=== PATIENT | female | born 1935 | race Caucasian/White ===

== ENCOUNTER 2016-06-23 13:07 | Emergency (ER) | payer MEDICARE ==
[~2016-06-23] VITALS: Ht 180.3 cm; Wt 82.1 kg
[~2016-06-23 13:07] MED LIST: ALPR.25 PO; CITA10TA4 PO; DILT120T PO; HYDR-2374 PO; MULT-135 PO; ROPI.5 PO; SPIR25TA PO; SYMB80AE INH; XARE20TA PO
[2016-06-23 13:17] VITALS: BP 116/60; PULSE 90; RESP 16; TEMP 97.6; O2SAT 96
[2016-06-23] MEDS ORDERED: TETANUS/DIPHTHERIA TOXOID ADULT 0.5 ML VIAL IM ONE (13:30)
--- NOTE | 2016-06-23 13:44 | PD ---
HPI Chief Complaint: Laceration/Skin Injury Time Seen by Provider: 13:29 Travel History International Travel<30 days: No Contact w/Intl Traveler<30days: No Traveled to known affect area: No History of Present Illness HPI Patient is a 81-year-old female presented to the emergency for evaluation of a laceration to her left second finger. Patient cut her finger on a knife yesterday. She denies any numbness or tingling in her extremity, she denies any weakness. She is uncertain of when her last tetanus vaccine was. Patient states it's "gushing blood". She denies any significant pain. 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) Headaches: No Hepatitis: No Hiatal Hernia: No Hypertension: No Immune Disorder: No Kidney Stones: No Musculoskeletal: Yes (sciatica) Neurologic: No Psychiatric: No Reproductive: Yes (HYSTERECTOMY) Respiratory: Yes (COPD) Migraines: No Radiation Therapy: Yes (LAST TX 02/24/15) Renal Failure: No Seizures: No Sickle Cell Disease: No Sleep Apnea: No Thyroid Disease: No Ulcer: No Menopausal: Yes : 3 Para: 3 Past Surgical History Abdominal Surgery: Yes (APPENDECTOMY, cholecystectomy) AICD: No Appendectomy: Yes Arteriovenous Shunt: No Cardiac Surgery: No Cholecystectomy: Yes Ear Surgery: No Endocrine Surgery: No Eye Surgery: Yes (CATARACTS BILAT) Genitourinary Surgery: No Gynecologic Surgery: Yes Hysterectomy: Yes Insulin Pump: No Joint Replacement: Yes (BILAT KNEES AND HIPS) Neurologic Surgery: No Oral Surgery: No Pacemaker: No Thoracic Surgery: Yes (LEFT LOBECTOMY) Other Surgery: Yes Social History Alcohol Use: No (RECOVERING ALCOHOLIC (1987)) Tobacco Use: No (QUIT IN 1988) Substance Use: No Allergies-Medications (Allergen,Severity, Reaction): Coded Allergies: Aspirin (Verified Allergy, Severe, PT HAS BEEN TAKEN ASACOL AT HOME, ) Cipro (Verified Allergy, Severe, DIARRHEA, 06/23/16) Erythromycin (Verified Allergy, Severe, NAUSEA, 06/23/16) Keflex (Verified Allergy, Severe, DIARRHEA, 06/23/16) Levaquin (Verified Allergy, Severe, DIARRHEA, 06/23/16) Nonsteroidal Anti-Inflammatory Agts (Verified Allergy, Severe, Nausea/ Vomiting, 06/23/16) Clindamycin (Verified Allergy, Unknown, Diarrhea, 06/23/16) Penicillin (Verified Adverse Reaction, Mild, Itching, 06/23/16) Uncoded Allergies: Adhesive tape (Allergy, Intermediate, 12/19/15) . LACTOSE INTOLERANCE (Allergy, Intermediate, 12/19/15) . Reported Meds & Prescriptions Reported Meds & Active Scripts Active Reported Diltiazem (Diltiazem HCl) 120 Mg Tab 240 Mg PO DAILY Xarelto (Rivaroxaban) 20 Mg Tab 20 Mg PO DAILY Citalopram (Citalopram Hydrobromide) 10 Mg Tab 10 Mg PO DAILY Multi Vitamin (Multiple Vitamin) 1 Tab Tab 1 Tab PO DAILY Hydrocodone-Acetaminophen 10-300 Tab 1 Tab PO TID PRN Requip (Ropinirole HCl) 0.5 Mg Tab 0.5 Mg PO HS Symbicort Inh (Budesonide/Formoterol Fumarate) 80-4.5 Mcg/Act Aero 2 Puff INH Q12HR Xanax (Alprazolam) 0.25 Mg Tab 0.25 Mg PO BID PRN Spironolactone 25 Mg Tab 25 Mg PO DAILY Review of Systems Except as stated in HPI: all other systems reviewed are Neg Skin: Positive Other (laceration) Physical Exam Narrative GENERAL: Well-nourished, well-developed patient. SKIN: Focused skin assessment warm/dry. 4 mm very superficial laceration to left second finger on the palmar aspect at the DIP joint. HEAD: Normocephalic. EYES: No scleral icterus. No injection or drainage. NECK: Supple, trachea midline. No JVD or lymphadenopathy. CARDIOVASCULAR: Regular rate and rhythm without murmurs, gallops, or rubs. RESPIRATORY: Breath sounds equal bilaterally. No accessory muscle use. GASTROINTESTINAL: Abdomen soft, non-tender, nondistended. MUSCULOSKELETAL: No cyanosis, or edema. BACK: Nontender without obvious deformity. No CVA tenderness. Data Data Last Documented VS Vital Signs Date Time Temp Pulse Resp B/P Pulse Ox O2 Delivery O2 Flow Rate FiO2 06/23/16 13:17 97.6 90 16 116/60 96 Orders Wound Care (06/23/16 13:27) Splint Or Brace Apply/Monitor (06/23/16 13:27) Tetanus/Diphtheria Tox Adult (Tetanus/Di (06/23/16 13:30) MDM Medical Decision Making Medical Screen Exam Complete: Yes Emergency Medical Condition: Yes Interpretation(s) Vital Signs Date Time Temp Pulse Resp B/P Pulse Ox O2 Delivery O2 Flow Rate FiO2 06/23/16 13:17 97.6 90 16 116/60 96 Differential Diagnosis Laceration versus abrasion versus tendon injury versus other Narrative Course Patient is a 81-year-old female presenting to the emergency for evaluation of a laceration to her left second finger that occurred last night due to a kitchen knife. Patient is neurovascularly intact, the wound is extremely superficial. There is no active bleeding noted at this time. Patient will be provided with wound care, a Steri-Strip will be applied and patient will be placed in a finger splint. Patient's tetanus vaccine will be updated today. She is encouraged to keep wound clean and dry, keep finger splint on to allow wound to heal. She is encouraged to return to emergency department for any new or worsening symptoms. Patient verbalized understanding of these instructions. Patient is stable for discharge. Diagnosis Primary Impression: Superficial laceration Additional Impressions: Need for vaccine for TD (tetanus-diphtheria) Encounter for administration of vaccine Referrals: Primary Care Physician Patient Instructions: Finger Laceration (ED), General Instructions Additional Instructions: Keep wound clean and dry Keep finger splint on to allow healing. You may remove while showering Follow-up with your primary doctor Return to emergency department for any new or worsening symptoms Med/Other Pt SpecificInfo: No Change to Meds Disposition: 01 DISCHARGE HOME Condition: Stable Ricco,Maris CRYSTAL Jun 23, 2016 13:44
[2016-06-23] MEDS ORDERED: FURO20TA PO (14:14)
[2016-06-23] MEDS ORDERED: CYCL1TAB29 PO (14:14)
[2016-06-23] MEDS ORDERED: TAZT180C PO (14:14)
[2016-06-23] MEDS ORDERED: DIGO1TAB59 PO (14:14)
[2016-06-23] MEDS ORDERED: ATEN25TA PO (14:14)
[2016-06-23] MEDS ORDERED: ALEN1TAB48 PO (14:14)
[2016-06-23] MEDS ORDERED: APIX5TAB PO (14:14)
== END 2016-06-23 14:27 | disposition home or self-care (01) ==
LOC: PHEFT 13:07
DX: S60.411A Abrasion of left index finger, initial encounter (principal); I47.1 Supraventricular tachycardia; E78.00 Pure hypercholesterolemia, unspecified; J44.9 Chronic obstructive pulmonary disease, unspecified; Z87.891 Personal history of nicotine dependence; Z23 Encounter for immunization; W26.0XXA Contact with knife, initial encounter; Y93.9 Activity, unspecified; Y92.9 Unspecified place or not applicable; Y99.8 Other external cause status
CPT/HCPCS: 29130; 90471; 90714

== ENCOUNTER 2016-07-28 12:16 | Emergency (ER) | payer MEDICARE ==
[~2016-07-28] VITALS: Ht 175.3 cm; Wt 81.0 kg
[~2016-07-28 12:16] MED LIST changes: +ALEN1TAB48 PO; +APIX5TAB PO; +ATEN25TA PO; +CYCL1TAB29 PO; +DIGO1TAB59 PO; -DILT120T PO; +FURO20TA PO; +TAZT180C PO; -XARE20TA PO
[2016-07-28 12:24] VITALS: BP 156/82; PULSE 98; RESP 16; TEMP 97.5; O2SAT 92
[2016-07-28] MEDS ORDERED: LIDOCAINE 1%/EPINEPHrine 1:100,000 SOLN 20 ML VIAL INFIL ONE (12:45)
--- NOTE | 2016-07-28 12:49 | PD ---
HPI Chief Complaint: Fall Time Seen by Provider: 12:29 Travel History International Travel<30 days: No Contact w/Intl Traveler<30days: No Traveled to known affect area: No History of Present Illness HPI This 81-year-old female had a fall at home. She landed on her knees. She did not have a loss of consciousness. She has some pain in both of her knees. She has had bilateral knee replacements. She also sustained a laceration on the left knee. She has no other complaints. She is on Xarelto. 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) Headaches: No Hepatitis: No Hiatal Hernia: No Hypertension: No Immune Disorder: No Kidney Stones: No Musculoskeletal: Yes (sciatica) Neurologic: No Psychiatric: No Reproductive: Yes (HYSTERECTOMY) Respiratory: Yes (COPD) Migraines: No Radiation Therapy: Yes (LAST TX 02/24/15) Renal Failure: No Seizures: No Sickle Cell Disease: No Sleep Apnea: No Thyroid Disease: No Ulcer: No ?: Not Menopausal: Yes : 3 Para: 3 Past Surgical History Abdominal Surgery: Yes (APPENDECTOMY, cholecystectomy) AICD: No Appendectomy: Yes Arteriovenous Shunt: No Cardiac Surgery: No Cholecystectomy: Yes Ear Surgery: No Endocrine Surgery: No Eye Surgery: Yes (CATARACTS BILAT) Genitourinary Surgery: No Gynecologic Surgery: Yes Hysterectomy: Yes Insulin Pump: No Joint Replacement: Yes (BILAT KNEES AND HIPS) Neurologic Surgery: No Oral Surgery: No Pacemaker: No Thoracic Surgery: Yes (LEFT LOBECTOMY) Other Surgery: Yes Social History Alcohol Use: No (RECOVERING ALCOHOLIC (1987)) Tobacco Use: No (QUIT IN 1988) Substance Use: No Allergies-Medications (Allergen,Severity, Reaction): Coded Allergies: Aspirin (Verified Allergy, Severe, PT HAS BEEN TAKEN ASACOL AT HOME, ) Cipro (Verified Allergy, Severe, DIARRHEA, 07/28/16) Erythromycin (Verified Allergy, Severe, NAUSEA, 07/28/16) Keflex (Verified Allergy, Severe, DIARRHEA, 07/28/16) Levaquin (Verified Allergy, Severe, DIARRHEA, 07/28/16) Nonsteroidal Anti-Inflammatory Agts (Verified Allergy, Severe, Nausea/ Vomiting, 07/28/16) Clindamycin (Verified Allergy, Unknown, Diarrhea, 07/28/16) Penicillin (Verified Adverse Reaction, Mild, Itching, 07/28/16) Uncoded Allergies: Adhesive tape (Allergy, Intermediate, 12/19/15) . LACTOSE INTOLERANCE (Allergy, Intermediate, 12/19/15) . Reported Meds & Prescriptions Reported Meds & Active Scripts Active Reported Flexeril (Cyclobenzaprine HCl) 10 Mg Tab 10 Mg PO TID PRN Alendronate (Alendronate Sodium) 70 Mg Tab 70 Mg PO Q7D Digitek (Digoxin) 0.125 Mg Tab 0.125 Mg PO EVERY OTHER DAY Eliquis (Apixaban) 5 Mg Tab 5 Mg PO BID Furosemide 20 Mg Tab 20 Mg PO DAILY Taztia Xt (Diltiazem ER 24 HR) 180 Mg Caper 180 Mg PO BID Atenolol 25 Mg Tab 25 Mg PO DAILY Citalopram (Citalopram Hydrobromide) 10 Mg Tab 20 Mg PO DAILY Hydrocodone-Acetaminophen 10-300 Tab 1 Tab PO QID PRN Requip (Ropinirole HCl) 0.5 Mg Tab 0.5 Mg PO HS Symbicort Inh (Budesonide/Formoterol Fumarate) 80-4.5 Mcg/Act Aero 2 Puff INH Q12HR Xanax (Alprazolam) 0.25 Mg Tab 0.25 Mg PO BID PRN Spironolactone 25 Mg Tab 25 Mg PO BID Review of Systems General / Constitutional: No: Fever, Chills Eyes: No: Diploplia, Blurred Vision HENT: No: Headaches Respiratory: No: Cough Gastrointestinal: No: Nausea, Vomiting Genitourinary: No: Frequency, Dysuria Endocrine: No: Heat Intolerance, Cold Intolerance Hematologic/Lymphatic: Positive: Easy Bruising Physical Exam Narrative GENERAL: Well-developed female SKIN: Focused skin assessment warm/dry. HEAD: Atraumatic. Normocephalic. EYES: Pupils equal and round. No scleral icterus. No injection or drainage. ENT: No nasal bleeding or discharge. Mucous membranes pink and moist. NECK: Trachea midline. No JVD. . MUSCULOSKELETAL: No obvious deformities. No clubbing. No cyanosis. No edema. There is some ecchymosis of the left knee. She is able to flex and extend the knee. Right knee has a laceration of the anterior portion which is about 8 cm in length. She is able to flex and extend the knee. She was able to bear weight and was able to walk to the bathroom with the use of a walker so I don't think x-rays are warranted NEUROLOGICAL: Awake and alert. No obvious cranial nerve deficits. Motor grossly within normal limits. Normal speech. PSYCHIATRIC: Appropriate mood and affect; insight and judgment normal. Data Data Last Documented VS Vital Signs Date Time Temp Pulse Resp B/P Pulse Ox O2 Delivery O2 Flow Rate FiO2 07/28/16 12:24 97.5 98 16 156/82 92 Orders Lidocai-Epi 1%-1:100,000 Inj (Xylocaine- (07/28/16 12:45) MDM Medical Decision Making Medical Screen Exam Complete: Yes Emergency Medical Condition: Yes Medical Record Reviewed: Yes Differential Diagnosis Differential includes laceration left knee, contusions Narrative Course Laceration of the knee has been sutured. Patient is stable for discharge Diagnosis Primary Impression: Laceration of left knee Qualified Code: S81.012A - Laceration of left knee, initial encounter Additional Impressions: Contusion of knee, right Contusion of knee, left Disposition: 01 DISCHARGE HOME Condition: Stable Carlos Bales MD July 28, 2016 12:49
--- NOTE | 2016-07-28 13:53 | PD ---
Physical Exam Time Seen by Provider: 13:40 Narrative I was asked by Dr. Montes to repair laceration location. Please see his note for further details. Data Data Last Documented VS Vital Signs Date Time Temp Pulse Resp B/P Pulse Ox O2 Delivery O2 Flow Rate FiO2 07/28/16 12:24 97.5 98 16 156/82 92 Orders Lidocai-Epi 1%-1:100,000 Inj (Xylocaine- (07/28/16 12:45) MDM Medical Record Reviewed: Yes Supervised Visit with SANA: Yes Procedures Procedure Narrative LACERATION LOCATION: Left knee LENGTH: 10 cm NUMBER OF STITCHES/CEM: 13 REPAIR: The area of the laceration was prepped with Betadine and sterilely draped. The laceration was infiltrated with 1% lidocaine with epinephrine. The wound was copiously irrigated and explored without evidence of foreign body , tendon injury or neurovascular injury. The wound was closed using 4-0 Prolene. This was a single layer repair. A sterile dressing was applied. The patient was advised to keep the dressing clean and dry. Patient tolerated the procedure well. Diagnosis Primary Impression: Laceration of left knee Qualified Code: S81.012A - Laceration of left knee, initial encounter Additional Impressions: Contusion of knee, left Contusion of knee, right Referrals: Mitchell Cardona MD (PCP) Patient Instructions: General Instructions Departure Forms: Tests/Procedures Disposition: 01 DISCHARGE HOME Condition: Stable Jocelyn Jarvis July 28, 2016 13:53
== END 2016-07-28 14:15 | disposition home or self-care (01) ==
LOC: PHED 12:16
DX: S81.012A Laceration without foreign body, left knee, initial encounter (principal); S80.02XA Contusion of left knee, initial encounter; S80.01XA Contusion of right knee, initial encounter; M19.90 Unspecified osteoarthritis, unspecified site; I48.91 Unspecified atrial fibrillation; I50.9 Heart failure, unspecified; J44.9 Chronic obstructive pulmonary disease, unspecified; W19.XXXA Unspecified fall, initial encounter; Y92.009 Unspecified place in unspecified non-institutional (private) residence as the place of occurrence of the external cause
CPT/HCPCS: 12004

== ENCOUNTER 2016-08-14 13:39 | Inpatient (IN) | payer MEDICARE ==
[~2016-08-14] VITALS: Ht 175.3 cm; Wt 78.4 kg
[2016-08-14] VITALS (7 sets, daily range): BP systolic 106–130; BP diastolic 46–73; PULSE 74–89; RESP 17–20; TEMP 96–97.4; O2SAT 88–98
[~2016-08-14 13:39] MED LIST changes: -MULT-135 PO
[2016-08-14] MEDS ORDERED: VANCOMYCIN INJ 1,000 MG in SODIUM CHLOR 0.9% 250 ML INJ 250 ML IV ONE (14:30)
[2016-08-14] MEDS ORDERED: FUROSEMIDE 40 MG/4 ML VIAL IV PUSH ONE (14:30)
--- NOTE | 2016-08-14 14:32 | PD ---
HPI Chief Complaint: Edema Time Seen by Provider: 14:20 Travel History International Travel<30 days: No Contact w/Intl Traveler<30days: No Traveled to known affect area: No History of Present Illness HPI 81 year-old woman, multiple medical problems, presents to the emergency department with lower leg swelling, pain, redness, and weight gain. Patient was seen July 28 for laceration left knee after she fell. She's been following up with Dr. Cardona, her primary doctor. Since that time said worsening swelling of both legs, and weight gain. Over the past couple days she started to develop pain redness swelling and erythema on the left leg. She' s been compliant with her spironolactone and Lasix. Despite this she's had worsening edema. She was sent to the emergency department today from Dr. Cardona's office. History Past Medical History Narrative Medical Anxiety CAD A. fib, on the digoxin, Eliquis CHF, on Lasix 20 mg daily, spironolactone 25 mg twice daily Chronic pain COPD Diverticulosis Iron deficiency anemia Monoclonal gammopathy of undetermined significance Obesity RLS Influenza Vaccination: Yes Menopausal: Yes : 3 Para: 3 Social History Alcohol Use: No Tobacco Use: No Allergies-Medications (Allergen,Severity, Reaction): Coded Allergies: Aspirin (Verified Allergy, Severe, PT HAS BEEN TAKEN ASACOL AT HOME, ) Cipro (Verified Allergy, Severe, DIARRHEA, 08/14/16) Erythromycin (Verified Allergy, Severe, NAUSEA, 08/14/16) Keflex (Verified Allergy, Severe, DIARRHEA, 08/14/16) Levaquin (Verified Allergy, Severe, DIARRHEA, 08/14/16) Nonsteroidal Anti-Inflammatory Agts (Verified Allergy, Severe, Nausea/ Vomiting, 08/14/16) Clindamycin (Verified Allergy, Unknown, Diarrhea, 08/14/16) Penicillin (Verified Adverse Reaction, Mild, Itching, 08/14/16) Uncoded Allergies: Adhesive tape (Allergy, Intermediate, 12/19/15) . LACTOSE INTOLERANCE (Allergy, Intermediate, 12/19/15) . Reported Meds & Prescriptions Reported Meds & Active Scripts Active Reported Flexeril (Cyclobenzaprine HCl) 10 Mg Tab 10 Mg PO TID PRN Alendronate (Alendronate Sodium) 70 Mg Tab 70 Mg PO Q7D Digitek (Digoxin) 0.125 Mg Tab 0.125 Mg PO EVERY OTHER DAY Eliquis (Apixaban) 5 Mg Tab 5 Mg PO BID Furosemide 20 Mg Tab 20 Mg PO DAILY Taztia Xt (Diltiazem ER 24 HR) 180 Mg Caper 180 Mg PO BID Atenolol 25 Mg Tab 25 Mg PO DAILY Citalopram (Citalopram Hydrobromide) 10 Mg Tab 20 Mg PO DAILY Hydrocodone-Acetaminophen 10-300 Tab 1 Tab PO QID PRN Requip (Ropinirole HCl) 0.5 Mg Tab 0.5 Mg PO HS Symbicort Inh (Budesonide/Formoterol Fumarate) 80-4.5 Mcg/Act Aero 2 Puff INH Q12HR Xanax (Alprazolam) 0.25 Mg Tab 0.25 Mg PO BID PRN Spironolactone 25 Mg Tab 25 Mg PO BID Review of Systems Except as stated in HPI: all other systems reviewed are Neg Physical Exam Narrative GENERAL: Obese 81 year-old woman, no acute distress. SKIN: Focused skin assessment warm/dry. CARDIOVASCULAR: Regular rate and rhythm. No murmur appreciated. RESPIRATORY: No respiratory distress. Lungs are clear. No Rales. GASTROINTESTINAL: Abdomen soft, non-tender, nondistended. Hepatic and splenic margins not palpable. MUSCULOSKELETAL: No obvious deformities. Marked pitting edema both lower extremities. Left lower extremity has erythema redness with some ecchymosis on the medial ankle. NEUROLOGICAL: Awake and alert. No obvious cranial nerve deficits. Motor grossly within normal limits. Normal speech. PSYCHIATRIC: Appropriate mood and affect; insight and judgment normal. Data Data Last Documented VS Vital Signs Date Time Temp Pulse Resp B/P Pulse Ox O2 Delivery O2 Flow Rate FiO2 08/14/16 16:49 89 18 112/64 94 Room Air 08/14/16 14:23 2 08/14/16 13:51 97.4 Orders Complete Blood Count With Diff (08/14/16 14:26) Comprehensive Metabolic Panel (08/14/16 14:26) Iv Access Insert/Monitor (08/14/16 14:26) Act Partial Throm Time (Ptt) (08/14/16 14:26) Prothrombin Time / Inr (Pt) (08/14/16 14:26) Chest, Single Ap (08/14/16 ) Us Leg Venous Doppler Bilat (08/14/16 ) Furosemide Inj (Lasix Inj) (08/14/16 14:30) Vancomycin Inj (Vancomycin Inj) (08/14/16 14:30) Labs Laboratory Tests Test 08/14/16 14:39 White Blood Count 7.3 TH/MM3 Red Blood Count 3.98 MIL/MM3 Hemoglobin 12.6 GM/DL Hematocrit 38.4 % Mean Corpuscular Volume 96.4 FL Mean Corpuscular Hemoglobin 31.7 PG Mean Corpuscular Hemoglobin 32.9 % Concent Red Cell Distribution Width 14.2 % Platelet Count 254 TH/MM3 Mean Platelet Volume 7.8 FL Neutrophils (%) (Auto) 70.6 % Lymphocytes (%) (Auto) 20.9 % Monocytes (%) (Auto) 6.2 % Eosinophils (%) (Auto) 1.6 % Basophils (%) (Auto) 0.7 % Neutrophils # (Auto) 5.1 TH/MM3 Lymphocytes # (Auto) 1.5 TH/MM3 Monocytes # (Auto) 0.5 TH/MM3 Eosinophils # (Auto) 0.1 TH/MM3 Basophils # (Auto) 0.1 TH/MM3 CBC Comment DIFF FINAL Differential Comment Prothrombin Time 10.9 SEC Prothromb Time International 1.0 RATIO Ratio Activated Partial 25.5 SEC Thromboplast Time Sodium Level 142 MEQ/L Potassium Level 3.7 MEQ/L Chloride Level 105 MEQ/L Carbon Dioxide Level 31.4 MEQ/L Anion Gap 6 MEQ/L Blood Urea Nitrogen 9 MG/DL Creatinine 0.61 MG/DL Estimat Glomerular Filtration 95 ML/MIN Rate Random Glucose 89 MG/DL Calcium Level 9.1 MG/DL Total Bilirubin 0.4 MG/DL Aspartate Amino Transf 33 U/L (AST/SGOT) Alanine Aminotransferase 75 U/L (ALT/SGPT) Alkaline Phosphatase 69 U/L Total Protein 6.8 GM/DL Albumin 3.3 GM/DL [facility] Medical Decision Making Medical Screen Exam Complete: Yes Emergency Medical Condition: Yes Differential Diagnosis CHF, volume overload, DVT, cellulitis, other Narrative Course Medical decision making 81-year-old woman presents to the emergency department with lower extremity swelling and edema. Edema appears symmetric but she has clear left leg redness erythema and ecchymosis suggestive of infection. She does have a fall with left knee injury and laceration. Should be a risk for DVT. This is likely volume overload with some left lower extremity cellulitis. We'll give diuretics , antibiotics, check labs, admission. Vu Bal MD Aug 14, 2016 14:32
[2016-08-14 15:01] LABS: AUTOMATED NEUTROPHIL # 5.1 TH/MM3 (1.8-7.7); BASOPHIL # 0.1 TH/MM3 (0-0.2); BASOPHIL % 0.7 % (0.0-2.0); EOSINOPHIL # 0.1 TH/MM3 (0-0.4); EOSINOPHIL % 1.6 % (0.0-4.0); HEMATOCRIT 38.4 % (35.0-46.0); HEMO FLAGS DIFF FINAL; LYMPH % 20.9 % (9.0-44.0); LYMPHOCYTE # 1.5 TH/MM3 (1.0-4.8); MEAN CELL VOLUME 96.4 FL (80.0-100.0); MEAN CORPUSCULAR HEMOGLOBIN 31.7 PG (27.0-34.0); MEAN CORPUSCULAR HGB CONC 32.9 % (32.0-36.0); MONO % 6.2 % (0.0-8.0); NEUT % 70.6 % (16.0-70.0); PLATELET COUNT 254 TH/MM3 (150-450); RED BLOOD COUNT 3.98 MIL/MM3 (4.00-5.30); RED CELL DISTRIBUTION WIDTH 14.2 % (11.6-17.2); WHITE BLOOD COUNT 7.3 TH/MM3 (4.0-11.0)
[2016-08-14 15:08] LABS: CHLORIDE 105 MEQ/L (98-107); POTASSIUM 3.7 MEQ/L (3.5-5.1); SODIUM (NA) 142 MEQ/L (136-145)
[2016-08-14 15:12] LABS: ANION GAP 6 MEQ/L (5-15); BICARBONATE 31.4 MEQ/L (21.0-32.0); BLOOD UREA NITROGEN 9 MG/DL (7-18)
[2016-08-14 15:13] LABS: APTT (PATIENT) 25.5 SEC (24.3-30.1); PROTHROMBIN TIME - PATIENT 10.9 SEC (9.8-11.6)
[2016-08-14 15:15] LABS: ALT (GPT) 75 U/L (10-53); AST (GOT) 33 U/L (15-37); GLOMERULAR FILTRATION RATE 95 ML/MIN (>89)
[2016-08-14 15:16] LABS: TOTAL BILIRUBIN ADULT 0.4 MG/DL (0.2-1.0)
[2016-08-14 15:17] LABS: ALKALINE PHOSPHATASE 69 U/L (45-117)
--- NOTE | 2016-08-14 15:20 | RADHPO ---
EXAM DATE/TIME: 08/14/2016 14:47 [facility] COMPARISON: CHEST SINGLE AP, December 19, 2015, 8:25. INDICATIONS : Short of breath MEDICAL HISTORY : Congestive heart failure. Hypercholesterolemia. A-fib SURGICAL HISTORY : None. ENCOUNTER: Initial ACUITY: 1 day PAIN SCORE: 0/10 LOCATION: Bilateral chest FINDINGS: Heart is enlarged. Mild interstitial edema is present. Minimal consolidation is seen laterally in t he right lung. Degenerative changes are seen about both shoulders. CONCLUSION: 1. Cardiomegaly with mild congestive failure. 2. Minimal consolidative changes laterally in the right lung, stable in the interval. Julian Jackson MD FACR on August 14, 2016 at 15:17 Board Certified Radiologist. This report was verified electronically.
--- NOTE | 2016-08-14 16:24 | RADHPO ---
EXAM DATE/TIME: 08/14/2016 15:06 [facility] COMPARISON: US LEG BILATERAL VENOUS DOPPLER, March 24, 2014, 14:13. INDICATIONS : Bilateral leg edema. MEDICAL HISTORY : Congestive heart failure. Carcinoma, lung. Inflammatory bowel disease. Syncope. Afib. SVT. COPD. Dysp aditya. Colitis. Arthritis. Osteoporosis. Osteoarthritis. Sciatica. Depression. Anxiety. Anticoagulant therapy, Eliquis. MRSA. SURGICAL HISTORY : Appendectomy.Cholecystectomy. Hysterectomy.Bilateral cataract extraction. Left lobectomy. Right shoul annamaria. Bilateral knees and hips replacement. Cancer cyst removed from bladder. Radiation therapy. Blood transfusions. ENCOUNTER: Initial ACUITY: 2 day PAIN SCORE: 7/10 LOCATION: Bilateral leg. TECHNIQUE: Venous ultrasound of the left and right leg was performed from the inguinal ligament to the proximal calf. Real-time, color Doppler and spectral tracing, compression and augmentation techniques were us ed. FINDINGS: Limited evaluation of the posterior tibial veins due to significant lower extremity edema. RIGHT LEG: There is normal compressibility of the deep venous system from the inguinal region to the proximal ca lf. No echogenic clot is seen in the lumen of the common femoral, femoral, popliteal, and posterior tibial veins. There is a normal response of the venous system to proximal and distal augmentation an d respiration. LEFT LEG: There is normal compressibility of the deep venous system from the inguinal region to the proximal ca lf. No echogenic clot is seen in the lumen of the common femoral, femoral, popliteal, and posterior tibial veins. There is a normal response of the venous system to proximal and distal augmentation an d respiration. CONCLUSION: 1. Limited evaluation of the posterior tibial veins bilaterally due to 2 significant edema. 2. Otherwise, no sonographic evidence for lower extremity DVT. Carlos Mejía MD on August 14, 2016 at 16:20 Board Certified Radiologist. This report was verified electronically.
[2016-08-14] MEDS ORDERED: ALPRAZolam 0.25 MG TAB PO PRN (17:45)
[2016-08-14] MEDS ORDERED: HEPARIN SODIUM - SQ 10,000 UNITS/ML VIAL SQ SCH (17:45)
[2016-08-14] MEDS ORDERED: SODIUM CHLORIDE 0.9% FLUSH 10 ML FLUSH IV FLUSH PRN (17:45)
[2016-08-14] MEDS ORDERED: BISACODYL 10 MG SUPP RECTAL PRN (17:45)
[2016-08-14] MEDS ORDERED: LACTULOSE SYRUP 20 GM/30 ML CUP PO PRN (17:45)
[2016-08-14] MEDS ORDERED: MAGNESIUM HYDROXIDE SUSP 30 ML CUP PO PRN (17:45)
[2016-08-14] MEDS ORDERED: NALOXONE HCL 0.4 MG/ML AMP IV PRN (17:45)
[2016-08-14] MEDS ORDERED: SENNOSIDES 8.6 MG TAB PO PRN (17:45)
--- NOTE | 2016-08-14 17:48 | HHI.HP ---
[facility] Mitchell Cardona MD Admission Diagnosis edema, cellulitis Diagnoses: (1) Bilateral lower extremity edema Diagnosis: Principal (2) Cellulitis of left lower extremity Diagnosis: Principal Chief Complaint: Sent here by her primary medical doctor Travel History International Travel<30 Days: No Contact w/Intl Traveler <30 Da: No Traveled to Known Affected Are: No History of Present Illness Written by Mp Herbert, acting as scribe for Dr. Garcia on 08/14/16 at 17: 33. 81-year-old female with known history of hypertension, supraventricular tachycardia, chronic obstructive pulmonary disease who presented to hospital at the request of her primary medical doctor because of bilateral lower extremity edema, left lower extremities cellulitis. Patient indicates that her symptoms started on Jul 28 2016 when she fell down and hit her knee. At that time she came to the emergency department and had a laceration of her knee repaired. Since then the patient is had increased swelling in her lower extremities and developing redness located over the medial aspect of her left lower extremity. The patient was told by the ER physician that she could follow-up in the ER or go to her regular medical doctor 's office for removal of sutures. The patient indicates that she went to her primary doctor's office for suture removal and because of her lower extremity edema and redness of the left lower extremity she was sent to the ER for evaluation. Patient had lower extremity ultrasound performed which showed significant edema but no evidence of any DVTs. Chest x-ray showed some cardiomegaly with mild congestive failure. Because of the patient's lower extremity edema, cellulitis of left lower extremity is recommended by the ER physician that patient be admitted for further evaluation and management. Patient denies any chest pain, shortness of breath, dyspnea, dyspnea on exertion , abdominal pain, nausea, vomiting, diarrhea, fever, chills. Review of Systems Constitutional: DENIES: Diaphoretic episodes, Fatigue, Fever, Weight gain, Weight loss, Chills, Dizziness, Change in appetite, Night Sweats Eyes: DENIES: Blurred vision, Diplopia, Eye inflammation, Eye pain, Vision loss , Double Vision Ears, nose, mouth, throat: DENIES: Hearing loss, Nasal discharge, Throat pain, Ear Pain, Running Nose, Sinus Pain, Odynophagia Respiratory: DENIES: Apneas, Cough, Snoring, Wheezing, Hemoptysis, Sputum production, Shortness of breath Cardiovascular: COMPLAINS OF: Lower Extremity Edema, DENIES: Chest pain, Palpitations, Syncope, Dyspnea on Exertion, Orthopnea Gastrointestinal: DENIES: Abdominal pain, Black stools, Bloody stools, Constipation, Diarrhea, Nausea, Vomiting, Difficulty Swallowing, Anorexia Neurologic: DENIES: Abnormal gait, Headache, Localized weakness, Paresthesias, Seizures, Speech Problems, Tremor, Poor Balance Past Family Social History Past Medical History Hypertension Supraventricular tachycardia Chronic obstructive pulmonary disease Restless leg syndrome History of lung cancer Past Surgical History Cataract surgery Tonsillectomy Left lung lobectomy Bilateral knee replacement Bilateral hip replacement Hysterectomy Appendectomy Cholecystectomy Cyst removed from her back Right shoulder surgery Reported Medications Reported Meds & Active Scripts Active Reported Flexeril (Cyclobenzaprine HCl) 10 Mg Tab 10 Mg PO TID PRN Alendronate (Alendronate Sodium) 70 Mg Tab 70 Mg PO Q7D Digitek (Digoxin) 0.125 Mg Tab 0.125 Mg PO EVERY OTHER DAY Eliquis (Apixaban) 5 Mg Tab 5 Mg PO BID Furosemide 20 Mg Tab 20 Mg PO DAILY Taztia Xt (Diltiazem ER 24 HR) 180 Mg Caper 180 Mg PO BID Atenolol 25 Mg Tab 25 Mg PO DAILY Citalopram (Citalopram Hydrobromide) 10 Mg Tab 20 Mg PO DAILY Hydrocodone-Acetaminophen 10-300 Tab 1 Tab PO QID PRN Requip (Ropinirole HCl) 0.5 Mg Tab 0.5 Mg PO HS Symbicort Inh (Budesonide/Formoterol Fumarate) 80-4.5 Mcg/Act Aero 2 Puff INH Q12HR Xanax (Alprazolam) 0.25 Mg Tab 0.25 Mg PO BID PRN Spironolactone 25 Mg Tab 25 Mg PO BID Allergies: Coded Allergies: Aspirin (Verified Allergy, Severe, PT HAS BEEN TAKEN ASACOL AT HOME, ) Cipro (Verified Allergy, Severe, DIARRHEA, 08/14/16) Erythromycin (Verified Allergy, Severe, NAUSEA, 08/14/16) Keflex (Verified Allergy, Severe, DIARRHEA, 08/14/16) Levaquin (Verified Allergy, Severe, DIARRHEA, 08/14/16) Nonsteroidal Anti-Inflammatory Agts (Verified Allergy, Severe, Nausea/ Vomiting, 08/14/16) Clindamycin (Verified Allergy, Unknown, Diarrhea, 08/14/16) Penicillin (Verified Adverse Reaction, Mild, Itching, 08/14/16) Uncoded Allergies: Adhesive tape (Allergy, Intermediate, 12/19/15) . LACTOSE INTOLERANCE (Allergy, Intermediate, 12/19/15) . Family History Record review and indicate family history of cancer Social History Patient states that she quit smoking 12 years ago, prior to that she smoked up to 2 pack a cigarettes a day since she was in college. Patient denies any alcohol or illicit drugs Physical Exam Vital Signs Vital Signs Date Time Temp Pulse Resp B/P Pulse Ox O2 Delivery O2 Flow Rate FiO2 08/14/16 16:49 89 18 112/64 94 Room Air 08/14/16 14:23 77 18 113/46 98 Nasal Cannula 2 08/14/16 14:15 96 Nasal Cannula 2 08/14/16 13:51 97.4 84 17 106/47 88 Physical Exam GENERAL: Well-developed, well-nourished, in no acute distress. alert and orientated to city, month HEENT: Head is normocephalic without any lesions or masses noted. Facial features are symmetric. Eyes: Pupils equal round reactive to light. Extraocular muscles are intact. Conjunctivae were clear. Oropharyngeal: Pharynx without any erythema edema. Tongue is midline without deviation. Buccal mucosa is moist without any masses or lesions NECK: Supple without any masses. Trachea midline no deviation. No JVD, no bruits are appreciated CARDIAC: Regular rhythm, regular rate. S1/S2 are heard. No murmurs gallops or rubs. LUNGS: Clear to auscultation bilaterally. No wheeze, rhonchi or rales. No use of accessory muscles on inspiration or expiration. ABDOMEN: Soft, nontender. Nondistended. Bowel sounds heard in all 4 quadrants. No organomegaly or masses. Negative rebound, negative guarding EXTREMITIES: 2+ pitting edema noted bilateral lower extremities, pulses are equal bilaterally. No cyanosis or clubbing NEUROLOGY: Mood and affect appear appropriate. Cranial nerves II through XII grossly intact. Muscle strength 5/5 in upper and lower extremities bilaterally. Deep tendon reflexes are 2+ in upper and lower extremities bilaterally. /LOWER EXTREMITY: Patient does have erythema noted mainly over the medial aspect of the distal lower extremity above the ankle. There is a worsening area of darkening erythema noted in the center. No open wounds, cuts, exudates Laboratory Laboratory Tests Test 08/14/16 14:39 White Blood Count 7.3 Red Blood Count 3.98 Hemoglobin 12.6 Hematocrit 38.4 Mean Corpuscular Volume 96.4 Mean Corpuscular Hemoglobin 31.7 Mean Corpuscular Hemoglobin 32.9 Concent Red Cell Distribution Width 14.2 Platelet Count 254 Mean Platelet Volume 7.8 Neutrophils (%) (Auto) 70.6 Lymphocytes (%) (Auto) 20.9 Monocytes (%) (Auto) 6.2 Eosinophils (%) (Auto) 1.6 Basophils (%) (Auto) 0.7 Neutrophils # (Auto) 5.1 Lymphocytes # (Auto) 1.5 Monocytes # (Auto) 0.5 Eosinophils # (Auto) 0.1 Basophils # (Auto) 0.1 CBC Comment DIFF FINAL Differential Comment Prothrombin Time 10.9 Prothromb Time International 1.0 Ratio Activated Partial 25.5 Thromboplast Time Sodium Level 142 Potassium Level 3.7 Chloride Level 105 Carbon Dioxide Level 31.4 Anion Gap 6 Blood Urea Nitrogen 9 Creatinine 0.61 Estimat Glomerular Filtration 95 Rate Random Glucose 89 Calcium Level 9.1 Total Bilirubin 0.4 Aspartate Amino Transf 33 (AST/SGOT) Alanine Aminotransferase 75 (ALT/SGPT) Alkaline Phosphatase 69 Total Protein 6.8 Albumin 3.3 Result Diagram: 08/14/16 1439 08/14/16 1439 Imaging Last Impressions Lower Extremity Ultrasound 08/14/16 0000 Signed Impressions: Service Date/Time: Sunday, August 14, 2016 15:06 - CONCLUSION: 1. Limited evaluation of the posterior tibial veins bilaterally due to 2 significant edema. 2. Otherwise, no sonographic evidence for lower extremity DVT. Carlos Mejía MD Chest X-Ray 08/14/16 0000 Signed Impressions: Service Date/Time: Sunday, August 14, 2016 14:47 - CONCLUSION: 1. Cardiomegaly with mild congestive failure. 2. Minimal consolidative changes laterally in the right lung, stable in the interval. Julian Jackson MD FACR Assessment and Plan Assessment and Plan //Bilateral lower extremity edema with cellulitis of the left lower extremity on the medial aspect superior to the ankle -Patient was given Lasix 40 mg IV in emergency department -Patient started on vancomycin in the emergency department -We will increase patient's home diuretic -Echocardiogram 12/2015, indicates ejection fraction 5560 percent with normal systolic function -Chest x-ray does show some congestive pattern, -Obtain BNP //Hypertension, history of supraventricular tachycardia, history of atrial fibrillation, chronic obstructive pulmonary disease -Resume home medications //DVT prevention -Eliquis Code Status Full code Discussed Condition With patient, nurse, ED physician. Physician Certification 2 Midnight Certification Type: Admission for Inpatient Services Order for Inpatient Services The services are ordered in accordance with Medicare regulations or non- Medicare payer requirements, as applicable. In the case of services not specified as inpatient-only, they are appropriately provided as inpatient services in accordance with the 2-midnight benchmark. Estimated LOS (days): 2 days is the estimated time the patient will need to remain in the hospital, assuming treatment plan goals are met and no additional complications. Post-Hospital Plan: Not yet determined Notes: This note was transcribed by scribe [Mp Herbert]. I, Dr. Elmer Garcia personally performed the history, physical exam, and medical decision making; and confirmed the accuracy of the information in the transcribed note. Authenticated by Dr. Elmer Garcia on 08/14/16 at 22:41. Mp Herbert Aug 14, 2016 17:48 Elmer Garcia MD Aug 14, 2016 22:41
[2016-08-14] MEDS ORDERED: RESP: ALBUTEROL 2.5 MG/IPRATROPIUM 0.5 MG NEB (PRN) NEB (18:00)
[2016-08-14] MEDS: BUDESONIDE-FORMOTEROL 80/4.5 MCG INHALER INH SCH (22:08)
[2016-08-14] MEDS: SPIRONOLACTONE 25 MG TAB PO SCH (22:09)
[2016-08-14] MEDS: APIXABAN 5 MG TABLET PO SCH (22:09)
[2016-08-14] MEDS: DILTIAZEM-CD 180 MG CAP ER PO SCH (22:09)
[2016-08-14] MEDS: SODIUM CHLORIDE 0.9% FLUSH 10 ML FLUSH IV FLUSH SCH (22:10)
[2016-08-14] MEDS: DOCUSATE SODIUM 50 MG/SENNA 8.6 MG TAB PO SCH (22:10)
[2016-08-15] VITALS (10 sets, daily range): BP systolic 109–140; BP diastolic 59–73; PULSE 62–98; RESP 18–20; TEMP 96–98.1; O2SAT 94–99
[2016-08-15 07:18] LABS: AUTOMATED NEUTROPHIL # 3.4 TH/MM3 (1.8-7.7); BASOPHIL % 0.2 % (0.0-2.0); EOSINOPHIL # 0.1 TH/MM3 (0-0.4); HEMATOCRIT 38.9 % (35.0-46.0); HEMO FLAGS DIFF FINAL; LYMPH % 29.3 % (9.0-44.0); LYMPHOCYTE # 1.7 TH/MM3 (1.0-4.8); MEAN CORPUSCULAR HEMOGLOBIN 32.3 PG (27.0-34.0); MONO % 9.7 % (0.0-8.0); NEUT % 58.8 % (16.0-70.0); PLATELET COUNT 242 TH/MM3 (150-450); RED BLOOD COUNT 4.09 MIL/MM3 (4.00-5.30); RED CELL DISTRIBUTION WIDTH 13.6 % (11.6-17.2); WHITE BLOOD COUNT 5.8 TH/MM3 (4.0-11.0)
[2016-08-15 07:21] LABS: CHLORIDE 103 MEQ/L (98-107); POTASSIUM 3.5 MEQ/L (3.5-5.1); SODIUM (NA) 142 MEQ/L (136-145)
[2016-08-15 07:28] LABS: ANION GAP 9 MEQ/L (5-15); BICARBONATE 30.2 MEQ/L (21.0-32.0); BLOOD UREA NITROGEN 7 MG/DL (7-18)
[2016-08-15 07:31] LABS: ALT (GPT) 62 U/L (10-53); AST (GOT) 26 U/L (15-37); GLOMERULAR FILTRATION RATE 95 ML/MIN (>89)
[2016-08-15 07:33] LABS: TOTAL BILIRUBIN ADULT 0.8 MG/DL (0.2-1.0)
[2016-08-15 07:34] LABS: ALKALINE PHOSPHATASE 69 U/L (45-117)
[2016-08-15] MEDS: BUDESONIDE-FORMOTEROL 80/4.5 MCG INHALER INH SCH ×2 (09:00→21:08)
[2016-08-15] MEDS ORDERED: FUROSEMIDE 20 MG TAB PO SCH (09:00)
[2016-08-15] MEDS: CITALOPRAM HYDROBROMIDE 20 MG TAB PO SCH (09:01)
[2016-08-15] MEDS: DILTIAZEM-CD 180 MG CAP ER PO SCH ×2 (09:01→21:04)
[2016-08-15] MEDS: SPIRONOLACTONE 25 MG TAB PO SCH ×2 (09:01→21:05)
[2016-08-15] MEDS: DOCUSATE SODIUM 50 MG/SENNA 8.6 MG TAB PO SCH ×2 (09:01→21:00)
[2016-08-15] MEDS: ATENOLOL 25 MG TAB PO SCH (09:01)
[2016-08-15] MEDS: APIXABAN 5 MG TABLET PO SCH ×2 (09:01→21:04)
[2016-08-15] MEDS: FUROSEMIDE 40 MG TAB PO SCH (09:02)
[2016-08-15] MEDS: SODIUM CHLORIDE 0.9% FLUSH 10 ML FLUSH IV FLUSH SCH ×2 (09:02→21:11)
--- NOTE | 2016-08-15 09:05 | ECHRPT ---
Indication: Heart failure, unspecified CONCLUSIONS The left ventricular systolic function is low normal with an estimated ejection fraction in the rang e of 50- 55%. The right ventricular size is normal. The right ventricular systoilc function is normal. Normal atrial septal thickness. Mild mitral valve regurgitation. Mild thickening of the mitral valve leaflets. Mild MR. Probable trileaflet aortic valve. Mild thickening of the aortic valve leaflets. Mild aortic valve regurgitation. There is mild tricuspid valve regurgitation. The estimated pulmonary arterial pressure is __37 mmHg. The pulmonary valve is not well visualized. Trivial pulmonary valve regurgitation. The inferior vena cava was not well visualized. BP: / HR: Rhythm: MEASUREMENTS (Male / Female) Normal Values Technical Quality:Fair 2D ECHO LV Diastolic Diameter PLAX 4.7 cm 4.2 - 5.9 / 3.9 - 5.3 cm LV Systolic Diameter PLAX 3.5 cm IVS Diastolic Thickness 0.9 cm 0.6 - 1.0 / 0.6 - 0.9 cm LVPW Diastolic Thickness 1.1 cm 0.6 - 1.0 / 0.6 - 0.9 cm LV Relative Wall Thickness 0.4 RV Internal Dim ED PLAX 2.8 cm M-MODE Aortic Root Diameter MM 2.9 cm LA Systolic Diameter MM 3.5 cm LA Ao Ratio MM 1.2 AV Cusp Separation MM 2.1 cm DOPPLER AI Peak Velocity 379.0 cm/s AI Peak Gradient 57.5 mmHg AI Pressure Half Time 792.0 ms TR Peak Velocity 305.0 cm/s TR Peak Gradient 37.2 mmHg FINDINGS LEFT VENTRICLE The left ventricular systolic function is low normal with an estimated ejection fraction in the rang e of 50- 55%. RIGHT VENTRICLE The right ventricular size is normal. The right ventricular systoilc function is normal. LEFT ATRIUM The left atrial size is normal. RIGHT ATRIUM The right atrial size is normal. ATRIAL SEPTUM Normal atrial septal thickness. AORTA The aortic root and proximal ascending aorta are normal in size on limited imaging. MITRAL VALVE Mild mitral valve regurgitation. Mild thickening of the mitral valve leaflets. AORTIC VALVE Probable trileaflet aortic valve. Mild thickening of the aortic valve leaflets. Mild aortic valve regurgitation. TRICUSPID VALVE There is mild tricuspid valve regurgitation. The estimated pulmonary arterial pressure is __37 mmHg. PULMONARY VALVE The pulmonary valve is not well visualized. Trivial pulmonary valve regurgitation. VESSELS The inferior vena cava was not well visualized. PERICARDIUM No pericardial effusion. Vincenzo Fermin MD (Electronically Signed) Final Date:15 August 2016 09:04
--- NOTE | 2016-08-15 19:19 | HHI.PR ---
Subjective Remarks Patient seen this morning. Some improvement in bilateral lower extremity edema, as well as left lower extremity cellulitis. Objective Vital Signs Date Time Temp Pulse Resp B/P Pulse Ox O2 Delivery O2 Flow Rate FiO2 08/15/16 16:00 97.2 85 20 110/59 95 08/15/16 12:00 97.2 62 20 118/62 94 08/15/16 11:25 99 Nasal Cannula 2.00 08/15/16 08:15 98 08/15/16 08:00 98.1 89 20 122/73 95 08/15/16 04:00 96.0 98 20 140/72 98 08/15/16 00:00 96.2 88 20 116/68 98 08/14/16 23:59 86 08/14/16 20:00 96.0 74 20 130/73 96 08/14/16 19:50 96 21 I/O 08/14/16 08/14/16 08/14/16 08/15/16 08/15/16 08/15/16 07:00 15:00 23:00 07:00 15:00 23:00 Intake Total 610 ml 120 ml 725 ml Output Total 2250 ml 400 ml Balance -1640 ml -280 ml 725 ml Intake Oral 360 ml 120 ml 725 ml IV Total 250 ml 0 ml Output Urine Total 2250 ml 400 ml # Voids 5 3 6 # Bowel Movements 1 0 2 Result Diagram: 08/15/16 0703 08/15/16 0703 Imaging Last Impressions Lower Extremity Ultrasound 08/14/16 0000 Signed Impressions: Service Date/Time: Sunday, August 14, 2016 15:06 - CONCLUSION: 1. Limited evaluation of the posterior tibial veins bilaterally due to 2 significant edema. 2. Otherwise, no sonographic evidence for lower extremity DVT. Carlos Mejía MD Chest X-Ray 08/14/16 0000 Signed Impressions: Service Date/Time: Sunday, August 14, 2016 14:47 - CONCLUSION: 1. Cardiomegaly with mild congestive failure. 2. Minimal consolidative changes laterally in the right lung, stable in the interval. Julian Jackson MD FACR Objective Remarks GENERAL: Patient eating up in bed. Appears comfortable. Alert and oriented 3. at bedside. SKIN: Warm and dry. HEAD: Normocephalic. EYES: No scleral icterus. No injection or drainage. NECK: Supple, trachea midline. No JVD. CARDIOVASCULAR: Regular rate and rhythm without murmurs, gallops, or rubs. RESPIRATORY: Breath sounds equal bilaterally. No accessory muscle use. GASTROINTESTINAL: Abdomen soft, non-tender, nondistended. MUSCULOSKELETAL: No cyanosis. Bilateral lower extremity edema. 2+. Left greater than right. Erythema of left posterior leg appears to have improved, however still over the entire posterior and lateral lower leg below ankle, and above heel.. No loculation. No broken skin. BACK: Nontender without obvious deformity. No CVA tenderness. A/P Assessment and Plan =====08/15/16======= Some improvement in venous stasis cellulitis. Echocardiogram reviewed and stable, with mild tricuspid regurgitation. We will wrap and elevate bilateral legs overnight, give Lasix. Plan for discharge tomorrow if further improvement. Continue antibiotics //Bilateral lower extremity edema with cellulitis of the left lower extremity on the medial aspect superior to the ankle -Patient was given Lasix 40 mg IV in emergency department -Patient started on vancomycin in the emergency department -We will increase patient's home diuretic -Echocardiogram 12/2015, indicates ejection fraction 5560 percent with normal systolic function -Chest x-ray does show some congestive pattern, -BNP in the 200s, mildly elevated, confounded secondary to obesity -Echocardiogram with systolic function unchanged. Mild tricuspid regurg. Lasix overnight, with elevation and wrapping of extremities. //Hypertension, history of supraventricular tachycardia, history of atrial fibrillation, chronic obstructive pulmonary disease -We'll pressure acceptable Continue home medications //DVT prevention -Eliquis Discharge Planning If continued improvement, discharge home tomorrow with antibiotics, fluid restrictions, Julien wraps, home health for medication management. Elmer Garcia MD Aug 15, 2016 19:18
[2016-08-15] MEDS ORDERED: POTASSIUM CHLORIDE 10 MEQ CONTROLLED RELEASE TAB PO ONE (20:00)
[2016-08-15] MEDS ORDERED: FUROSEMIDE 20 MG/2 ML VIAL IV PUSH ONE (20:00)
[2016-08-16] VITALS: BP 115/67; PULSE 86; RESP 20; TEMP 98.3; O2SAT 95
[2016-08-16 04:27] VITALS: BP 105/69; PULSE 80; RESP 18; TEMP 98.4; O2SAT 96
[2016-08-16 06:36] LABS: AUTOMATED NEUTROPHIL # 3.2 TH/MM3 (1.8-7.7); BASOPHIL # 0.1 TH/MM3 (0-0.2); BASOPHIL % 0.9 % (0.0-2.0); EOSINOPHIL # 0.1 TH/MM3 (0-0.4); EOSINOPHIL % 1.3 % (0.0-4.0); HEMATOCRIT 38.5 % (35.0-46.0); HEMO FLAGS DIFF FINAL; LYMPH % 36.1 % (9.0-44.0); LYMPHOCYTE # 2.3 TH/MM3 (1.0-4.8); MEAN CELL VOLUME 95.7 FL (80.0-100.0); MEAN CORPUSCULAR HEMOGLOBIN 31.7 PG (27.0-34.0); MEAN CORPUSCULAR HGB CONC 33.1 % (32.0-36.0); MONO % 9.3 % (0.0-8.0); NEUT % 52.4 % (16.0-70.0); PLATELET COUNT 230 TH/MM3 (150-450); RED BLOOD COUNT 4.02 MIL/MM3 (4.00-5.30); RED CELL DISTRIBUTION WIDTH 13.3 % (11.6-17.2); WHITE BLOOD COUNT 6.4 TH/MM3 (4.0-11.0)
[2016-08-16 06:40] LABS: POTASSIUM 3.3 MEQ/L (3.5-5.1)
[2016-08-16 06:47] LABS: BICARBONATE 32.6 MEQ/L (21.0-32.0); MAGNESIUM 1.6 MG/DL (1.5-2.5)
[2016-08-16 07:30] VITALS: O2SAT 98
[2016-08-16 08:00] VITALS: BP 110/73; PULSE 77; RESP 20; TEMP 97.7; O2SAT 95
[2016-08-16] MEDS ORDERED: POTASSIUM CHLORIDE 20 MEQ CONTROLLED RELEASE TAB PO ONE (08:45)
[2016-08-16] MEDS: SODIUM CHLORIDE 0.9% FLUSH 10 ML FLUSH IV FLUSH SCH (09:00)
[2016-08-16] MEDS ORDERED: DIGOXIN 0.125 MG TAB PO SCH (09:00)
[2016-08-16] MEDS: FUROSEMIDE 40 MG TAB PO SCH (09:25)
[2016-08-16] MEDS: DOCUSATE SODIUM 50 MG/SENNA 8.6 MG TAB PO SCH (09:25)
[2016-08-16] MEDS: DILTIAZEM-CD 180 MG CAP ER PO SCH (09:25)
[2016-08-16] MEDS: SPIRONOLACTONE 25 MG TAB PO SCH (09:25)
[2016-08-16] MEDS: CITALOPRAM HYDROBROMIDE 20 MG TAB PO SCH (09:25)
[2016-08-16] MEDS: APIXABAN 5 MG TABLET PO SCH (09:25)
[2016-08-16] MEDS: ATENOLOL 25 MG TAB PO SCH (09:25)
[2016-08-16] MEDS: BUDESONIDE-FORMOTEROL 80/4.5 MCG INHALER INH SCH (09:26)
--- NOTE | 2016-08-16 10:01 | HHI.FF ---
Face to Face Verification Diagnosis: (1) Venous (peripheral) insufficiency (2) History of supraventricular tachycardia (3) Chronic obstructive pulmonary disease (4) Cellulitis of left lower extremity (5) Bilateral lower extremity edema (6) Weakness Physical Therapy Order: Evaluate and Treat Home Health Nursing Order: CHF education Nursing assessment with vital signs Instructions: home health for medication management. patient needs fluid restrictions of 2L per day, daily weights. I have seen patient Sandrita Hill on 08/16/16. My clinical findings support the need for the requested home health care services because: Deconditioned w/ increased weakness I certify that my clinical findings support that this patient is homebound because: Unsafe to leave home unassisted Elmer Garcia MD Aug 16, 2016 10:01
[2016-08-16] MEDS ORDERED: FURO20TA PO (10:04)
[2016-08-16] MEDS ORDERED: CEPH-460 PO (10:04)
[2016-08-16 12:00] VITALS: BP 129/72; PULSE 73; RESP 20; TEMP 97.2; O2SAT 93
[2016-08-16] MEDS ORDERED: CEPHALEXIN MONOHYDRATE 500 MG CAP PO SCH (12:00)
--- NOTE | 2016-08-17 00:03 | HHI.DS ---
Discharge Summary Admission Date Aug 14, 2016 at 17:00 Discharge Date: Aug 16, 2016 Admitting Diagnosis edema, cellulitis (1) Bilateral lower extremity edema ICD Code: R60.0 Diagnosis: Principal (2) Cellulitis of left lower extremity ICD Code: L03.116 Diagnosis: Principal Procedures no invasive procedures Brief History - From Admission Written by Mp Herbert, acting as scribe for Dr. Garcia on 08/14/16 at 17: 33. 81-year-old female with known history of hypertension, supraventricular tachycardia, chronic obstructive pulmonary disease who presented to hospital at the request of her primary medical doctor because of bilateral lower extremity edema, left lower extremities cellulitis. Patient indicates that her symptoms started on Jul 28 2016 when she fell down and hit her knee. At that time she came to the emergency department and had a laceration of her knee repaired. Since then the patient is had increased swelling in her lower extremities and developing redness located over the medial aspect of her left lower extremity. The patient was told by the ER physician that she could follow-up in the ER or go to her regular medical doctor 's office for removal of sutures. The patient indicates that she went to her primary doctor's office for suture removal and because of her lower extremity edema and redness of the left lower extremity she was sent to the ER for evaluation. Patient had lower extremity ultrasound performed which showed significant edema but no evidence of any DVTs. Chest x-ray showed some cardiomegaly with mild congestive failure. Because of the patient's lower extremity edema, cellulitis of left lower extremity is recommended by the ER physician that patient be admitted for further evaluation and management. Patient denies any chest pain, shortness of breath, dyspnea, dyspnea on exertion , abdominal pain, nausea, vomiting, diarrhea, fever, chills. CBC/BMP: 08/16/16 0545 08/16/16 0545 Significant Findings Laboratory Tests Test 08/14/16 08/15/16 08/16/16 14:39 07:03 05:45 Red Blood Count 3.98 MIL/MM3 (4.00-5.30) Neutrophils (%) (Auto) 70.6 % (16.0-70.0) Alanine Aminotransferase 75 U/L (10-53) 62 U/L (10-53) (ALT/SGPT) B-Type Natriuretic Peptide 235 PG/ML (0-100) Albumin 3.3 GM/DL 3.3 GM/DL 3.1 GM/DL (3.4-5.0) (3.4-5.0) (3.4-5.0) Monocytes (%) (Auto) 9.7 % (0.0-8.0) 9.3 % (0.0-8.0) Random Glucose 108 MG/DL (74-106) Potassium Level 3.3 MEQ/L (3.5-5.1) Carbon Dioxide Level 32.6 MEQ/L (21.0-32.0) Imaging Last Impressions Lower Extremity Ultrasound 08/14/16 0000 Signed Impressions: Service Date/Time: Sunday, August 14, 2016 15:06 - CONCLUSION: 1. Limited evaluation of the posterior tibial veins bilaterally due to 2 significant edema. 2. Otherwise, no sonographic evidence for lower extremity DVT. Carlos Mejía MD Chest X-Ray 08/14/16 0000 Signed Impressions: Service Date/Time: Sunday, August 14, 2016 14:47 - CONCLUSION: 1. Cardiomegaly with mild congestive failure. 2. Minimal consolidative changes laterally in the right lung, stable in the interval. Julian Jackson MD [facility] Course Patient was treated with diuresis, broad-spectrum antibiotics, with improvement in bilateral lower extremity edema, as well as left lower extremity cellulitis. Patient was sent home with increase in Lasix, as well as broad-spectrum antibiotics. . =====08/15/16======= Some improvement in venous stasis cellulitis. Echocardiogram reviewed and stable, with mild tricuspid regurgitation. We will wrap and elevate bilateral legs overnight, give Lasix. Plan for discharge tomorrow if further improvement. Continue antibiotics //Bilateral lower extremity edema with cellulitis of the left lower extremity on the medial aspect superior to the ankle -Patient was given Lasix 40 mg IV in emergency department -Patient started on vancomycin in the emergency department -We will increase patient's home diuretic -Echocardiogram 12/2015, indicates ejection fraction 5560 percent with normal systolic function -Chest x-ray does show some congestive pattern, -BNP in the 200s, mildly elevated, confounded secondary to obesity -Echocardiogram with systolic function unchanged. Mild tricuspid regurg. Lasix overnight, with elevation and wrapping of extremities. //Hypertension, history of supraventricular tachycardia, history of atrial fibrillation, chronic obstructive pulmonary disease -We'll pressure acceptable Continue home medications //DVT prevention -Eliquis Pt Condition on Discharge: Good Discharge Disposition: Disch w/ Home Health Serv Discharge Time: <= 30 minutes Discharge Instructions DIET: Follow Instructions for: Heart Healthy Diet Fluid Restrictions: 2 liters Activities you can perform: Regular-No Restrictions Follow up Referrals: PCP Follow-up - 1 Week with Mitchell Cardona MD [facility]/ with [facility] New Medications: Cephalexin (Keflex) 500 Mg Cap 500 MG PO Q6H Infection #28 Ref 0 CAP Changed Medications: Furosemide (Furosemide) 20 Mg Tab 40 MG PO DAILY Prevent Heart Failure #30 Ref 0 TAB (Changed from: 20 MG) Continued Medications: Alendronate (Alendronate) 70 Mg Tab 70 MG PO Q7D Osteporosis Treatment #4 Ref 0 TAB Alprazolam (Xanax) 0.25 Mg Tab 0.25 MG PO BID PRN ANXIETY Ref 0 TAB Apixaban (Eliquis) 5 Mg Tab 5 MG PO BID Blood Clot Prevention #60 Ref 0 TAB Atenolol (Atenolol) 25 Mg Tab 25 MG PO DAILY Blood Pressure Management #30 TAB Budesonide-Formoterol Inh (Symbicort Inh) 80-4.5 Mcg/Act Aero 2 PUFF INH Q12HR Asthma Management #1 Ref 0 INHALER Citalopram (Citalopram) 10 Mg Tab 20 MG PO DAILY Control Depression #30 Ref 0 TAB Cyclobenzaprine (Flexeril) 10 Mg Tab 10 MG PO TID PRN MUSCLE SPASM #90 Ref 0 TAB Digoxin (Digitek) 0.125 Mg Tab 0.125 MG PO EVERY OTHER DAY Regulate Heart Beat #30 Ref 0 TAB Diltiazem ER 24 HR (Taztia Xt) 180 Mg Caper 180 MG PO BID #30 Ref 0 CAP Hydrocodone-Acetaminophen (Hydrocodone-Acetaminophen) 10-300 Tab 1 TAB PO QID PRN PAIN Ref 0 TAB Ropinirole (Requip) 0.5 Mg Tab 0.5 MG PO HS #30 Ref 0 TAB Spironolactone (Spironolactone) 25 Mg Tab 25 MG PO BID Blood Pressure Management #30 Ref 0 TAB Elmer Garcia MD Aug 17, 2016 00:03
== END 2016-08-16 12:03 | disposition home health service (06) | DRG 603 ==
LOC: PHED 13:39 → PHEDA 17:00 → PH3A 18:41
PROVIDERS: ADMIT Internal Medicine; ATTEND Internal Medicine
DX: L03.116 Cellulitis of left lower limb (principal); I50.9 Heart failure, unspecified; I48.91 Unspecified atrial fibrillation; J44.9 Chronic obstructive pulmonary disease, unspecified; I11.0 Hypertensive heart disease with heart failure; G25.81 Restless legs syndrome; E66.9 Obesity, unspecified; I07.1 Rheumatic tricuspid insufficiency; F41.9 Anxiety disorder, unspecified; G89.29 Other chronic pain; I25.10 Atherosclerotic heart disease of native coronary artery without angina pectoris; Z79.01 Long term (current) use of anticoagulants; K57.90 Diverticulosis of intestine, part unspecified, without perforation or abscess without bleeding; Z85.118 Personal history of other malignant neoplasm of bronchus and lung; Z96.653 Presence of artificial knee joint, bilateral; Z96.643 Presence of artificial hip joint, bilateral; Z87.891 Personal history of nicotine dependence; R60.0 Localized edema; I87.8 Other specified disorders of veins
CPT/HCPCS: 71010; 80053; 80069; 83735; 83880; 85025; 85610; 85730; 93306; 93970; 94150; 96365; 96375; J1940; J3370; J7050

== ENCOUNTER 2016-09-16 09:33 | Observation (INO) | payer MEDICARE ==
[2016-09-16] VITALS (8 sets, daily range): BP systolic 106–123; BP diastolic 61–75; PULSE 78–98; RESP 16–20; TEMP 97.8–98; O2SAT 92–99
[~2016-09-16] VITALS: Ht 172.7 cm; Wt 87.7 kg
[~2016-09-16 09:33] MED LIST changes: +CEPH-460 PO
[2016-09-16] MEDS ORDERED: methylPREDNISolone SOD SUCC 125 MG/2 ML VIAL IVP ONE (10:00)
[2016-09-16] MEDS ORDERED: SODIUM CHLORIDE 0.9% FLUSH 10 ML FLUSH IVF PRN (10:00)
--- NOTE | 2016-09-16 10:02 | PD ---
HPI Chief Complaint: Respiratory Symptoms Time Seen by Provider: 09:46 Travel History International Travel<30 days: No Contact w/Intl Traveler<30days: No Traveled to known affect area: No History of Present Illness HPI C/O 2 DAYS OF SOB (USES 2L NC OXYGEN ALL THE TIME), AND CP (PRESSURE LIKE, 08/15 , NONRAD, W/O AGGRAVATING OR ALLEVIATING FACTORS). 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 PFSH Past Medical History Hx Anticoagulant Therapy: Yes (ELIQUIS) Arthritis: Yes Asthma: No Atrial Fibrillation: Yes Autoimmune Disease: No Blood Disorders: No Anxiety: No Depression: Yes Heart Rhythm Problems: Yes (SVT) Cancer: Yes (LUNG>1/4 LOBECTOMY LT) Cardiovascular Problems: Yes (a-fib) High Cholesterol: Yes Chemotherapy: No Chest Pain: No Congestive Heart Failure: Yes COPD: Yes (2L O2 AT NIGHT) Cerebrovascular Accident: No Diabetes: No Diminished Hearing: No Endocrine: No Gastrointestinal Disorders: Yes (COLITIS IBS PT DENIES) GERD: No Glaucoma: No Genitourinary: Yes (cancer cyst removed from bladder) Headaches: No Hepatitis: No Hiatal Hernia: No Hypertension: No Immune Disorder: No Kidney Stones: No Musculoskeletal: Yes (sciatica) Neurologic: No Psychiatric: No Reproductive: Yes (HYSTERECTOMY) Respiratory: Yes (COPD) Migraines: No Radiation Therapy: Yes (LAST TX 02/24/15) Renal Failure: No Seizures: No Sickle Cell Disease: No Sleep Apnea: No Thyroid Disease: No Ulcer: No Menopausal: Yes : 3 Para: 3 Past Surgical History Abdominal Surgery: Yes (APPENDECTOMY, cholecystectomy) AICD: No Appendectomy: Yes Arteriovenous Shunt: No Cardiac Surgery: No Cholecystectomy: Yes Ear Surgery: No Endocrine Surgery: No Eye Surgery: Yes (CATARACTS BILAT) Genitourinary Surgery: No Gynecologic Surgery: Yes Hysterectomy: Yes Insulin Pump: No Joint Replacement: Yes (BILAT KNEES AND HIPS) Neurologic Surgery: No Oral Surgery: No Pacemaker: No Thoracic Surgery: Yes (LEFT LOBECTOMY) Other Surgery: Yes Social History Alcohol Use: No Tobacco Use: No Substance Use: No Allergies-Medications (Allergen,Severity, Reaction): Coded Allergies: Aspirin (Verified Allergy, Severe, PT HAS BEEN TAKEN ASACOL AT HOME, ) Cipro (Verified Allergy, Severe, DIARRHEA, 09/16/16) Erythromycin (Verified Allergy, Severe, NAUSEA, 09/16/16) Keflex (Verified Allergy, Severe, DIARRHEA, 09/16/16) Levaquin (Verified Allergy, Severe, DIARRHEA, 09/16/16) Nonsteroidal Anti-Inflammatory Agts (Verified Allergy, Severe, Nausea/ Vomiting, 09/16/16) Clindamycin (Verified Allergy, Unknown, Diarrhea, 09/16/16) Penicillin (Verified Adverse Reaction, Mild, Itching, 09/16/16) Uncoded Allergies: Adhesive tape (Allergy, Intermediate, 12/19/15) . LACTOSE INTOLERANCE (Allergy, Intermediate, 12/19/15) . Reported Meds & Prescriptions Reported Meds & Active Scripts Active Furosemide 20 Mg Tab 40 Mg PO DAILY Reported Flexeril (Cyclobenzaprine HCl) 10 Mg Tab 10 Mg PO TID PRN Alendronate (Alendronate Sodium) 70 Mg Tab 70 Mg PO Q7D Digitek (Digoxin) 0.125 Mg Tab 0.125 Mg PO EVERY OTHER DAY Eliquis (Apixaban) 5 Mg Tab 5 Mg PO BID Taztia Xt (Diltiazem ER 24 HR) 180 Mg Caper 180 Mg PO BID Atenolol 25 Mg Tab 25 Mg PO DAILY Citalopram (Citalopram Hydrobromide) 10 Mg Tab 20 Mg PO DAILY Hydrocodone-Acetaminophen 10-300 Tab 1 Tab PO QID PRN Requip (Ropinirole HCl) 0.5 Mg Tab 0.5 Mg PO HS Symbicort Inh (Budesonide/Formoterol Fumarate) 80-4.5 Mcg/Act Aero 2 Puff INH Q12HR Xanax (Alprazolam) 0.25 Mg Tab 0.25 Mg PO BID PRN Spironolactone 25 Mg Tab 25 Mg PO BID Review of Systems Except as stated in HPI: all other systems reviewed are Neg Gastrointestinal: Positive: Nausea, Vomiting, Diarrhea, Abdominal Pain Physical Exam Narrative GENERAL: SKIN: Warm and dry. HEAD: Atraumatic. Normocephalic. EYES: Pupils equal and round. No scleral icterus. No injection or drainage. ENT: No nasal bleeding or discharge. Mucous membranes pink and moist. NECK: Trachea midline. No JVD. CARDIOVASCULAR: Regular rate and rhythm. RESPIRATORY: No accessory muscle use. Clear to auscultation. Breath sounds equal bilaterally. GASTROINTESTINAL: Abdomen soft, non-tender, nondistended. Hepatic and splenic margins not palpable. MUSCULOSKELETAL: Extremities without clubbing, cyanosis, or edema. No obvious deformities. NEUROLOGICAL: Awake and alert. No obvious cranial nerve deficits. Motor grossly within normal limits. Five out of 5 muscle strength in the arms and legs. Normal speech. PSYCHIATRIC: Appropriate mood and affect; insight and judgment normal. Data Data Last Documented VS Vital Signs Date Time Temp Pulse Resp B/P Pulse Ox O2 Delivery O2 Flow Rate FiO2 09/16/16 11:37 81 16 115/67 98 Room Air 2 09/16/16 09:50 97.8 Orders Complete Blood Count With Diff (09/16/16 09:47) Comprehensive Metabolic Panel (09/16/16 09:47) B-Type Natriuretic Peptide (09/16/16 09:47) Act Partial Throm Time (Ptt) (09/16/16 09:47) Prothrombin Time / Inr (Pt) (09/16/16 09:47) Ckmb (Isoenzyme) Profile (09/16/16 09:47) Troponin I (09/16/16 09:47) Influenzae A/B Antigen (09/16/16 09:47) Iv Access Insert/Monitor (09/16/16 09:47) Electrocardiogram (09/16/16 09:47) Ecg Monitoring (09/16/16 09:47) Oximetry (09/16/16 09:47) Oxygen Administration (09/16/16 09:47) Chest, Single Ap (09/16/16 09:47) Sodium Chloride 0.9% Flush (Ns Flush) (09/16/16 10:00) Methylprednisolone So Succ Inj (Solumedr (09/16/16 10:00) Albuterol Neb (Albuterol Neb) (09/16/16 10:00) CKMB (09/16/16 09:50) CKMB% (09/16/16 09:50) Urinalysis - C+S If Indicated (09/16/16 10:39) Alprazolam (Xanax) (09/16/16 12:00) Apixaban (Eliquis) (09/16/16 21:00) Atenolol (Tenormin) (09/17/16 09:00) Budeson-Formot 80-4.5 Mcg Inh (Symbicort (09/16/16 21:00) Citalopram (Celexa) (09/17/16 09:00) Diltiazem Cd (Cardizem Cd) (09/16/16 21:00) Ropinirole Hcl (Requip) (09/16/16 21:00) Spironolactone (Aldactone) (09/16/16 18:00) Acetamin-Hydrocod 325-10 Mg (Adah 10-32 (09/16/16 12:15) Place In Observation (09/16/16 ) Vital Signs (Adult) Q4H (09/16/16 11:50) Activity Oob Ad Gudelia (09/16/16 ) Diet Heart Healthy (09/16/16 Lunch) Sodium Chloride 0.9% Flush (Ns Flush) (09/16/16 21:00) Sodium Chloride 0.9% Flush (Ns Flush) (09/16/16 12:00) Albuterol-Ipratropium Neb (Duoneb Neb) (09/16/16 16:00) Albuterol Neb (Albuterol Neb) (09/16/16 12:00) Prednisone (Deltasone) (09/17/16 09:00) Resp Incentive Spirometry (09/16/16 ) Copd Educator Consult (09/16/16 ) Troponin I (09/16/16 15:00) Troponin I (09/16/16 21:00) Electrocardiogram (09/16/16 15:00) Electrocardiogram (09/16/16 21:00) Admit Order (Ed Use Only) (09/16/16 11:54) Furosemide (Lasix) (09/17/16 09:00) Labs Laboratory Tests Test 09/16/16 09/16/16 09:50 10:35 White Blood Count 6.5 TH/MM3 Red Blood Count 4.11 MIL/MM3 Hemoglobin 12.9 GM/DL Hematocrit 40.0 % Mean Corpuscular Volume 97.2 FL Mean Corpuscular Hemoglobin 31.5 PG Mean Corpuscular Hemoglobin 32.4 % Concent Red Cell Distribution Width 13.6 % Platelet Count 197 TH/MM3 Mean Platelet Volume 8.1 FL Neutrophils (%) (Auto) 64.8 % Lymphocytes (%) (Auto) 25.3 % Monocytes (%) (Auto) 6.4 % Eosinophils (%) (Auto) 1.9 % Basophils (%) (Auto) 1.6 % Neutrophils # (Auto) 4.3 TH/MM3 Lymphocytes # (Auto) 1.6 TH/MM3 Monocytes # (Auto) 0.4 TH/MM3 Eosinophils # (Auto) 0.1 TH/MM3 Basophils # (Auto) 0.1 TH/MM3 CBC Comment DIFF FINAL Differential Comment Prothrombin Time 11.1 SEC Prothromb Time International 1.0 RATIO Ratio Activated Partial 24.3 SEC Thromboplast Time Sodium Level 143 MEQ/L Potassium Level 4.1 MEQ/L Chloride Level 107 MEQ/L Carbon Dioxide Level 29.1 MEQ/L Anion Gap 7 MEQ/L Blood Urea Nitrogen 9 MG/DL Creatinine 0.66 MG/DL Estimat Glomerular Filtration 86 ML/MIN Rate Random Glucose 81 MG/DL Calcium Level 9.4 MG/DL Total Bilirubin 0.7 MG/DL Aspartate Amino Transf 23 U/L (AST/SGOT) Alanine Aminotransferase 15 U/L (ALT/SGPT) Alkaline Phosphatase 107 U/L Total Creatine Kinase 101 U/L Creatine Kinase MB 1.8 NG/ML Troponin I LESS THAN 0.02 NG/ML B-Type Natriuretic Peptide 162 PG/ML Total Protein 7.2 GM/DL Albumin 3.6 GM/DL Urine Collection Type CLEAN CATCH Urine Color YELLOW Urine Turbidity SLIGHT Urine pH 6.0 Urine Specific [place] 1.014 Urine Protein NEG mg/dL Urine Glucose (UA) NEG mg/dL Urine Ketones NEG mg/dL Urine Occult Blood TRACE Urine Nitrite NEG Urine Bilirubin NEG Urine Leukocyte Esterase SMALL Urine RBC 0-3 /hpf Urine WBC 3-5 /hpf Urine Squamous Epithelial > 8 /hpf Cells Urine Bacteria FEW /hpf Microscopic Urinalysis Comment CULT NOT INDICATED Urine Collection Time 10:35 MDM Medical Decision Making Medical Screen Exam Complete: Yes Emergency Medical Condition: Yes Medical Record Reviewed: Yes Differential Diagnosis COPD V CHF C PNA V ME V ATYPICAL NONSTEMI Narrative Course UPON INITIAL EVALUATION PATIENT NOTED AND TREATED FOR COPD EXAC, CXR DID NOT SHOW CONSOLIDATION OR PLEURAL EFFUSION BUT DID SHOW A "MASS LIKE" EFFECT PER RADIOLOGIST, THIS WAS DI/W ADMITTING DOC FOR FURTHER EVALUATION Diagnosis Primary Impression: COPD EXACERBATION Additional Impression: R/O ATYPICAL ME Scripts Spacer/Device For Mdi (Inspirease Drug Delivery)1 Ea Mis #1 EA .ROUTE DIRECTED Ref 0 Prov:Donna Nuno MD 09/17/16 Ipratropium-Albuterol Neb (Duoneb)0.5-2.5 Mg/3 Ml Neb1 Nebule INH Q4HR NEB # 180 NEBULE Ref 0 Prov:Donna Nuno MD 09/17/16 Albuterol 18 GM Inh (Ventolin Hfa 18 GM Inh)90 Mcg/Act Aer2 Puff INH Q4-6H PRN ( SHORTNESS OF BREATH) #1 INHALER Ref 0 Prov:Donna Nuno MD 09/17/16 Ipratropium HFA 12.9 GM Inh (Atrovent HFA 12.9 GM Inh)17 Mcg/Act Aer2 Puff INH TID #1 INHALER Ref 0 Prov:Donna Nuno MD 09/17/16 Prednisone 20 Mg Tab40 Mg PO DAILY #3 TAB Prov:Donna Nuno MD 09/17/16 Jasiel Sinha MD Sep 16, 2016 10:02
[2016-09-16 10:06] LABS: AUTOMATED NEUTROPHIL # 4.3 TH/MM3 (1.8-7.7); BASOPHIL # 0.1 TH/MM3 (0-0.2); BASOPHIL % 1.6 % (0.0-2.0); EOSINOPHIL # 0.1 TH/MM3 (0-0.4); EOSINOPHIL % 1.9 % (0.0-4.0); HEMO FLAGS DIFF FINAL; LYMPH % 25.3 % (9.0-44.0); LYMPHOCYTE # 1.6 TH/MM3 (1.0-4.8); MEAN CELL VOLUME 97.2 FL (80.0-100.0); MEAN CORPUSCULAR HEMOGLOBIN 31.5 PG (27.0-34.0); MEAN CORPUSCULAR HGB CONC 32.4 % (32.0-36.0); MONO % 6.4 % (0.0-8.0); NEUT % 64.8 % (16.0-70.0); PLATELET COUNT 197 TH/MM3 (150-450); RED BLOOD COUNT 4.11 MIL/MM3 (4.00-5.30); RED CELL DISTRIBUTION WIDTH 13.6 % (11.6-17.2); WHITE BLOOD COUNT 6.5 TH/MM3 (4.0-11.0)
[2016-09-16 10:12] LABS: CHLORIDE 107 MEQ/L (98-107); POTASSIUM 4.1 MEQ/L (3.5-5.1); SODIUM (NA) 143 MEQ/L (136-145)
[2016-09-16 10:15] LABS: ANION GAP 7 MEQ/L (5-15); BICARBONATE 29.1 MEQ/L (21.0-32.0)
[2016-09-16 10:16] LABS: APTT (PATIENT) 24.3 SEC (24.3-30.1); BLOOD UREA NITROGEN 9 MG/DL (7-18); PROTHROMBIN TIME - PATIENT 11.1 SEC (9.8-11.6)
[2016-09-16] MEDS: RESP: ALBUTEROL 2.5 MG/3 ML NEB (SCH) INH ×2 (10:16→10:20)
[2016-09-16 10:18] LABS: ALT (GPT) 15 U/L (10-53)
[2016-09-16 10:19] LABS: AST (GOT) 23 U/L (15-37); GLOMERULAR FILTRATION RATE 86 ML/MIN (>89)
[2016-09-16 10:20] LABS: TOTAL BILIRUBIN ADULT 0.7 MG/DL (0.2-1.0)
[2016-09-16 10:21] LABS: ALKALINE PHOSPHATASE 107 U/L (45-117); CREATINE KINASE 101 U/L (26-192)
[2016-09-16 10:33] LABS: CKMB 1.8 NG/ML (0.5-3.6)
--- NOTE | 2016-09-16 10:37 | RADRPT ---
EXAM DATE/TIME: 09/16/2016 10:07 [facility] COMPARISON: CHEST SINGLE AP, December 19, 2015, 8:25. CT PULMONARY ANGIOGRAM, December 21, 2015, 1:36. CHEST SINGLE AP, August 14, 2016, 14:47. INDICATIONS : Short of breath. MEDICAL HISTORY : Congestive heart failure. Carcinoma, lung. Inflammatory bowel disease. S yncope. Afib. SVT. COPD. Dyspnea. Colitis. Arthritis. Osteoporosis. Osteoarthritis. Sciatica. Depress ion. Anxiety. Anticoagulant therapy, Eliquis. MRSA. SURGICAL HISTORY : Appendectomy.Cholecystectomy. Hysterectomy.Bilateral cataract extraction. L eft lobectomy. Right shoulder. Bilateral knees and hips replacement. Cancer cyst removed from bladder . Radiation therapy. Blood transfusions. ENCOUNTER: Initial ACUITY: 4 - 6 days PAIN SCORE: 0/10 LOCATION: Bilateral chest FINDINGS: The heart is enlarged. The exam demonstrates volume loss on the left the size where it scarring seen in the left midlung field extending up to the left hilum. This is stable in appearance compared back to previous dated 12/19/15. This would be consistent with patient's previous history of lung cancer. The right lung is clear. The visualized bony structures demonstrate severe degenerative changes in the shoulders bilaterally. CONCLUSION: 1. There a masslike area in the left midlung field stable compared back to previous of 12/19/15. This probably represents a residual from previous radiation therapy. 2. The heart is mildly enlarged. 3. No overt congestive failure. Steve Jackson MD on September 16, 2016 at 10:34 Board Certified Radiologist. This report was verified electronically.
[2016-09-16 10:49] LABS: BLOOD, URINE TRACE (NEG); GLUCOSE,URINE NEG (NEG); KETONE, URINE NEG (NEG); NITRITE,URINE NEG (NEG)
[2016-09-16 10:58] LABS: METHOD OF COLLECTION CLEAN CATCH; URINE COLOR YELLOW (YELLW/STRAW)
[2016-09-16 10:59] LABS: BACTERIA, URINE FEW /hpf; COMMENT (UR) CULT NOT INDICATED; CULTURE IF INDICATED CULT NOT INDICATED; RBC, URINE 0-3 /hpf (0-3); SQUAMOUS EPITHELIAL CELL URINE > 8 /hpf (0-5)
[2016-09-16] MEDS ORDERED: RESP: ALBUTEROL 2.5 MG/3 ML NEB (PRN) INH (12:00)
[2016-09-16] MEDS ORDERED: SODIUM CHLORIDE 0.9% FLUSH 10 ML FLUSH IV FLUSH PRN (12:00)
--- NOTE | 2016-09-16 12:45 | HHI.HP ---
[facility] Service [facility] ([place], [place])ists Primary Care Physician Mitchell Cardona MD Admission Diagnosis COPD EXACERBATION, CP R/O PA Diagnoses: Chief Complaint: sob Travel History International Travel<30 Days: No Contact w/Intl Traveler <30 Da: No Traveled to Known Affected Are: No History of Present Illness 81-year-old female with known history of hypertension, supraventricular tachycardia, chronic obstructive pulmonary disease who presented to hospital for evaluation of worsening sob and wheezing. Patient has a h/o COPD and also chronic respiratory failure on continuous O2 at home 2L . Patient denies any chest pain, shortness of breath, dyspnea, dyspnea on exertion , abdominal pain, nausea, vomiting, diarrhea, fever, chills. Review of Systems Except as stated in HPI: all other systems reviewed are Neg Past Family Social History Past Medical History Hypertension Supraventricular tachycardia Chronic obstructive pulmonary disease Restless leg syndrome History of lung cancer Past Surgical History Cataract surgery Tonsillectomy Left lung lobectomy Bilateral knee replacement Bilateral hip replacement Hysterectomy Appendectomy Cholecystectomy Cyst removed from her back Right shoulder surgery . Reported Medications Reported Meds & Active Scripts Active Furosemide 20 Mg Tab 40 Mg PO DAILY Reported Flexeril (Cyclobenzaprine HCl) 10 Mg Tab 10 Mg PO TID PRN Alendronate (Alendronate Sodium) 70 Mg Tab 70 Mg PO Q7D Digitek (Digoxin) 0.125 Mg Tab 0.125 Mg PO EVERY OTHER DAY Eliquis (Apixaban) 5 Mg Tab 5 Mg PO BID Taztia Xt (Diltiazem ER 24 HR) 180 Mg Caper 180 Mg PO BID Atenolol 25 Mg Tab 25 Mg PO DAILY Citalopram (Citalopram Hydrobromide) 10 Mg Tab 20 Mg PO DAILY Hydrocodone-Acetaminophen 10-300 Tab 1 Tab PO QID PRN Requip (Ropinirole HCl) 0.5 Mg Tab 0.5 Mg PO HS Xanax (Alprazolam) 0.25 Mg Tab 0.25 Mg PO BID PRN Spironolactone 25 Mg Tab 25 Mg PO BID Allergies: Coded Allergies: Aspirin (Verified Allergy, Severe, PT HAS BEEN TAKEN ASACOL AT HOME, ) Cipro (Verified Allergy, Severe, DIARRHEA, 09/16/16) Erythromycin (Verified Allergy, Severe, NAUSEA, 09/16/16) Keflex (Verified Allergy, Severe, DIARRHEA, 09/16/16) Levaquin (Verified Allergy, Severe, DIARRHEA, 09/16/16) Nonsteroidal Anti-Inflammatory Agts (Verified Allergy, Severe, Nausea/ Vomiting, 09/16/16) Clindamycin (Verified Allergy, Unknown, Diarrhea, 09/16/16) Penicillin (Verified Adverse Reaction, Mild, Itching, 09/16/16) Uncoded Allergies: Adhesive tape (Allergy, Intermediate, 12/19/15) . LACTOSE INTOLERANCE (Allergy, Intermediate, 12/19/15) . Family History Family history of cancer Social History Patient states that she quit smoking 12 years ago, prior to that she smoked up to 2 pack a cigarettes a day since she was in college. Patient denies any alcohol or illicit drugs Physical Exam Vital Signs Vital Signs Date Time Temp Pulse Resp B/P Pulse Ox O2 Delivery O2 Flow Rate FiO2 09/16/16 11:37 81 16 115/67 98 Room Air 2 09/16/16 10:37 81 16 123/61 97 Nasal Cannula 2 09/16/16 10:18 99 Nasal Cannula 2.00 09/16/16 09:55 98 16 92 Room Air 09/16/16 09:50 97 Nasal Cannula 2 09/16/16 09:50 97.8 98 20 118/62 97 09/16/16 09:50 20 97 Nasal Cannula 2 Physical Exam GENERAL: This is a well-nourished, well-developed patient, in no apparent distress. SKIN: No rashes, ecchymoses or lesions. Cool and dry. HEAD: Atraumatic. Normocephalic. No temporal or scalp tenderness. EYES: Pupils equal round and reactive. Extraocular motions intact. No scleral icterus. No injection or drainage. ENT: Nose without bleeding, purulent drainage or septal hematoma. Throat without erythema, tonsillar hypertrophy or exudate. Uvula midline. Airway patent. NECK: Trachea midline. No JVD or lymphadenopathy. Supple, nontender, no meningeal signs. CARDIOVASCULAR: Regular rate and rhythm without murmurs, gallops, or rubs. RESPIRATORY: Clear to auscultation. Breath sounds equal bilaterally. No wheezes , rales, or rhonchi. GASTROINTESTINAL: Abdomen soft, non-tender, nondistended. No hepato-splenomegaly , or palpable masses. No guarding. MUSCULOSKELETAL: Extremities without clubbing, cyanosis, or edema. No joint tenderness, effusion, or edema noted. No calf tenderness. Negative Homans sign bilaterally. NEUROLOGICAL: Awake and alert. Cranial nerves II through XII intact. Motor and sensory grossly within normal limits. Five out of 5 muscle strength in all muscle groups. Normal speech. Laboratory Laboratory Tests Test 09/16/16 09/16/16 09:50 10:35 White Blood Count 6.5 Red Blood Count 4.11 Hemoglobin 12.9 Hematocrit 40.0 Mean Corpuscular Volume 97.2 Mean Corpuscular Hemoglobin 31.5 Mean Corpuscular Hemoglobin 32.4 Concent Red Cell Distribution Width 13.6 Platelet Count 197 Mean Platelet Volume 8.1 Neutrophils (%) (Auto) 64.8 Lymphocytes (%) (Auto) 25.3 Monocytes (%) (Auto) 6.4 Eosinophils (%) (Auto) 1.9 Basophils (%) (Auto) 1.6 Neutrophils # (Auto) 4.3 Lymphocytes # (Auto) 1.6 Monocytes # (Auto) 0.4 Eosinophils # (Auto) 0.1 Basophils # (Auto) 0.1 CBC Comment DIFF FINAL Differential Comment Prothrombin Time 11.1 Prothromb Time International 1.0 Ratio Activated Partial 24.3 Thromboplast Time Sodium Level 143 Potassium Level 4.1 Chloride Level 107 Carbon Dioxide Level 29.1 Anion Gap 7 Blood Urea Nitrogen 9 Creatinine 0.66 Estimat Glomerular Filtration 86 Rate Random Glucose 81 Calcium Level 9.4 Total Bilirubin 0.7 Aspartate Amino Transf 23 (AST/SGOT) Alanine Aminotransferase 15 (ALT/SGPT) Alkaline Phosphatase 107 Total Creatine Kinase 101 Creatine Kinase MB 1.8 Troponin I LESS THAN 0.02 B-Type Natriuretic Peptide 162 Total Protein 7.2 Albumin 3.6 Urine Collection Type CLEAN CATCH Urine Color YELLOW Urine Turbidity SLIGHT Urine pH 6.0 Urine Specific [place] 1.014 Urine Protein NEG Urine Glucose (UA) NEG Urine Ketones NEG Urine Occult Blood TRACE Urine Nitrite NEG Urine Bilirubin NEG Urine Leukocyte Esterase SMALL Urine RBC 0-3 Urine WBC 3-5 Urine Squamous Epithelial > 8 Cells Urine Bacteria FEW Microscopic Urinalysis Comment CULT NOT INDICATED Urine Collection Time 10:35 Date/Time Procedure Status Source Growth 09/16/16 10:15 Influenza Types A,B Antigen (CATHY) - Final Complete Nasal Washing NEGATIVE FOR FLU A AND B ANTIGEN.... Result Diagram: 09/16/16 0950 09/16/16 0950 Imaging Last Impressions Chest X-Ray 09/16/16 0947 Signed Impressions: Service Date/Time: Friday, September 16, 2016 10:07 - CONCLUSION: 1. There a masslike area in the left midlung field stable compared back to previous of 12/19/15. This probably represents a residual from previous radiation therapy. 2. The heart is mildly enlarged. 3. No overt congestive failure. Steve Jackson MD Assessment and Plan Assessment and Plan COPD with acute exacerbation Chronic respiratory failure on continuous 2L O2 by [place] at home. Given solumedrol in ED Continue prednisone PO x 4 days. Duonebs scheduled and as need, continue to taper as tolerated. Resume home meds. Oxygen support by [place] mainain O2 sat > 92 % CXR no acute findings. No ever leukocytosis or tachy CHF without exacerbation at athis time. Cntinue hoemmeds. Continuie lasix.Monitor kidney fucntion. Echocardiogram ejection fraction 5560 percent with normal systolic function Chronic medical problems appears stable at this time. Monitor. Hypertension, history of supraventricular tachycardia, history of atrial fibrillation, appears stable at this time. -Resume home medications DVT prevention -Eliquis Code Status Full code Discussed Condition With patient, nurse, ED physician. Donna Nuno MD Sep 16, 2016 12:45
[2016-09-16] MEDS: ACETAMINOPHEN/HYDROcodone 325 MG/10 MG TAB PO PRN ×2 (13:13→22:13)
[2016-09-16] MEDS: ALPRAZolam 0.25 MG TAB PO PRN (13:13)
[2016-09-16] MEDS: RESP: ALBUTEROL 2.5 MG/IPRATROPIUM 0.5 MG NEB (SCH) INH ×2 (15:18→21:28)
--- NOTE | 2016-09-16 16:26 | EKG ---
Date Performed: 09/16/2016 Time Performed: 15:50:22 PTAGE: 81 years EKG: ATRIAL FIBRILLATION NONSPECIFIC ST & T-WAVE ABNORMALITY ABNORMAL RHYTHM ECG PREVIOUS TRACING : 09/16/2016 09.48 No significant change from previous tracing noted. DOCTOR: Sumit Dillon Interpretating Date/Time 09/16/2016 16:26:18
--- NOTE | 2016-09-16 16:46 | EKG ---
Date Performed: 09/16/2016 Time Performed: 09:48:51 PTAGE: 81 years EKG: ATRIAL FIBRILLATION NONSPECIFIC ST & T-WAVE ABNORMALITY ABNORMAL RHYTHM ECG Compared to the PREVIOUS TRACING rate slower DOCTOR: Luis Miguel Wagoner Interpretating Date/Time 09/16/2016 16:45:08
[2016-09-16] MEDS: SPIRONOLACTONE 25 MG TAB PO SCH (16:51)
[2016-09-16] MEDS: BUDESONIDE-FORMOTEROL 80/4.5 MCG INHALER INH SCH (21:49)
[2016-09-16] MEDS: SODIUM CHLORIDE 0.9% FLUSH 10 ML FLUSH IV FLUSH SCH (21:50)
[2016-09-16] MEDS: DILTIAZEM-CD 180 MG CAP ER PO SCH (21:50)
[2016-09-16] MEDS: APIXABAN 5 MG TABLET PO SCH (21:53)
--- NOTE | 2016-09-16 22:13 | EKG ---
Date Performed: 09/16/2016 Time Performed: 21:13:20 PTAGE: 81 years EKG: ATRIAL FIBRILLATION WITH RAPID VENTRICULAR RESPONSE NONSPECIFIC ST & T-WAVE ABNORMALITY ABN ORMAL RHYTHM ECG PREVIOUS TRACING : 09/16/2016 15.50 No significant change from previous tracing noted. DOCTOR: Sumit Dillon Interpretating Date/Time 09/16/2016 22:12:37
[2016-09-17] VITALS: BP 116/80; PULSE 103; RESP 20; TEMP 95.3; O2SAT 97
[2016-09-17] MEDS: RESP: ALBUTEROL 2.5 MG/IPRATROPIUM 0.5 MG NEB (SCH) INH ×2 (04:31→10:19)
[2016-09-17 08:00] VITALS: BP 117/81; PULSE 113; RESP 18; TEMP 97.4; O2SAT 96
[2016-09-17] MEDS: DILTIAZEM-CD 180 MG CAP ER PO SCH (08:20)
[2016-09-17] MEDS: APIXABAN 5 MG TABLET PO SCH (08:20)
[2016-09-17] MEDS: SODIUM CHLORIDE 0.9% FLUSH 10 ML FLUSH IV FLUSH SCH (08:21)
[2016-09-17] MEDS: SPIRONOLACTONE 25 MG TAB PO SCH (08:21)
[2016-09-17] MEDS: BUDESONIDE-FORMOTEROL 80/4.5 MCG INHALER INH SCH (08:21)
[2016-09-17] MEDS: ALPRAZolam 0.25 MG TAB PO PRN (08:22)
[2016-09-17] MEDS: ACETAMINOPHEN/HYDROcodone 325 MG/10 MG TAB PO PRN ×2 (08:22→15:06)
[2016-09-17] MEDS ORDERED: ATENOLOL 25 MG TAB PO SCH (09:00)
[2016-09-17] MEDS ORDERED: CITALOPRAM HYDROBROMIDE 20 MG TAB PO SCH (09:00)
[2016-09-17] MEDS ORDERED: FUROSEMIDE 40 MG TAB PO SCH (09:00)
[2016-09-17] MEDS ORDERED: predniSONE 20 MG TAB PO SCH (09:00)
[2016-09-17 10:00] VITALS: RESP 18
[2016-09-17 10:21] VITALS: O2SAT 98
--- NOTE | 2016-09-17 13:56 | HHI.PR ---
Subjective Remarks Feels much better today. No wheezing or shortness of breath. She has oxygen at home. However she doesn't have nebulizers and will like to have them as outpatient as says helps a lot. No fever or chills. No nausea, vomiting, diarrhea or constipation Objective Vitals Vital Signs Date Time Temp Pulse Resp B/P Pulse Ox O2 Delivery O2 Flow Rate FiO2 09/17/16 10:21 98 Nasal Cannula 3.00 09/17/16 10:00 18 09/17/16 08:00 97.4 113 18 117/81 96 09/17/16 00:00 95.3 103 20 116/80 97 09/16/16 21:30 94 Nasal Cannula 2.00 09/16/16 20:00 97.8 84 16 106/63 98 09/16/16 16:00 98.0 78 19 120/75 98 09/16/16 13:59 97.8 81 18 118/75 99 I/O 09/16/16 09/16/16 09/16/16 09/17/16 09/17/16 09/17/16 07:00 15:00 23:00 07:00 15:00 23:00 Intake Total 200 ml 240 ml Balance 200 ml 240 ml Intake Oral 200 ml 240 ml # Voids 2 # Bowel Movements 1 Result Diagram: 09/16/16 0950 09/16/16 0950 Imaging Last Impressions Chest X-Ray 09/16/16 0947 Signed Impressions: Service Date/Time: Friday, September 16, 2016 10:07 - CONCLUSION: 1. There a masslike area in the left midlung field stable compared back to previous of 12/19/15. This probably represents a residual from previous radiation therapy. 2. The heart is mildly enlarged. 3. No overt congestive failure. Steve Jackson MD Objective Remarks GENERAL: This is a well-nourished, well-developed patient, in no apparent distress. CARDIOVASCULAR: Regular rate and rhythm without murmurs, gallops, or rubs. RESPIRATORY: Clear to auscultation. Breath sounds equal bilaterally. No wheezes , rales, or rhonchi. GASTROINTESTINAL: Abdomen soft, non-tender, nondistended. No hepato-splenomegaly , or palpable masses. No guarding. MUSCULOSKELETAL: Extremities without clubbing, cyanosis, or edema. No joint tenderness, effusion, or edema noted. No calf tenderness. Negative Homans sign bilaterally. NEUROLOGICAL: Awake and alert. Cranial nerves II through XII intact. Motor and sensory grossly within normal limits. Five out of 5 muscle strength in all muscle groups. Normal speech. A/P Assessment and Plan COPD with acute exacerbation Chronic respiratory failure on continuous 2L O2 by [place] at home. Given Solumedrol in ED Continue prednisone PO x 4 days. Duonebs scheduled and as need, continue to taper as tolerated. Resume home meds. Oxygen support by [place] mainain O2 sat > 92 % CXR no acute findings. No ever leukocytosis or tachy Patient improved significantly, wants to go home. Discharge in stable condition to home CHF without exacerbation at athis time. Cntinue hoemmeds. Continuie lasix.Monitor kidney fucntion. Echocardiogram ejection fraction 5560 percent with normal systolic function Chronic medical problems appears stable at this time. Monitor. Hypertension, history of supraventricular tachycardia, history of atrial fibrillation, appears stable at this time. -Resume home medications DVT prevention -Eliquis Code Status Full code Discussed Condition With patient, nurse Discharge Planning Improved significantly. Comfortable to go home. Discharge home in stable condition to follow-up with PCP and consultants as outpatient Medications per medication reconciliation Activity ad alejandro. as tolerated Diet healthy heart diet as tolerated Donna Nuno MD Sep 17, 2016 13:56
[2016-09-17] MEDS ORDERED: IPRA17I INH (13:59)
[2016-09-17] MEDS ORDERED: VENTAER INH (13:59)
[2016-09-17] MEDS ORDERED: PRED20 PO (13:59)
--- NOTE | 2016-09-17 13:59 | HHI.DCPOC ---
Discharge Care Plan Goals to Promote Your Health * To prevent worsening of your condition and complications * To maintain your health at the optimal level Directions to Meet Your Goals Take your medications as prescribed Follow your dietary instruction Follow activity as directed Keep your appointments as scheduled Take your immunizations and boosters as scheduled If your symptoms worsen call your PCP, if no PCP go to Urgent Care Center or Emergency Room Smoking is Dangerous to Your Health. Avoid second hand smoke Call the 24-hour hour crisis hotline for domestic abuse at Donna Nuno MD Sep 17, 2016 13:59
[2016-09-17] MEDS ORDERED: IPRASOL INH (14:58)
[2016-09-17] MEDS ORDERED: INSPIREASE DRUG1 EA (14:59)
== END 2016-09-17 15:42 | disposition home or self-care (01) ==
LOC: PHED 09:33 → PHEDA 11:55 → PH3B 12:36
PROVIDERS: ADMIT Hospitalist; ATTEND Hospitalist
DX: J44.1 Chronic obstructive pulmonary disease with (acute) exacerbation (principal); J96.10 Chronic respiratory failure, unspecified whether with hypoxia or hypercapnia; I11.0 Hypertensive heart disease with heart failure; I50.9 Heart failure, unspecified; I48.91 Unspecified atrial fibrillation; R94.31 Abnormal electrocardiogram [ECG] [EKG]; G25.81 Restless legs syndrome; E78.00 Pure hypercholesterolemia, unspecified; M19.90 Unspecified osteoarthritis, unspecified site; M81.0 Age-related osteoporosis without current pathological fracture; M54.30 Sciatica, unspecified side; F41.9 Anxiety disorder, unspecified; F32.9 Major depressive disorder, single episode, unspecified; Z99.81 Dependence on supplemental oxygen; Z85.118 Personal history of other malignant neoplasm of bronchus and lung; Z79.01 Long term (current) use of anticoagulants; Z79.899 Other long term (current) drug therapy; Z87.891 Personal history of nicotine dependence; Z92.3 Personal history of irradiation
CPT/HCPCS: 71010; 80053; 81001; 82550; 82552; 83880; 84484; 85025; 85610; 85730; 87804; 93005; 94150; 94640; 94664; 96374; 99285; G0378; J2930; J7512; J7613

== ENCOUNTER 2016-10-07 08:03 | Inpatient (IN) | payer MEDICARE ==
[~2016-10-07] VITALS: Ht 175.3 cm; Wt 80.1 kg
[~2016-10-07 08:03] MED LIST changes: -CEPH-460 PO; +INSPIREASE DRUG1 EA; +IPRA17I INH; +IPRASOL INH; +PRED20 PO; +VENTAER INH
[2016-10-07 08:17] VITALS: BP 101/82; PULSE 80; RESP 18; TEMP 98.1; O2SAT 97
--- NOTE | 2016-10-07 08:33 | PD ---
HPI Chief Complaint: Fall Time Seen by Provider: 08:12 Travel History International Travel<30 days: No Contact w/Intl Traveler<30days: No Traveled to known affect area: No History of Present Illness HPI 81 y/o female states that she got tripped up at her house and tried to catch herself but hit her head. She states she did not black out or syncopize. 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 She states she has pain to her right hip and to the cut to her head. She denies significant other complaints. She states her tetanus is up-to-date. Pain is worse with movement. Pain is sharp. She denies other complaints other than skin tears to her arms. She is on eliquis for atrial fibrillation. She fell from standing. 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) Cardiovascular Problems: Yes (a-fib) High Cholesterol: Yes Chemotherapy: No Chest Pain: No Congestive Heart Failure: Yes COPD: Yes (2L O2 AT NIGHT) Cerebrovascular Accident: No Diabetes: No Diminished Hearing: No Endocrine: No Gastrointestinal Disorders: Yes (COLITIS IBS PT DENIES) GERD: No Glaucoma: No Genitourinary: Yes (cancer cyst removed from bladder) Headaches: No Hepatitis: No Hiatal Hernia: No Hypertension: No Immune Disorder: No Implanted Vascular Access Dvce: Yes Kidney Stones: No Musculoskeletal: Yes (sciatica) Neurologic: No Psychiatric: No Reproductive: Yes (HYSTERECTOMY) Respiratory: Yes (COPD) Immunizations Current: Yes Migraines: No Radiation Therapy: Yes Renal Failure: No Seizures: No Sickle Cell Disease: No Sleep Apnea: No Thyroid Disease: No Ulcer: No Menopausal: Yes : 3 Para: 3 Past Surgical History Abdominal Surgery: Yes (APPENDECTOMY, cholecystectomy) AICD: No Appendectomy: Yes Arteriovenous Shunt: No Cardiac Surgery: No Cholecystectomy: Yes Ear Surgery: No Endocrine Surgery: No Eye Surgery: Yes (CATARACTS BILAT) Genitourinary Surgery: No Gynecologic Surgery: Yes Hysterectomy: Yes Insulin Pump: No Joint Replacement: Yes (BILAT KNEES AND HIPS) Neurologic Surgery: No Oral Surgery: No Pacemaker: No Thoracic Surgery: Yes (LEFT LOBECTOMY) Other Surgery: Yes Social History Alcohol Use: No Tobacco Use: No Substance Use: No Allergies-Medications (Allergen,Severity, Reaction): Coded Allergies: Aspirin (Verified Allergy, Severe, PT HAS BEEN TAKEN ASACOL AT HOME, ) Cipro (Verified Allergy, Severe, DIARRHEA, 10/07/16) Erythromycin (Verified Allergy, Severe, NAUSEA, 10/07/16) Keflex (Verified Allergy, Severe, DIARRHEA, 10/07/16) Levaquin (Verified Allergy, Severe, DIARRHEA, 10/07/16) Nonsteroidal Anti-Inflammatory Agts (Verified Allergy, Severe, Nausea/ Vomiting, 10/07/16) Clindamycin (Verified Allergy, Unknown, Diarrhea, 10/07/16) Penicillin (Verified Adverse Reaction, Mild, Itching, 10/07/16) Uncoded Allergies: Adhesive tape (Allergy, Intermediate, 12/19/15) . LACTOSE INTOLERANCE (Allergy, Intermediate, 12/19/15) . Reported Meds & Prescriptions Reported Meds & Active Scripts Active Inspirease Drug Delivery (Spacer/Device For Mdi) 1 Ea Mis 1 Ea .ROUTE DIRECTED Duoneb (Ipratropium-Albuterol Neb) 0.5-2.5 Mg/3 Ml Neb 1 Nebule INH Q4HR NEB Ventolin Hfa 18 GM Inh (Albuterol Sulfate) 90 Mcg/Act Aer 2 Puff INH Q4-6H PRN Atrovent HFA 12.9 GM Inh (Ipratropium [place]) 17 Mcg/Act Aer 2 Puff INH TID Prednisone 20 Mg Tab 40 Mg PO DAILY Furosemide 20 Mg Tab 40 Mg PO DAILY Reported Flexeril (Cyclobenzaprine HCl) 10 Mg Tab 10 Mg PO TID PRN Alendronate (Alendronate Sodium) 70 Mg Tab 70 Mg PO Q7D Digitek (Digoxin) 0.125 Mg Tab 0.125 Mg PO EVERY OTHER DAY Eliquis (Apixaban) 5 Mg Tab 5 Mg PO BID Taztia Xt (Diltiazem ER 24 HR) 180 Mg Caper 180 Mg PO BID Atenolol 25 Mg Tab 25 Mg PO DAILY Citalopram (Citalopram Hydrobromide) 10 Mg Tab 20 Mg PO DAILY Hydrocodone-Acetaminophen 10-300 Tab 1 Tab PO QID PRN Requip (Ropinirole HCl) 0.5 Mg Tab 0.5 Mg PO HS Symbicort Inh (Budesonide/Formoterol Fumarate) 80-4.5 Mcg/Act Aero 2 Puff INH Q12HR Xanax (Alprazolam) 0.25 Mg Tab 0.25 Mg PO BID PRN Spironolactone 25 Mg Tab 25 Mg PO BID Review of Systems Except as stated in HPI: all other systems reviewed are Neg Physical Exam Narrative General: 81 y/o patient in no apparent distress Skin: trauma noted to right forehead with laceration, skin tears bilateral forearms Eyes: Pupils equal, eomi ENT: no septal hematoma NECK: no pain with palpation and range of motion in midline Cardiovascular: irregular rate and rhythm Respiratory: Normal respiratory effort noted, clear to auscultation bilaterally at apices Abdomen: soft, nontender, nondistended Back: No step-offs, midline spine nontender with palpation Extremities: Pain with palpation of right hip, right hand without scaphoid tenderness, no lacerations over, neurovascularly intact, no pain with palpation of other joints Neuro: awake, alert, sensation and motor grossly intact Data Data Last Documented VS Vital Signs Date Time Temp Pulse Resp B/P Pulse Ox O2 Delivery O2 Flow Rate FiO2 10/07/16 12:40 117 20 113/77 93 Room Air 10/07/16 08:[address] Brain W/O Iv Contrast(Rout) (10/07/16 08:25) Femur (Ap & Lat/2vws) (10/07/16 08:25) Forearm (2vws) (10/07/16 08:25) Hand, Complete (Cih7cfn) (10/07/16 08:25) Wrist, Complete (Fpf4dve) (10/07/16 08:25) Pelvis, Ap Only (Routine) (10/07/16 08:25) Electrocardiogram (10/07/16 10:29) Complete Blood Count With Diff (10/07/16 10:29) Comprehensive Metabolic Panel (10/07/16 10:29) Prothrombin Time / Inr (Pt) (10/07/16 10:29) Act Partial Throm Time (Ptt) (10/07/16 10:29) Urinalysis - C+S If Indicated (10/07/16 10:29) Type And Screen (10/07/16 10:29) Chest, Single Ap (10/07/16 10:29) Iv Access Insert/Monitor (10/07/16 10:29) Oximetry (10/07/16 10:29) Ecg Monitoring (10/07/16 10:29) Sodium Chloride 0.9% Flush (Ns Flush) (10/07/16 10:30) Morphine Inj (Morphine Inj) (10/07/16 10:30) Ondansetron Inj (Zofran Inj) (10/07/16 10:30) Splint Or Brace Apply/Monitor (10/07/16 10:31) Lidocai-Epi 1%-1:100,000 Inj (Xylocaine- (10/07/16 11:00) Consult Orthopedic (10/07/16 ) (Hub Use Only)Inp Phy Cons/Ref (10/07/16 ) Vascular Access Team Consult/P PRN (10/07/16 12:41) Vascular Poc Ultrasound (10/07/16 ) Fiberglass Sugartong Sp Ad Arm (10/07/16 ) Sling Cradle Arm (10/07/16 ) Admit Order (Ed Use Only) (10/07/16 14:05) Labs Laboratory Tests Test 10/07/16 10/07/16 10/07/16 10:55 11:15 12:55 White Blood Count 12.6 TH/MM3 Red Blood Count 4.38 MIL/MM3 Hemoglobin 13.6 GM/DL Hematocrit 42.0 % Mean Corpuscular Volume 95.9 FL Mean Corpuscular Hemoglobin 31.0 PG Mean Corpuscular Hemoglobin 32.4 % Concent Red Cell Distribution Width 13.7 % Platelet Count 205 TH/MM3 Mean Platelet Volume 8.1 FL Neutrophils (%) (Auto) 78.7 % Lymphocytes (%) (Auto) 12.6 % Monocytes (%) (Auto) 7.6 % Eosinophils (%) (Auto) 0.5 % Basophils (%) (Auto) 0.6 % Neutrophils # (Auto) 9.9 TH/MM3 Lymphocytes # (Auto) 1.6 TH/MM3 Monocytes # (Auto) 1.0 TH/MM3 Eosinophils # (Auto) 0.1 TH/MM3 Basophils # (Auto) 0.1 TH/MM3 CBC Comment DIFF FINAL Differential Comment Blood Type AB POSITIVE Antibody Screen NEGATIVE Urine Color YELLOW Urine Turbidity CLEAR Urine pH 8.0 Urine Specific [place] 1.016 Urine Protein TRACE mg/dL Urine Glucose (UA) NEG mg/dL Urine Ketones 40 mg/dL Urine Occult Blood NEG Urine Nitrite NEG Urine Bilirubin NEG Urine Urobilinogen LESS THAN 2.0 MG/DL Urine Leukocyte Esterase NEG Urine RBC 2 /hpf Urine WBC LESS THAN 1 /hpf Urine Mucus FEW /lpf Microscopic Urinalysis Comment CATH-CULT NOT IND Prothrombin Time 11.4 SEC Prothromb Time International 1.0 RATIO Ratio Activated Partial 24.5 SEC Thromboplast Time Sodium Level 141 MEQ/L Potassium Level 3.2 MEQ/L Chloride Level 104 MEQ/L Carbon Dioxide Level 27.5 MEQ/L Anion Gap 10 MEQ/L Blood Urea Nitrogen 7 MG/DL Creatinine 0.50 MG/DL Estimat Glomerular Filtration 119 ML/MIN Rate Random Glucose 83 MG/DL Calcium Level 9.4 MG/DL Total Bilirubin 0.7 MG/DL Aspartate Amino Transf 26 U/L (AST/SGOT) Alanine Aminotransferase 69 U/L (ALT/SGPT) Alkaline Phosphatase 77 U/L Total Protein 6.9 GM/DL Albumin 3.4 GM/DL MDM Medical Decision Making Medical Screen Exam Complete: Yes Emergency Medical Condition: Yes Medical Record Reviewed: Yes (past history confirmed) Interpretation(s) CBC & BMP Diagram 10/07/16 10:55 10/07/16 12:55 Last 24 hours Impressions Chest X-Ray 10/07/16 1029 Signed Impressions: Service Date/Time: Friday, October 07, 2016 11:34 - CONCLUSION: Compensated cardiomegaly otherwise negative Julian Jackson MD FACR Wrist X-Ray 10/07/16824 Signed Impressions: Service Date/Time: Friday, October 07, 2016 09:01 - CONCLUSION: Impacted fracture distal radius. Julian Jackson MD FACR Radius/Ulna X-Ray 10/07/16824 Signed Impressions: Service Date/Time: Friday, October 07, 2016 08:57 - CONCLUSION: Negative for fracture or dislocation. Follow up in 7-10 days is suggested if symptoms persist.. Julian Jackson MD FACR Pelvis X-Ray 10/07/16824 Signed Impressions: Service Date/Time: Friday, October 07, 2016 09:04 - CONCLUSION: Osteopenia, negative for fracture. Julian Jackson MD FACR Head CT 10/07/16824 Signed Impressions: Service Date/Time: Friday, October 07, 2016 10:25 - CONCLUSION: Soft tissue swelling right truncal region. Intracranial contents unremarkable. Julian Jackson MD FACR Hand X-Ray 10/07/16824 Signed Impressions: Service Date/Time: Friday, October 07, 2016 09:02 - CONCLUSION: Impacted radial fracture. Carpus is intact with degenerative changes. Julian Jackson MD FACR Femur X-Ray 10/07/16824 Signed Impressions: Service Date/Time: Friday, October 07, 2016 09:04 - CONCLUSION: Supple greenstick fracture proximal femur. Julian Jackson MD FACR Differential Diagnosis Fracture, strain, bleed Narrative Course Will check trauma imaging and will need laceration repairs Given both fracture to arm and right leg and on eliquis with fall already will medically admit for physical therapy and monitoring, patient updated Physician Communication Physician Communication dr gu states to be toe touch weight bearing on right and splint to right arm, nonsurgical, admit to medicine dr glaser agrees to admit Diagnosis Primary Impression: Right wrist fracture Qualified Code: S62.101A - Right wrist fracture, closed, initial encounter Additional Impressions: Right femoral fracture Qualified Code: S72.91XA - Closed fracture of right femur, unspecified fracture morphology, unspecified portion of femur, initial encounter Fall Qualified Code: W19.XXXA - Fall, initial encounter Admitting Information Admitting Physician Requests: Admit Cuca Collins MD Oct 07, 2016 08:33 Cuca Collins MD Oct 07, 2016 08:33
--- NOTE | 2016-10-07 09:45 | RADRPT ---
EXAM DATE/TIME: 10/07/2016 08:57 [facility] COMPARISON: No previous studies available for comparison. INDICATIONS : Left forearm skin tear and pain after falling this morning. MEDICAL HISTORY : Congestive heart failure. Carcinoma, lung. Inflammatory bowel disease. Syncope. Afib. SVT. COPD. Dysp aditya. Colitis. Arthritis. Osteoporosis. Osteoarthritis. Sciatica. Depression. Anxiety. Anticoagulant t herapy, Eliquis. MRSA. SURGICAL HISTORY : Appendectomy.Cholecystectomy. Hysterectomy.Bilateral cataract extraction. Left lobectomy. Right shoul annamaria. Bilateral knees and hips replacement. Cancer cyst removed from bladder. Radiation therapy. Blood transfusions. ENCOUNTER: Initial ACUITY: 1 day PAIN SCORE: 10/10 LOCATION: Left forearm. FINDINGS: Two view examination of the left forearm demonstrates no evidence of fracture or dislocation. Bony m ineralization is normal. The soft tissue structures are intact. CONCLUSION: Negative for fracture or dislocation. Follow up in 7-10 days is suggested if symptoms persist.. Julian Jackson MD FACR on October 07, 2016 at 9:42 Board Certified Radiologist. This report was verified electronically.
--- NOTE | 2016-10-07 09:46 | RADRPT ---
EXAM DATE/TIME: 10/07/2016 09:01 [facility] COMPARISON: No previous studies available for comparison. INDICATIONS : Right wrist skin tear and pain after falling this morning. MEDICAL HISTORY : Congestive heart failure. Carcinoma, lung. Inflammatory bowel disease. Syncope. Afib. SVT. COPD. Dysp aditya. Colitis. Arthritis. Osteoporosis. Osteoarthritis. Sciatica. Depression. Anxiety. Anticoagulant t herapy, Eliquis. MRSA. SURGICAL HISTORY : Appendectomy.Cholecystectomy. Hysterectomy.Bilateral cataract extraction. Left lobectomy. Right shoul annamaria. Bilateral knees and hips replacement. Cancer cyst removed from bladder. Radiation therapy. Blood transfusions. ENCOUNTER: Initial ACUITY: 1 day PAIN SCORE: 10/10 LOCATION: Right wrist. FINDINGS: Bones are osteopenic with an impacted fracture distal radius. Carpus is intact. Degenerative change s are evident in the carpus. CONCLUSION: Impacted fracture distal radius. Julian Jackson MD FACR on October 07, 2016 at 9:43 Board Certified Radiologist. This report was verified electronically.
--- NOTE | 2016-10-07 09:46 | RADRPT ---
EXAM DATE/TIME: 10/07/2016 09:02 [facility] COMPARISON: No previous studies available for comparison. INDICATIONS : Right hand skin tear and pain after falling this morning. MEDICAL HISTORY : Congestive heart failure. Carcinoma, lung. Inflammatory bowel disease. Syncope. Afib. SVT. COPD. Dysp aditya. Colitis. Arthritis. Osteoporosis. Osteoarthritis. Sciatica. Depression. Anxiety. Anticoagulant t herapy, Eliquis. MRSA. SURGICAL HISTORY : Appendectomy.Cholecystectomy. Hysterectomy.Bilateral cataract extraction. Left lobectomy. Right shoul annamaria. Bilateral knees and hips replacement. Cancer cyst removed from bladder. Radiation therapy. Blood transfusions. ENCOUNTER: Initial ACUITY: 1 day PAIN SCORE: 10/10 LOCATION: Right hand. FINDINGS: There are degenerative changes in the carpus. Carpal fracture is not appreciated. Impacted radial f racture is again noted. CONCLUSION: Impacted radial fracture. Carpus is intact with degenerative changes. Julian Jackson MD FACR on October 07, 2016 at 9:44 Board Certified Radiologist. This report was verified electronically.
--- NOTE | 2016-10-07 09:49 | RADRPT ---
EXAM DATE/TIME: 10/07/2016 09:04 [facility] COMPARISON: No previous studies available for comparison. INDICATIONS : Right hip pain. after falling this morning. MEDICAL HISTORY : Congestive heart failure. Carcinoma, lung. Inflammatory bowel disease. Syncope. Afib. SVT. COPD. Dysp aditya. Colitis. Arthritis. Osteoporosis. Osteoarthritis. Sciatica. Depression. Anxiety. Anticoagulant t herapy, Eliquis. MRSA. SURGICAL HISTORY : Appendectomy.Cholecystectomy. Hysterectomy.Bilateral cataract extraction. Left lobectomy. Right shoul annamaria. Bilateral knees and hips replacement. Cancer cyst removed from bladder. Radiation therapy. Blood transfusions. ENCOUNTER: Initial ACUITY: 1 day PAIN SCORE: 10/10 LOCATION: Right hip. FINDINGS: Degenerative changes are present in the pelvis. Bilateral total hips are evident. Fractures are ap preciated. CONCLUSION: Osteopenia, negative for fracture. Julian Jackson MD FACR on October 07, 2016 at 9:45 Board Certified Radiologist. This report was verified electronically.
--- NOTE | 2016-10-07 09:50 | RADRPT ---
EXAM DATE/TIME: 10/07/2016 09:04 [place] Corrected on: October 07, 2016; [facility] COMPARISON: No previous studies available for comparison. INDICATIONS : Right hip pain after falling this morning. MEDICAL HISTORY : Congestive heart failure. Carcinoma, lung. Inflammatory bowel disease. Syncope.Afib. SVT. COPD. Dyspn ea. Colitis. Arthritis. Osteoporosis. Osteoarthritis. Sciatica. Depression. Anxiety. Anticoagulant t herapy, Eliquis. MRSA. SURGICAL HISTORY : Appendectomy.Cholecystectomy. Hysterectomy.Bilateral cataract extraction. Left lobectomy. Right shoul annamaria. Bilateral knees and hips replacement. Cancer cyst removed from bladder. Radiation therapy. Blood transfusions. ENCOUNTER: Initial ACUITY: 1 day PAIN SCORE: 10/10 LOCATION: Right hip. FINDINGS: There is subtle greenstick type fracture involving the intra-trochanteric region. No distal fracture CONCLUSION: Supple greenstick fracture proximal femur. Julian Jackson MD FACR on October 07, 2016 at 9:47 Board Certified Radiologist. This report was verified electronically. Julian Jackson MD FACR on October 07, 2016 at 10:36 Board Certified Radiologist. This report was verified electronically.
[2016-10-07] MEDS ORDERED: MORPHINE SULFATE 4 MG/ML INJ IV PUSH ONE (10:30)
[2016-10-07] MEDS ORDERED: ONDANSETRON HCL 4 MG/2 ML VIAL IV PUSH ONE (10:30)
--- NOTE | 2016-10-07 10:45 | RADRPT ---
EXAM DATE/TIME: 10/07/2016 10:25 [facility] COMPARISON: CT BRAIN W/O CONTRAST, June 17, 2013, 23:10. INDICATIONS : Fall, right frontal laceration. RADIATION DOSE: 56.35 CTDIvol (mGy) MEDICAL HISTORY : Cardiovascular disease. Carcinoma, lung. Chronic obstructive pulmonary disease. SURGICAL HISTORY : None. ENCOUNTER: Initial ACUITY: 1 day PAIN SCALE: 3/10 LOCATION: Right frontal TECHNIQUE: Multiple contiguous axial images were obtained of the head. Using automated exposure control and adj ustment of the mA and/or kV according to patient size, radiation dose was kept as low as reasonably a chievable to obtain optimal diagnostic quality images. DICOM format image data is available electro nically for review and comparison. FINDINGS: There is marked central and cortical atrophy with dilatation of ventricular and sulcal spaces. There is no parenchymal hemorrhage, acute infarction or mass lesion identified. There are no extra-axial fluid collections appreciated. The posterior fossa is unremarkable with midline fourth ventricle. T he portion of the orbits visualized are unremarkable. Minimal right maxillary sinus disease is evide nt probably retention cyst. CONCLUSION: Soft tissue swelling right truncal region. Intracranial contents unremarkable. Julian Jackson MD FACR on October 07, 2016 at 10:42 Board Certified Radiologist. This report was verified electronically.
[2016-10-07] MEDS: SODIUM CHLORIDE 0.9% FLUSH 10 ML FLUSH IVF PRN ×2 (10:59→11:08)
[2016-10-07] MEDS ORDERED: LIDOCAINE 1%/EPINEPHrine 1:100,000 SOLN 20 ML VIAL INFIL ONE (11:00)
[2016-10-07 11:17] LABS: AUTOMATED NEUTROPHIL # 9.9 TH/MM3 (1.8-7.7); BASOPHIL # 0.1 TH/MM3 (0-0.2); BASOPHIL % 0.6 % (0.0-2.0); EOSINOPHIL # 0.1 TH/MM3 (0-0.4); EOSINOPHIL % 0.5 % (0.0-4.0); HEMO FLAGS DIFF FINAL; LYMPH % 12.6 % (9.0-44.0); LYMPHOCYTE # 1.6 TH/MM3 (1.0-4.8); MEAN CELL VOLUME 95.9 FL (80.0-100.0); MEAN CORPUSCULAR HGB CONC 32.4 % (32.0-36.0); MONO % 7.6 % (0.0-8.0); NEUT % 78.7 % (16.0-70.0); PLATELET COUNT 205 TH/MM3 (150-450); RED BLOOD COUNT 4.38 MIL/MM3 (4.00-5.30); RED CELL DISTRIBUTION WIDTH 13.7 % (11.6-17.2); WHITE BLOOD COUNT 12.6 TH/MM3 (4.0-11.0)
--- NOTE | 2016-10-07 11:32 | PD ---
Physical Exam Date Seen by Provider: Oct 07, 2016 Time Seen by Provider: 11:30 Narrative I was asked by Dr. Collins to repair laceration to patient's right forehead. Please see her documentation for full history and physical. Data Data Last Documented VS Vital Signs Date Time Temp Pulse Resp B/P Pulse Ox O2 Delivery O2 Flow Rate FiO2 10/07/16 08:55 Room Air 10/07/16:17 98.1 80 18 101/[address] Brain W/O Iv Contrast(Rout) (10/07/16 08:25) Femur (Ap & Lat/2vws) (10/07/16 08:25) Forearm (2vws) (10/07/16 08:25) Hand, Complete ([id number]) (10/07/16 08:25) Wrist, Complete (Ppd7yfv) (10/07/16 08:25) Pelvis, Ap Only (Routine) (10/07/16 08:25) Electrocardiogram (10/07/16 10:29) Complete Blood Count With Diff (10/07/16 10:29) Comprehensive Metabolic Panel (10/07/16 10:29) Prothrombin Time / Inr (Pt) (10/07/16 10:29) Act Partial Throm Time (Ptt) (10/07/16 10:29) Urinalysis - C+S If Indicated (10/07/16 10:29) Type And Screen (10/07/16 10:29) Chest, Single Ap (10/07/16 10:29) Iv Access Insert/Monitor (10/07/16 10:29) Oximetry (10/07/16 10:29) Ecg Monitoring (10/07/16 10:29) Sodium Chloride 0.9% Flush (Ns Flush) (10/07/16 10:30) Morphine Inj (Morphine Inj) (10/07/16 10:30) Ondansetron Inj (Zofran Inj) (10/07/16 10:30) Splint Or Brace Apply/Monitor (10/07/16 10:31) Lidocai-Epi 1%-1:100,000 Inj (Xylocaine- (10/07/16 11:00) Consult Orthopedic (10/07/16 ) Labs Laboratory Tests Test 10/07/16 10:55 White Blood Count 12.6 TH/MM3 Red Blood Count 4.38 MIL/MM3 Hemoglobin 13.6 GM/DL Hematocrit 42.0 % Mean Corpuscular Volume 95.9 FL Mean Corpuscular Hemoglobin 31.0 PG Mean Corpuscular Hemoglobin 32.4 % Concent Red Cell Distribution Width 13.7 % Platelet Count 205 TH/MM3 Mean Platelet Volume 8.1 FL Neutrophils (%) (Auto) 78.7 % Lymphocytes (%) (Auto) 12.6 % Monocytes (%) (Auto) 7.6 % Eosinophils (%) (Auto) 0.5 % Basophils (%) (Auto) 0.6 % Neutrophils # (Auto) 9.9 TH/MM3 Lymphocytes # (Auto) 1.6 TH/MM3 Monocytes # (Auto) 1.0 TH/MM3 Eosinophils # (Auto) 0.1 TH/MM3 Basophils # (Auto) 0.1 TH/MM3 CBC Comment DIFF FINAL Differential Comment MDM Supervised Visit with SANA: No Procedures Procedure Narrative LACERATION LOCATION: Right forehead LENGTH: 3 cm NUMBER OF STITCHES/CEM: 4 simple interrupted sutures REPAIR: The area of the laceration was prepped with Betadine and sterilely draped. The laceration was infiltrated with 1% lidocaine with epinephrine. The wound was copiously irrigated and explored without evidence of foreign body, tendon injury or neurovascular injury. The wound was closed using 5-0 Prolene. This was a single layer repair. A sterile dressing was applied. The patient was advised to keep the dressing clean and dry. Patient tolerated the procedure well. Rajni Houston Oct 07, 2016 11:32
[2016-10-07 11:39] LABS: BLOOD, URINE NEG (NEG); GLUCOSE,URINE NEG (NEG); KETONE, URINE 40 mg/dL (NEG); MUCUS URINE FEW /lpf (OCC); NITRITE,URINE NEG (NEG); URINE COLOR YELLOW (YELLW/STRAW)
[2016-10-07 11:40] LABS: COMMENT (UR) CATH-CULT NOT IND; CULTURE IF INDICATED CATH CULTURE NOT IND
--- NOTE | 2016-10-07 12:29 | RADRPT ---
EXAM DATE/TIME: 10/07/2016 11:34 [facility] COMPARISON: CT PULMONARY ANGIOGRAM, December 21, 2015, 1:36. CHEST SINGLE AP, September 16, 2016, 10:07. INDICATIONS : Patient is short of breath. MEDICAL HISTORY : Cardiovascular disease. Carcinoma, lung. Chronic obstructive pulmonary SURGICAL HISTORY : None. ENCOUNTER: Initial ACUITY: 1 day PAIN SCORE: 0/10 LOCATION: Bilateral chest FINDINGS: Linear parenchymal opacity is present left lung stable in interval. The lungs are clear. The heart is minimally enlarged. The pulmonary vascularity is normal. There is n o evidence for infiltrate or failure. Degenerative changes about both shoulders with previous surgery on the right. CONCLUSION: Compensated cardiomegaly otherwise negative Julian Jackson MD FACR on October 07, 2016 at 12:27 Board Certified Radiologist. This report was verified electronically.
[2016-10-07 12:40] VITALS: BP 113/77; PULSE 117; RESP 20; O2SAT 93
[2016-10-07 13:35] LABS: APTT (PATIENT) 24.5 SEC (24.3-30.1); PROTHROMBIN TIME - PATIENT 11.4 SEC (9.8-11.6)
[2016-10-07 13:46] LABS: ALKALINE PHOSPHATASE 77 U/L (45-117); ALT (GPT) 69 U/L (10-53); TOTAL BILIRUBIN ADULT 0.7 MG/DL (0.2-1.0)
[2016-10-07 13:55] LABS: ANION GAP 10 MEQ/L (5-15); AST (GOT) 26 U/L (15-37); BICARBONATE 27.5 MEQ/L (21.0-32.0); BLOOD UREA NITROGEN 7 MG/DL (7-18); CHLORIDE 104 MEQ/L (98-107); GLOMERULAR FILTRATION RATE 119 ML/MIN (>89); POTASSIUM 3.2 MEQ/L (3.5-5.1); SODIUM (NA) 141 MEQ/L (136-145)
[2016-10-07] MEDS ORDERED: SENNOSIDES 8.6 MG TAB PO PRN (14:15)
[2016-10-07] MEDS ORDERED: LACTULOSE SYRUP 20 GM/30 ML CUP PO PRN (14:15)
[2016-10-07] MEDS ORDERED: BISACODYL 10 MG SUPP RECTAL PRN (14:15)
[2016-10-07] MEDS ORDERED: MAGNESIUM HYDROXIDE SUSP 30 ML CUP PO PRN (14:15)
[2016-10-07] MEDS ORDERED: SODIUM CHLORIDE 0.9% FLUSH 10 ML FLUSH IV FLUSH PRN (14:15)
[2016-10-07] MEDS ORDERED: ONDANSETRON HCL 4 MG/2 ML VIAL IVP PRN (14:15)
[2016-10-07] MEDS ORDERED: ACETAMINOPHEN 325 MG TAB PO PRN (14:15)
[2016-10-07] MEDS ORDERED: NALOXONE HCL 0.4 MG/ML AMP IV PRN (14:15)
[2016-10-07] MEDS ORDERED: RESP: ALBUTEROL 2.5 MG/IPRATROPIUM 0.5 MG NEB (PRN) NEB (14:30)
[2016-10-07] MEDS ORDERED: ALPRAZolam 0.25 MG TAB PO PRN (14:30)
--- NOTE | 2016-10-07 14:34 | HHI.HP ---
HPI [facility] Primary Care Physician Mitchell Cardona MD Admission Diagnosis hip and wrist fracture Diagnoses: Chief Complaint: fall, multiple injuries Travel History International Travel<30 Days: No Contact w/Intl Traveler <30 Da: No Traveled to Known Affected Are: No History of Present Illness Written by Cristin Vargas, acting as scribe for Dr. Schuler on 10/07/16 at 14:24. This note was transcribed by scribe KAYODE Schaeffer. I, Dr. Jona Schuler personally performed the history, physical exam, and medical decision making; and confirmed the accuracy of the information in the transcribed note. Authenticated by Dr. Jona Schuler on 10/07/16 at 22:41. 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 The patient explains she wears oxygen at night, has long tubing, she wrapped it up to go to the other room however became tangled and fell multiple times in her home. She states she fell "everywhere" but cannot explain exactly how she went down. Denies any lightheadedness, dizziness, chest pain, or palpitations prior to the fall. She states she hit her forehead but denies any loss of consciousness. She complains of right wrist pain and right hip pain, temporarily relieved by IV morphine in the ED. She was not able to ambulate after her fall. She denies any prior falls within the past month. The patient states she lives with her who takes good care of her. Otherwise, the patient has no other medical complaints. Review of Systems Except as stated in HPI: all other systems reviewed are Neg Past Family Social History Past Medical History Atrial fibrillation on Eliquis Hx of Supraventricular Tachycardia as a child, then turned into afib later in life COPD, O2 dependent at night Denies hypertension or diabetes. Past Surgical History Right total hip arthroplasty Total knee arthroplasty Right shoulder hardware Cholecystectomy Reported Medications Reported Meds & Active Scripts Active Inspirease Drug Delivery (Spacer/Device For Mdi) 1 Ea Mis 1 Ea .ROUTE DIRECTED Duoneb (Ipratropium-Albuterol Neb) 0.5-2.5 Mg/3 Ml Neb 1 Nebule INH Q4HR NEB Ventolin Hfa 18 GM Inh (Albuterol Sulfate) 90 Mcg/Act Aer 2 Puff INH Q4-6H PRN Atrovent HFA 12.9 GM Inh (Ipratropium [place]) 17 Mcg/Act Aer 2 Puff INH TID Prednisone 20 Mg Tab 40 Mg PO DAILY Furosemide 20 Mg Tab 40 Mg PO DAILY Reported Flexeril (Cyclobenzaprine HCl) 10 Mg Tab 10 Mg PO TID PRN Alendronate (Alendronate Sodium) 70 Mg Tab 70 Mg PO Q7D Digitek (Digoxin) 0.125 Mg Tab 0.125 Mg PO EVERY OTHER DAY Eliquis (Apixaban) 5 Mg Tab 5 Mg PO BID Taztia Xt (Diltiazem ER 24 HR) 180 Mg Caper 180 Mg PO BID Atenolol 25 Mg Tab 25 Mg PO DAILY Citalopram (Citalopram Hydrobromide) 10 Mg Tab 20 Mg PO DAILY Hydrocodone-Acetaminophen 10-300 Tab 1 Tab PO QID PRN Requip (Ropinirole HCl) 0.5 Mg Tab 0.5 Mg PO HS Symbicort Inh (Budesonide/Formoterol Fumarate) 80-4.5 Mcg/Act Aero 2 Puff INH Q12HR Xanax (Alprazolam) 0.25 Mg Tab 0.25 Mg PO BID PRN Spironolactone 25 Mg Tab 25 Mg PO BID Allergies: Coded Allergies: Aspirin (Verified Allergy, Severe, PT HAS BEEN TAKEN ASACOL AT HOME, ) Cipro (Verified Allergy, Severe, DIARRHEA, 10/07/16) Erythromycin (Verified Allergy, Severe, NAUSEA, 10/07/16) Keflex (Verified Allergy, Severe, DIARRHEA, 10/07/16) Levaquin (Verified Allergy, Severe, DIARRHEA, 10/07/16) Nonsteroidal Anti-Inflammatory Agts (Verified Allergy, Severe, Nausea/ Vomiting, 10/07/16) Clindamycin (Verified Allergy, Unknown, Diarrhea, 10/07/16) Penicillin (Verified Adverse Reaction, Mild, Itching, 10/07/16) Uncoded Allergies: Adhesive tape (Allergy, Intermediate, 12/19/15) . LACTOSE INTOLERANCE (Allergy, Intermediate, 12/19/15) . Active Ordered Medications Current Medications Medications (Trade) Dose Ordered Sig/Minesh Route Start Time Stop Time Status Last Admin (NS Flush) 2 ml UNSCH PRN IVF 10/07/16 10:30 10/07/16 11:08 (NS Flush) 2 ml UNSCH PRN IV FLUSH 10/07/16 14:15 (NS Flush) 2 ml BID IV FLUSH 10/07/16 21:00 (Zofran Inj) 4 mg Q6H PRN IVP 10/07/16 14:15 UNV (Tylenol) 650 mg Q6H PRN PO 10/07/16 14:15 UNV ([place] 5-325 Mg) 1 tab Q4H PRN PO 10/07/16 14:15 UNV ([place] 7.5-325 Mg) 1 tab Q4H PRN PO 10/07/16 14:15 UNV (Morphine Inj) 2 mg Q3H PRN IV 10/07/16 14:15 UNV (Narcan Inj) 0.4 mg UNSCH PRN IV 10/07/16 14:15 UNV (Emilie-Colace) 1 tab BID PO 10/07/16 21:00 (Milk Of Magnesia Liq) 30 ml Q12H PRN PO 10/07/16 14:15 UNV (Senokot) 17.2 mg Q12H PRN PO 10/07/16 14:15 (Dulcolax Supp) 10 mg DAILY PRN RECTAL 10/07/16 14:15 UNV (Lactulose Liq) 30 ml DAILY PRN PO 10/07/16 14:15 UNV (Xanax) 0.25 mg BID PRN PO 10/07/16 14:30 UNV (Eliquis) 5 mg BID PO 10/07/16 21:00 UNV (Tenormin) 25 mg DAILY PO 10/08/16 09:00 UNV (Symbicort 80-4.5 Mcg Inh) 2 puff Q12HR INH 10/07/16 21:00 UNV (CeleXA) 20 mg DAILY PO 10/08/16 09:00 UNV (Cardizem Cd) 180 mg BID PO 10/07/16 21:00 UNV (Lasix) 40 mg DAILY PO 10/08/16 09:00 UNV (Requip) 0.5 mg HS PO 10/07/16 21:00 UNV (Aldactone) 25 mg BID PO 10/07/16 21:00 UNV Family History Denies any family history of cancer, Parkinson's, Alzheimer's. 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 SKIN: Warm and dry. No rash. Large left hernandez hematoma. HEAD: Normocephalic. Right forehead laceration s/p repair. EYES: Pupils equal and round. No scleral icterus. No injection or drainage. ENT: No nasal bleeding or discharge. Mucous membranes pink and moist. NECK: Supple. Trachea midline. CARDIOVASCULAR: Regular rate and rhythm. S1, S2 noted. No murmur appreciated. RESPIRATORY: No accessory muscle use. Clear to auscultation. Breath sounds equal bilaterally. GASTROINTESTINAL: Abdomen soft, non-tender, nondistended. Normoactive bowel sounds x4. MUSCULOSKELETAL: No obvious deformities. Extremities without clubbing, cyanosis , or edema. Right upper extremity in splint. NEUROLOGICAL: Awake and alert. No obvious cranial nerve deficits. Motor grossly within normal limits. Normal speech. PSYCHIATRIC: Appropriate mood and affect; insight and judgment normal. Laboratory Laboratory Tests Test 10/07/16 10/07/16 10/07/16 10:55 11:15 12:55 White Blood Count 12.6 Red Blood Count 4.38 Hemoglobin 13.6 Hematocrit 42.0 Mean Corpuscular Volume 95.9 Mean Corpuscular Hemoglobin 31.0 Mean Corpuscular Hemoglobin 32.4 Concent Red Cell Distribution Width 13.7 Platelet Count 205 Mean Platelet Volume 8.1 Neutrophils (%) (Auto) 78.7 Lymphocytes (%) (Auto) 12.6 Monocytes (%) (Auto) 7.6 Eosinophils (%) (Auto) 0.5 Basophils (%) (Auto) 0.6 Neutrophils # (Auto) 9.9 Lymphocytes # (Auto) 1.6 Monocytes # (Auto) 1.0 Eosinophils # (Auto) 0.1 Basophils # (Auto) 0.1 CBC Comment DIFF FINAL Differential Comment Blood Type AB POSITIVE Antibody Screen NEGATIVE Urine Color YELLOW Urine Turbidity CLEAR Urine pH 8.0 Urine Specific [place] 1.016 Urine Protein TRACE Urine Glucose (UA) NEG Urine Ketones 40 Urine Occult Blood NEG Urine Nitrite NEG Urine Bilirubin NEG Urine Urobilinogen LESS THAN 2.0 Urine Leukocyte Esterase NEG Urine RBC 2 Urine WBC LESS THAN 1 Urine Mucus FEW Microscopic Urinalysis Comment CATH-CULT NOT IND Prothrombin Time 11.4 Prothromb Time International 1.0 Ratio Activated Partial 24.5 Thromboplast Time Sodium Level 141 Potassium Level 3.2 Chloride Level 104 Carbon Dioxide Level 27.5 Anion Gap 10 Blood Urea Nitrogen 7 Creatinine 0.50 Estimat Glomerular Filtration 119 Rate Random Glucose 83 Calcium Level 9.4 Total Bilirubin 0.7 Aspartate Amino Transf 26 (AST/SGOT) Alanine Aminotransferase 69 (ALT/SGPT) Alkaline Phosphatase 77 Total Protein 6.9 Albumin 3.4 Result Diagram: 10/07/16 1055 10/07/16 1255 Imaging Last Impressions Chest X-Ray 10/07/16 1029 Signed Impressions: Service Date/Time: Friday, October 07, 2016 11:34 - CONCLUSION: Compensated cardiomegaly otherwise negative Julian Jackson MD FACR Wrist X-Ray 10/07/16824 Signed Impressions: Service Date/Time: Friday, October 07, 2016 09:01 - CONCLUSION: Impacted fracture distal radius. Julian Jackson MD FACR Radius/Ulna X-Ray 10/07/16824 Signed Impressions: Service Date/Time: Friday, October 07, 2016 08:57 - CONCLUSION: Negative for fracture or dislocation. Follow up in 7-10 days is suggested if symptoms persist.. Julian Jackson MD FACR Pelvis X-Ray 10/07/16824 Signed Impressions: Service Date/Time: Friday, October 07, 2016 09:04 - CONCLUSION: Osteopenia, negative for fracture. Julian Jackson MD FACR Head CT 10/07/16824 Signed Impressions: Service Date/Time: Friday, October 07, 2016 10:25 - CONCLUSION: Soft tissue swelling right truncal region. Intracranial contents unremarkable. Julian Jackson MD FACR Hand X-Ray 10/07/16824 Signed Impressions: Service Date/Time: Friday, October 07, 2016 09:02 - CONCLUSION: Impacted radial fracture. Carpus is intact with degenerative changes. Julian Jackson MD FACR Femur X-Ray 10/07/16824 Signed Impressions: Service Date/Time: Friday, October 07, 2016 09:04 - CONCLUSION: Supple greenstick fracture proximal femur. 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 Fall, Closed Head Injury: sounds mechanical, patient became tangled in home oxygen tubing, hit head but no loss of consciousness. -Head CT images reviewed, shows soft tissue swelling right truncal region; otherwise unremarkable. -Multiple xrays performed in ED, positive for right femur fracture and right radial fracture -CBC/BMP reviewed, mostly unremarkable -Consult PT -Consult case management, likely needs rehab placement Right Hip Fracture: with previous right hip replacement -Right hip/femur xray images reviewed, shows supple greenstick fracture proximal femur -ER discussed with ortho, nonsurgical, recommended toe touch weightbearing -PT consulted -pain control with [place] prn and IV morphine prn breakthrough pain Right Radial Fracture: xray images reviewed, shows impacted right radial fracture -s/p RUE splint in the ED -nonsurgical -ortho consulted Forehead Laceration: sustained during fall -repaired with 4 sutures in the ED -clean wound with soap/water, apply bacitracin ointment daily -have sutures removed in 5 days (10/12) Atrial Fibrillation: rate controlled -hold patient's Eliquis for now with fall as above, head injury, hip and radial fracture, and large left hernandez hematoma -continue patient's home medications COPD: O2 dependent at night -chronic, does not appear to be in exacerbation -Continue patient's Symbicort bid -Duonebs q4h prn SOB/wheezing All other chronic medical conditions stable, continue home medications as appropriate. DVT Prophylaxis: holding Eliquis; teds/SCDs to RLE only; unable to apply to LLE secondary to large hematoma Physician Certification 2 Midnight Certification Type: Admission for Inpatient Services Order for Inpatient Services The services are ordered in accordance with Medicare regulations or non- Medicare payer requirements, as applicable. In the case of services not specified as inpatient-only, they are appropriately provided as inpatient services in accordance with the 2-midnight benchmark. Estimated LOS (days): 3 days is the estimated time the patient will need to remain in the hospital, assuming treatment plan goals are met and no additional complications. Post-Hospital Plan: SNF Problem Qualifiers (1) Fall: Qualified Code: W19.XXXA - Fall, initial encounter (2) Right femoral fracture: Qualified Code: S72.91XA - Closed fracture of right femur, unspecified fracture morphology, unspecified portion of femur, initial encounter (3) Right wrist fracture: Qualified Code: S62.101A - Right wrist fracture, closed, initial encounter Cristin Vargas PA-C Oct 07, 2016 14:34 Jessica Schuler DO Oct 07, 2016 22:42
[2016-10-07] MEDS: MORPHINE SULFATE 4 MG/ML INJ IV PRN ×2 (14:56→23:11)
[2016-10-07 16:00] VITALS: BP 155/86; PULSE 105; RESP 18; TEMP 100.3; O2SAT 94
[2016-10-07] MEDS: ACETAMINOPHEN/HYDROcodone 325 MG/5 MG TAB PO PRN ×2 (16:08→20:10)
[2016-10-07] MEDS: DILTIAZEM-CD 180 MG CAP ER PO SCH (20:08)
[2016-10-07] MEDS: SODIUM CHLORIDE 0.9% FLUSH 10 ML FLUSH IV FLUSH SCH (20:08)
[2016-10-07] MEDS: DOCUSATE SODIUM 50 MG/SENNA 8.6 MG TAB PO SCH (20:08)
[2016-10-07] MEDS: SPIRONOLACTONE 25 MG TAB PO SCH (20:08)
[2016-10-07 20:50] VITALS: BP 125/68; PULSE 106; RESP 18; TEMP 98.2; O2SAT 95
[2016-10-07] MEDS: BUDESONIDE-FORMOTEROL 80/4.5 MCG INHALER INH SCH (21:00)
[2016-10-07] MEDS ORDERED: APIXABAN 5 MG TABLET PO SCH (21:00)
[2016-10-07] MEDS: BACITRACIN TOP OINT 15 GM TUBE TOPICAL SCH (21:00)
[2016-10-08] VITALS (8 sets, daily range): BP systolic 95–172; BP diastolic 51–79; PULSE 74–108; RESP 18; TEMP 97.5–99.4; O2SAT 93–97
[2016-10-08] MEDS: ACETAMINOPHEN/HYDROcodone 325 MG/7.5 MG TAB PO PRN ×5 (00:09→18:43)
[2016-10-08] MEDS: MORPHINE SULFATE 4 MG/ML INJ IV PRN (03:38)
[2016-10-08 07:57] LABS: AUTOMATED NEUTROPHIL # 5.4 TH/MM3 (1.8-7.7); BASOPHIL % 0.6 % (0.0-2.0); EOSINOPHIL % 0.3 % (0.0-4.0); HEMATOCRIT 38.8 % (35.0-46.0); HEMO FLAGS DIFF FINAL; LYMPH % 20.3 % (9.0-44.0); LYMPHOCYTE # 1.6 TH/MM3 (1.0-4.8); MEAN CELL VOLUME 95.1 FL (80.0-100.0); MEAN CORPUSCULAR HEMOGLOBIN 31.9 PG (27.0-34.0); MEAN CORPUSCULAR HGB CONC 33.5 % (32.0-36.0); MONO % 12.3 % (0.0-8.0); NEUT % 66.5 % (16.0-70.0); PLATELET COUNT 172 TH/MM3 (150-450); RED BLOOD COUNT 4.08 MIL/MM3 (4.00-5.30); RED CELL DISTRIBUTION WIDTH 13.1 % (11.6-17.2); WHITE BLOOD COUNT 8.1 TH/MM3 (4.0-11.0)
[2016-10-08 08:28] LABS: BICARBONATE 25.7 MEQ/L (21.0-32.0); POTASSIUM 3.7 MEQ/L (3.5-5.1)
[2016-10-08] MEDS: FUROSEMIDE 20 MG TAB PO SCH (08:36)
[2016-10-08] MEDS: CITALOPRAM HYDROBROMIDE 20 MG TAB PO SCH (08:36)
[2016-10-08] MEDS: SPIRONOLACTONE 25 MG TAB PO SCH ×2 (08:36→21:34)
[2016-10-08] MEDS: DILTIAZEM-CD 180 MG CAP ER PO SCH ×2 (08:36→21:34)
[2016-10-08] MEDS: DOCUSATE SODIUM 50 MG/SENNA 8.6 MG TAB PO SCH ×2 (08:37→21:34)
[2016-10-08] MEDS: ATENOLOL 25 MG TAB PO SCH (08:37)
[2016-10-08] MEDS: BACITRACIN TOP OINT 15 GM TUBE TOPICAL SCH ×2 (08:38→21:35)
[2016-10-08] MEDS: SODIUM CHLORIDE 0.9% FLUSH 10 ML FLUSH IV FLUSH SCH ×2 (08:38→21:35)
[2016-10-08] MEDS: BUDESONIDE-FORMOTEROL 80/4.5 MCG INHALER INH SCH ×2 (09:00→21:35)
--- NOTE | 2016-10-08 15:01 | EKG ---
Date Performed: 10/07/2016 Time Performed: 11:19:34 PTAGE: 81 years EKG: ATRIAL FIBRILLATION WITH RAPID VENTRICULAR RESPONSE NONSPECIFIC ST & T-WAVE ABNORMALITY ABN ORMAL RHYTHM ECG PREVIOUS TRACING : 09/16/2016 21.13 Since previous tracing, no significant change noted DOCTOR: Rosemarie Salamanca Interpretating Date/Time 10/08/2016 15:00:56
--- NOTE | 2016-10-08 18:20 | MB ---
cc: SILVANA BETTENCOURT M.D. DATE OF CONSULTATION: 10/08/2016. REASON FOR CONSULTATION: Fracture of the right hip and right wrist. HISTORY OF PRESENT ILLNESS: This patient is a 81-year-old female known to the [facility]. She has had care by the [facility] for a hip replacement in the past. She complains of pain in her right hip after she fell. She also had pain in the region of her right wrist. Apparently the patient tried to walk when she got tripped up in her oxygen tubing. She has a history of COPD. She fell and was unable to ambulate because of pain in her right hip. She was brought to the emergency room and evaluated and treated. I have been asked to see her in consultation by the medical staff including Rajni Vargas PA-C. PAST MEDICAL HISTORY: Past medical history significant for: 1. Atrial fibrillation on Eliquis. 2. History of supraventricular tachycardia. 3. COPD. 4. Oxygen-dependency at night. PAST SURGICAL HISTORY: 1. Bilateral total hip replacement arthroplasty. 2. Right total knee replacement. 3. Open treatment internal fixation right shoulder. 4. Cholecystectomy. MEDICATIONS: See attached records. ALLERGIES: 1. ASPIRIN. 2. CIPROFLOXACIN. 3. ERYTHROMYCIN. 4. KEFLEX. 5. LEVAQUIN. 6. NONSTEROIDAL ANTIINFLAMMATORY MEDICATIONS. 7. CLINDAMYCIN. 8. PENICILLIN. FAMILY HISTORY: Denies history of cancer, Parkinson's or Alzheimer's. SOCIAL HISTORY: Quit thirty years but prior tobacco use when she was younger. Denies ethanol use. Denies illicit drugs. She lives with her . 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 PHYSICAL EXAMINATION: GENERAL: Alert, cooperative elderly female who appears at or older than her stated age of 81. HEAD, EYES, EARS, NOSE, THROAT: Normocephalic and atraumatic. Pupils equal, round and reactive to light and accommodation. Extraocular muscles intact. NECK: The neck is supple. CHEST: Clear with decreased breath sounds. HEART: Irregular rhythm. ABDOMEN: Abdomen soft and nontender. MUSCULOSKELETAL: Right wrist and arm - she is in a [place] splint. She wiggles her fingers. Sensation is normal. Mild swelling. Right leg - she is sitting in a chair. She has tenderness over the greater trochanter. Limited range of motion. Minimal pain. Leg lengths appear equal. Well-healed incision over the right knee and both hips. IMAGING STUDIES: X-rays reviewed and reviewed the radiologist's interpretation. X-ray of the right wrist is slightly comminuted but not significantly displaced impacted fracture of the distal radius without significant shortening. X-rays of the right hip including CT show evidence of a greater trochanteric fracture around an uncemented total hip replacement without signs of loosening. Only minimal displacement. IMPRESSION: 1. Fracture right distal radius, stable. 2. Fracture right greater trochanter. 3. History of right total hip replacement arthroplasty. PLAN: 1. Nonsurgical treatment of her right hip condition and right wrist condition. 2. Limited weightbearing right hip and platform walker to the right arm. 3. Return when she is discharged in about two weeks. 4. Will have to watch both fractures. If displacement occurs, surgical treatment might be a consideration. MD KEDAR Ellsworth/STEPHANIE /5:05 PM /6:05 PM MTDJuanita
--- NOTE | 2016-10-08 18:44 | HHI.PR ---
Subjective Remarks Follow up for fall related injuries, Afib. Patient is currently doing well. Yesterday she had some bleeding from the abrasion on the right side of her head. Bleeding has stopped. She complains of right upper ext pain. No fever, chills. Objective Vitals Vital Signs Date Time Temp Pulse Resp B/P Pulse Ox O2 Delivery O2 Flow Rate FiO2 10/08/16 16:00 99.4 75 18 109/51 93 10/08/16 12:00 97.5 74 18 95/52 95 10/08/16 11:30 87 10/08/16 08:00 98.5 108 18 142/71 97 10/08/16 04:45 98.4 101 18 172/79 95 10/08/16 00:45 97.5 97 18 116/64 94 10/07/16 21:59 Nasal Cannula 2.00 10/07/16 20:50 98.2 106 18 125/68 95 I/O 10/07/16 10/07/16 10/07/16 10/08/16 10/08/16 10/08/16 06:59 14:59 22:59 06:59 14:59 22:59 Intake Total 240 ml 240 ml 600 ml Output Total 550 ml 400 ml 550 ml Balance -310 ml -160 ml 50 ml Intake Oral 240 ml 240 ml 600 ml Output Urine Total 550 ml 400 ml 550 ml # Bowel Movements 0 0 0 Result Diagram: 10/08/16 0740 10/08/16 0740 Imaging Last Impressions Chest X-Ray 10/07/16 1029 Signed Impressions: Service Date/Time: Friday, October 07, 2016 11:34 - CONCLUSION: Compensated cardiomegaly otherwise negative Julian Jackson MD FACR Wrist X-Ray 10/07/16824 Signed Impressions: Service Date/Time: Friday, October 07, 2016 09:01 - CONCLUSION: Impacted fracture distal radius. Julian Jackson MD FACR Radius/Ulna X-Ray 10/07/16824 Signed Impressions: Service Date/Time: Friday, October 07, 2016 08:57 - CONCLUSION: Negative for fracture or dislocation. Follow up in 7-10 days is suggested if symptoms persist.. Julian Jackson MD FACR Pelvis X-Ray 10/07/16824 Signed Impressions: Service Date/Time: Friday, October 07, 2016 09:04 - CONCLUSION: Osteopenia, negative for fracture. Julian Jackson MD FACR Head CT 10/07/16824 Signed Impressions: Service Date/Time: Wednesday, October 07, 2016 10:25 - CONCLUSION: Soft tissue swelling right truncal region. Intracranial contents unremarkable. Julian Jackson MD FACR Hand X-Ray 10/07/16824 Signed Impressions: Service Date/Time: Friday, October 07, 2016 09:02 - CONCLUSION: Impacted radial fracture. Carpus is intact with degenerative changes. Julian Jackson MD FACR Femur X-Ray 10/07/16824 Signed Impressions: Service Date/Time: Friday, October 07, 2016 09:04 - CONCLUSION: Supple greenstick fracture proximal femur. Julian Jackson MD FACR Objective Remarks GENERAL: Alert, NAD. SKIN: Warm and dry. HEAD: Normocephalic. Right head laceration/hematoma. No active bleeding. EYES: No scleral icterus. No injection or drainage. NECK: Supple, trachea midline. No JVD or lymphadenopathy. CARDIOVASCULAR: Irreg Irreg without murmurs, gallops, or rubs. RESPIRATORY: Breath sounds equal bilaterally. No accessory muscle use. GASTROINTESTINAL: Abdomen soft, non-tender, nondistended. MUSCULOSKELETAL: No cyanosis, or edema. RUE splint in place. BACK: Nontender without obvious deformity. No CVA tenderness. 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 Fall, Closed Head Injury: sounds mechanical, patient became tangled in home oxygen tubing, hit head but no loss of consciousness. -Head CT images reviewed, shows soft tissue swelling right truncal region; otherwise unremarkable. -Multiple xrays performed in ED, positive for right femur fracture and right radial fracture -Consult PT - patient will likely need in-patient rehab. Right Hip Fracture: with previous right hip replacement -Right hip/femur xray images reviewed, shows supple greenstick fracture proximal femur -ER discussed with ortho, nonsurgical, recommended toe touch weightbearing -pain control with [place] prn and IV morphine prn breakthrough pain - Dr. Terrance Hobbs evaluated patient - recommends non-surgical management and follow up in the outpatient setting. Right Radial Fracture: xray images reviewed, shows impacted right radial fracture -s/p RUE splint in the ED -nonsurgical Forehead Laceration: sustained during fall -repaired with 4 sutures in the ED -clean wound with soap/water, apply bacitracin ointment daily -have sutures removed in 5 days (10/12) Atrial Fibrillation: rate controlled -hold patient's Eliquis for now with fall as above, head injury, hip and radial fracture, and large left hernandez hematoma -continue patient's home medications COPD: O2 dependent at night -chronic, does not appear to be in exacerbation -Continue patient's Symbicort bid -Duonebs q4h prn SOB/wheezing Full code. SCDs. Problem Qualifiers (1) Fall: Qualified Code: W19.XXXA - Fall, initial encounter (2) Right femoral fracture: Qualified Code: S72.91XA - Closed fracture of right femur, unspecified fracture morphology, unspecified portion of femur, initial encounter (3) Right wrist fracture: Qualified Code: S62.101A - Right wrist fracture, closed, initial encounter Jessica Schuler DO Oct 08, 2016 18:44
[2016-10-09] VITALS (8 sets, daily range): BP systolic 106–140; BP diastolic 62–96; PULSE 78–94; RESP 17–21; TEMP 96.5–97.3; O2SAT 93–96
[2016-10-09] MEDS: ACETAMINOPHEN/HYDROcodone 325 MG/7.5 MG TAB PO PRN ×2 (00:21→04:36)
[2016-10-09] MEDS: MORPHINE SULFATE 4 MG/ML INJ IV PRN ×2 (03:09→08:36)
--- NOTE | 2016-10-09 08:03 | PD.ORT.PN ---
Subjective Subjective Remarks No complaints. Sitting comfortably in bed Objective Vitals Vital Signs Date Time Temp Pulse Resp B/P Pulse Ox O2 Delivery O2 Flow Rate FiO2 10/09/16 05:24 16 10/09/16 04:50 97.0 92 18 140/66 96 10/09/16 03:15 17 10/09/16 02:15 Nasal Cannula 2.00 10/09/16 00:45 96.9 85 18 136/96 93 10/08/16 20:45 97.7 93 18 125/68 94 10/08/16 20:00 79 10/08/16 16:00 99.4 75 18 109/51 93 10/08/16 12:00 97.5 74 18 95/52 95 10/08/16 11:30 87 I/O 10/08/16 10/08/16 10/08/16 10/09/16 10/09/16 10/09/16 07:00 15:00 23:00 07:00 15:00 23:00 Intake Total 240 ml 840 ml 120 ml Output Total 400 ml 825 ml 400 ml Balance -160 ml 15 ml -280 ml Intake Oral 240 ml 840 ml 120 ml Output Urine Total 400 ml 825 ml 400 ml # Bowel Movements 0 0 0 Result Diagram: 10/08/16 0740 10/08/16 0740 Objective Remarks Splint intact right upper extremity. No splint for her right leg. Not much pain. No abnormal swelling. Assessment & Plan Assessment and Plan Fracture right greater trochanter, periprosthetic. Fracture right distal radius, impacted, nondisplaced. PLAN: Partial weightbearing right leg with platform walker. Discharge to intermediate once stable medically. Nonsurgical treatment of right arm and right leg at this time Office visit in 2-3 weeks. Repeat x-ray at that time. If displacement occurs , surgical treatment on a delayed fashion may be necessary Terrance Hobbs MD Oct 09, 2016 08:03
[2016-10-09] MEDS: FUROSEMIDE 20 MG TAB PO SCH (08:32)
[2016-10-09] MEDS: ATENOLOL 25 MG TAB PO SCH (08:32)
[2016-10-09] MEDS: CITALOPRAM HYDROBROMIDE 20 MG TAB PO SCH (08:32)
[2016-10-09] MEDS: DOCUSATE SODIUM 50 MG/SENNA 8.6 MG TAB PO SCH ×2 (08:32→20:12)
[2016-10-09] MEDS: SPIRONOLACTONE 25 MG TAB PO SCH ×2 (08:32→20:12)
[2016-10-09] MEDS: DILTIAZEM-CD 180 MG CAP ER PO SCH ×2 (08:33→20:12)
[2016-10-09] MEDS: SODIUM CHLORIDE 0.9% FLUSH 10 ML FLUSH IV FLUSH SCH ×2 (08:33→20:12)
[2016-10-09] MEDS: BUDESONIDE-FORMOTEROL 80/4.5 MCG INHALER INH SCH ×2 (08:33→20:13)
[2016-10-09] MEDS: BACITRACIN TOP OINT 15 GM TUBE TOPICAL SCH ×2 (08:33→20:13)
[2016-10-09] MEDS ORDERED: DIGOXIN 0.125 MG TAB PO SCH (09:00)
[2016-10-09] MEDS: ACETAMINOPHEN/HYDROcodone 325 MG/10 MG TAB PO PRN ×3 (11:48→20:12)
--- NOTE | 2016-10-09 12:15 | HHI.PR ---
Subjective Remarks Follow up for fall related injuries, Afib. Patient is currently doing well. Sitting in her chair. No acute concerns. Objective Vitals Vital Signs Date Time Temp Pulse Resp B/P Pulse Ox O2 Delivery O2 Flow Rate FiO2 10/09/16 08:00 96.9 94 18 132/85 94 10/09/16 05:24 16 10/09/16 04:50 97.0 92 18 140/66 96 10/09/16 03:15 17 10/09/16 02:15 Nasal Cannula 2.00 10/09/16 00:45 96.9 85 18 136/96 93 10/08/16 20:45 97.7 93 18 125/68 94 10/08/16 20:00 79 10/08/16 16:00 99.4 75 18 109/51 93 I/O 10/08/16 10/08/16 10/08/16 10/09/16 10/09/16 10/09/16 06:59 14:59 22:59 06:59 14:59 22:59 Intake Total 240 ml 840 ml 120 ml Output Total 400 ml 825 ml 400 ml Balance -160 ml 15 ml -280 ml Intake Oral 240 ml 840 ml 120 ml Output Urine Total 400 ml 825 ml 400 ml # Bowel Movements 0 0 0 Result Diagram: 10/08/16 0740 10/08/16 0740 Imaging Last Impressions Chest X-Ray 10/07/16 1029 Signed Impressions: Service Date/Time: Friday, October 07, 2016 11:34 - CONCLUSION: Compensated cardiomegaly otherwise negative Julian Jackson MD FACR Wrist X-Ray 10/07/16824 Signed Impressions: Service Date/Time: Friday, October 07, 2016 09:01 - CONCLUSION: Impacted fracture distal radius. Julian Jackson MD FACR Radius/Ulna X-Ray 10/07/16824 Signed Impressions: Service Date/Time: Friday, October 07, 2016 08:57 - CONCLUSION: Negative for fracture or dislocation. Follow up in 7-10 days is suggested if symptoms persist.. Julian Jackson MD FACR Pelvis X-Ray 10/07/16824 Signed Impressions: Service Date/Time: Friday, October 07, 2016 09:04 - CONCLUSION: Osteopenia, negative for fracture. Julian Jackson MD FACR Head CT 10/07/16824 Signed Impressions: Service Date/Time: Friday, October 07, 2016 10:25 - CONCLUSION: Soft tissue swelling right truncal region. Intracranial contents unremarkable. Julian Jackson MD FACR Hand X-Ray 10/07/16824 Signed Impressions: Service Date/Time: Friday, October 07, 2016 09:02 - CONCLUSION: Impacted radial fracture. Carpus is intact with degenerative changes. Julian Jackson MD FACR Femur X-Ray 10/07/16824 Signed Impressions: Service Date/Time: Friday, October 07, 2016 09:04 - CONCLUSION: Supple greenstick fracture proximal femur. Julian Jackson MD FACR Objective Remarks GENERAL: Alert, NAD. SKIN: Warm and dry. HEAD: Normocephalic. Right head laceration/hematoma. No active bleeding. EYES: No scleral icterus. No injection or drainage. NECK: Supple, trachea midline. No JVD or lymphadenopathy. CARDIOVASCULAR: Irreg Irreg without murmurs, gallops, or rubs. RESPIRATORY: Breath sounds equal bilaterally. No accessory muscle use. GASTROINTESTINAL: Abdomen soft, non-tender, nondistended. MUSCULOSKELETAL: No cyanosis, or edema. RUE splint in place. BACK: Nontender without obvious deformity. No CVA tenderness. Procedures None. 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 Fall, Closed Head Injury: sounds mechanical, patient became tangled in home oxygen tubing, hit head but no loss of consciousness. -Head CT images reviewed, shows soft tissue swelling right truncal region; otherwise unremarkable. -Multiple xrays performed in ED, positive for right femur fracture and right radial fracture -Consult PT - patient will likely need in-patient rehab. Right Hip Fracture: with previous right hip replacement -Right hip/femur xray images reviewed, shows supple greenstick fracture proximal femur -ER discussed with ortho, nonsurgical, recommended toe touch weightbearing -pain control with [place] prn. Discontinue IV pain medications. - Dr. Terrance Hobbs evaluated patient - recommends non-surgical management and follow up in the outpatient setting. Right Radial Fracture: xray images reviewed, shows impacted right radial fracture -s/p RUE splint in the ED -nonsurgical Forehead Laceration: sustained during fall -repaired with 4 sutures in the ED -clean wound with soap/water, apply bacitracin ointment daily -have sutures removed in 5 days (10/12) Atrial Fibrillation: rate controlled -hold patient's Eliquis for now with fall as above, head injury, hip and radial fracture, and large left hernandez hematoma -continue patient's home medications COPD: O2 dependent at night -chronic, does not appear to be in exacerbation -Continue patient's Symbicort bid -Duonebs q4h prn SOB/wheezing Full code. SCDs. Likely discharge this weekend to [facility]. Problem Qualifiers (1) Fall: Qualified Code: W19.XXXA - Fall, initial encounter (2) Right femoral fracture: Qualified Code: S72.91XA - Closed fracture of right femur, unspecified fracture morphology, unspecified portion of femur, initial encounter (3) Right wrist fracture: Qualified Code: S62.101A - Right wrist fracture, closed, initial encounter Jessica Schuler DO Oct 09, 2016 12:15
[2016-10-10 00:45] VITALS: BP 109/57; PULSE 68; RESP 17; TEMP 97.3; O2SAT 93
[2016-10-10 04:45] VITALS: BP 137/63; PULSE 79; RESP 18; TEMP 96.3; O2SAT 99
[2016-10-10] MEDS: ACETAMINOPHEN/HYDROcodone 325 MG/10 MG TAB PO PRN ×3 (05:35→14:32)
[2016-10-10 08:00] VITALS: BP 114/67; PULSE 82; RESP 18; TEMP 96.8; O2SAT 97
--- NOTE | 2016-10-10 08:03 | PD.ORT.PN ---
Subjective Subjective Remarks pt complains of pain involving arm Objective Vitals Vital Signs Date Time Temp Pulse Resp B/P Pulse Ox O2 Delivery O2 Flow Rate FiO2 10/10/16 06:30 17 10/10/16 04:45 96.3 79 18 137/63 99 10/10/16 02:42 Nasal Cannula 2.00 10/10/16 00:45 97.3 68 17 109/57 93 10/09/16 20:50 96.7 80 17 106/62 94 10/09/16 20:20 84 10/09/16 16:00 96.5 78 18 122/70 10/09/16 12:00 97.3 88 21 131/85 93 10/09/16 09:00 84 10/09/16 08:00 96.9 94 18 132/85 94 I/O 10/09/16 10/09/16 10/09/16 10/10/16 10/10/16 10/10/16 07:00 15:00 23:00 07:00 15:00 23:00 Intake Total 120 ml 720 ml 120 ml 240 ml Output Total 400 ml 200 ml 75 ml 100 ml Balance -280 ml 520 ml 45 ml 140 ml Intake Oral 120 ml 720 ml 120 ml 240 ml Output Urine Total 400 ml 200 ml 75 ml 100 ml # Bowel Movements 0 0 0 Result Diagram: 10/08/1640 10/08/1640 Objective Remarks seen by Dr. Sonny Hobbs Splint intact right upper extremity. No splint for her right leg. Not much pain. No abnormal swelling. Assessment & Plan Assessment and Plan Fracture right greater trochanter, periprosthetic. Fracture right distal radius, impacted, nondisplaced. PLAN: Partial weightbearing right leg with platform walker. Anticipate discharge to [facility] today Nonsurgical treatment of right arm and right leg at this time Office visit in 2-3 weeks. Repeat x-ray at that time. If displacement occurs , surgical treatment on a delayed fashion may be necessary Eli Flynn Oct 10, 2016 08:03
[2016-10-10] MEDS: SODIUM CHLORIDE 0.9% FLUSH 10 ML FLUSH IV FLUSH SCH (09:00)
[2016-10-10] MEDS: DOCUSATE SODIUM 50 MG/SENNA 8.6 MG TAB PO SCH (09:29)
[2016-10-10] MEDS: DILTIAZEM-CD 180 MG CAP ER PO SCH (09:29)
[2016-10-10] MEDS: SPIRONOLACTONE 25 MG TAB PO SCH (09:29)
[2016-10-10] MEDS: ATENOLOL 25 MG TAB PO SCH (09:29)
[2016-10-10] MEDS: FUROSEMIDE 20 MG TAB PO SCH (09:30)
[2016-10-10] MEDS: CITALOPRAM HYDROBROMIDE 20 MG TAB PO SCH (09:30)
[2016-10-10] MEDS: BACITRACIN TOP OINT 15 GM TUBE TOPICAL SCH (09:32)
[2016-10-10] MEDS: BUDESONIDE-FORMOTEROL 80/4.5 MCG INHALER INH SCH (09:32)
[2016-10-10 12:00] VITALS: BP 135/89; PULSE 82; RESP 18; TEMP 96.6; O2SAT 96
[2016-10-10] MEDS ORDERED: BACI500O2 TOPICAL (12:44)
--- NOTE | 2016-10-10 12:50 | HHI.DS ---
Discharge Summary Admission Date Oct 07, 2016 at 14:06 Discharge Date: Oct 10, 2016 Admitting Diagnosis hip and wrist fracture (1) Fall ICD Code: W19.XXXA Diagnosis: Principal (2) Right femoral fracture ICD Code: S72.91XA Diagnosis: Principal (3) Right wrist fracture ICD Code: S62.101A Diagnosis: Principal (4) Hematoma and contusion ICD Code: T14.8 Diagnosis: Principal Procedures None. Brief History - From Admission Written by Cristin Vargas, acting as scribe for Dr. Schuler on 10/07/16 at 14:24. This note was transcribed by [email or web address] Almeida. I, Dr. Jona Schuler personally performed the history, physical exam, and medical decision making; and confirmed the accuracy of the information in the transcribed note. Authenticated by Dr. Jona Schuler on 10/07/16 at 22:41. 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 The patient explains she wears oxygen at night, has long tubing, she wrapped it up to go to the other room however became tangled and fell multiple times in her home. She states she fell "everywhere" but cannot explain exactly how she went down. Denies any lightheadedness, dizziness, chest pain, or palpitations prior to the fall. She states she hit her forehead but denies any loss of consciousness. She complains of right wrist pain and right hip pain, temporarily relieved by IV morphine in the ED. She was not able to ambulate after her fall. She denies any prior falls within the past month. The patient states she lives with her who takes good care of her. Otherwise, the patient has no other medical complaints. CBC/BMP: 10/08/16 0740 10/08/16 0740 Significant Findings Laboratory Tests Test 10/07/16 10/08/16 12:55 07:40 Potassium Level 3.2 MEQ/L (3.5-5.1) Alanine Aminotransferase 69 U/L (10-53) (ALT/SGPT) Monocytes (%) (Auto) 12.3 % (0.0-8.0) Monocytes # (Auto) 1.0 TH/MM3 (0-0.9) Blood Urea Nitrogen 6 MG/DL (7-18) Creatinine 0.39 MG/DL (0.50-1.00) Imaging Last Impressions Chest X-Ray 10/07/16 1029 Signed Impressions: Service Date/Time: Friday, October 07, 2016 11:34 - CONCLUSION: Compensated cardiomegaly otherwise negative Julian Jackson MD FACR Wrist X-Ray 10/07/16824 Signed Impressions: Service Date/Time: Friday, October 07, 2016 09:01 - CONCLUSION: Impacted fracture distal radius. Julian Jackson MD FACR Radius/Ulna X-Ray 10/07/16824 Signed Impressions: Service Date/Time: Friday, October 07, 2016 08:57 - CONCLUSION: Negative for fracture or dislocation. Follow up in 7-10 days is suggested if symptoms persist.. Julian Jackson MD FACR Pelvis X-Ray 10/07/16824 Signed Impressions: Service Date/Time: Friday, October 07, 2016 09:04 - CONCLUSION: Osteopenia, negative for fracture. Julian Jackson MD FACR Head CT 10/07/16824 Signed Impressions: Service Date/Time: Friday, October 07, 2016 10:25 - CONCLUSION: Soft tissue swelling right truncal region. Intracranial contents unremarkable. Julian Jackson MD FACR Hand X-Ray 10/07/16824 Signed Impressions: Service Date/Time: Friday, October 07, 2016 09:02 - CONCLUSION: Impacted radial fracture. Carpus is intact with degenerative changes. Julian Jackson MD FACR Femur X-Ray 10/07/16824 Signed Impressions: Service Date/Time: Friday, October 07, 2016 09:04 - CONCLUSION: Supple greenstick fracture proximal femur. Julian Jackson MD FACR PE at Discharge GENERAL: Alert, NAD. SKIN: Warm and dry. HEAD: Normocephalic. Right head laceration/hematoma. No active bleeding. EYES: No scleral icterus. No injection or drainage. NECK: Supple, trachea midline. No JVD or lymphadenopathy. CARDIOVASCULAR: Irreg Irreg without murmurs, gallops, or rubs. RESPIRATORY: Breath sounds equal bilaterally. No accessory muscle use. GASTROINTESTINAL: Abdomen soft, non-tender, nondistended. MUSCULOSKELETAL: No cyanosis, or edema. RUE splint in place. BACK: Nontender without obvious deformity. No CVA tenderness. 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 The patient explains she wears oxygen at night, has long tubing, she wrapped it up to go to the other room however became tangled and fell multiple times in her home. She states she fell "everywhere" but cannot explain exactly how she went down. Denies any lightheadedness, dizziness, chest pain, or palpitations prior to the fall. She states she hit her forehead but denies any loss of consciousness. She complains of right wrist pain and right hip pain, temporarily relieved by IV morphine in the ED. She was not able to ambulate after her fall. She denies any prior falls within the past month. The patient states she lives with her who takes good care of her. Otherwise, the patient has no other medical complaints. Patient has been seen and cleared by orthopedic Patient to go to [place] inpatient rehabilitation Continue on oxygen Continue Ravi Hold off on ELIQUIS Pt update on day of discharge GENERAL: Awake alert in no acute distress SKIN: Warm and dry. Has bruising right forehead-wound with sutures in place right forehead--lots of ecchymosis all over her body--right forehead laceration and hematoma HEAD: Atraumatic. Normocephalic. EYES: Pupils equal and round. No scleral icterus. No injection or drainage. Extraocular muscles intact ENT: No nasal bleeding or discharge. Mucous membranes pink and moist. NECK: Trachea midline. No JVD. Supple CARDIOVASCULAR: IRRegular rate and rhythm. With no murmur gallop or rub RESPIRATORY: No accessory muscle use. Clear to auscultation. Breath sounds equal bilaterally. Decreased breath sounds bilaterally GASTROINTESTINAL: Abdomen soft, non-tender, nondistended. Hepatic and splenic margins not palpable. MUSCULOSKELETAL: Extremities without clubbing, cyanosis, or edema. No obvious deformities. Right upper extremity splint in place-tender right lower extremity -- decreased range of motion right upper extremity and right lower extremity NEUROLOGICAL: Awake and alert. No obvious cranial nerve deficits. Motor grossly within normal limits. 4 out of 5 muscle strength in the arms and legs. Normal speech. Decreased range of motion right upper extremity and right lower extremity PSYCHIATRIC: Appropriate mood and affect; insight and judgment normal. BACK: Nontender without obvious deformity. No CVA tenderness. 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 The patient explains she wears oxygen at night, has long tubing, she wrapped it up to go to the other room however became tangled and fell multiple times in her home. She states she fell "everywhere" but cannot explain exactly how she went down. Denies any lightheadedness, dizziness, chest pain, or palpitations prior to the fall. She states she hit her forehead but denies any loss of consciousness. She complains of right wrist pain and right hip pain, temporarily relieved by IV morphine in the ED. She was not able to ambulate after her fall. She denies any prior falls within the past month. The patient states she lives with her who takes good care of her. Otherwise, the patient has no other medical complaints. Patient has been seen and cleared by orthopedic Patient to go to [place] [facility] Continue on oxygen Continue Ravi Hold off on ELIQUIS 81-year-old female with history of atrial fibrillation on Eliquis, COPD O2 dependent at night, anxiety, depression, presents after a fall with multiple injuries. Fall, Closed Head Injury: sounds mechanical, patient became tangled in home oxygen tubing, hit head but no loss of consciousness. -Head CT images reviewed, shows soft tissue swelling right truncal region; otherwise unremarkable. -Multiple xrays performed in ED, positive for right femur fracture and right radial fracture -Consult PT - patient will likely need in-patient rehab. Right Hip Fracture: with previous right hip replacement -Right hip/femur xray images reviewed, shows supple greenstick fracture proximal femur -ER discussed with ortho, nonsurgical, recommended toe touch weightbearing -pain control with [place] prn. Discontinue IV pain medications. - Dr. Terrance Hobbs evaluated patient - recommends non-surgical management and follow up in the outpatient setting. Right Radial Fracture: xray images reviewed, shows impacted right radial fracture -s/p RUE splint in the ED -nonsurgical Forehead Laceration: sustained during fall -repaired with 4 sutures in the ED -clean wound with soap/water, apply bacitracin ointment daily -have sutures removed in 5 days (10/12) Atrial Fibrillation: rate controlled -hold patient's Eliquis for now with fall as above, head injury, hip and radial fracture, and large left hernandez hematoma -continue patient's home medications COPD: O2 dependent at night -chronic, does not appear to be in exacerbation -Continue patient's Symbicort bid -Duonebs q4h prn SOB/wheezing Full code. SCDs. Likely discharge this weekend to [facility]. Pt Condition on Discharge: Fair Discharge Disposition: Rehab Inpatient Discharge Time: > 30 minutes Discharge Instructions DIET: Follow Instructions for: As Tolerated, No Restrictions Activities you can perform: Non Weight Bearing Follow up Referrals: Orthopedics - 2 Weeks PCP Follow-up - 2 Weeks New Medications: Bacitracin Topical (Bacitracin Topical) 500 Unit/Gm Oint 1 APPLIC TOPICAL Q12HR Rash #60 TUBE Continued Medications: Albuterol 18 GM Inh (Ventolin Hfa 18 GM Inh) 90 Mcg/Act Aer 2 PUFF INH Q4-6H PRN SHORTNESS OF BREATH #1 Ref 0 INHALER Alendronate (Alendronate) 70 Mg Tab 70 MG PO Q7D Osteporosis Treatment #4 Ref 0 TAB Alprazolam (Xanax) 0.25 Mg Tab 0.25 MG PO BID PRN ANXIETY Ref 0 TAB Apixaban (Eliquis) 5 Mg Tab 5 MG PO BID Blood Clot Prevention #60 Ref 0 TAB Atenolol (Atenolol) 25 Mg Tab 25 MG PO DAILY Blood Pressure Management #30 TAB Budesonide-Formoterol Inh (Symbicort Inh) 80-4.5 Mcg/Act Aero 2 PUFF INH Q12HR Asthma Management #1 Ref 0 INHALER Citalopram (Citalopram) 10 Mg Tab 20 MG PO DAILY Control Depression #30 Ref 0 TAB Cyclobenzaprine (Flexeril) 10 Mg Tab 10 MG PO TID PRN MUSCLE SPASM #90 Ref 0 TAB Digoxin (Digitek) 0.125 Mg Tab 0.125 MG PO EVERY OTHER DAY Regulate Heart Beat #30 Ref 0 TAB Diltiazem ER 24 HR (Taztia Xt) 180 Mg Caper 180 MG PO BID #30 Ref 0 CAP Furosemide (Furosemide) 20 Mg Tab 40 MG PO DAILY Prevent Heart Failure #30 Ref 0 TAB Hydrocodone-Acetaminophen (Hydrocodone-Acetaminophen) 10-300 Tab 1 TAB PO QID PRN PAIN Ref 0 TAB Ipratropium HFA 12.9 GM Inh (Atrovent HFA 12.9 GM Inh) 17 Mcg/Act Aer 2 PUFF INH TID copd #1 Ref 0 INHALER Ipratropium-Albuterol Neb (Duoneb) 0.5-2.5 Mg/3 Ml Neb 1 NEBULE INH Q4HR NEB Breathing Treatment #180 Ref 0 NEBULE Ropinirole (Requip) 0.5 Mg Tab 0.5 MG PO HS #30 Ref 0 TAB Spacer/Device For Mdi (Inspirease Drug Delivery) 1 Ea Mis 1 EA .ROUTE DIRECTED #1 Ref 0 EA Spironolactone (Spironolactone) 25 Mg Tab 25 MG PO BID Blood Pressure Management #30 Ref 0 TAB Discontinued Medications: Prednisone (Prednisone) 20 Mg Tab 40 MG PO DAILY sob/copd exacerb #3 TAB Additional Information CONTINUE Julian Pearson DO Oct 10, 2016 12:50
--- NOTE | 2016-10-10 12:59 | HHI.DCPOC ---
Discharge Care Plan Diagnosis: (1) Contusion of knee, left (2) Contusion of knee, right (3) Bilateral lower extremity edema (4) Fall (5) Right wrist fracture (6) Right femoral fracture (7) Atrial fibrillation (8) Multiple fractures (9) Chronic obstructive pulmonary disease (10) Closed head injury without loss of consciousness (11) Impaired mobility and activities of daily living (12) Laceration of forehead without complication (13) Distal radius fracture, right (14) Traumatic hematoma of left lower leg (15) Fracture of greater trochanter of right femur (16) Dependence on nocturnal oxygen therapy (17) Weakness Your Health Problems Are: Anxiety Chronic Pain Shortness of Breath Goals to Promote Your Health * To prevent worsening of your condition and complications * To maintain your health at the optimal level Directions to Meet Your Goals Take your medications as prescribed Follow your dietary instruction Follow activity as directed Keep your appointments as scheduled Take your immunizations and boosters as scheduled If your symptoms worsen call your PCP, if no PCP go to Urgent Care Center or Emergency Room Smoking is Dangerous to Your Health. Avoid second hand smoke Call the 24-hour hour crisis hotline for domestic abuse at Julian Scott DO Oct 10, 2016 12:59
== END 2016-10-10 15:38 | DRG 536 ==
LOC: NEPC 08:03 → NEDA 14:06 → N06B 15:53 → N06A 18:03
PROVIDERS: ADMIT Hospitalist; ATTEND Hospitalist
DX: S72.111A Displaced fracture of greater trochanter of right femur, initial encounter for closed fracture (principal); I50.9 Heart failure, unspecified; S09.8XXA Other specified injuries of head, initial encounter; S01.81XA Laceration without foreign body of other part of head, initial encounter; S52.501A Unspecified fracture of the lower end of right radius, initial encounter for closed fracture; S80.12XA Contusion of left lower leg, initial encounter; S09.90XA Unspecified injury of head, initial encounter; I48.91 Unspecified atrial fibrillation; S80.01XA Contusion of right knee, initial encounter; R60.0 Localized edema; S80.02XA Contusion of left knee, initial encounter; J44.9 Chronic obstructive pulmonary disease, unspecified; E78.00 Pure hypercholesterolemia, unspecified; F41.8 Other specified anxiety disorders; G89.29 Other chronic pain; M85.80 Other specified disorders of bone density and structure, unspecified site; Z87.891 Personal history of nicotine dependence; Z96.643 Presence of artificial hip joint, bilateral; Z96.651 Presence of right artificial knee joint; Z99.81 Dependence on supplemental oxygen; W01.198A Fall on same level from slipping, tripping and stumbling with subsequent striking against other object, initial encounter; Y92.009 Unspecified place in unspecified non-institutional (private) residence as the place of occurrence of the external cause
CPT/HCPCS: 12013; 29125; 51702; 70450; 71010; 72170; 73090; 73110; 73130; 73552; 76937; 80048; 80053; 81001; 85025; 85610; 85730; 86850; 86900; 86901; 93005; 96374; 96375; J2270; J2310; J2405

== ENCOUNTER 2017-03-27 19:53 | Emergency (ER) | payer MEDICARE ==
[~2017-03-27] VITALS: Ht 172.7 cm; Wt 73.0 kg
[~2017-03-27 19:53] MED LIST changes: +BACI500O2 TOPICAL; +CARD180C5 PO; +CELE20TA PO; -CYCL1TAB29 PO; +DIGO0.12 PO; +HYDR-3583 PO; -IPRA17I INH; -IPRASOL INH; +LIDO1ADH4 T-DERMAL; +POLY17S PO; -PRED20 PO; +SPIRCAP INH; -TAZT180C PO
[2017-03-27 19:55] VITALS: BP 134/85; PULSE 79; RESP 16; TEMP 97.5; O2SAT 98
--- NOTE | 2017-03-27 21:04 | PD ---
HPI Chief Complaint: Skin Problem Time Seen by Provider: 20:19 Travel History International Travel<30 days: No Contact w/Intl Traveler<30days: No Traveled to known affect area: No History of Present Illness HPI 82-year-old female presents emergency department with concerns of left lower extremity redness and swelling. Patient states that she normally gets wound care for this however, she has been dissatisfied with her service and decided to come to emergency department today for reevaluation. Patient states that she fell 6 months ago resulting in a wound in the front of her left hernandez. Patient states for the last 2 days she has noticed increased swelling and mild tenderness to palpation. Patient denies fevers or chills. Denies nausea, vomiting or diarrhea. States her next wound care appointment his March 29 but she does not want to go. Patient has history of atrial fibrillation and is on Eliquis. PFSH Past Medical History Hx Anticoagulant Therapy: No Arthritis: Yes Asthma: No Atrial Fibrillation: Yes (on eliquis) Autoimmune Disease: No Blood Disorders: No Anxiety: No Depression: Yes Heart Rhythm Problems: Yes Cancer: Yes (LUNG) Cardiovascular Problems: Yes (a-fib) High Cholesterol: Yes Chemotherapy: No Chest Pain: No Congestive Heart Failure: Yes COPD: Yes (2L O2 AT NIGHT) Cerebrovascular Accident: No Diabetes: No Diminished Hearing: No Endocrine: No Gastrointestinal Disorders: Yes (COLITIS IBS PT DENIES) GERD: No Glaucoma: No Genitourinary: Yes (cancer cyst removed from bladder) Headaches: No Hepatitis: No Hiatal Hernia: No Hypertension: No Immune Disorder: No Implanted Vascular Access Dvce: Yes Kidney Stones: No Musculoskeletal: Yes (sciatica) Neurologic: No Psychiatric: No Reproductive: Yes (HYSTERECTOMY) Respiratory: Yes (COPD) Immunizations Current: Yes Migraines: No Radiation Therapy: Yes Renal Failure: No Seizures: No Sickle Cell Disease: No Sleep Apnea: No Thyroid Disease: No Ulcer: No ?: Not Menopausal: Yes : 3 Para: 3 Past Surgical History Abdominal Surgery: Yes (APPENDECTOMY, cholecystectomy) AICD: No Appendectomy: Yes Arteriovenous Shunt: No Cardiac Surgery: No Cholecystectomy: Yes Ear Surgery: No Endocrine Surgery: No Eye Surgery: Yes (CATARACTS BILAT) Genitourinary Surgery: No Gynecologic Surgery: Yes Hysterectomy: Yes Insulin Pump: No Joint Replacement: Yes (BILAT KNEES AND HIPS) Neurologic Surgery: No Oral Surgery: No Pacemaker: No Thoracic Surgery: Yes (LEFT LOBECTOMY) Other Surgery: Yes Social History Alcohol Use: No Tobacco Use: No Substance Use: No Allergies-Medications (Allergen,Severity, Reaction): Coded Allergies: aspirin (Unverified Allergy, Severe, PT HAS BEEN TAKEN ASACOL AT HOME, ) cephalexin (Unverified Allergy, Severe, DIARRHEA, 10/20/16) ciprofloxacin (Unverified Allergy, Severe, DIARRHEA, 10/20/16) diclofenac (Unverified Allergy, Severe, Nausea/Vomiting, 10/20/16) erythromycin base (Unverified Allergy, Severe, NAUSEA, 10/20/16) etodolac (Unverified Allergy, Severe, Nausea/Vomiting, 10/20/16) flurbiprofen (Unverified Allergy, Severe, Nausea/Vomiting, 10/20/16) ibuprofen (Unverified Allergy, Severe, Nausea/Vomiting, 10/20/16) indomethacin (Unverified Allergy, Severe, Nausea/Vomiting, 10/20/16) ketoprofen (Unverified Allergy, Severe, Nausea/Vomiting, 10/20/16) ketorolac (Unverified Allergy, Severe, Nausea/Vomiting, 10/20/16) levofloxacin (Unverified Allergy, Severe, DIARRHEA, 10/20/16) naproxen (Unverified Allergy, Severe, Nausea/Vomiting, 10/20/16) oxaprozin (Unverified Allergy, Severe, Nausea/Vomiting, 10/20/16) clindamycin (Unverified Allergy, Unknown, Diarrhea, 10/20/16) penicillin G (Unverified Adverse Reaction, Mild, Itching, 10/20/16) Uncoded Allergies: Adhesive tape (Allergy, Intermediate, 12/19/15) . LACTOSE INTOLERANCE (Allergy, Intermediate, 12/19/15) . Reported Meds & Prescriptions Reported Meds & Active Scripts Active Bactrim DS (Sulfamethoxazole-Trimethoprim) 800-160 Mg Tab 1 Tab PO BID Spironolactone 25 Mg Tab 25 Mg PO DAILY 30 Days Hydrocodone-Acetaminophen 10-325 mg Tab 2 Tab PO Q4H PRN Hydrocodone-Acetaminophen 10-325 mg Tab 1 Tab PO Q4HR PRN Xanax (Alprazolam) 0.25 Mg Tab 0.25 Mg PO DAILY PRN 30 Days Lidoderm (Lidocaine) 5 % Adh..patch 1 Patch T-DERMAL DAILY 30 Days Polyethylene Glycol 3350 Powder (Polyethylene Glycol) 17 Gram Pow 17 Gm PO DAILY 30 Days Symbicort Inh (Budesonide/Formoterol Fumarate) 80-4.5 Mcg/Act Aero 2 Puff INH Q12HR 30 Days Furosemide 20 Mg Tab 20 Mg PO DAILY 30 Days Requip (Ropinirole HCl) 0.5 Mg Tab 0.5 Mg PO HS 30 Days Celexa (Citalopram Hydrobromide) 20 Mg Tab 20 Mg PO DAILY 30 Days Cardizem CD 24 HR (Diltiazem CD 24 HR) 180 Mg Caper 180 Mg PO BID 30 Days Atenolol 25 Mg Tab 25 Mg PO DAILY 30 Days Digoxin 0.125 Mg Tab 0.125 Mg PO EVERY OTHER DAY 30 Days Eliquis (Apixaban) 5 Mg Tab 5 Mg PO BID 30 Days Spiriva Handihaler (Tiotropium Inh) 18 Mcg Cap 18 Mcg INH DAILY 30 Days 1 capsule = 18 mcg Ventolin Hfa 18 GM Inh (Albuterol Sulfate) 90 Mcg/Act Aer 2 Puff INH Q4-6H PRN 30 Days Bacitracin Topical 500 Unit/Gm Oint 1 Applic TOPICAL Q12HR Inspirease Drug Delivery (Spacer/Device For Mdi) 1 Ea Mis 1 Ea .ROUTE DIRECTED Furosemide 20 Mg Tab 40 Mg PO DAILY Reported Alendronate (Alendronate Sodium) 70 Mg Tab 70 Mg PO Q7D Digitek (Digoxin) 0.125 Mg Tab 0.125 Mg PO EVERY OTHER DAY Eliquis (Apixaban) 5 Mg Tab 5 Mg PO BID Atenolol 25 Mg Tab 25 Mg PO DAILY Citalopram (Citalopram Hydrobromide) 10 Mg Tab 20 Mg PO DAILY Hydrocodone-Acetaminophen 10-300 Tab 1 Tab PO QID PRN Requip (Ropinirole HCl) 0.5 Mg Tab 0.5 Mg PO HS Symbicort Inh (Budesonide/Formoterol Fumarate) 80-4.5 Mcg/Act Aero 2 Puff INH Q12HR Xanax (Alprazolam) 0.25 Mg Tab 0.25 Mg PO BID PRN Review of Systems Except as stated in HPI: all other systems reviewed are Neg Physical Exam Narrative GENERAL: Well-developed well-nourished in no apparent distress resting comfortably in bed SKIN: Focused skin assessment warm/dry. HEAD: Atraumatic. Normocephalic. EYES: Pupils equal and round. No scleral icterus. No injection or drainage. ENT: No nasal bleeding or discharge. Mucous membranes pink and moist. NECK: Trachea midline. No JVD. CARDIOVASCULAR: Regular rate and rhythm. No murmur appreciated. RESPIRATORY: No accessory muscle use. Clear to auscultation. Breath sounds equal bilaterally. MUSCULOSKELETAL: No obvious deformities. No clubbing. No cyanosis. No edema. Left lower extremity anterior hernandez-well healing wound without exudate. Erythema to the distal aspect of wound. Mild edema to the distal aspect of hernandez. NEUROLOGICAL: Awake and alert. No obvious cranial nerve deficits. Motor grossly within normal limits. Normal speech. PSYCHIATRIC: Appropriate mood and affect; insight and judgment normal. Data Data Last Documented VS Vital Signs Date Time Temp Pulse Resp B/P (MAP) Pulse Ox O2 Delivery O2 Flow Rate FiO2 03/27/17 22:02 62 16 123/67 (85) 98 Room Air 03/27/17 19:55 97.5 Orders Orders Us Leg Venous Doppler Bilat (03/27/17 ) Wound Care (03/27/17 20:31) Ed Discharge Order (03/27/17 21:30) MDM Medical Decision Making Medical Screen Exam Complete: Yes Emergency Medical Condition: Yes Differential Diagnosis Encounter for wound care, cellulitis, erysipelas, DVT Narrative Course 82-year-old female presents emergency department with concerns of left lower extremity redness and swelling. Patient states that she normally gets wound care for this however, she has been dissatisfied with her service and decided to come to emergency department today for reevaluation. Patient states that she fell 6 months ago resulting in a wound in the front of her left hernandez. Patient states for the last 2 days she has noticed increased swelling and mild tenderness to palpation. Patient denies fevers or chills. Denies nausea, vomiting or diarrhea. States her next wound care appointment his March 29 but she does not want to go. Patient has history of atrial fibrillation and is on Eliquis. Her last wound care dressing once 2 weeks ago. Vital signs stable. Physical exam findings consistent with a well-healing wound to the left anterior hernandez with erythema and edema. Negative Homans sign. Right lower extremity with +2 pitting edema (patient states this normal for her however, states this increased.) Bilateral ultrasound Doppler ordered to rule out DVT. Negative DVT. Wound care performed. Advised patient to continue wound care as scheduled. Advised that if she does not like her current treatments that she should continue to go to her current wound care provider until she has a follow-up elsewhere. Patient has allergies to multiple antibiotics. Patient will be discharged with Bactrim for concern of developing cellulitis. Advised to follow-up with a primary care physician and wound care. Patient states understanding will comply. Diagnosis Primary Impression: Encounter for wound care Additional Impression: Cellulitis of left lower extremity Referrals: [facility] Additional Instructions: Take all medications as prescribed. Leave wound bandages on place until you follow-up with wound care on Wednesday. If you develop increased swelling, redness, pain return to the emergency department. Follow-up with primary care physician within 2-3 days. Scripts Sulfamethoxazole-Trimethoprim (Bactrim DS) 800-160 Mg Tab 1 TAB PO BID for Infection, #14 TAB 0 Refills Prov: Marissa Cheney 03/27/17 Disposition: 01 DISCHARGE HOME Condition: Stable Marissa Cheney Mar 27, 2017 21:04
--- NOTE | 2017-03-27 21:21 | RADRPT ---
EXAM DATE/TIME: 03/27/2017 20:41 [facility] COMPARISON: No previous studies available for comparison. INDICATIONS : Bilateral leg swelling. MEDICAL HISTORY : Congestive heart failure. Carcinoma, lung. Inflammatory bowel disease. Syncope. Afib. SVT. COPD. Dysp adiyta. Colitis. Arthritis. Osteoporosis. Osteoarthritis. Sciatica.Depression. Anxiety. Anticoagulant th erapy, Eliquis. MRSA. SURGICAL HISTORY : Appendectomy. Cholecystectomy. Hysterectomy.Bilateral cataract extraction. Left lobectomy. Right shou lder. Bilateral knees and hips replacement. Cancer cyst removed from bladder. Radiation therapy. Bloo d transfusions. ENCOUNTER: Subsequent ACUITY: 1 day PAIN SCORE: 3/10 LOCATION: Bilateral legs. TECHNIQUE: Venous ultrasound of the left and right leg was performed from the inguinal ligament to the proximal calf. Real-time, color Doppler and spectral tracing, compression and augmentation techniques were us ed. FINDINGS: RIGHT LEG: There is normal compressibility of the deep venous system from the inguinal region to the proximal ca lf. No echogenic clot is seen in the lumen of the common femoral, femoral, popliteal, and posterior tibial veins. There is a normal response of the venous system to proximal and distal augmentation an d respiration. LEFT LEG: There is normal compressibility of the deep venous system from the inguinal region to the proximal ca lf. No echogenic clot is seen in the lumen of the common femoral, femoral, popliteal, and posterior tibial veins. There is a normal response of the venous system to proximal and distal augmentation an d respiration. CONCLUSION: No DVT in either lower extremity. Abel Shell MD on March 27, 2017 at 21:18 Board Certified Radiologist. This report was verified electronically.
[2017-03-27] MEDS ORDERED: BACT800T5 PO (21:29)
[2017-03-27 22:02] VITALS: BP 123/67; PULSE 62; RESP 16; O2SAT 98
== END 2017-03-27 21:59 | disposition home or self-care (01) ==
LOC: NEPC 19:53
DX: S89.92XD Unspecified injury of left lower leg, subsequent encounter (principal); W19.XXXD Unspecified fall, subsequent encounter; L03.116 Cellulitis of left lower limb; I48.91 Unspecified atrial fibrillation; I50.9 Heart failure, unspecified; I47.1 Supraventricular tachycardia; E78.00 Pure hypercholesterolemia, unspecified; F32.9 Major depressive disorder, single episode, unspecified; F41.9 Anxiety disorder, unspecified
CPT/HCPCS: 93970; 99284

== ENCOUNTER 2017-04-04 14:10 | Emergency (ER) | payer MEDICARE ==
[~2017-04-04] VITALS: Ht 172.7 cm; Wt 72.0 kg
[~2017-04-04 14:10] MED LIST changes: +BACT800T5 PO
[2017-04-04 14:55] VITALS: BP 135/85; PULSE 97; RESP 18; TEMP 97; O2SAT 96
[2017-04-04 14:59] VITALS: O2SAT 97
[2017-04-04] MEDS ORDERED: SODIUM CHLORIDE 0.9% FLUSH 10 ML FLUSH IVF PRN (15:00)
--- NOTE | 2017-04-04 15:15 | PD ---
HPI Chief Complaint: Fall Time Seen by Provider: 14:54 Travel History International Travel<30 days: No Contact w/Intl Traveler<30days: No Traveled to known affect area: No History of Present Illness HPI 82-year-old female presents with headache and laceration to her left forehead after she tripped and fell out of her entryway with her walker. She states she' s also having pain to her right hand and her left knee. She did not lose consciousness. She is on Eliquis for atrial fibrillation. She has had multiple recent falls. She is currently having home health come and do wound care to her left leg. Fall was from standing. She denies any other concurrent complaints. History was also obtained from the ambulance team. [facility] Past Medical History Hx Anticoagulant Therapy: No Arthritis: Yes Asthma: No Atrial Fibrillation: Yes (on eliquis) Autoimmune Disease: No Blood Disorders: No Anxiety: No Depression: Yes Heart Rhythm Problems: Yes Cancer: Yes (LUNG) Cardiovascular Problems: Yes (a-fib) High Cholesterol: Yes Chemotherapy: No Chest Pain: No Congestive Heart Failure: Yes COPD: Yes (2L O2 AT NIGHT) Cerebrovascular Accident: No Diabetes: No Diminished Hearing: No Endocrine: No Gastrointestinal Disorders: Yes (COLITIS IBS ) GERD: No Glaucoma: No Genitourinary: Yes (cancer cyst removed from bladder) Headaches: No Hepatitis: No Hiatal Hernia: No Heparin Induced Thrombocytopen: No Hypertension: No Immune Disorder: No Implanted Vascular Access Dvce: Yes Kidney Stones: No Musculoskeletal: Yes (sciatica) Neurologic: No Psychiatric: No Reproductive: Yes (HYSTERECTOMY) Respiratory: Yes (COPD) Immunizations Current: Yes Migraines: No Radiation Therapy: Yes Renal Failure: No Seizures: No Sickle Cell Disease: No Sleep Apnea: No Thyroid Disease: No Ulcer: No Tetanus Vaccination: < 5 Years ?: Not Menopausal: Yes : 3 Para: 3 Past Surgical History Abdominal Surgery: Yes (APPENDECTOMY, cholecystectomy) AICD: No Appendectomy: Yes Arteriovenous Shunt: No Cardiac Surgery: No Cholecystectomy: Yes Ear Surgery: No Endocrine Surgery: No Eye Surgery: Yes (CATARACTS BILAT) Genitourinary Surgery: No Gynecologic Surgery: Yes Hysterectomy: Yes Insulin Pump: No Joint Replacement: Yes (BILAT KNEES AND HIPS) Neurologic Surgery: No Oral Surgery: No Pacemaker: No Thoracic Surgery: Yes (LEFT LOBECTOMY) Other Surgery: Yes Social History Alcohol Use: No Tobacco Use: No Substance Use: No Allergies-Medications (Allergen,Severity, Reaction): Coded Allergies: aspirin (Unverified Allergy, Severe, PT HAS BEEN TAKEN ASACOL AT HOME, ) cephalexin (Unverified Allergy, Severe, DIARRHEA, 10/20/16) ciprofloxacin (Unverified Allergy, Severe, DIARRHEA, 10/20/16) diclofenac (Unverified Allergy, Severe, Nausea/Vomiting, 10/20/16) erythromycin base (Unverified Allergy, Severe, NAUSEA, 10/20/16) etodolac (Unverified Allergy, Severe, Nausea/Vomiting, 10/20/16) flurbiprofen (Unverified Allergy, Severe, Nausea/Vomiting, 10/20/16) ibuprofen (Unverified Allergy, Severe, Nausea/Vomiting, 10/20/16) indomethacin (Unverified Allergy, Severe, Nausea/Vomiting, 10/20/16) ketoprofen (Unverified Allergy, Severe, Nausea/Vomiting, 10/20/16) ketorolac (Unverified Allergy, Severe, Nausea/Vomiting, 10/20/16) levofloxacin (Unverified Allergy, Severe, DIARRHEA, 10/20/16) naproxen (Unverified Allergy, Severe, Nausea/Vomiting, 10/20/16) oxaprozin (Unverified Allergy, Severe, Nausea/Vomiting, 10/20/16) clindamycin (Unverified Allergy, Unknown, Diarrhea, 10/20/16) penicillin G (Unverified Adverse Reaction, Mild, Itching, 10/20/16) Uncoded Allergies: Adhesive tape (Allergy, Intermediate, 12/19/15) . LACTOSE INTOLERANCE (Allergy, Intermediate, 12/19/15) . Reported Meds & Prescriptions Reported Meds & Active Scripts Active Spironolactone 25 Mg Tab 25 Mg PO DAILY 30 Days Cardizem CD 24 HR (Diltiazem CD 24 HR) 180 Mg Caper 180 Mg PO BID 30 Days Eliquis (Apixaban) 5 Mg Tab 5 Mg PO BID 30 Days Spiriva Handihaler (Tiotropium Inh) 18 Mcg Cap 18 Mcg INH DAILY 30 Days 1 capsule = 18 mcg Ventolin Hfa 18 GM Inh (Albuterol Sulfate) 90 Mcg/Act Aer 2 Puff INH Q4-6H PRN 30 Days Furosemide 20 Mg Tab 40 Mg PO DAILY Reported Alendronate (Alendronate Sodium) 70 Mg Tab 70 Mg PO Q7D Digitek (Digoxin) 0.125 Mg Tab 0.125 Mg PO EVERY OTHER DAY Atenolol 25 Mg Tab 25 Mg PO DAILY Citalopram (Citalopram Hydrobromide) 10 Mg Tab 20 Mg PO DAILY Hydrocodone-Acetaminophen 10-300 Tab 1 Tab PO QID PRN Symbicort Inh (Budesonide/Formoterol Fumarate) 80-4.5 Mcg/Act Aero 2 Puff INH Q12HR Xanax (Alprazolam) 0.25 Mg Tab 0.25 Mg PO BID PRN Review of Systems Except as stated in HPI: all other systems reviewed are Neg Physical Exam Narrative General: 82 y/o patient with laceration noted to left forehead with associated hematoma and bruising to left face Skin: trauma noted to left face Eyes: Pupils equal, eomi ENT: no septal hematoma NECK: C-collar in place Cardiovascular: Regular rate and rhythm Respiratory: Normal respiratory effort noted, clear to auscultation bilaterally Abdomen: soft, nontender, nondistended Extremities: Pain with palpation of left knee with abrasion and right hand, abrasion left shoulder, no lacerations over, neurovascularly intact, no pain with rom of other joints Neuro: awake, alert, sensation and motor grossly intact Data Data Last Documented VS Vital Signs Date Time Temp Pulse Resp B/P (MAP) Pulse Ox O2 Delivery O2 Flow Rate FiO2 04/04/17 18:46 100 17 122/68 (86) 96 Room Air 04/04/17 14:55 97.0 Orders Orders Basic Metabolic Panel (Bmp) (04/04/17 14:57) Complete Blood Count With Diff (04/04/17 14:57) Prothrombin Time / Inr (Pt) (04/04/17 14:57) Act Partial Throm Time (Ptt) (04/04/17 14:57) Type And Screen (04/04/17 14:57) Pelvis, Ap Only (Routine) (04/04/17 14:57) Ct Brain W/O Iv Contrast(Rout) (04/04/17 14:57) Ct Cerv Spine W/O Contrast (04/04/17 14:57) Ct Facial Bones W/O Iv Cont (04/04/17 14:57) Iv Access Insert/Monitor (04/04/17 14:57) Ecg Monitoring (04/04/17 14:57) Oximetry (04/04/17 14:57) Sodium Chloride 0.9% Flush (Ns Flush) (04/04/17 15:00) Knee, Complete (4vws) (04/04/17 ) Hand, Complete ([id number]) (04/04/17 ) Humerus (Min 2vws) (04/04/17 ) Potassium, Serum (K) (04/04/17 16:25) Lidocai-Epi 2%-1:100,000 Inj (Xylocaine- (04/04/17 17:45) Lidocai-Epi 2%-1:100,000 Inj (Xylocaine- (04/04/17 17:43) Ed Discharge Order (04/04/17 18:41) Labs Laboratory Tests Test 04/04/17 15:09 04/04/17 17:24 04/04/17 17:27 White Blood Count 7.5 TH/MM3 Red Blood Count 4.82 MIL/MM3 Hemoglobin 14.6 GM/DL Hematocrit 44.0 % Mean Corpuscular Volume 91.2 FL Mean Corpuscular Hemoglobin 30.3 PG Mean Corpuscular Hemoglobin Concent 33.3 % Red Cell Distribution Width 14.9 % Platelet Count 252 TH/MM3 Mean Platelet Volume 7.9 FL Neutrophils (%) (Auto) 63.1 % Lymphocytes (%) (Auto) 26.2 % Monocytes (%) (Auto) 9.5 % Eosinophils (%) (Auto) 0.5 % Basophils (%) (Auto) 0.7 % Neutrophils # (Auto) 4.7 TH/MM3 Lymphocytes # (Auto) 2.0 TH/MM3 Monocytes # (Auto) 0.7 TH/MM3 Eosinophils # (Auto) 0.0 TH/MM3 Basophils # (Auto) 0.1 TH/MM3 CBC Comment DIFF FINAL Differential Comment Blood Urea Nitrogen 14 MG/DL Creatinine 0.76 MG/DL Random Glucose 93 MG/DL Calcium Level 9.4 MG/DL Sodium Level 137 MEQ/L Potassium Level 5.9 MEQ/L 4.2 MEQ/L Chloride Level 104 MEQ/L Carbon Dioxide Level 26.1 MEQ/L Anion Gap 7 MEQ/L Estimat Glomerular Filtration Rate 73 ML/MIN Prothrombin Time 11.1 SEC Prothromb Time International Ratio 1.1 RATIO Activated Partial Thromboplast Time 22.6 SEC MDM Medical Decision Making Medical Screen Exam Complete: Yes Emergency Medical Condition: Yes Medical Record Reviewed: Yes (past history confirmed) Interpretation(s) CBC & BMP Diagram 04/04/17 15:09 Calcium Level 9.4 04/04/17 17:27 Last 24 hours Impressions Pelvis X-Ray 04/04/171456 Signed Impressions: Service Date/Time: Tuesday, April 04, 2017 15:24 - CONCLUSION: Bilateral total hip prostheses. No evidence of fracture or dislocation. Valentin Presley MD Maxillofacial CT 04/04/17 145 Signed Impressions: Service Date/Time: Tuesday, April 04, 2017 15:14 - CONCLUSION: Left-sided soft tissue swelling adjacent to the left zygomatic arch. No evidence of fracture. Valentin Presley MD Head CT 04/04/17 145 Signed Impressions: Service Date/Time: Tuesday, April 04, 2017 15:14 - CONCLUSION: No acute intracranial findings. Valentin Presley MD Cervical Spine CT 04/04/17 145 Signed Impressions: Service Date/Time: Tuesday, April 04, 2017 15:14 - CONCLUSION: No evidence of fracture. Severe multilevel degenerative findings. Valentin Presley MD Knee X-Ray 04/04/17 0000 Signed Impressions: Service Date/Time: Tuesday, April 04, 2017 15:27 - CONCLUSION: Total knee prosthesis. No evidence of fracture. Valentin Presley MD Humerus X-Ray 04/04/17 0000 Signed Impressions: Service Date/Time: Tuesday, April 04, 2017 15:40 - CONCLUSION: No evidence of fracture. Prominent glenohumeral joint arthrosis. Valentin Presley MD Hand X-Ray 04/04/17 0000 Signed Impressions: Service Date/Time: Tuesday, April 04, 2017 15:36 - CONCLUSION: No acute fracture identified. Prominent diffuse bone demineralization and osteoarthritic findings. Old distal radius fracture. Valentin Presley MD Differential Diagnosis Fracture, bleed, strain Narrative Course Will check blood work, trauma imaging and reevaluate. Given age and Eliquis use called CT to expedite imaging ed workup no emergent process, pa to assist with laceration repair Patient denies any new complaints, all questions answered. Patient knows that follow up is incumbent on them and to return to the emergency room immediately if new or worsening symptoms develop. Patient given strict return precautions, vitals reviewed and are normal, agrees to further workup as an outpatient. Diagnosis Primary Impression: Fall Qualified Codes: W19.XXXA - Unspecified fall, initial encounter Additional Impression: Facial laceration Qualified Codes: S01.81XA - Laceration without foreign body of other part of head, initial encounter Patient Instructions: General Instructions Additional Instructions: return as need, follow with primary for suture removal in 5-7 days, return here with any emergent need, tylenol as needed for pain Med/Other Pt SpecificInfo: No Change to Meds Disposition: 01 DISCHARGE HOME Condition: Stable Cuca Collins MD Apr 04, 2017 15:15
[2017-04-04 15:20] LABS: AUTOMATED NEUTROPHIL # 4.7 TH/MM3 (1.8-7.7); BASOPHIL # 0.1 TH/MM3 (0-0.2); BASOPHIL % 0.7 % (0.0-2.0); EOSINOPHIL % 0.5 % (0.0-4.0); HEMOGLOBIN 14.6 GM/DL (11.6-15.3); LYMPH % 26.2 % (9.0-44.0); MEAN CELL VOLUME 91.2 FL (80.0-100.0); MEAN CORPUSCULAR HEMOGLOBIN 30.3 PG (27.0-34.0); MEAN CORPUSCULAR HGB CONC 33.3 % (32.0-36.0); MEAN PLATELET VOLUME 7.9 FL (7.0-11.0); MONO % 9.5 % (0.0-8.0); MONOCYTE # 0.7 TH/MM3 (0-0.9); NEUT % 63.1 % (16.0-70.0); PLATELET COUNT 252 TH/MM3 (150-450); RED BLOOD COUNT 4.82 MIL/MM3 (4.00-5.30); RED CELL DISTRIBUTION WIDTH 14.9 % (11.6-17.2); WHITE BLOOD COUNT 7.5 TH/MM3 (4.0-11.0)
[2017-04-04 15:44] LABS: BICARBONATE 26.1 MEQ/L (21.0-32.0); CALCIUM 9.4 MG/DL (8.5-10.1); CREATININE 0.76 MG/DL (0.50-1.00)
--- NOTE | 2017-04-04 16:00 | RADRPT ---
EXAM DATE/TIME: 04/04/2017 15:14 [facility] COMPARISON: CT BRAIN W/O CONTRAST, October 07, 2016, 10:25. INDICATIONS : Fall takes blodd thinners. RADIATION DOSE: 33.65 CTDIvol (mGy) MEDICAL HISTORY : Cardiovascular disease. Congestive heart failure. Carcinoma, lung.Afib,[place] tx SURGICAL HISTORY : Cholecystectomy. Appendectomy.Hysterectomy.Lobetctomy ENCOUNTER: Initial ACUITY: 1 day PAIN SCALE: 7/10 LOCATION: cranial TECHNIQUE: Multiple contiguous axial images were obtained of the head. Using automated exposure control and adj ustment of the mA and/or kV according to patient size, radiation dose was kept as low as reasonably a chievable to obtain optimal diagnostic quality images. DICOM format image data is available electro nically for review and comparison. FINDINGS: CEREBRUM: The ventricles are normal for age. No evidence of midline shift, mass lesion, hemorrhage or acute in farction. No extra-axial fluid collections are seen. POSTERIOR FOSSA: The cerebellum and brainstem are intact. The 4th ventricle is midline. The cerebellopontine angle i s unremarkable. EXTRACRANIAL: Mild mucosal thickening of the maxillary sinuses. SKULL: The calvaria is intact. No evidence of skull fracture. CONCLUSION: No acute intracranial findings. Valentin Presley MD on April 04, 2017 at 15:57 Board Certified Radiologist. This report was verified electronically.
--- NOTE | 2017-04-04 16:04 | RADRPT ---
EXAM DATE/TIME: 04/04/2017 15:14 [facility] COMPARISON: No previous studies available for comparison. INDICATIONS : Fall, takes blood thinners RADIATION DOSE: 13.96 CTDIvol (mGy) MEDICAL HISTORY : Cardiovascular disease. Hypertension. Carcinoma, lung.Afib SURGICAL HISTORY : Hysterectomy. Appendectomy.Lobectomy ENCOUNTER: Initial ACUITY: 1 day PAIN SCALE: 7/10 LOCATION: Bilateral neck TECHNIQUE: Volumetric scanning of the cervical spine was performed. Multiplanar reconstructions in the sagittal, coronal and oblique axial planes were performed. Using automated exposure control and adjustment o f the mA and/or kV according to patient size, radiation dose was kept as low as reasonably achievable to obtain optimal diagnostic quality images. DICOM format image data is available electronically f or review and comparison. FINDINGS: VERTEBRAE: Normal vertebral body height. ALIGNMENT: 2 mm anterolisthesis C3 on C4. 2 mm anterolisthesis C4 on C5. C2-C3: Severe bilateral facet arthrosis. Mild bilateral neural foraminal narrowing. Central canal diameter w ithin normal limits. C3-C4: Severe bilateral facet arthrosis. Severe bilateral neural foraminal narrowing. Central canal diameter within normal limits. C4-C5: Severe bilateral facet arthrosis. Severe bilateral neural foraminal narrowing. Central canal diameter within normal limits. C5-C6: Severe bilateral facet arthrosis. Broad-based disc osteophyte complex. Severe right and moderate left neural foraminal narrowing. Mild to moderate central canal narrowing. C6-C7: Severe right-sided facet arthrosis. Severe right neural foraminal narrowing. Broad-based disc osteoph yte complex. Mild central canal narrowing. C7-T1: Moderate bilateral facet arthrosis. Mild bilateral neural foraminal narrowing. CONCLUSION: No evidence of fracture. Severe multilevel degenerative findings. Valentin Presley MD on April 04, 2017 at 15:58 Board Certified Radiologist. This report was verified electronically.
--- NOTE | 2017-04-04 16:13 | RADRPT ---
EXAM DATE/TIME: 04/04/2017 15:14 [facility] COMPARISON: No previous studies available for comparison. INDICATIONS : Fall injury to face, takes blood thinners. RADIATION DOSE: 58.61 CTDIvol (mGy) MEDICAL HISTORY : Cardiovascular disease. Carcinoma, lung. Rad therapy SURGICAL HISTORY : Hysterectomy. Appendectomy.Lobetcomy ENCOUNTER: Initial ACUITY: 1 day PAIN SCORE: 7/10 LOCATION: Bilateral cranial TECHNIQUE: Volumetric scanning of the facial bones was performed. Using automated exposure control and adjustme nt of the mA and/or kV according to patient size, radiation dose was kept as low as reasonably achiev able to obtain optimal diagnostic quality images. DICOM format image data is available electronicall y for review and comparison. FINDINGS: No evidence of fracture. Mild mucosal thickening in the maxillary and ethmoid sinuses. Globes are rou nd and symmetric. Orbits are intact. Soft tissue edema is seen in the pre-zygomatic region on the lef t. CONCLUSION: Left-sided soft tissue swelling adjacent to the left zygomatic arch. No evidence of f racture. Valentin Presley MD on April 04, 2017 at 16:07 Board Certified Radiologist. This report was verified electronically.
--- NOTE | 2017-04-04 16:34 | RADRPT ---
EXAM DATE/TIME: 04/04/2017 15:24 [facility] COMPARISON: FEMUR RIGHT (AP & LAT/2VWS), October 07, 2016, 9:04. PELVIS AP ONLY, October 07, 2016, 9:04. INDICATIONS : Trauma, fall. MEDICAL HISTORY : None. SURGICAL HISTORY : None. ENCOUNTER: Initial ACUITY: 1 day PAIN SCORE: 0/10 LOCATION: Bilateral pelvis FINDINGS: 2 AP views of the pelvis. Bilateral total hip prostheses in place. Alignment within normal limits. No evidence of fracture. CONCLUSION: Bilateral total hip prostheses. No evidence of fracture or dislocation. Valentin Presley MD on April 04, 2017 at 16:30 Board Certified Radiologist. This report was verified electronically.
--- NOTE | 2017-04-04 16:35 | RADRPT ---
EXAM DATE/TIME: 04/04/2017 15:27 [facility] COMPARISON: No previous studies available for comparison. INDICATIONS : Trauma, fall. MEDICAL HISTORY : None. SURGICAL HISTORY : None. ENCOUNTER: Initial ACUITY: 1 day PAIN SCORE: Non-responsive. LOCATION: Left knee FINDINGS: 4 views of the left knee. Total knee prosthesis in place. Alignment within normal limits. No evidence of fracture. No evidence of joint effusion. CONCLUSION: Total knee prosthesis. No evidence of fracture. Valentin Presley MD on April 04, 2017 at 16:31 Board Certified Radiologist. This report was verified electronically.
--- NOTE | 2017-04-04 16:36 | RADRPT ---
EXAM DATE/TIME: 04/04/2017 15:36 [facility] COMPARISON: HAND RIGHT COMPLETE ([id number]), October 07, 2016, 9:02. INDICATIONS : Trauma, fall. MEDICAL HISTORY : None. SURGICAL HISTORY : None. ENCOUNTER: Initial ACUITY: 1 day PAIN SCORE: Non-responsive. LOCATION: Right hand FINDINGS: 3 views right hand. Severe diffuse bone demineralization. Moderate-sized osteophytes at all of the in terphalangeal joints. Large osteophytes at the thumb carpometacarpal joint. No evidence of acute frac ture. Old distal radius fracture is noted. CONCLUSION: No acute fracture identified. Prominent diffuse bone demineralization and osteoarthritic findings. Ol d distal radius fracture. Valentin Presley MD on April 04, 2017 at 16:32 Board Certified Radiologist. This report was verified electronically.
--- NOTE | 2017-04-04 16:37 | RADRPT ---
EXAM DATE/TIME: 04/04/2017 15:40 [facility] COMPARISON: No previous studies available for comparison. INDICATIONS : Trauma, fall. MEDICAL HISTORY : None. SURGICAL HISTORY : None. ENCOUNTER: Initial ACUITY: 1 day PAIN SCORE: Non-responsive. LOCATION: Left humerus FINDINGS: 2 views left humerus. Moderate-sized glenohumeral joint osteophytes and prominent joint narrowing. Simon ne alignment within normal limits. No evidence of fracture. CONCLUSION: No evidence of fracture. Prominent glenohumeral joint arthrosis. Valentin Presley MD on April 04, 2017 at 16:34 Board Certified Radiologist. This report was verified electronically.
[2017-04-04] MEDS ORDERED: LIDOCAINE 2%/EPINEPHrine 1:100,000 20ML MDV ONE (17:43)
[2017-04-04] MEDS ORDERED: LIDOCAINE 2%/EPINEPHrine 1:100,000 30ML MDV INFIL ONE (17:45)
[2017-04-04 18:07] LABS: INTERNATIONAL NORMALIZED RATIO 1.1 RATIO; PROTHROMBIN TIME - PATIENT 11.1 SEC (9.8-11.6)
--- NOTE | 2017-04-04 18:42 | PD ---
Physical Exam Date Seen by Provider: Apr 04, 2017 Time Seen by Provider: 18:40 Narrative Was asked by Dr. Collins to see this patient for a facial laceration to the left lateral forehead/methodist. Please see my procedure note. Data Data Last Documented VS Vital Signs Date Time Temp Pulse Resp B/P (MAP) Pulse Ox O2 Delivery O2 Flow Rate FiO2 04/04/17 14:59 97 Room Air 04/04/17 14:55 97.0 97 18 135/85 (102) Orders Orders Basic Metabolic Panel (Bmp) (04/04/17 14:57) Complete Blood Count With Diff (04/04/17 14:57) Prothrombin Time / Inr (Pt) (04/04/17 14:57) Act Partial Throm Time (Ptt) (04/04/17 14:57) Type And Screen (04/04/17 14:57) Pelvis, Ap Only (Routine) (04/04/17 14:57) Ct Brain W/O Iv Contrast(Rout) (04/04/17 14:57) Ct Cerv Spine W/O Contrast (04/04/17 14:57) Ct Facial Bones W/O Iv Cont (04/04/17 14:57) Iv Access Insert/Monitor (04/04/17 14:57) Ecg Monitoring (04/04/17 14:57) Oximetry (04/04/17 14:57) Sodium Chloride 0.9% Flush (Ns Flush) (04/04/17 15:00) Knee, Complete (4vws) (04/04/17 ) Hand, Complete (Ths2sdm) (04/04/17 ) Humerus (Min 2vws) (04/04/17 ) Potassium, Serum (K) (04/04/17 16:25) Lidocai-Epi 2%-1:100,000 Inj (Xylocaine- (04/04/17 17:45) Lidocai-Epi 2%-1:100,000 Inj (Xylocaine- (04/04/17 17:43) Labs Laboratory Tests Test 04/04/17 15:09 04/04/17 17:24 04/04/17 17:27 White Blood Count 7.5 TH/MM3 Red Blood Count 4.82 MIL/MM3 Hemoglobin 14.6 GM/DL Hematocrit 44.0 % Mean Corpuscular Volume 91.2 FL Mean Corpuscular Hemoglobin 30.3 PG Mean Corpuscular Hemoglobin Concent 33.3 % Red Cell Distribution Width 14.9 % Platelet Count 252 TH/MM3 Mean Platelet Volume 7.9 FL Neutrophils (%) (Auto) 63.1 % Lymphocytes (%) (Auto) 26.2 % Monocytes (%) (Auto) 9.5 % Eosinophils (%) (Auto) 0.5 % Basophils (%) (Auto) 0.7 % Neutrophils # (Auto) 4.7 TH/MM3 Lymphocytes # (Auto) 2.0 TH/MM3 Monocytes # (Auto) 0.7 TH/MM3 Eosinophils # (Auto) 0.0 TH/MM3 Basophils # (Auto) 0.1 TH/MM3 CBC Comment DIFF FINAL Differential Comment Blood Urea Nitrogen 14 MG/DL Creatinine 0.76 MG/DL Random Glucose 93 MG/DL Calcium Level 9.4 MG/DL Sodium Level 137 MEQ/L Potassium Level 5.9 MEQ/L 4.2 MEQ/L Chloride Level 104 MEQ/L Carbon Dioxide Level 26.1 MEQ/L Anion Gap 7 MEQ/L Estimat Glomerular Filtration Rate 73 ML/MIN Prothrombin Time 11.1 SEC Prothromb Time International Ratio 1.1 RATIO Activated Partial Thromboplast Time 22.6 SEC MDM Medical Record Reviewed: Yes Supervised Visit with SANA: Yes Procedures Procedure Narrative LACERATION LOCATION: Left lateral lower brow/methodist LENGTH: 5 cm NUMBER OF STITCHES/CEM: 7 supple interrupted REPAIR: The area of the laceration was prepped with Betadine and sterilely draped. The laceration was infiltrated with 4 mL 1% lidocaine with epi. The wound was copiously irrigated and explored without evidence of foreign body, tendon injury or neurovascular injury. The wound was closed using 5-0 Vicryl. This was a single layer repair. The patient was advised to keep the wound site clean and dry. Patient tolerated the procedure well. Diagnosis Primary Impression: Fall Qualified Codes: W19.XXXA - Unspecified fall, initial encounter Additional Impression: Facial laceration Qualified Codes: S01.81XA - Laceration without foreign body of other part of head, initial encounter Patient Instructions: General Instructions Additional Instruction: return as need, follow with primary for suture removal in 5-7 days, return here with any emergent need, tylenol as needed for pain Disposition: 01 DISCHARGE HOME Condition: Stable Darryn,Francesco F. PA Apr 04, 2017 18:42
[2017-04-04 18:46] VITALS: BP 122/68; PULSE 100; RESP 17; O2SAT 96
== END 2017-04-04 19:24 | disposition home or self-care (01) ==
LOC: NEPC 14:10
DX: S01.81XA Laceration without foreign body of other part of head, initial encounter (principal); I11.0 Hypertensive heart disease with heart failure; I50.9 Heart failure, unspecified; I48.91 Unspecified atrial fibrillation; M79.641 Pain in right hand; W01.0XXA Fall on same level from slipping, tripping and stumbling without subsequent striking against object, initial encounter; Z79.01 Long term (current) use of anticoagulants
CPT/HCPCS: 12013; 70450; 70486; 72125; 72170; 73060; 73130; 73564; 80048; 84132; 85025; 85610; 85730; 86850; 86900; 86901

== ENCOUNTER 2017-06-15 13:55 | Emergency (ER) | payer MEDICARE ==
[~2017-06-15] VITALS: Ht 172.7 cm; Wt 71.0 kg
[~2017-06-15 13:55] MED LIST changes: -BACI500O2 TOPICAL; -BACT800T5 PO; -CELE20TA PO; -DIGO0.12 PO; -HYDR-3583 PO; -INSPIREASE DRUG1 EA; -LIDO1ADH4 T-DERMAL; -POLY17S PO; -ROPI.5 PO
[2017-06-15 14:13] VITALS: BP 111/55; PULSE 70; RESP 16; TEMP 97.4; O2SAT 95
--- NOTE | 2017-06-15 14:56 | PD ---
HPI Chief Complaint: Skin Problem Time Seen by Provider: 14:40 Travel History International Travel<30 days: No Contact w/Intl Traveler<30days: No Traveled to known affect area: No History of Present Illness HPI 82-year-old female on Eliquis presents to the emergency department for evaluation of a left thumb laceration that occurred after she was cutting some plastic today. Patient states that she excellently missed the plastic and cut her thumb resulting in bleeding. Says she was having a hard time control the bleeding which is why she came to the emergency department today. Patient is right-handed. Patient denies any numbness or tingling. Denies any weakness. Says she had a tetanus within the last 5 years. PFSH Past Medical History Hx Anticoagulant Therapy: No Arthritis: Yes Asthma: No Atrial Fibrillation: Yes (on eliquis) Autoimmune Disease: No Blood Disorders: No Anxiety: No Depression: Yes Heart Rhythm Problems: Yes Cancer: Yes (LUNG) Cardiovascular Problems: Yes (a-fib) High Cholesterol: Yes Chemotherapy: No Chest Pain: No Congestive Heart Failure: Yes COPD: Yes (2L O2 AT NIGHT) Cerebrovascular Accident: No Diabetes: No Diminished Hearing: No Endocrine: No Gastrointestinal Disorders: Yes (COLITIS IBS ) GERD: No Glaucoma: No Genitourinary: Yes (cancer cyst removed from bladder) Headaches: No Hepatitis: No Hiatal Hernia: No Heparin Induced Thrombocytopen: No Hypertension: No Immune Disorder: No Implanted Vascular Access Dvce: Yes Kidney Stones: No Musculoskeletal: Yes (sciatica) Neurologic: No Psychiatric: No Reproductive: Yes (HYSTERECTOMY) Respiratory: Yes (COPD) Immunizations Current: Yes Migraines: No Radiation Therapy: Yes Renal Failure: No Seizures: No Sickle Cell Disease: No Sleep Apnea: No Thyroid Disease: No Ulcer: No Tetanus Vaccination: < 5 Years Influenza Vaccination: Yes ?: Not Menopausal: Yes : 3 Para: 3 Past Surgical History Abdominal Surgery: Yes (APPENDECTOMY, cholecystectomy) AICD: No Appendectomy: Yes Arteriovenous Shunt: No Cardiac Surgery: No Cholecystectomy: Yes Ear Surgery: No Endocrine Surgery: No Eye Surgery: Yes (CATARACTS BILAT) Genitourinary Surgery: No Gynecologic Surgery: Yes Hysterectomy: Yes Insulin Pump: No Joint Replacement: Yes (BILAT KNEES AND HIPS) Neurologic Surgery: No Oral Surgery: No Pacemaker: No Thoracic Surgery: Yes (LEFT LOBECTOMY) Other Surgery: Yes Social History Alcohol Use: No Tobacco Use: No Substance Use: No Allergies-Medications (Allergen,Severity, Reaction): Coded Allergies: aspirin (Unverified Allergy, Severe, PT HAS BEEN TAKEN ASACOL AT HOME, 12/23) cephalexin (Unverified Allergy, Severe, DIARRHEA, 06/15/17) ciprofloxacin (Unverified Allergy, Severe, DIARRHEA, 06/15/17) diclofenac (Unverified Allergy, Severe, Nausea/Vomiting, 06/15/17) erythromycin base (Unverified Allergy, Severe, NAUSEA, 06/15/17) etodolac (Unverified Allergy, Severe, Nausea/Vomiting, 06/15/17) flurbiprofen (Unverified Allergy, Severe, Nausea/Vomiting, 06/15/17) ibuprofen (Unverified Allergy, Severe, Nausea/Vomiting, 06/15/17) indomethacin (Unverified Allergy, Severe, Nausea/Vomiting, 06/15/17) ketoprofen (Unverified Allergy, Severe, Nausea/Vomiting, 06/15/17) ketorolac (Unverified Allergy, Severe, Nausea/Vomiting, 06/15/17) levofloxacin (Unverified Allergy, Severe, DIARRHEA, 06/15/17) naproxen (Unverified Allergy, Severe, Nausea/Vomiting, 06/15/17) oxaprozin (Unverified Allergy, Severe, Nausea/Vomiting, 06/15/17) clindamycin (Unverified Allergy, Unknown, Diarrhea, 06/15/17) penicillin G (Unverified Adverse Reaction, Mild, Itching, 06/15/17) Uncoded Allergies: Adhesive tape (Allergy, Intermediate, 12/19/15) . LACTOSE INTOLERANCE (Allergy, Intermediate, 12/19/15) . Reported Meds & Prescriptions Reported Meds & Active Scripts Active Spironolactone 25 Mg Tab 25 Mg PO DAILY 30 Days Cardizem CD 24 HR (Diltiazem CD 24 HR) 180 Mg Caper 180 Mg PO BID 30 Days Eliquis (Apixaban) 5 Mg Tab 5 Mg PO BID 30 Days Spiriva Handihaler (Tiotropium Inh) 18 Mcg Cap 18 Mcg INH DAILY 30 Days 1 capsule = 18 mcg Ventolin Hfa 18 GM Inh (Albuterol Sulfate) 90 Mcg/Act Aer 2 Puff INH Q4-6H PRN 30 Days Furosemide 20 Mg Tab 40 Mg PO DAILY Reported Alendronate (Alendronate Sodium) 70 Mg Tab 70 Mg PO Q7D Digitek (Digoxin) 0.125 Mg Tab 0.125 Mg PO EVERY OTHER DAY Atenolol 25 Mg Tab 25 Mg PO DAILY Citalopram (Citalopram Hydrobromide) 10 Mg Tab 20 Mg PO DAILY Hydrocodone-Acetaminophen 10-300 Tab 1 Tab PO QID PRN Symbicort Inh (Budesonide/Formoterol Fumarate) 80-4.5 Mcg/Act Aero 2 Puff INH Q12HR Xanax (Alprazolam) 0.25 Mg Tab 0.25 Mg PO BID PRN Review of Systems Except as stated in HPI: all other systems reviewed are Neg Physical Exam Narrative GENERAL: Well-nourished, well-developed patient. SKIN: Focused skin assessment warm/dry. Left thumb base-1-1/2 cm linear laceration to the left thumb base, bleeding controlled currently HEAD: Normocephalic. EYES: No scleral icterus. No injection or drainage. NECK: Supple, trachea midline. No JVD or lymphadenopathy. CARDIOVASCULAR: Regular rate and rhythm without murmurs, gallops, or rubs. RESPIRATORY: Breath sounds equal bilaterally. No accessory muscle use. MUSCULOSKELETAL: No cyanosis, or edema. BACK: Nontender without obvious deformity. No CVA tenderness. Data Data Last Documented VS Vital Signs Date Time Temp Pulse Resp B/P (MAP) Pulse Ox O2 Delivery O2 Flow Rate FiO2 06/15/17 14:13 97.4 70 16 111/55 (73) 95 MDM Medical Decision Making Medical Screen Exam Complete: Yes Emergency Medical Condition: Yes Differential Diagnosis Left thumb laceration, avulsion, abrasion Narrative Course 82-year-old female on Eliquis presents to the emergency department for evaluation of a left thumb laceration that occurred after she was cutting some plastic today. Patient states that she excellently missed the plastic and cut her thumb resulting in bleeding. Says she was having a hard time control the bleeding which is why she came to the emergency department today. Patient is right-handed. Patient denies any numbness or tingling. Denies any weakness. Says she had a tetanus within the last 5 years. Vital signs are stable. Physical exam findings consistent with a laceration to the left thumb base. Because of patient's skin integrity, will opt to perform laceration repair with sutures. There is no evidence of deep tissue involvement. She is neurovascularly intact. Grade 5/5 strength of the thumb. Laceration repair completed. Patient will be advised to follow-up with a primary care physician. Procedures Procedure Narrative LACERATION LOCATION: Left thumb base LENGTH: 1.5 cm NUMBER OF STITCHES/CEM: 6 REPAIR: The area of the laceration was prepped with Betadine and sterilely draped. The laceration was infiltrated with 2% lidocaine. The wound was copiously irrigated and explored without evidence of foreign body, tendon injury or neurovascular injury. The wound was closed using 5-0 Prolene. This was a single layer repair. A sterile dressing was applied. The patient was advised to keep the dressing clean and dry. Patient tolerated the procedure well. Diagnosis Primary Impression: Thumb laceration Qualified Codes: S61.012A - Laceration without foreign body of left thumb without damage to nail, initial encounter Referrals: Primary Care Physician Additional Instructions: Follow up with your primary care physician within 2-3 days. If your symptoms persist or worsen, return to the emergency department. Keep area clean and dry for 24 hours. Change dressings daily after 24 hours. If bleeding starts again, applied pressure and elevate the area. If he developed increased redness, swelling, or pain return to the emergency department. Suture removal in 7-10 days. Disposition: 01 DISCHARGE HOME Condition: Stable Marissa Cheney Jun 15, 2017 14:56
== END 2017-06-15 16:19 | disposition home or self-care (01) ==
LOC: PHEFT 13:55
DX: S61.012A Laceration without foreign body of left thumb without damage to nail, initial encounter (principal); I48.91 Unspecified atrial fibrillation; F32.9 Major depressive disorder, single episode, unspecified; E78.00 Pure hypercholesterolemia, unspecified; J44.9 Chronic obstructive pulmonary disease, unspecified; I50.9 Heart failure, unspecified; W26.9XXA Contact with unspecified sharp object(s), initial encounter; Z90.710 Acquired absence of both cervix and uterus
CPT/HCPCS: 12001

== ENCOUNTER 2017-06-25 11:10 | Emergency (ER) | payer MEDICARE ==
[~2017-06-25] VITALS: Ht 172.7 cm; Wt 72.0 kg
[2017-06-25 11:25] VITALS: BP 100/60; PULSE 78; RESP 18; TEMP 97.9; O2SAT 94
--- NOTE | 2017-06-25 11:48 | PD ---
HPI Chief Complaint: Wound/Suture/Staple Re-Check Time Seen by Provider: 11:38 Travel History International Travel<30 days: No Contact w/Intl Traveler<30days: No Traveled to known affect area: No History of Present Illness HPI 82-year-old female here for suture removal. She sustained a laceration to her left hand approximately 10 days ago. She denies any redness, drainage from the site. She has no medical complaint. Symptom severity is mild. No aggravating or alleviating factors PFSH Past Medical History Hx Anticoagulant Therapy: No Arthritis: Yes Asthma: No Atrial Fibrillation: Yes (on eliquis) Autoimmune Disease: No Blood Disorders: No Anxiety: No Depression: Yes Heart Rhythm Problems: Yes Cancer: Yes (LUNG) Cardiovascular Problems: Yes (high chol, A FIB ) High Cholesterol: Yes Chemotherapy: No Chest Pain: No Congestive Heart Failure: Yes COPD: Yes (2L O2 AT NIGHT) Cerebrovascular Accident: No Diabetes: No Diminished Hearing: No Endocrine: No Gastrointestinal Disorders: Yes (COLITIS IBS ) GERD: No Glaucoma: No Genitourinary: Yes (cancer cyst removed from bladder) Headaches: No Hepatitis: No Hiatal Hernia: No Heparin Induced Thrombocytopen: No Hypertension: No Immune Disorder: No Implanted Vascular Access Dvce: Yes Kidney Stones: No Musculoskeletal: Yes (sciatica) Neurologic: No Psychiatric: No Reproductive: Yes (HYSTERECTOMY) Respiratory: Yes (COPD) Immunizations Current: Yes Migraines: No Radiation Therapy: Yes Renal Failure: No Seizures: No Sickle Cell Disease: No Sleep Apnea: No Thyroid Disease: No Ulcer: No Tetanus Vaccination: < 5 Years Influenza Vaccination: Yes Menopausal: Yes : 3 Para: 3 Past Surgical History Abdominal Surgery: Yes (APPENDECTOMY, cholecystectomy) AICD: No Appendectomy: Yes Arteriovenous Shunt: No Cardiac Surgery: No Cholecystectomy: Yes Ear Surgery: No Endocrine Surgery: No Eye Surgery: Yes (CATARACTS BILAT) Genitourinary Surgery: No Gynecologic Surgery: Yes Hysterectomy: Yes Insulin Pump: No Joint Replacement: Yes (BILAT KNEES AND HIPS) Neurologic Surgery: No Oral Surgery: No Pacemaker: No Thoracic Surgery: Yes (LEFT LOBECTOMY) Other Surgery: Yes Social History Alcohol Use: No Tobacco Use: No Substance Use: No Allergies-Medications (Allergen,Severity, Reaction): Coded Allergies: aspirin (Unverified Allergy, Severe, PT HAS BEEN TAKEN ASACOL AT HOME, ) cephalexin (Unverified Allergy, Severe, DIARRHEA, 06/25/17) ciprofloxacin (Unverified Allergy, Severe, DIARRHEA, 06/25/17) diclofenac (Unverified Allergy, Severe, Nausea/Vomiting, 06/25/17) erythromycin base (Unverified Allergy, Severe, NAUSEA, 06/25/17) etodolac (Unverified Allergy, Severe, Nausea/Vomiting, 06/25/17) flurbiprofen (Unverified Allergy, Severe, Nausea/Vomiting, 06/25/17) ibuprofen (Unverified Allergy, Severe, Nausea/Vomiting, 06/25/17) indomethacin (Unverified Allergy, Severe, Nausea/Vomiting, 06/25/17) ketoprofen (Unverified Allergy, Severe, Nausea/Vomiting, 06/25/17) ketorolac (Unverified Allergy, Severe, Nausea/Vomiting, 06/25/17) levofloxacin (Unverified Allergy, Severe, DIARRHEA, 06/25/17) naproxen (Unverified Allergy, Severe, Nausea/Vomiting, 06/25/17) oxaprozin (Unverified Allergy, Severe, Nausea/Vomiting, 06/25/17) clindamycin (Unverified Allergy, Unknown, Diarrhea, 06/25/17) penicillin G (Unverified Adverse Reaction, Mild, Itching, 06/25/17) Uncoded Allergies: Adhesive tape (Allergy, Intermediate, 12/19/15) . LACTOSE INTOLERANCE (Allergy, Intermediate, 12/19/15) . Reported Meds & Prescriptions Reported Meds & Active Scripts Active Spironolactone 25 Mg Tab 25 Mg PO DAILY 30 Days Cardizem CD 24 HR (Diltiazem CD 24 HR) 180 Mg Caper 180 Mg PO BID 30 Days Eliquis (Apixaban) 5 Mg Tab 5 Mg PO BID 30 Days Spiriva Handihaler (Tiotropium Inh) 18 Mcg Cap 18 Mcg INH DAILY 30 Days 1 capsule = 18 mcg Ventolin Hfa 18 GM Inh (Albuterol Sulfate) 90 Mcg/Act Aer 2 Puff INH Q4-6H PRN 30 Days Furosemide 20 Mg Tab 40 Mg PO DAILY Reported Alendronate (Alendronate Sodium) 70 Mg Tab 70 Mg PO Q7D Digitek (Digoxin) 0.125 Mg Tab 0.125 Mg PO EVERY OTHER DAY Atenolol 25 Mg Tab 25 Mg PO DAILY Citalopram (Citalopram Hydrobromide) 10 Mg Tab 20 Mg PO DAILY Hydrocodone-Acetaminophen 10-300 Tab 1 Tab PO QID PRN Symbicort Inh (Budesonide/Formoterol Fumarate) 80-4.5 Mcg/Act Aero 2 Puff INH Q12HR Xanax (Alprazolam) 0.25 Mg Tab 0.25 Mg PO BID PRN Review of Systems Except as stated in HPI: all other systems reviewed are Neg General / Constitutional: No: Fever Physical Exam Narrative GENERAL: Alert and well-appearing 82-year-old female SKIN: Warm and dry. Well-healed laceration to left hand HEAD: Normocephalic. EYES: No injection or drainage. NECK: Supple RESPIRATORY: No respiratory distress GASTROINTESTINAL: nondistended. MUSCULOSKELETAL: No cyanosis, or edema. Left hand: Well-healed laceration to the webspace of the first and second digit. No evidence of infection. Sutures removed. Wound edges well approximated. Data Data Last Documented VS Vital Signs Date Time Temp Pulse Resp B/P (MAP) Pulse Ox O2 Delivery O2 Flow Rate FiO2 06/25/17 11:25 97.9 78 18 100/60 (73) 94 MDM Medical Decision Making Medical Screen Exam Complete: Yes Emergency Medical Condition: Yes Differential Diagnosis Suture removal, wound infection, abscess Narrative Course 82-year-old female here for suture removal Diagnosis Primary Impression: Visit for suture removal Referrals: Primary Care Physician Disposition: 01 DISCHARGE HOME Condition: Stable Alia Burch Jun 25, 2017 11:48
== END 2017-06-25 11:55 | disposition home or self-care (01) ==
LOC: PHEFT 11:10
DX: Z48.02 Encounter for removal of sutures (principal); M19.90 Unspecified osteoarthritis, unspecified site; F32.9 Major depressive disorder, single episode, unspecified; E78.00 Pure hypercholesterolemia, unspecified; I48.91 Unspecified atrial fibrillation; I50.9 Heart failure, unspecified; J44.9 Chronic obstructive pulmonary disease, unspecified; Z87.19 Personal history of other diseases of the digestive system; Z79.899 Other long term (current) drug therapy
CPT/HCPCS: 99281

== ENCOUNTER 2017-07-29 17:25 | Emergency (ER) | payer MEDICARE ==
[~2017-07-29] VITALS: Ht 172.7 cm; Wt 71.0 kg
[2017-07-29 17:32] VITALS: BP 83/68; PULSE 117; RESP 18; TEMP 98.1; O2SAT 96
[2017-07-29] MEDS ORDERED: SODIUM CHLOR 0.9% 1000 ML INJ 1,000 ML IV SCH (17:51)
[2017-07-29] MEDS ORDERED: SODIUM CHLORIDE 0.9% FLUSH 10 ML FLUSH IV FLUSH PRN (18:00)
--- NOTE | 2017-07-29 18:01 | PD ---
HPI Chief Complaint: Abdominal Pain Time Seen by Provider: 17:42 Travel History International Travel<30 days: No Contact w/Intl Traveler<30days: No Traveled to known affect area: No History of Present Illness HPI 82-year-old female complains of abdominal pain. Patient states that the pain started this morning. Patient stated pain at sharp pain and cramping pain diffuse over the abdomen. Patient denies any pain radiation. Patient denies any vomiting diarrhea. Patient denies any dysuria frequency. Patient denies any fever chills. Patient denies any back pain. Patient status post cholecystectomy, appendectomy, hysterectomy. On a scale of 1-10 the pain is a 7. Patient has history of atrial fibrillation. Patient also has history of COPD on home O2. PFSH Past Medical History Hx Anticoagulant Therapy: Yes Arthritis: Yes Asthma: No Atrial Fibrillation: Yes (on eliquis) Autoimmune Disease: No Blood Disorders: No Anxiety: No Depression: Yes Heart Rhythm Problems: Yes Cancer: Yes (LUNG) Cardiovascular Problems: Yes (AFIB) High Cholesterol: Yes Chemotherapy: No Chest Pain: No Congestive Heart Failure: Yes COPD: Yes (2L O2 AT NIGHT) Cerebrovascular Accident: No Diabetes: No Diminished Hearing: No Endocrine: No Gastrointestinal Disorders: Yes (COLITIS IBS ) GERD: No Glaucoma: No Genitourinary: Yes (cancer cyst removed from bladder) Headaches: No Hepatitis: No Hiatal Hernia: No Heparin Induced Thrombocytopen: No Hypertension: No Immune Disorder: No Implanted Vascular Access Dvce: Yes Kidney Stones: No Musculoskeletal: Yes (sciatica) Neurologic: No Psychiatric: No Reproductive: Yes (HYSTERECTOMY) Respiratory: Yes Immunizations Current: Yes Migraines: No Radiation Therapy: Yes Renal Failure: No Seizures: No Sickle Cell Disease: No Sleep Apnea: No Thyroid Disease: No Ulcer: No ?: Not Menopausal: Yes : 3 Para: 3 Past Surgical History Abdominal Surgery: Yes (APPENDECTOMY, cholecystectomy) AICD: No Appendectomy: Yes Arteriovenous Shunt: No Cardiac Surgery: No Cholecystectomy: Yes Ear Surgery: No Endocrine Surgery: No Eye Surgery: Yes (CATARACTS BILAT) Genitourinary Surgery: No Gynecologic Surgery: Yes Hysterectomy: Yes Insulin Pump: No Joint Replacement: Yes (BILAT KNEES AND HIPS) Neurologic Surgery: No Oral Surgery: No Pacemaker: No Thoracic Surgery: Yes (LEFT LOBECTOMY) Other Surgery: Yes Social History Alcohol Use: No Tobacco Use: No Substance Use: No Allergies-Medications (Allergen,Severity, Reaction): Coded Allergies: aspirin (Unverified Allergy, Severe, PT HAS BEEN TAKEN ASACOL AT HOME, ) cephalexin (Unverified Allergy, Severe, DIARRHEA, 07/29/17) ciprofloxacin (Unverified Allergy, Severe, DIARRHEA, 07/29/17) diclofenac (Unverified Allergy, Severe, Nausea/Vomiting, 07/29/17) erythromycin base (Unverified Allergy, Severe, NAUSEA, 07/29/17) etodolac (Unverified Allergy, Severe, Nausea/Vomiting, 07/29/17) flurbiprofen (Unverified Allergy, Severe, Nausea/Vomiting, 07/29/17) ibuprofen (Unverified Allergy, Severe, Nausea/Vomiting, 07/29/17) indomethacin (Unverified Allergy, Severe, Nausea/Vomiting, 07/29/17) ketoprofen (Unverified Allergy, Severe, Nausea/Vomiting, 07/29/17) ketorolac (Unverified Allergy, Severe, Nausea/Vomiting, 07/29/17) levofloxacin (Unverified Allergy, Severe, DIARRHEA, 07/29/17) naproxen (Unverified Allergy, Severe, Nausea/Vomiting, 07/29/17) oxaprozin (Unverified Allergy, Severe, Nausea/Vomiting, 07/29/17) clindamycin (Unverified Allergy, Unknown, Diarrhea, 07/29/17) penicillin G (Unverified Adverse Reaction, Mild, Itching, 07/29/17) Uncoded Allergies: Adhesive tape (Allergy, Intermediate, 12/19/15) . LACTOSE INTOLERANCE (Allergy, Intermediate, 12/19/15) . Reported Meds & Prescriptions Reported Meds & Active Scripts Active Spironolactone 25 Mg Tab 25 Mg PO DAILY 30 Days Cardizem CD 24 HR (Diltiazem CD 24 HR) 180 Mg Caper 180 Mg PO BID 30 Days Eliquis (Apixaban) 5 Mg Tab 5 Mg PO BID 30 Days Spiriva Handihaler (Tiotropium Inh) 18 Mcg Cap 18 Mcg INH DAILY 30 Days 1 capsule = 18 mcg Ventolin Hfa 18 GM Inh (Albuterol Sulfate) 90 Mcg/Act Aer 2 Puff INH Q4-6H PRN 30 Days Furosemide 20 Mg Tab 40 Mg PO DAILY Reported Alendronate (Alendronate Sodium) 70 Mg Tab 70 Mg PO Q7D Digitek (Digoxin) 0.125 Mg Tab 0.125 Mg PO EVERY OTHER DAY Atenolol 25 Mg Tab 25 Mg PO DAILY Citalopram (Citalopram Hydrobromide) 10 Mg Tab 20 Mg PO DAILY Hydrocodone-Acetaminophen 10-300 Tab 1 Tab PO QID PRN Symbicort Inh (Budesonide/Formoterol Fumarate) 80-4.5 Mcg/Act Aero 2 Puff INH Q12HR Xanax (Alprazolam) 0.25 Mg Tab 0.25 Mg PO BID PRN Review of Systems General / Constitutional: No: Fever Eyes: No: Visual changes HENT: No: Headaches Cardiovascular: No: Chest Pain or Discomfort Respiratory: No: Shortness of Breath Gastrointestinal: Positive: Nausea, Abdominal Pain Genitourinary: No: Dysuria Musculoskeletal: No: Pain Skin: No Rash Neurologic: No: Weakness Psychiatric: No: Depression Endocrine: No: Polydipsia Hematologic/Lymphatic: No: Easy Bruising Physical Exam Narrative GENERAL: Well-nourished, well-developed patient. SKIN: Focused skin assessment warm/dry. HEAD: Normocephalic. EYES: No scleral icterus. No injection or drainage. NECK: Supple, trachea midline. No JVD or lymphadenopathy. CARDIOVASCULAR: Regular rate and rhythm without murmurs, gallops, or rubs. RESPIRATORY: Breath sounds equal bilaterally. No accessory muscle use. Mild expiratory wheezes bilaterally. GASTROINTESTINAL: Abdomen soft, nondistended. Patient has moderate tenderness diffusely over the abdomen. No rebound tenderness. No mass. MUSCULOSKELETAL: No cyanosis, or edema. BACK: Nontender without obvious deformity. No CVA tenderness. Neurologic exam normal. Data Data Last Documented VS Vital Signs Date Time Temp Pulse Resp B/P (MAP) Pulse Ox O2 Delivery O2 Flow Rate FiO2 07/29/17 19:10 102 18 140/80 (100) 95 Room Air 07/29/17 17:32 98.1 Orders Orders Complete Blood Count With Diff (07/29/17 17:51) Comprehensive Metabolic Panel (07/29/17 17:51) Lipase (07/29/17 17:51) Prothrombin Time / Inr (Pt) (07/29/17 17:51) Act Partial Throm Time (Ptt) (07/29/17 17:51) Urinalysis - C+S If Indicated (07/29/17 17:51) Ct Abd/Pel W Iv Contrast(Rout) (07/29/17 17:51) Iv Access Insert/Monitor (07/29/17 17:51) Ecg Monitoring (07/29/17 17:51) Oximetry (07/29/17 17:51) Sodium Chlor 0.9% 1000 Ml Inj (Ns 1000 M (07/29/17 17:51) Sodium Chloride 0.9% Flush (Ns Flush) (07/29/17 18:00) Electrocardiogram (07/29/17 17:51) Digoxin (07/29/17 17:51) Iohexol 350 Inj (Omnipaque 350 Inj) (07/29/17 20:19) Labs Laboratory Tests Test 07/29/17 18:05 07/29/17 19:09 White Blood Count 9.2 TH/MM3 Red Blood Count 4.47 MIL/MM3 Hemoglobin 13.9 GM/DL Hematocrit 41.1 % Mean Corpuscular Volume 92.0 FL Mean Corpuscular Hemoglobin 31.1 PG Mean Corpuscular Hemoglobin Concent 33.8 % Red Cell Distribution Width 13.3 % Platelet Count 279 TH/MM3 Mean Platelet Volume 8.5 FL Neutrophils (%) (Auto) 65.7 % Lymphocytes (%) (Auto) 25.0 % Monocytes (%) (Auto) 6.3 % Eosinophils (%) (Auto) 1.3 % Basophils (%) (Auto) 1.7 % Neutrophils # (Auto) 6.0 TH/MM3 Lymphocytes # (Auto) 2.3 TH/MM3 Monocytes # (Auto) 0.6 TH/MM3 Eosinophils # (Auto) 0.1 TH/MM3 Basophils # (Auto) 0.2 TH/MM3 CBC Comment DIFF FINAL Differential Comment Prothrombin Time 10.7 SEC Prothromb Time International Ratio 1.1 RATIO Activated Partial Thromboplast Time 26.2 SEC Blood Urea Nitrogen 13 MG/DL Creatinine 0.77 MG/DL Random Glucose 90 MG/DL Total Protein 8.1 GM/DL Albumin 3.6 GM/DL Calcium Level 9.6 MG/DL Alkaline Phosphatase 70 U/L Aspartate Amino Transf (AST/SGOT) 26 U/L Alanine Aminotransferase (ALT/SGPT) 16 U/L Total Bilirubin 0.4 MG/DL Sodium Level 136 MEQ/L Potassium Level 4.1 MEQ/L Chloride Level 103 MEQ/L Carbon Dioxide Level 25.9 MEQ/L Anion Gap 7 MEQ/L Estimat Glomerular Filtration Rate 72 ML/MIN Lipase 193 U/L Digoxin Level 0.5 NG/ML Urine Color YELLOW Urine Turbidity CLEAR Urine pH 6.0 Urine Specific [place] 1.015 Urine Protein NEG mg/dL Urine Glucose (UA) NEG mg/dL Urine Ketones NEG mg/dL Urine Occult Blood NEG Urine Nitrite NEG Urine Bilirubin NEG Urine Urobilinogen 0.2 MG/DL Urine Leukocyte Esterase NEG Urine RBC 0-3 /hpf Urine WBC 0-2 /hpf Urine Squamous Epithelial Cells 0-5 /hpf Microscopic Urinalysis Comment CULT NOT INDICATED MDM Medical Decision Making Medical Screen Exam Complete: Yes Emergency Medical Condition: Yes Interpretation(s) Last Impressions Abdomen/Pelvis CT 07/29/17 9660 Signed Impressions: CONCLUSION: 1. Nonspecific, nonobstructive bowel gas pattern most consistent with ileus an d/or gastroenteritis. 2. Status post cholecystectomy. Bile ducts prominent measures up to 1.8 cm wit h no filling defect or mass. This may represent a reservoir effect. 2041 PM. CBC within normal limits. CMP within normal limits. Digoxin 0.5. UA is negative. Differential Diagnosis Differential diagnosis including gastritis, PUD, pancreatitis, colitis, UTI, follow nephritis, nephrolithiasis. Narrative Course 82-year-old female with abdominal pain and nausea. Normal saline solution 1 25 cc an hour. Digoxin 0.125 mg p.o. given. Ultram 50 mg p.o. given. Diagnosis Primary Impression: Gastroenteritis Additional Impression: Atrial fibrillation with RVR Patient Instructions: General Instructions Additional Instructions: Patient advised to take digoxin 0.25 mg on even day and 0.125 mg on the odd days. Follow with personal physician in 1 week for digoxin level checked. Advised patient to stay clear fluid today and advance diet tomorrow. Ultram as needed for abdominal pain. Follow-up with personal physician. Return if persistent problem or worse. Med/Other Pt SpecificInfo: Prescription(s) given Scripts Tramadol (Ultram) 50 Mg Tab 50 MG PO Q6H Y for PAIN, #12 TAB 0 Refills Prov: Arturo Brandon MD 07/29/17 Disposition: 01 DISCHARGE HOME Condition: Stable Arturo Brandon MD July 29, 2017 18:00
[2017-07-29 18:19] LABS: BASOPHIL # 0.2 TH/MM3 (0-0.2); BASOPHIL % 1.7 % (0.0-2.0); EOSINOPHIL # 0.1 TH/MM3 (0-0.4); EOSINOPHIL % 1.3 % (0.0-4.0); HEMATOCRIT 41.1 % (35.0-46.0); HEMOGLOBIN 13.9 GM/DL (11.6-15.3); LYMPHOCYTE # 2.3 TH/MM3 (1.0-4.8); MEAN CORPUSCULAR HEMOGLOBIN 31.1 PG (27.0-34.0); MEAN CORPUSCULAR HGB CONC 33.8 % (32.0-36.0); MEAN PLATELET VOLUME 8.5 FL (7.0-11.0); MONO % 6.3 % (0.0-8.0); MONOCYTE # 0.6 TH/MM3 (0-0.9); NEUT % 65.7 % (16.0-70.0); PLATELET COUNT 279 TH/MM3 (150-450); RED BLOOD COUNT 4.47 MIL/MM3 (4.00-5.30); RED CELL DISTRIBUTION WIDTH 13.3 % (11.6-17.2); WHITE BLOOD COUNT 9.2 TH/MM3 (4.0-11.0)
[2017-07-29 18:24] LABS: CHLORIDE 103 MEQ/L (98-107); SODIUM (NA) 136 MEQ/L (136-145)
[2017-07-29 18:25] VITALS: O2SAT 95
[2017-07-29 18:26] VITALS: BP 142/50; PULSE 119; RESP 20; O2SAT 95
[2017-07-29 18:28] LABS: ALBUMIN 3.6 GM/DL (3.4-5.0); BICARBONATE 25.9 MEQ/L (21.0-32.0); CALCIUM 9.6 MG/DL (8.5-10.1); GLUCOSE,RANDOM 90 MG/DL (74-106)
[2017-07-29 18:29] LABS: BLOOD UREA NITROGEN 13 MG/DL (7-18)
[2017-07-29 18:31] LABS: ALT (GPT) 16 U/L (10-53); AST (GOT) 26 U/L (15-37); CREATININE 0.77 MG/DL (0.50-1.00); GLOMERULAR FILTRATION RATE 72 ML/MIN (>89); INTERNATIONAL NORMALIZED RATIO 1.1 RATIO; PROTHROMBIN TIME - PATIENT 10.7 SEC (9.8-11.6)
[2017-07-29 18:33] LABS: TOTAL BILIRUBIN ADULT 0.4 MG/DL (0.2-1.0); TOTAL PROTEIN 8.1 GM/DL (6.4-8.2)
[2017-07-29 18:34] LABS: ALKALINE PHOSPHATASE 70 U/L (45-117)
[2017-07-29 18:45] LABS: DIGOXIN 0.5 NG/ML (0.8-2.0)
[2017-07-29 19:10] VITALS: BP 140/80; PULSE 102; RESP 18; O2SAT 95
[2017-07-29 19:18] LABS: BILIRUBIN, URINE NEG (NEG); BLOOD, URINE NEG (NEG); GLUCOSE,URINE NEG (NEG); KETONE, URINE NEG (NEG); NITRITE,URINE NEG (NEG); URINE COLOR YELLOW (YELLW/STRAW); URINE LEUKOCYTE ESTERASE NEG (NEG)
[2017-07-29 19:24] LABS: RBC, URINE 0-3 /hpf (0-3); SQUAMOUS EPITHELIAL CELL URINE 0-5 /hpf (0-5); WBC, URINE 0-2 /hpf (0-5)
[2017-07-29] MEDS ORDERED: IOHEXOL 350 MG/ML 10 ML VIAL (for RAD DIAG) IVCONTRAST ONE (20:19)
[2017-07-29 20:20] VITALS: BP 98/56; PULSE 134; RESP 16; O2SAT 93
--- NOTE | 2017-07-29 20:32 | RADRPT ---
EXAM DATE: 07/29/2017 8:18 PM EDT AGE/SEX: 82 years / Female INDICATIONS: Diffuse abdominal pain and cramping. CLINICAL DATA: This is the patient's initial encounter. Patient reports that signs and symptoms have been present for 1 day and indicates a pain score of 7/10. MEDICAL/SURGICAL HISTORY: Irritable bowel syndrome. Congestive heart failure. Chronic obstruc tive pulmonary disease. Colitis. Lung cancer. Lobectomy. Appendectomy. Cholecystectomy. Hysterec sarah, Bilateral hip and knees replacement ORAL CONTRAST: No oral contrast ingested. RADIATION DOSE: 17.80 CTDI (mGy) COMPARISON: No prior [place] exams available for comparison. TECHNIQUE: Multiple contiguous axial images were obtained through the abdomen and pelvis following b olus infusion of 90 ml Omnipaque 350 (iohexol) nonionic water-soluble contrast as a single exam dos e. No oral contrast ingested. Using automated exposure control and adjustment of the mA and/or kV ac cording to patient size, the radiation dose was kept as low as reasonably achievable to obtain optima l diagnostic quality images. FINDINGS: Lower Lungs: The visualized lower lungs are clear. Emphysema is noted in the lung bases as well as mi ld scarring. Liver: The liver has a homogeneous density without space-occupying lesion. Status post cholecystectom y. The common bile duct is dilated and measures up to 1.8 cm. This tapers down at the level of the pa ncreas with no filling defect or mass. Spleen: Homogeneous density without enlargement. Pancreas: Unremarkable without mass or calcification. Kidneys: Normal in size and shape. No evidence of mass or hydronephrosis. Adrenal Glands: Unremarkable. Aorta: The aorta and proximal iliac vessels are grossly unremarkable without aneurysmal dilation. Bowel/Mesentery: There are multiple loops of nondilated air-containing small bowel in the abdomen se veral small air-fluid levels. Gas and stool is noted segmentally: As well. There is no free air or fl uid. Abdominal Wall: Intact. Retroperitoneum: No evidence of adenopathy in the retrocrural, para-aortic, or deep pelvic regions. Bladder: Contours are smooth. Reproductive Organs: No abnormal masses or calcifications seen. Inguinal: The inguinal region is unremarkable without evidence of adenopathy. Bony Structures: Status post bilateral hip arthroplasties with streak artifact obscuring portions of the pelvis. Osteopenia, degenerative change and scoliosis is present. CONCLUSION: 1. Nonspecific, nonobstructive bowel gas pattern most consistent with ileus and/or gastroenteritis. 2. Status post cholecystectomy. Bile ducts prominent measures up to 1.8 cm with no filling defect or mass. This may represent a reservoir effect. Electronically signed by: Dillon Alexander MD 07/29/2017 8:31 PM EDT
[2017-07-29] MEDS ORDERED: TRAM50 PO (20:55)
[2017-07-29] MEDS ORDERED: DIGOXIN 0.125 MG TAB PO ONE (21:00)
[2017-07-29] MEDS ORDERED: traMADol HCL 50 MG TAB PO ONE (21:00)
[2017-07-29 21:09] VITALS: BP 100/58
--- NOTE | 2017-07-30 19:34 | EKG ---
Date Performed: 07/29/2017 Time Performed: 17:44:38 PTAGE: 82 years EKG: ATRIAL FIBRILLATION WITH RAPID VENTRICULAR RESPONSE NONSPECIFIC ST & T-WAVE ABNORMALITY ABN ORMAL RHYTHM ECG Compared to PREVIOUS TRACING , the patient is now in afib with rapid ventricular rate. PREVIOUS ANA MARIA N10/07/2016 11.19 DOCTOR: Rosemarie Salamanca Interpretating Date/Time 07/30/2017 19:32:31
== END 2017-07-29 21:24 | disposition home or self-care (01) ==
LOC: PHED 17:25
DX: K52.9 Noninfective gastroenteritis and colitis, unspecified (principal); I48.0 Paroxysmal atrial fibrillation; J44.9 Chronic obstructive pulmonary disease, unspecified; I50.9 Heart failure, unspecified; Z88.6 Allergy status to analgesic agent; Z88.1 Allergy status to other antibiotic agents; Z88.0 Allergy status to penicillin; Z79.01 Long term (current) use of anticoagulants
CPT/HCPCS: 74177; 80053; 80162; 81001; 83690; 85025; 85610; 85730; 93005; 96360; 96361; 99285; J7030; Q9967

== ENCOUNTER 2017-08-11 13:34 | Inpatient (IN) | payer MEDICARE ==
[~2017-08-11] VITALS: Ht 170.2 cm; Wt 75.0 kg
[~2017-08-11 13:34] MED LIST changes: +TRAM50 PO
[2017-08-11 13:49] VITALS: BP 137/60; PULSE 74; RESP 16; O2SAT 96
--- NOTE | 2017-08-11 13:52 | PD ---
HPI Chief Complaint: Hip Injury Time Seen by Provider: 13:46 Travel History International Travel<30 days: No Contact w/Intl Traveler<30days: No Traveled to known affect area: No History of Present Illness HPI 82-year-old female patient presents to the ER today because she states that she was trying to get off her couch and felt like there was movement in her left hip and it has been hurting since, especially with movements. She thinks it may have slipped out of socket, pain is currently a 5 out of 10 after having been given morphine by EMS. She denies any other issues or injuries, denies falling. She states that she has had a hip replacement on that side. Modifying Factors: None Associated Signs & Symptoms: Left hip injury Risk Factors: Bilateral hip replacements PFSH Past Medical History Hx Anticoagulant Therapy: Yes Arthritis: Yes Asthma: No Atrial Fibrillation: Yes (on eliquis) Autoimmune Disease: No Blood Disorders: No Anxiety: No Depression: Yes Heart Rhythm Problems: Yes Cancer: Yes (LUNG) Cardiovascular Problems: Yes High Cholesterol: Yes Chemotherapy: No Chest Pain: No Congestive Heart Failure: Yes COPD: Yes (2L O2 AT NIGHT) Cerebrovascular Accident: No Diabetes: No Diminished Hearing: No Endocrine: No Gastrointestinal Disorders: Yes (COLITIS IBS ) GERD: No Glaucoma: No Genitourinary: Yes (cancer cyst removed from bladder) Headaches: No Hepatitis: No Hiatal Hernia: No Heparin Induced Thrombocytopen: No Hypertension: No Immune Disorder: No Implanted Vascular Access Dvce: Yes Kidney Stones: No Musculoskeletal: Yes (sciatica) Neurologic: No Psychiatric: No Reproductive: Yes (HYSTERECTOMY) Respiratory: Yes Immunizations Current: Yes Migraines: No Radiation Therapy: Yes Renal Failure: No Seizures: No Sickle Cell Disease: No Sleep Apnea: No Thyroid Disease: No Ulcer: No Menopausal: Yes : 3 Para: 3 Past Surgical History Abdominal Surgery: Yes (APPENDECTOMY, cholecystectomy) AICD: No Appendectomy: Yes Arteriovenous Shunt: No Cardiac Surgery: No Cholecystectomy: Yes Ear Surgery: No Endocrine Surgery: No Eye Surgery: Yes (CATARACTS BILAT) Genitourinary Surgery: No Gynecologic Surgery: Yes Hysterectomy: Yes Insulin Pump: No Joint Replacement: Yes (BILAT KNEES AND HIPS) Neurologic Surgery: No Oral Surgery: No Pacemaker: No Thoracic Surgery: Yes (LEFT LOBECTOMY) Other Surgery: Yes Social History Alcohol Use: No Tobacco Use: No Substance Use: No Allergies-Medications (Allergen,Severity, Reaction): Coded Allergies: aspirin (Unverified Allergy, Severe, PT HAS BEEN TAKEN ASACOL AT HOME, ) cephalexin (Unverified Allergy, Severe, DIARRHEA, 07/29/17) ciprofloxacin (Unverified Allergy, Severe, DIARRHEA, 07/29/17) diclofenac (Unverified Allergy, Severe, Nausea/Vomiting, 07/29/17) erythromycin base (Unverified Allergy, Severe, NAUSEA, 07/29/17) etodolac (Unverified Allergy, Severe, Nausea/Vomiting, 07/29/17) flurbiprofen (Unverified Allergy, Severe, Nausea/Vomiting, 07/29/17) ibuprofen (Unverified Allergy, Severe, Nausea/Vomiting, 07/29/17) indomethacin (Unverified Allergy, Severe, Nausea/Vomiting, 07/29/17) ketoprofen (Unverified Allergy, Severe, Nausea/Vomiting, 07/29/17) ketorolac (Unverified Allergy, Severe, Nausea/Vomiting, 07/29/17) levofloxacin (Unverified Allergy, Severe, DIARRHEA, 07/29/17) naproxen (Unverified Allergy, Severe, Nausea/Vomiting, 07/29/17) oxaprozin (Unverified Allergy, Severe, Nausea/Vomiting, 07/29/17) clindamycin (Unverified Allergy, Unknown, Diarrhea, 07/29/17) penicillin G (Unverified Adverse Reaction, Mild, Itching, 07/29/17) Uncoded Allergies: Adhesive tape (Allergy, Intermediate, 12/19/15) . LACTOSE INTOLERANCE (Allergy, Intermediate, 12/19/15) . Reported Meds & Prescriptions Reported Meds & Active Scripts Active Ultram (Tramadol HCl) 50 Mg Tab 50 Mg PO Q6H PRN Spironolactone 25 Mg Tab 25 Mg PO DAILY 30 Days Cardizem CD 24 HR (Diltiazem CD 24 HR) 180 Mg Caper 180 Mg PO BID 30 Days Eliquis (Apixaban) 5 Mg Tab 5 Mg PO BID 30 Days Ventolin Hfa 18 GM Inh (Albuterol Sulfate) 90 Mcg/Act Aer 2 Puff INH Q4-6H PRN 30 Days Furosemide 20 Mg Tab 40 Mg PO DAILY Reported Alendronate (Alendronate Sodium) 70 Mg Tab 70 Mg PO Q7D Digitek (Digoxin) 0.125 Mg Tab 0.125 Mg PO EVERY OTHER DAY Citalopram (Citalopram Hydrobromide) 10 Mg Tab 20 Mg PO DAILY Hydrocodone-Acetaminophen 10-300 Tab 1 Tab PO QID PRN Xanax (Alprazolam) 0.25 Mg Tab 0.25 Mg PO BID PRN Review of Systems Except as stated in HPI: all other systems reviewed are Neg Physical Exam Narrative GENERAL: Well-developed elderly white female patient currently in mild distress. Awake and oriented 3. SKIN: Focused skin assessment warm/dry. HEAD: Atraumatic. Normocephalic. EYES: Pupils equal and round. No scleral icterus. No injection or drainage. ENT: No nasal bleeding or discharge. Mucous membranes pink and moist. NECK: Trachea midline. No JVD. CARDIOVASCULAR: Regular rate and rhythm. No murmur appreciated. RESPIRATORY: No accessory muscle use. Clear to auscultation. Breath sounds equal bilaterally. GASTROINTESTINAL: Abdomen soft, non-tender, nondistended. Hepatic and splenic margins not palpable. Pelvis: Stable, tender to palpation in the left hip, decreased range of motion secondary to pain. Neurovascularly intact. MUSCULOSKELETAL: No obvious deformities. No clubbing. No cyanosis. No edema. NEUROLOGICAL: Awake and alert. No obvious cranial nerve deficits. Motor grossly within normal limits. Normal speech. PSYCHIATRIC: Appropriate mood and affect; insight and judgment normal. Data Data Last Documented VS Vital Signs Date Time Temp Pulse Resp B/P (MAP) Pulse Ox O2 Delivery O2 Flow Rate FiO2 08/11/17 13:49 74 16 137/60 (85) 96 Room Air Orders Orders Hip, Uni(Ap&Lat) Wo Ap Pelvis (08/11/17 13:46) Etomidate Inj (Amidate Inj) (08/11/17 14:45) Hip, Ap Only Wo Ap Pelvis (08/11/17 15:13) Morphine Inj (Morphine Inj) (08/11/17 15:30) Complete Blood Count With Diff (08/11/17 15:33) Basic Metabolic Panel (Bmp) (08/11/17 15:33) Prothrombin Time / Inr (Pt) (08/11/17 15:33) Act Partial Throm Time (Ptt) (08/11/17 15:33) Immobilizer Knee 20 Inch (08/11/17 ) Urinary Catheter Insert/Apply (08/11/17 16:59) Admit Order (Ed Use Only) (08/11/17 17:10) Labs Laboratory Tests Test 08/11/17 15:53 White Blood Count 10.6 TH/MM3 Red Blood Count 3.96 MIL/MM3 Hemoglobin 12.4 GM/DL Hematocrit 37.4 % Mean Corpuscular Volume 94.3 FL Mean Corpuscular Hemoglobin 31.3 PG Mean Corpuscular Hemoglobin Concent 33.1 % Red Cell Distribution Width 13.1 % Platelet Count 226 TH/MM3 Mean Platelet Volume 8.2 FL Neutrophils (%) (Auto) 60.6 % Lymphocytes (%) (Auto) 31.9 % Monocytes (%) (Auto) 6.0 % Eosinophils (%) (Auto) 1.0 % Basophils (%) (Auto) 0.5 % Neutrophils # (Auto) 6.4 TH/MM3 Lymphocytes # (Auto) 3.4 TH/MM3 Monocytes # (Auto) 0.6 TH/MM3 Eosinophils # (Auto) 0.1 TH/MM3 Basophils # (Auto) 0.1 TH/MM3 CBC Comment DIFF FINAL Differential Comment Blood Urea Nitrogen 11 MG/DL Creatinine 0.61 MG/DL Random Glucose 108 MG/DL Calcium Level 9.0 MG/DL Sodium Level 136 MEQ/L Potassium Level 3.7 MEQ/L Chloride Level 103 MEQ/L Carbon Dioxide Level 21.7 MEQ/L Anion Gap 11 MEQ/L Estimat Glomerular Filtration Rate 94 ML/MIN MDM Medical Decision Making Medical Screen Exam Complete: Yes Emergency Medical Condition: Yes Medical Record Reviewed: Yes Interpretation(s) Laboratory Tests Test 08/11/17 15:53 Red Blood Count 3.96 MIL/MM3 (4.00-5.30) Random Glucose 108 MG/DL (74-106) Last 24 hours Impressions Hip X-Ray 08/11/17 1513 Signed Impressions: CONCLUSION: No change in the dislocated prosthesis. Hip X-Ray 08/11/17 1346 Signed Impressions: CONCLUSION: Complete dislocation of the patient's prosthesis. Differential Diagnosis Left hip injury: Strain versus dislocation versus fractures Narrative Course I have attempted to reduce the hip injury under conscious sedation but was unsuccessful. Case was discussed with Dr. Awad who knows the patient well and he states that her type of prosthesis is not likely to be reduced under conscious sedation, she will likely need an open reduction tomorrow. He wanted the patient to be medically admitted for medical clearance for surgery tomorrow and n.p.o. after midnight, Farrar's traction, and reversal of blood thinners. Case was then discussed with hospitalist service, Dr. Clifton for admission for further treatment. Procedures Procedure Narrative After the risks and benefits were discussed the following procedure was performed: MODERATE SEDATION: The patient was placed on a personnel monitor and pulse oximetry. An ambu bag and suction was immediately available at bedside. The patient was monitored by the nurse. Oxygen saturation, heart rate and blood pressure were monitored. Procedural sedation was acheived using 20 mg of etomidate. The patient was observed until awake and alert. Procedural Sedation time in attendance was 20 minutes. The left hip reduction was attempted using Captain Mauri technique as well as traction countertraction technique in order to pull the dislocated hip back in line, however, the techniques were unsuccessful, I am not able to get the hip to stay within the socket. Repeat x-ray shows that there is still dislocation. Diagnosis Primary Impression: Hip dislocation, left Admitting Information Admitting Physician Requests: Admit Kate Doran MD Aug 11, 2017 13:52
--- NOTE | 2017-08-11 14:30 | RADRPT ---
EXAM DATE: 08/11/2017 2:23 PM EDT AGE/SEX: 82 years / Female INDICATIONS: Pt.states that she turned wrong on the couch and felt her left hip go out. CLINICAL DATA: This is the patient's initial encounter. Patient reports that signs and symptoms have been present for 1 day and indicates a pain score of 10/10. MEDICAL/SURGICAL HISTORY: None. . bilateral hip replacements. COMPARISON: No prior [facility] exams available for comparison. FINDINGS: There is complete dislocation of the femoral component arthroplasty on the left side of the acetabula r component. CONCLUSION: Complete dislocation of the patient's prosthesis. Electronically signed by: Loida Dc MD 08/11/2017 2:29 PM EDT
[2017-08-11] MEDS ORDERED: ETOMIDATE 20 MG/10 ML VIAL IV PUSH ONE (14:45)
[2017-08-11] MEDS ORDERED: MORPHINE SULFATE 4 MG/ML INJ IV PUSH ONE (15:30)
--- NOTE | 2017-08-11 15:53 | RADRPT ---
EXAM DATE: 08/11/2017 3:37 PM EDT AGE/SEX: 82 years / Female INDICATIONS: Post reduction, left hip. CLINICAL DATA: This is the patient's initial encounter. Patient reports that signs and symptoms have been present for 1 day and indicates a pain score of 10/10. MEDICAL/SURGICAL HISTORY: None. None. COMPARISON: C, HIP LEFT (AP&LAT 2/3VWS) WO AP PELVIS, 08/11/2017. . FINDINGS: There is no change in dislocated hip prosthesis. CONCLUSION: No change in the dislocated prosthesis. Electronically signed by: Loida Dc MD 08/11/2017 3:52 PM EDT
[2017-08-11 16:17] LABS: AUTOMATED NEUTROPHIL # 6.4 TH/MM3 (1.8-7.7); BASOPHIL # 0.1 TH/MM3 (0-0.2); BASOPHIL % 0.5 % (0.0-2.0); EOSINOPHIL # 0.1 TH/MM3 (0-0.4); HEMATOCRIT 37.4 % (35.0-46.0); HEMOGLOBIN 12.4 GM/DL (11.6-15.3); LYMPH % 31.9 % (9.0-44.0); LYMPHOCYTE # 3.4 TH/MM3 (1.0-4.8); MEAN CELL VOLUME 94.3 FL (80.0-100.0); MEAN CORPUSCULAR HEMOGLOBIN 31.3 PG (27.0-34.0); MEAN CORPUSCULAR HGB CONC 33.1 % (32.0-36.0); MEAN PLATELET VOLUME 8.2 FL (7.0-11.0); MONOCYTE # 0.6 TH/MM3 (0-0.9); NEUT % 60.6 % (16.0-70.0); PLATELET COUNT 226 TH/MM3 (150-450); RED BLOOD COUNT 3.96 MIL/MM3 (4.00-5.30); RED CELL DISTRIBUTION WIDTH 13.1 % (11.6-17.2); WHITE BLOOD COUNT 10.6 TH/MM3 (4.0-11.0)
[2017-08-11 16:38] LABS: BICARBONATE 21.7 MEQ/L (21.0-32.0); CREATININE 0.61 MG/DL (0.50-1.00)
[2017-08-11] MEDS ORDERED: SENNOSIDES 8.6 MG TAB PO PRN (17:15)
[2017-08-11] MEDS ORDERED: MAGNESIUM HYDROXIDE SUSP 30 ML CUP PO PRN (17:15)
[2017-08-11] MEDS ORDERED: MORPHINE SULFATE 2 MG/ML SYRINGE IV PUSH PRN (17:15)
[2017-08-11] MEDS ORDERED: NALOXONE HCL 0.4 MG/ML AMP IV PUSH PRN (17:15)
[2017-08-11 17:34] VITALS: BP 186/82; PULSE 72; RESP 16; O2SAT 97
[2017-08-11 17:48] VITALS: BP 109/55; PULSE 81; RESP 18; TEMP 97.6; O2SAT 92
[2017-08-11 18:27] LABS: INTERNATIONAL NORMALIZED RATIO 1.1 RATIO; PROTHROMBIN TIME - PATIENT 10.9 SEC (9.8-11.6)
[2017-08-11] MEDS: ACETAMINOPHEN/HYDROcodone 325 MG/10 MG TAB PO PRN (18:47)
[2017-08-11] MEDS: DILTIAZEM-CD 180 MG CAP ER PO SCH (21:23)
[2017-08-11] MEDS: DOCUSATE SODIUM 50 MG/SENNA 8.6 MG TAB PO SCH (21:24)
[2017-08-11 21:44] VITALS: BP 99/61; PULSE 88; RESP 17; TEMP 97.3; O2SAT 92
[2017-08-11 23:00] VITALS: BP 99/51; PULSE 80; RESP 17; TEMP 97.7; O2SAT 92
[2017-08-11] MEDS ORDERED: METOPROLOL TARTRATE 25 MG TAB PO PRN (23:45)
[2017-08-11] MEDS ORDERED: LACTATED RINGER'S 1000 ML IV PRN (23:45)
[2017-08-11] MEDS ORDERED: POVIDONE IODINE 5% (ANTISEPSIS KIT) 4 APPLICATIONS EACH NARE PRN (23:45)
[2017-08-11] MEDS ORDERED: CHLORHEXIDINE GLUCONATE 2 % 1 PACK (2 CLOTHS) TOPICAL PRN (23:45)
[2017-08-11] MEDS ORDERED: SODIUM CHLORID 0.9% 500 ML IV PRN (23:45)
[2017-08-12 00:55] VITALS: O2SAT 93
--- NOTE | 2017-08-12 01:21 | HHI.HP ---
[facility] Mitchell Cardona MD Admission Diagnosis Left hip prosthesis dislocation Diagnoses: Travel History International Travel<30 Days: No Contact w/Intl Traveler <30 Da: No Traveled to Known Affected Are: No History of Present Illness 82 y/o female with a history of Afib, copd, anxiety and depression presents to the ER today because she states that she was trying to get off her couch and thought she felt a pop and she had extreme pain, worse with movements. She states her pain is 5/10, intermittent, worse with movement better with morphine. She denies any sob, or chest pain. She does have a history of a left hip replacement. Upon examination patient is wound to have a foul smelling wound underneath a brace that she states she follows out patient wound care for and it is due to be changed tomorrow. She is adamant about not removing the brace on her leg. Denies any fever or chills. Review of Systems Except as stated in HPI: all other systems reviewed are Neg Past Family Social History Past Medical History Atrial fibrillation on Eliquis Hx of Supraventricular Tachycardia as a child, then turned into afib later in life COPD, O2 dependent at night Past Surgical History Right total hip arthroplasty Total knee arthroplasty Right shoulder hardware Cholecystectomy Reported Medications Current Medications Medications (Trade) Dose Ordered Sig/Minesh Route Start Time Stop Time Status Last Admin (CeleXA) 20 mg DAILY PO 08/12/17 09:00 (Lanoxin) 0.125 mg EVERY OTHER DAY PO 08/13/17 09:00 (Cardizem Cd) 180 mg BID PO 08/11/17 21:00 08/11/17 21:23 (Lasix) 40 mg DAILY PO 08/12/17 09:00 (Aldactone) 25 mg DAILY PO 08/12/17 09:00 ([place] 5-325 Mg) 1 tab Q4H PRN PO 08/11/17 17:15 ([place] 10-325 Mg) 1 tab Q4H PRN PO 08/11/17 17:15 08/11/17 18:47 (Morphine Inj) 4 mg Q3H PRN IV PUSH 08/11/17 17:15 (Narcan Inj) 0.4 mg UNSCH PRN IV PUSH 08/11/17 17:15 (Emilie-Colace) 1 tab BID PO 08/11/17 21:00 08/11/17 21:24 (Milk Of Magninder Liq) 30 ml Q12H PRN PO 08/11/17 17:15 (Senokot) 17.2 mg Q12H PRN PO 08/11/17 17:15 Lactated Ringer's 1,000 ml @ 30 mls/hr Q24H PRN IV 08/11/17 23:45 08/14/17 23:44 Sodium Chloride 500 ml @ 30 mls/hr [id number] PRN IV 08/11/17 23:45 08/14/17 23:44 (Lopressor) 25 mg BARNWORKER GROOM PRN PO 08/11/17 23:45 08/14/17 23:44 (Betadine 5% Antisepsis Kit) 1 applic BARNWORKER GROOM PRN EACH NARE 08/11/17 23:45 08/14/17 23:44 (Chlorhexidine 2% Cloth) 3 pack BARNWORKER GROOM PRN TOPICAL 08/11/17 23:45 08/14/17 23:44 (Bactrim Ds 800-160 Mg) 1 tab Q12HR PO 08/12/17 09:00 Allergies: Coded Allergies: aspirin (Unverified Allergy, Severe, PT HAS BEEN TAKEN ASACOL AT HOME, ) cephalexin (Unverified Allergy, Severe, DIARRHEA, 07/29/17) ciprofloxacin (Unverified Allergy, Severe, DIARRHEA, 07/29/17) diclofenac (Unverified Allergy, Severe, Nausea/Vomiting, 07/29/17) erythromycin base (Unverified Allergy, Severe, NAUSEA, 07/29/17) etodolac (Unverified Allergy, Severe, Nausea/Vomiting, 07/29/17) flurbiprofen (Unverified Allergy, Severe, Nausea/Vomiting, 07/29/17) ibuprofen (Unverified Allergy, Severe, Nausea/Vomiting, 07/29/17) indomethacin (Unverified Allergy, Severe, Nausea/Vomiting, 07/29/17) ketoprofen (Unverified Allergy, Severe, Nausea/Vomiting, 07/29/17) ketorolac (Unverified Allergy, Severe, Nausea/Vomiting, 07/29/17) levofloxacin (Unverified Allergy, Severe, DIARRHEA, 07/29/17) naproxen (Unverified Allergy, Severe, Nausea/Vomiting, 07/29/17) oxaprozin (Unverified Allergy, Severe, Nausea/Vomiting, 07/29/17) clindamycin (Unverified Allergy, Unknown, Diarrhea, 07/29/17) penicillin G (Unverified Adverse Reaction, Mild, Itching, 07/29/17) Uncoded Allergies: Adhesive tape (Allergy, Intermediate, 12/19/15) . LACTOSE INTOLERANCE (Allergy, Intermediate, 12/19/15) . Active Ordered Medications Current Medications Medications (Trade) Dose Ordered Sig/Minesh Route Start Time Stop Time Status Last Admin (CeleXA) 20 mg DAILY PO 08/12/17 09:00 (Lanoxin) 0.125 mg EVERY OTHER DAY PO 08/13/17 09:00 (Cardizem Cd) 180 mg BID PO 08/11/17 21:00 08/11/17 21:23 (Lasix) 40 mg DAILY PO 08/12/17 09:00 (Aldactone) 25 mg DAILY PO 08/12/17 09:00 ([place] 5-325 Mg) 1 tab Q4H PRN PO 08/11/17 17:15 ([place] 10-325 Mg) 1 tab Q4H PRN PO 08/11/17 17:15 08/11/17 18:47 (Morphine Inj) 4 mg Q3H PRN IV PUSH 08/11/17 17:15 (Narcan Inj) 0.4 mg UNSCH PRN IV PUSH 08/11/17 17:15 (Emilie-Colace) 1 tab BID PO 08/11/17 21:00 08/11/17 21:24 (Milk Of Magnesia Liq) 30 ml Q12H PRN PO 08/11/17 17:15 (Senokot) 17.2 mg Q12H PRN PO 08/11/17 17:15 Lactated Ringer's 1,000 ml @ 30 mls/hr Q24H PRN IV 08/11/17 23:45 08/14/17 23:44 Sodium Chloride 500 ml @ 30 mls/hr [id number] PRN IV 08/11/17 23:45 08/14/17 23:44 (Lopressor) 25 mg BARNWORKER GROOM PRN PO 08/11/17 23:45 08/14/17 23:44 (Betadine 5% Antisepsis Kit) 1 applic BARNWORKER GROOM PRN EACH NARE 08/11/17 23:45 08/14/17 23:44 (Chlorhexidine 2% Cloth) 3 pack BARNWORKER GROOM PRN TOPICAL 08/11/17 23:45 08/14/17 23:44 (Bactrim Ds 800-160 Mg) 1 tab Q12HR PO 08/12/17 09:00 Family History Dad: Parkinson Social History Prior smoker, quit 30 years Denies alcohol use 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 SKIN: left hernandez 6x2 foul smelling wound, grayish boarder, minimal purulent drainage HEAD: Atraumatic. Normocephalic. No temporal or scalp tenderness. EYES: Pupils equal round and reactive. Extraocular motions intact. No scleral icterus. No injection or drainage. CARDIOVASCULAR: Regular rate and rhythm without murmurs, gallops, or rubs. RESPIRATORY: Clear to auscultation. Breath sounds equal bilaterally. No wheezes , rales, or rhonchi. GASTROINTESTINAL: Abdomen soft, non-tender, nondistended. No hepato-splenomegaly , or palpable masses. No guarding. MUSCULOSKELETAL: Bilateral lower extremity edema. Left hip tenderness NEUROLOGICAL: Awake and alert.Limited ROM to left hip. Normal speech. Laboratory Laboratory Tests Test 08/11/17 15:53 08/11/17 17:30 White Blood Count 10.6 Red Blood Count 3.96 Hemoglobin 12.4 Hematocrit 37.4 Mean Corpuscular Volume 94.3 Mean Corpuscular Hemoglobin 31.3 Mean Corpuscular Hemoglobin Concent 33.1 Red Cell Distribution Width 13.1 Platelet Count 226 Mean Platelet Volume 8.2 Neutrophils (%) (Auto) 60.6 Lymphocytes (%) (Auto) 31.9 Monocytes (%) (Auto) 6.0 Eosinophils (%) (Auto) 1.0 Basophils (%) (Auto) 0.5 Neutrophils # (Auto) 6.4 Lymphocytes # (Auto) 3.4 Monocytes # (Auto) 0.6 Eosinophils # (Auto) 0.1 Basophils # (Auto) 0.1 CBC Comment DIFF FINAL Differential Comment Blood Urea Nitrogen 11 Creatinine 0.61 Random Glucose 108 Calcium Level 9.0 Sodium Level 136 Potassium Level 3.7 Chloride Level 103 Carbon Dioxide Level 21.7 Anion Gap 11 Estimat Glomerular Filtration Rate 94 Prothrombin Time 10.9 Prothromb Time International Ratio 1.1 Activated Partial Thromboplast Time 25.0 Result Diagram: 08/11/17 1553 08/11/17 1553 Imaging Last Impressions Hip X-Ray 08/11/17 1513 Signed Impressions: CONCLUSION: No change in the dislocated prosthesis. Caprini VTE Risk Assessment Caprini VTE Risk Assessment: Mod/High Risk (score >= 2) Caprini Risk Assessment Model Point Value = 1 Point Value = 2 Point Value = 3 Point Value = 5 Age 41-60 Minor surgery BMI > 25 kg/m2 Swollen legs Varicose veins or History of unexplained or recurrent spontaneous Oral contraceptives or hormone replacement Sepsis (< 1 month) Serious lung disease, including pneumonia (< 1 month) Abnormal pulmonary function Acute myocardial infarction Congestive heart failure (< 1 month) History of inflammatory bowel disease Medical patient at bed rest Age 61-74 Arthroscopic surgery Major open surgery (> 45 min) Laparoscopic surgery (> 45 min) Malignancy Confined to bed (> 72 hours) Immobilizing plaster cast Central venous access Age >= 75 History of VTE Family history of VTE Factor V Leiden Prothrombin [id number] Lupus anticoagulant Anticardiolipin antibodies Elevated serum homocysteine Heparin-induced thrombocytopenia Other congenital or acquired thrombophilia Stroke (< 1 month) Elective arthroplasty Hip, pelvis, or leg fracture Acute spinal cord injury (< 1 month) Prophylaxis Regimen Total Risk Factor Score Risk Level Prophylaxis Regimen 0-1 Low Early ambulation 2 Moderate Order ONE of the following: *Sequential Compression Device (SCD) *Heparin 5000 units SQ BID 3-4 Higher Order ONE of the following medications: *Heparin 5000 units SQ TID *Enoxaparin/Lovenox 40 mg SQ daily (WT < 150 kg, CrCl > 30 mL/min) *Enoxaparin/Lovenox 30 mg SQ daily (WT < 150 kg, CrCl > 10-29 mL/min) *Enoxaparin/Lovenox 30 mg SQ BID (WT < 150 kg, CrCl > 30 mL/min) AND/OR *Sequential Compression Device (SCD) 5 or more Highest Order ONE of the following medications: *Heparin 5000 units SQ TID (Preferred with Epidurals) *Enoxaparin/Lovenox 40 mg SQ daily (WT < 150 kg, CrCl > 30 mL/min) *Enoxaparin/Lovenox 30 mg SQ daily (WT < 150 kg, CrCl > 10-29 mL/min) *Enoxaparin/Lovenox 30 mg SQ BID (WT < 150 kg, CrCl > 30 mL/min) AND *Sequential Compression Device (SCD) Assessment and Plan Assessment and Plan 82 y/o female with a history of Afib, chf, copd, anxiety and depression presents to the ER today because she states that she was trying to get off her couch and thought she felt a pop and she had extreme pain, worse with movements. Hip dislocation Hip x ray reviewed and shows complete dislocation of patients prosthesis -Consult orthopedic -Pain management with [place] and morphine -NPO Left leg chronic wound Patient will not allow dressing to be removed at this time -Page when brace is removed -Start Bactrim due to foul smell and drainage -Consult wound care -Wound culture ordered -Apply santyl ointment until evaluated by wound care AFIB, chronic -Resume home medications digoxin and Cardizem -Monitor telemetry CHF, chronic, systolic EF in 2017 50-55% -Watch for overload -Resume home medications Lasix and spirolactone DVT prophylaxis: SCDs Discussed Condition With Patient and RN Physician Certification 2 Midnight Certification Type: Admission for Inpatient Services Order for Inpatient Services The services are ordered in accordance with Medicare regulations or non- Medicare payer requirements, as applicable. In the case of services not specified as inpatient-only, they are appropriately provided as inpatient services in accordance with the 2-midnight benchmark. Estimated LOS (days): 2 days is the estimated time the patient will need to remain in the hospital, assuming treatment plan goals are met and no additional complications. Post-Hospital Plan: Home Yue Gandara Aug 12, 2017 01:21
[2017-08-12] MEDS: ACETAMINOPHEN/HYDROcodone 325 MG/5 MG TAB PO PRN (01:44)
[2017-08-12 03:17] VITALS: BP 115/53; PULSE 76; RESP 17; TEMP 98.2; O2SAT 94
[2017-08-12 05:54] LABS: AUTOMATED NEUTROPHIL # 4.6 TH/MM3 (1.8-7.7); BASOPHIL % 0.6 % (0.0-2.0); EOSINOPHIL # 0.1 TH/MM3 (0-0.4); EOSINOPHIL % 1.6 % (0.0-4.0); HEMATOCRIT 38.2 % (35.0-46.0); HEMOGLOBIN 12.8 GM/DL (11.6-15.3); LYMPH % 26.1 % (9.0-44.0); MEAN CELL VOLUME 92.9 FL (80.0-100.0); MEAN CORPUSCULAR HEMOGLOBIN 31.2 PG (27.0-34.0); MEAN CORPUSCULAR HGB CONC 33.5 % (32.0-36.0); MEAN PLATELET VOLUME 8.4 FL (7.0-11.0); MONO % 9.7 % (0.0-8.0); MONOCYTE # 0.7 TH/MM3 (0-0.9); PLATELET COUNT 245 TH/MM3 (150-450); RED BLOOD COUNT 4.11 MIL/MM3 (4.00-5.30); WHITE BLOOD COUNT 7.5 TH/MM3 (4.0-11.0)
[2017-08-12 06:21] LABS: BICARBONATE 26.6 MEQ/L (21.0-32.0); CALCIUM 9.5 MG/DL (8.5-10.1); CREATININE 0.62 MG/DL (0.50-1.00)
[2017-08-12] MEDS: ACETAMINOPHEN/HYDROcodone 325 MG/10 MG TAB PO PRN ×3 (06:42→18:42)
[2017-08-12 07:39] VITALS: BP 105/55; PULSE 78; RESP 17; TEMP 97.9; O2SAT 93
[2017-08-12] MEDS: DOCUSATE SODIUM 50 MG/SENNA 8.6 MG TAB PO SCH ×2 (08:59→20:43)
[2017-08-12] MEDS: DILTIAZEM-CD 180 MG CAP ER PO SCH ×2 (08:59→20:40)
[2017-08-12] MEDS: FUROSEMIDE 20 MG TAB PO SCH (08:59)
[2017-08-12] MEDS: CITALOPRAM HYDROBROMIDE 20 MG TAB PO SCH (08:59)
[2017-08-12] MEDS: SPIRONOLACTONE 25 MG TAB PO SCH (08:59)
[2017-08-12] MEDS: COLLAGENASE OINT 30 GM TUBE TOPICAL SCH (09:00)
[2017-08-12] MEDS ORDERED: Vancomycin Consult Pharmacy 1 EA OTHER SCH (09:00)
[2017-08-12] MEDS ORDERED: SULFAMETHOXAZOLE-TRIMETHOPRIM DS 800-160 MG TAB PO SCH (09:00)
[2017-08-12] MEDS ORDERED: ACETAMINOPHEN 1000 MG/100 ML 100 ML IV ONE (09:28)
[2017-08-12] MEDS ORDERED: MIDAZOLAM HCL 2 MG/2 ML VIAL ONE (09:29)
[2017-08-12] MEDS ORDERED: FAMOTIDINE 20 MG/2 ML VIAL ONE (09:29)
[2017-08-12] MEDS ORDERED: Post-op Orders (for Pharmacy) XX ONE (10:45)
--- NOTE | 2017-08-12 10:53 | PD.CONS ---
HPI Service Orthopedic Surgeons Consult Requested By Hospitalist Reason for Consult Dislocated left total hip Primary Care Physician Mitchell Cardona MD Admission Diagnosis Left hip prosthesis dislocation Diagnoses: Chief Complaint: Pain in the left hip with dislocation History of Present Illness This patient is an 89-year-old female known to the [facility]. She had revision left total hip many many years ago for a dislocating hip condition. She has had significant wear of the left acetabulum. She presented with increasing pain in her left hip and x-ray showed evidence of dislocation. The patient was unaware that she had had a dislocation and was unsure when it happened. I have been asked to see her in consultation regarding the same Past Family Social History Past Medical History Atrial fibrillation on Eliquis Hx of Supraventricular Tachycardia as a child, then turned into afib later in life COPD, O2 dependent at night Past Surgical History Right total hip arthroplasty Total knee arthroplasty Right shoulder hardware Cholecystectomy Allergies: Coded Allergies: aspirin (Unverified Allergy, Severe, PT HAS BEEN TAKEN ASACOL AT HOME, ) cephalexin (Unverified Allergy, Severe, DIARRHEA, 07/29/17) ciprofloxacin (Unverified Allergy, Severe, DIARRHEA, 07/29/17) diclofenac (Unverified Allergy, Severe, Nausea/Vomiting, 07/29/17) erythromycin base (Unverified Allergy, Severe, NAUSEA, 07/29/17) etodolac (Unverified Allergy, Severe, Nausea/Vomiting, 07/29/17) flurbiprofen (Unverified Allergy, Severe, Nausea/Vomiting, 07/29/17) ibuprofen (Unverified Allergy, Severe, Nausea/Vomiting, 07/29/17) indomethacin (Unverified Allergy, Severe, Nausea/Vomiting, 07/29/17) ketoprofen (Unverified Allergy, Severe, Nausea/Vomiting, 07/29/17) ketorolac (Unverified Allergy, Severe, Nausea/Vomiting, 07/29/17) levofloxacin (Unverified Allergy, Severe, DIARRHEA, 07/29/17) naproxen (Unverified Allergy, Severe, Nausea/Vomiting, 07/29/17) oxaprozin (Unverified Allergy, Severe, Nausea/Vomiting, 07/29/17) clindamycin (Unverified Allergy, Unknown, Diarrhea, 07/29/17) penicillin G (Unverified Adverse Reaction, Mild, Itching, 07/29/17) Uncoded Allergies: Adhesive tape (Allergy, Intermediate, 12/19/15) . LACTOSE INTOLERANCE (Allergy, Intermediate, 12/19/15) . Active Ordered Medications Current Medications Medications (Trade) Dose Ordered Sig/Minesh Route Start Time Stop Time Status Last Admin (CeleXA) 20 mg DAILY PO 08/12/17 09:00 (Lanoxin) 0.125 mg EVERY OTHER DAY PO 08/13/17 09:00 (Cardizem Cd) 180 mg BID PO 08/11/17 21:00 08/11/17 21:23 (Lasix) 40 mg DAILY PO 08/12/17 09:00 (Aldactone) 25 mg DAILY PO 08/12/17 09:00 ([place] 5-325 Mg) 1 tab Q4H PRN PO 08/11/17 17:15 08/12/17 01:44 ([place] 10-325 Mg) 1 tab Q4H PRN PO 08/11/17 17:15 08/12/17 06:42 (Morphine Inj) 4 mg Q3H PRN IV PUSH 08/11/17 17:15 (Narcan Inj) 0.4 mg UNSCH PRN IV PUSH 08/11/17 17:15 (Emilie-Colace) 1 tab BID PO 08/11/17 21:00 08/11/17 21:24 (Milk Of Magnesia Liq) 30 ml Q12H PRN PO 08/11/17 17:15 (Senokot) 17.2 mg Q12H PRN PO 08/11/17 17:15 Lactated Ringer's 1,000 ml @ 30 mls/hr Q24H PRN IV 08/11/17 23:45 08/14/17 23:44 Sodium Chloride 500 ml @ 30 mls/hr [id number] PRN IV 08/11/17 23:45 08/14/17 23:44 (Lopressor) 25 mg ORTHOTIC TECHNICIAN PRN PO 08/11/17 23:45 08/14/17 23:44 (Betadine 5% Antisepsis Kit) 1 applic ORTHOTIC TECHNICIAN PRN EACH NARE 08/11/17 23:45 08/14/17 23:44 (Chlorhexidine 2% Cloth) 3 pack ORTHOTIC TECHNICIAN PRN TOPICAL 08/11/17 23:45 08/14/17 23:44 (Santyl Oint) 1 applic DAILY TOPICAL 08/12/17 09:00 Vancomycin HCl 1000 mg/Sodium Chloride 250 ml @ 250 mls/hr ONCE ONCE IV 08/12/17 11:00 08/12/17 11:59 Pharmacy Profile Note 0 ml @ 0 mls/hr UNSCH OTHER 08/12/17 09:00 Reported Meds & Active Scripts Active Ultram (Tramadol HCl) 50 Mg Tab 50 Mg PO Q6H PRN Spironolactone 25 Mg Tab 25 Mg PO DAILY 30 Days Cardizem CD 24 HR (Diltiazem CD 24 HR) 180 Mg Caper 180 Mg PO BID 30 Days Eliquis (Apixaban) 5 Mg Tab 5 Mg PO BID 30 Days Ventolin Hfa 18 GM Inh (Albuterol Sulfate) 90 Mcg/Act Aer 2 Puff INH Q4-6H PRN 30 Days Furosemide 20 Mg Tab 40 Mg PO DAILY Reported Alendronate (Alendronate Sodium) 70 Mg Tab 70 Mg PO Q7D Digitek (Digoxin) 0.125 Mg Tab 0.125 Mg PO EVERY OTHER DAY Citalopram (Citalopram Hydrobromide) 10 Mg Tab 20 Mg PO DAILY Hydrocodone-Acetaminophen 10-300 Tab 1 Tab PO QID PRN Xanax (Alprazolam) 0.25 Mg Tab 0.25 Mg PO BID PRN Family History Dad: Parkinson Social History Prior smoker, quit 30 years 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 NECK: Supple. No abnormal masses. Full range of motion. CHEST: Clear to auscultation with no rales or rhonchi's or wheezes. HEART: Regular rate and rhythm. No murmurs. ABDOMEN: Soft, nontender, no masses. Normal active bowel sounds. GENITOURINARY: Deferred. MUSCLE skeletal: Left leg pain with range of motion. Shortening of the left leg compared to the right. There is a wound with purulent drainage in the lower half of the leg. The patient notes that this been a chronic condition Laboratory Laboratory Tests Test 08/11/17 15:53 08/11/17 17:30 08/12/17 04:49 White Blood Count 10.6 7.5 Red Blood Count 3.96 4.11 Hemoglobin 12.4 12.8 Hematocrit 37.4 38.2 Mean Corpuscular Volume 94.3 92.9 Mean Corpuscular Hemoglobin 31.3 31.2 Mean Corpuscular Hemoglobin Concent 33.1 33.5 Red Cell Distribution Width 13.1 13.0 Platelet Count 226 245 Mean Platelet Volume 8.2 8.4 Neutrophils (%) (Auto) 60.6 62.0 Lymphocytes (%) (Auto) 31.9 26.1 Monocytes (%) (Auto) 6.0 9.7 Eosinophils (%) (Auto) 1.0 1.6 Basophils (%) (Auto) 0.5 0.6 Neutrophils # (Auto) 6.4 4.6 Lymphocytes # (Auto) 3.4 2.0 Monocytes # (Auto) 0.6 0.7 Eosinophils # (Auto) 0.1 0.1 Basophils # (Auto) 0.1 0.0 CBC Comment DIFF FINAL DIFF FINAL Differential Comment Blood Urea Nitrogen 11 11 Creatinine 0.61 0.62 Random Glucose 108 92 Calcium Level 9.0 9.5 Sodium Level 136 138 Potassium Level 3.7 3.7 Chloride Level 103 103 Carbon Dioxide Level 21.7 26.6 Anion Gap 11 8 Estimat Glomerular Filtration Rate 94 93 Prothrombin Time 10.9 Prothromb Time International Ratio 1.1 Activated Partial Thromboplast Time 25.0 Date/Time Source Procedure Growth Status 08/12/17 03:30 Wound Leg Gram Stain - Final Resulted 08/12/17 03:30 Wound Leg Wound Culture Pending Resulted Result Diagram: 08/12/17 0449 08/12/179 Imaging Review of x-rays and review of the radiologist interpretation shows evidence of a malfunctioning constrained liner total hip replacement. Likely the constrained liner has failed. 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 Malfunctioning left total hip replacement arthroplasty. Dislocated left total hip replacement arthroplasty. PLAN: This patient's left hip likely will not be able to root be reduced closed because it is a constrained liner. This is clearly malfunctioned and is now a condition that will likely come to revision hip arthroplasty. Because the patient has an active draining wound of the left lower leg, it would be best to attempt a closed reduction and then perform proper management of her lower extremity wound. A decision will be made for timing of revision hip surgery. At this point, the chance of an infection in her revision hip surgery is very high because of the wound of her left lower leg. Delaying this until that wound is better under control would be zapata for overall health. Consent: There are risks with surgery including infection bleeding loss of motion continued pain, need for further surgery. The patient understands these issues and wishes to proceed forward with surgery as outlined above Terrance Hobbs MD Aug 12, 2017 10:53
--- NOTE | 2017-08-12 10:56 | PD.OP ---
cc: Terrance Hobbs MD Operative Report Date of Surgery: Aug 12, 2017 Preoperative Diagnosis: Dislocated left total hip replacement. History of constrained liner left total hip replacement. Wound left lower leg Postoperative Diagnosis: Same Procedure: Debridement of skin subcu tissue and muscle of the left lower leg. Attempted closed reduction under anesthesia, left total hip, unsuccessful Anesthesia: General Surgeon: Terrance Hobbs Senior Mobile Solutions Architect(s): PATEL Valdes Operation and Findings: NOTE: Claire Valdes PA-C was present during the entire surgical procedure as my portfolio assistant. My medical opinion her skill and care was necessary for the proper management of this patient. EBL: None. This patient was brought to the operating room and anesthetized in the supine position. A timeout was done. Antibiotics were held. The left leg was evaluated. There was a draining wound that was superficial. This was debrided of skin subcu tissue and muscle. This is wrapped. The left hip was visualized under fluoroscopy. It was dislocated posteriorly. We attempted with flexion, internal rotation and significant traction and could not bring the head over the edge of the acetabulum. Any further traction potentially could have led to a fracture. It appears that the stem is in a retroverted position and the acetabulum is in a significantly anteverted position. This had the appearance of a dislocated total hip this been dislocated for some time. Intraoperative x-rays were obtained. It was elected to proceed forward with treatment of the wound before considering revision hip surgery Complications: None Terrance Hobbs MD Aug 12, 2017 10:56
[2017-08-12] MEDS ORDERED: VANCOMYCIN INJ 1,000 MG in SODIUM CHLOR 0.9% 250 ML INJ 250 ML IV ONE (11:00)
[2017-08-12] MEDS ORDERED: DO NOT ADM ANY ANTICOAGULANT DRUGS PRN (11:00)
[2017-08-12] MEDS ORDERED: *morphine SULFATE 4 MG/ML PERIprocedure ONLY ONE ×2 (11:04→11:12)
[2017-08-12] MEDS ORDERED: HYDROmorphone HCL PF 0.5 MG/0.5 ML SYRINGE ONE ×2 (11:24→13:18)
--- NOTE | 2017-08-12 11:28 | RADRPT ---
EXAM DATE: 08/12/2017 11:12 AM EDT AGE/SEX: 82 years / Female INDICATIONS: Attempted closed reduction of left hip. CLINICAL DATA: This is the patient's initial encounter. Patient reports that signs and symptoms have been present for 1 day and indicates a pain score of Nonresponsive. MEDICAL/SURGICAL HISTORY: Non-responsive. . Left total hip replacement. COMPARISON: No prior exams available for comparison. FINDINGS: 2 magnified C-arm spot views are centered over the hips and labeled left. These reveal a total hip pr osthesis partially visualized. There is a posterior dislocation of the femoral head component from th e acetabular component. CONCLUSION: Posterior dislocation. Electronically signed by: Cholo Vasquez MD 08/12/2017 11:27 AM EDT
--- NOTE | 2017-08-12 11:29 | PD.WCN.NOT ---
Wound Consult Additional Information: Attempted to seen patient around 1043. Spoke with RN Ligia savage. Patient is off the floor in OR. Will attempt to see patient tomorrow. Megan Benavides [facility] Aug 12, 2017 11:29
[2017-08-12] MEDS ORDERED: PHENYLEPH/NS 1000 MCG/10 ML SYR IV ONE (12:00)
[2017-08-12] MEDS ORDERED: PROPOFOL 200 MG/20 ML AMP IV ONE (12:00)
[2017-08-12] MEDS ORDERED: ALUMINUM/MAGNESIUM/SIMETH 30 ML CUP PO PRN (12:00)
[2017-08-12] MEDS ORDERED: ASPIRIN EC 81 MG TABEC PO ONE (12:00)
[2017-08-12] MEDS ORDERED: ONDANSETRON ODT 4 MG TAB PO PRN (12:00)
[2017-08-12] MEDS: LACTATED RINGER'S 1000 ML INJ 1,000 ML IV SCH ×2 (14:56→20:43)
[2017-08-12] MEDS: MORPHINE SULFATE 8 MG/ML INJ IM PRN ×2 (14:59→20:42)
[2017-08-12] MEDS: VANCOMYCIN INJ 1,000 MG in SODIUM CHLOR 0.9% 250 ML INJ 250 ML IV SCH (15:18)
[2017-08-12 16:00] VITALS: BP 97/52; PULSE 77; RESP 18; TEMP 97.3; O2SAT 95
--- NOTE | 2017-08-12 18:37 | EKG ---
Date Performed: 08/12/2017 Time Performed: 04:55:14 PTAGE: 82 years EKG: Atrial fibrillation IV conduction defect Inferior/lateral ST-T changes are nonspecific When compared to p[revious tracing, the atrial; fibrillation rate is Under control. There has been some s light variation in the diffuse nonspecfic ST-T wave changes. Abnormal ECG PREVIOUS TRACING : 07/29/2017 17.44 DOCTOR: Roseline Gorman Interpretating Date/Time 08/12/2017 18:36:32
--- NOTE | 2017-08-12 19:04 | PD.ID.CON ---
History of Present Illness Service ID Consult Requested By Dr Hobbs Reason for Consult infected LLE wound Primary Care Physician Mitchell Cardona MD Diagnoses: History of Present Illness 85 yo female poor historian, with b/l total hips states she has memoruy problem presrnted after she dislocated L hip while trying to reach smth on the floor while sitting on the couch Dr Hobbs attempted closed reduction but it failed and he recommends surgical treatmetn, however pt has a long standing wounds on LLE They appear infected and he debdided them today sp Debridement of skin subcu tissue and muscle of the left lower leg. Pt reports that he has been cared by Dr Landeros apparently for months, but the wound on her L lower leg is getting worse Gtain showed mixed gram + and gram-neg ghazal Pt has no fever and no leukocytosis She told me that she is allergic to all antibiotics, but cant remember what happens with specific antimicrobial agents Review of Systems ROS Limitations: Poor Historian Except as stated in HPI: all other systems reviewed are Neg Past Family Social History Allergies: Coded Allergies: aspirin (Unverified Allergy, Severe, PT HAS BEEN TAKEN ASACOL AT HOME, ) cephalexin (Unverified Allergy, Severe, DIARRHEA, 07/29/17) ciprofloxacin (Unverified Allergy, Severe, DIARRHEA, 07/29/17) diclofenac (Unverified Allergy, Severe, Nausea/Vomiting, 07/29/17) erythromycin base (Unverified Allergy, Severe, NAUSEA, 07/29/17) etodolac (Unverified Allergy, Severe, Nausea/Vomiting, 07/29/17) flurbiprofen (Unverified Allergy, Severe, Nausea/Vomiting, 07/29/17) ibuprofen (Unverified Allergy, Severe, Nausea/Vomiting, 07/29/17) indomethacin (Unverified Allergy, Severe, Nausea/Vomiting, 07/29/17) ketoprofen (Unverified Allergy, Severe, Nausea/Vomiting, 07/29/17) ketorolac (Unverified Allergy, Severe, Nausea/Vomiting, 07/29/17) levofloxacin (Unverified Allergy, Severe, DIARRHEA, 07/29/17) naproxen (Unverified Allergy, Severe, Nausea/Vomiting, 07/29/17) oxaprozin (Unverified Allergy, Severe, Nausea/Vomiting, 07/29/17) clindamycin (Unverified Allergy, Unknown, Diarrhea, 07/29/17) penicillin G (Unverified Adverse Reaction, Mild, Itching, 07/29/17) Uncoded Allergies: Adhesive tape (Allergy, Intermediate, 12/19/15) . LACTOSE INTOLERANCE (Allergy, Intermediate, 12/19/15) . 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 Physical Exam Vital Signs Vital Signs Date Time Temp Pulse Resp B/P (MAP) Pulse Ox O2 Delivery O2 Flow Rate FiO2 08/12/17 16:00 97.3 77 18 97/52 (67) 95 08/12/17 12:00 75 16 109/55 (73) 96 Nasal Cannula 3 08/12/17 11:45 77 16 133/60 (84) 94 Nasal Cannula 3 08/12/17 11:30 73 16 127/60 (82) 94 Nasal Cannula 3 08/12/17 11:15 80 16 121/65 (83) 94 Nasal Cannula 3 08/12/17 10:59 97.6 83 16 113/75 (88) 93 Nasal Cannula 3 08/12/17 08:58 08/12/17 07:39 97.9 78 17 105/55 (72) 93 08/12/17 03:17 98.2 76 17 115/53 (73) 94 08/12/17 00:55 93 08/11/17 23:00 97.7 80 17 99/51 (67) 92 08/11/17 21:44 97.3 88 17 99/61 (74) 92 Physical Exam CONSTITUTIONAL/GENERAL: This is an adequately nourished patient, in no apparent distress. TUBES/LINES/DRAINS: SKIN: No jaundice, rashes, or lesions. Skin temperature appropriate. Not diaphoretic. HEAD: Atraumatic. Normocephalic. EYES: Pupils equal and round and reactive. Extraocular motions intact. No scleral icterus. No injection or drainage. Fundi not examined. ENT: Hearing grossly normal. Nose without bleeding or purulent drainage. Throat without visible erythema, exudates, masses, or lesions. edentulous NECK: Trachea midline. Supple, nontender. CARDIOVASCULAR: Regular rate and rhythm without murmurs, gallops, or rubs. No JVD. Peripheral pulses symmetric. RESPIRATORY/CHEST: Symmetric, unlabored respirations. Clear to auscultation. Breath sounds equal bilaterally. No wheezes, rales, or rhonchi. GASTROINTESTINAL: Abdomen soft, non-tender, nondistended. No hepato-splenomegaly , or palpable masses. No guarding. Bowel sounds present. GENITOURINARY: Without palpable bladder distension. MUSCULOSKELETAL: Extremities without clubbing, cyanosis, or edema. No joint tenderness or effusion noted. No calf tenderness. No mottling or clubbing. L hip incision is well healed, no erythema, no edema LLE with post op dressing and traction LYMPHATICS: No palpable cervical or supraclavicular adenopathy. NEUROLOGICAL: Awake and alert. Motor and sensory grossly within normal limits. Follows commands. Clear speech. Moves all extremities. PSYCHIATRIC: No obvious anxiety/depression. no apparent hallucinations or other psychotic thought process. Laboratory Laboratory Tests Test 08/12/17 04:49 White Blood Count 7.5 Red Blood Count 4.11 Hemoglobin 12.8 Hematocrit 38.2 Mean Corpuscular Volume 92.9 Mean Corpuscular Hemoglobin 31.2 Mean Corpuscular Hemoglobin Concent 33.5 Red Cell Distribution Width 13.0 Platelet Count 245 Mean Platelet Volume 8.4 Neutrophils (%) (Auto) 62.0 Lymphocytes (%) (Auto) 26.1 Monocytes (%) (Auto) 9.7 Eosinophils (%) (Auto) 1.6 Basophils (%) (Auto) 0.6 Neutrophils # (Auto) 4.6 Lymphocytes # (Auto) 2.0 Monocytes # (Auto) 0.7 Eosinophils # (Auto) 0.1 Basophils # (Auto) 0.0 CBC Comment DIFF FINAL Differential Comment Blood Urea Nitrogen 11 Creatinine 0.62 Random Glucose 92 Calcium Level 9.5 Sodium Level 138 Potassium Level 3.7 Chloride Level 103 Carbon Dioxide Level 26.6 Anion Gap 8 Estimat Glomerular Filtration Rate 93 Date/Time Source Procedure Growth Status 08/12/17 10:17 Abscess Leg Fungal Smear Pending Received 08/12/17 10:17 Abscess Leg Fungal Culture Pending Received Result Diagram: 08/12/17 0449 08/12/17 0449 Imaging Last Impressions Hip X-Ray 08/12/17 0000 Signed Impressions: CONCLUSION: Posterior dislocation. Assessment and Plan Assessment and Plan L hip dislocation with hip prosthesis; failerd cliosed reduction Chronic poorly healing LLE wound, L hernandez, polimicrobial infection H/o tobaccoism and problem healing raises a question of underlying PAD Multiple abx allergies cont vancomycin add azactam suggest vascular consult fu LLE abscess culture Consuelo Felix MD Aug 12, 2017 19:04
[2017-08-12 20:00] VITALS: BP 129/59; PULSE 77; RESP 18; TEMP 97.2; O2SAT 93
[2017-08-12] MEDS: SENNOSIDES 8.6 MG TAB PO SCH (20:43)
[2017-08-12] MEDS: MAGNESIUM HYDROXIDE SUSP 30 ML CUP PO SCH (20:43)
[2017-08-12] MEDS: AZTREONAM INJ 2,000 MG in SODIUM CHLORIDE 0.9% INJ 100 ML IV SCH (20:43)
[2017-08-12] MEDS: ENOXAPARIN SODIUM 30 MG/0.3 ML SYRINGE SQ SCH (22:59)
[2017-08-12] MEDS: TEMAZEPAM 15 MG CAP PO PRN (23:01)
[2017-08-13] VITALS (7 sets, daily range): BP systolic 99–135; BP diastolic 52–64; PULSE 61–107; RESP 18; TEMP 97–97.8; O2SAT 94–97
[2017-08-13] MEDS: AZTREONAM INJ 2,000 MG in SODIUM CHLORIDE 0.9% INJ 100 ML IV SCH ×4 (02:30→21:18)
[2017-08-13] MEDS: VANCOMYCIN INJ 1,000 MG in SODIUM CHLOR 0.9% 250 ML INJ 250 ML IV SCH ×2 (02:30→17:54)
[2017-08-13] MEDS: ACETAMINOPHEN/HYDROcodone 325 MG/10 MG TAB PO PRN ×4 (03:55→21:20)
[2017-08-13] MEDS: MORPHINE SULFATE 8 MG/ML INJ IM PRN (07:28)
--- NOTE | 2017-08-13 08:13 | PD.ORT.PN ---
Subjective Subjective Remarks Patient resting comfortably in bed. Left leg in Farrar's traction. Left lower leg wound bandaged Objective Vitals Vital Signs Date Time Temp Pulse Resp B/P (MAP) Pulse Ox O2 Delivery O2 Flow Rate FiO2 08/13/17 04:00 97.1 107 18 135/64 (87) 97 08/13/17 00:00 97.0 72 18 121/60 (80) 94 08/12/17 20:00 97.2 77 18 129/59 (82) 93 08/12/17 16:00 97.3 77 18 97/52 (67) 95 08/12/17 13:35 80 16 110/59 (76) 95 Nasal Cannula 3 08/12/17 13:00 72 16 108/59 (75) 96 Nasal Cannula 3 08/12/17 12:00 75 16 109/55 (73) 96 Nasal Cannula 3 08/12/17 11:45 77 16 133/60 (84) 94 Nasal Cannula 3 08/12/17 11:30 73 16 127/60 (82) 94 Nasal Cannula 3 08/12/17 11:15 80 16 121/65 (83) 94 Nasal Cannula 3 08/12/17 10:59 97.6 83 16 113/75 (88) 93 Nasal Cannula 3 08/12/17 08:58 I/O 08/12/17 08/12/17 08/12/17 08/13/17 08/13/17 08/13/17 07:00 15:00 23:00 07:00 15:00 23:00 Intake Total 360 ml 600 ml 480 ml 240 ml Output Total 650 ml 850 ml 700 ml 650 ml Balance -290 ml -250 ml -220 ml -410 ml Intake Oral 360 ml 480 ml 240 ml IV Total 0 ml Other 600 ml Output Urine Total 650 ml 850 ml 700 ml 650 ml Estimated Blood Loss 0 ml # Bowel Movements 0 Result Diagram: 08/12/1744808/12/17448 Objective Remarks Capillary refill left foot slow. Foot is warm. Bandage in place. In Farrar's traction. Neuro exam normal. No calf tenderness Assessment & Plan Assessment and Plan Draining infected chronic wound left lower leg. Malfunctioning left total hip replacement arthroplasty. Dislocated left total hip replacement arthroplasty, constrained liner. SURGERY: Debridement left lower leg skin subcutaneous tissue and muscle. Attempt closed reduction left total hip, failed: POD #1 PLAN: This patient is not a candidate for a closed reduction because she has a constrained liner of the left hip that has probably broken. Surgical treatment for revision is impending but being delayed because of the patient's chronic wound on the left lower leg which places her at undue risk for perioperative infection of revision total hip. Appreciate infectious disease consult. Vascular surgery consult for evaluation of blood flow into the left leg. Wound care consult CMP Nonweightbearing left leg. Farrar's traction left leg. Antibiotic per infectious disease recommendations. Labs: Sed rate and C-reactive protein. I will reevaluate her next week. She will be followed by the orthopedic team over the weekend Terrance Hobbs MD Aug 13, 2017 08:13
[2017-08-13] MEDS: SPIRONOLACTONE 25 MG TAB PO SCH (08:18)
[2017-08-13] MEDS: MAGNESIUM HYDROXIDE SUSP 30 ML CUP PO SCH ×2 (08:18→21:18)
[2017-08-13] MEDS: CITALOPRAM HYDROBROMIDE 20 MG TAB PO SCH (08:19)
[2017-08-13] MEDS: DIGOXIN 0.125 MG TAB PO SCH (08:19)
[2017-08-13] MEDS: FUROSEMIDE 20 MG TAB PO SCH (08:19)
[2017-08-13] MEDS: DILTIAZEM-CD 180 MG CAP ER PO SCH ×2 (08:19→21:17)
[2017-08-13] MEDS: DOCUSATE SODIUM 50 MG/SENNA 8.6 MG TAB PO SCH ×2 (08:19→21:18)
[2017-08-13] MEDS: COLLAGENASE OINT 30 GM TUBE TOPICAL SCH (09:00)
--- NOTE | 2017-08-13 09:12 | HHI.PR ---
Subjective Remarks The patient is in bed. She appears comfortable at this time. Says she does not have any pain. Feels tired. Able to eat no nausea or vomiting. Denies fever or chills. Family also at bedside, all questions answered to the best of my ability. Objective Vitals Vital Signs Date Time Temp Pulse Resp B/P (MAP) Pulse Ox O2 Delivery O2 Flow Rate FiO2 08/13/17 08:00 97.0 98 18 128/64 (85) 96 08/13/17 04:00 97.1 107 18 135/64 (87) 97 08/13/17 00:00 97.0 72 18 121/60 (80) 94 08/12/17 20:00 97.2 77 18 129/59 (82) 93 08/12/17 16:00 97.3 77 18 97/52 (67) 95 08/12/17 13:35 80 16 110/59 (76) 95 Nasal Cannula 3 08/12/17 13:00 72 16 108/59 (75) 96 Nasal Cannula 3 08/12/17 12:00 75 16 109/55 (73) 96 Nasal Cannula 3 08/12/17 11:45 77 16 133/60 (84) 94 Nasal Cannula 3 08/12/17 11:30 73 16 127/60 (82) 94 Nasal Cannula 3 08/12/17 11:15 80 16 121/65 (83) 94 Nasal Cannula 3 08/12/17 10:59 97.6 83 16 113/75 (88) 93 Nasal Cannula 3 I/O 08/12/17 08/12/17 08/12/17 08/13/17 08/13/17 08/13/17 07:00 15:00 23:00 07:00 15:00 23:00 Intake Total 360 ml 600 ml 480 ml 240 ml Output Total 650 ml 850 ml 700 ml 650 ml Balance -290 ml -250 ml -220 ml -410 ml Intake Oral 360 ml 480 ml 240 ml IV Total 0 ml Other 600 ml Output Urine Total 650 ml 850 ml 700 ml 650 ml Estimated Blood Loss 0 ml # Bowel Movements 0 Result Diagram: 08/12/17 0449 08/12/17 0449 Imaging Last Impressions Hip X-Ray 08/12/17 0000 Signed Impressions: CONCLUSION: Posterior dislocation. Objective Remarks GENERAL: This is a well-nourished, well-developed patient, in no apparent distress. SKIN: left hernandez wound s/p surgery CARDIOVASCULAR: Regular rate and rhythm without murmurs, gallops, or rubs. RESPIRATORY: Clear to auscultation. Breath sounds equal bilaterally. No wheezes , rales, or rhonchi. GASTROINTESTINAL: Abdomen soft, non-tender, nondistended. No hepato-splenomegaly , or palpable masses. No guarding. MUSCULOSKELETAL: Bilateral lower extremity edema. Left hip tenderness NEUROLOGICAL: Awake and alert.Limited ROM to left hip. Normal speech. Procedures S/P Debridement of skin subcu tissue and muscle of the left lower leg. Attempted closed reduction under anesthesia, left total hip, unsuccessful. Surgeon Dr Awad on 08/12/17. A/P Assessment and Plan 82 y/o female with a history of Afib, chf, copd, anxiety and depression presents to the ER today because she states that she was trying to get off her couch and thought she felt a pop and she had extreme pain, worse with movements. Dislocated left total hip replacement. History of constrained liner left total hip replacement. Wound left lower leg S/P Debridement of skin subcu tissue and muscle of the left lower leg. Attempted closed reduction under anesthesia, left total hip, unsuccessful. Surgeon Dr Awad on 08/12/17. Hip x ray reviewed and shows complete dislocation of patients prosthesis Consult orthopedics ff Pain management with [place] and morphine Left leg chronic wound Page when brace is removed S/p surgery d/c Bactrim, continue Vancomycin. Per ID start aztreonam Consult wound care Wound culture ordered Evaluated by wound care. Discussed with wound care nurse, appreciate recommendations 1. Cleanse left lower extremity with normal saline pat dry 2. Apply Puracol cut to fit wound base and cover with OptiLock secure with rolled gauze/paper tape. 3. Leave Puracol on wound base x7 days may change secondary dressing as needed for strike through dislodgement. 4. Sign and date dressing. 5. Follow up with out patient wound center or reconsult wound nurse is treatment fails or wound worsens. AFIB, chronic Resume home medications digoxin and Cardizem Monitor telemetry CHF, chronic, systolic EF in 2017 50-55% Watch for overload Resume home medications Lasix and spirolactone DVT prophylaxis: SCDs Discussed Condition With Patient, nurse, family - , wound care Cosma,Donna MD Aug 13, 2017 09:12
--- NOTE | 2017-08-13 09:57 | PD.VS.CON ---
History of Present Illness Chief Complaint: Chronic L LE wound Consult Requested by: Dr. Hobbs History of Present Illness 82/F with a PMH of A FIB (on Eliquis), COPD, Depression and Anxiety Pt presented to the hospital c/o Left hip pain "felt a pop" while getting out of her recliner Pt noted to have a L LE wound for an unknown duration of time ("maybe 8W") Pt denied injury reported it just showed up Pt sees Dr. 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) Home Medications Active Scripts Tramadol (Ultram) 50 Mg Tab, 50 MG PO Q6H Y for PAIN, #12 TAB 0 Refills Prov:Arturo Brandon MD 07/29/17 Spironolactone (Spironolactone) 25 Mg Tab, 25 MG PO DAILY for Blood Pressure Management for 30 Days, TAB 1 Refill Prov:Denton Harris 11/04/16 Diltiazem CD 24 HR (Cardizem CD 24 HR) 180 Mg Caper, 180 MG PO BID for Blood Pressure Management for 30 Days, CAP 1 Refill Prov:Denton HarrisP 11/03/16 Apixaban (Eliquis) 5 Mg Tab, 5 MG PO BID for Blood Clot Prevention for 30 Days, TAB 1 Refill Prov:Denton HarrisP 11/03/16 Albuterol 18 GM Inh (Ventolin Hfa 18 GM Inh) 90 Mcg/Act Aer, 2 PUFF INH Q4-6H Y for SHORTNESS OF BREATH for 30 Days, #1 INHALER 0 Refills Prov:Denton Harris 11/03/16 Furosemide (Furosemide) 20 Mg Tab, 40 MG PO DAILY for Prevent Heart Failure, # 30 TAB 0 Refills Prov:Elmer Garcia MD 08/16/16 Reported Medications Alendronate (Alendronate) 70 Mg Tab, 70 MG PO Q7D for Osteporosis Treatment, #4 TAB 0 Refills 06/23/16 Digoxin (Digitek) 0.125 Mg Tab, 0.125 MG PO EVERY OTHER DAY for Regulate Heart Beat, #30 TAB 0 Refills 06/23/16 Citalopram (Citalopram) 10 Mg Tab, 20 MG PO DAILY for Control Depression, #30 TAB 0 Refills 02/25/16 Hydrocodone-Acetaminophen (Hydrocodone-Acetaminophen) 10-300 Tab, 1 TAB PO QID Y for PAIN, TAB 0 Refills 02/25/16 Alprazolam (Xanax) 0.25 Mg Tab, 0.25 MG PO BID Y for ANXIETY, TAB 0 Refills 02/25/16 Coded Allergies: aspirin (Unverified Allergy, Severe, PT HAS BEEN TAKEN ASACOL AT HOME, ) cephalexin (Unverified Allergy, Severe, DIARRHEA, 07/29/17) ciprofloxacin (Unverified Allergy, Severe, DIARRHEA, 07/29/17) diclofenac (Unverified Allergy, Severe, Nausea/Vomiting, 07/29/17) erythromycin base (Unverified Allergy, Severe, NAUSEA, 07/29/17) etodolac (Unverified Allergy, Severe, Nausea/Vomiting, 07/29/17) flurbiprofen (Unverified Allergy, Severe, Nausea/Vomiting, 07/29/17) ibuprofen (Unverified Allergy, Severe, Nausea/Vomiting, 07/29/17) indomethacin (Unverified Allergy, Severe, Nausea/Vomiting, 07/29/17) ketoprofen (Unverified Allergy, Severe, Nausea/Vomiting, 07/29/17) ketorolac (Unverified Allergy, Severe, Nausea/Vomiting, 07/29/17) levofloxacin (Unverified Allergy, Severe, DIARRHEA, 07/29/17) naproxen (Unverified Allergy, Severe, Nausea/Vomiting, 07/29/17) oxaprozin (Unverified Allergy, Severe, Nausea/Vomiting, 07/29/17) clindamycin (Unverified Allergy, Unknown, Diarrhea, 07/29/17) penicillin G (Unverified Adverse Reaction, Mild, Itching, 07/29/17) Uncoded Allergies: Adhesive tape (Allergy, Intermediate, 12/19/15) . LACTOSE INTOLERANCE (Allergy, Intermediate, 12/19/15) . Review of Systems Constitutional: DENIES: Fever, Chills Respiratory: DENIES: Cough, Shortness of breath Cardiovascular: COMPLAINS OF: Lower Extremity Edema (L LE 3+ pitting edema ( foot) ), DENIES: Claudication Integumentary: DENIES: Abnormal pigmentation (Montserrat Liu) Physical Exam Vitals/I&O Date Time Temp Pulse Resp B/P (MAP) Pulse Ox O2 Delivery O2 Flow Rate FiO2 08/13/17 08:00 97.0 98 18 128/64 (85) 96 08/13/17 04:00 97.1 107 18 135/64 (87) 97 08/13/17 00:00 97.0 72 18 121/60 (80) 94 08/12/17 20:00 97.2 77 18 129/59 (82) 93 08/12/17 16:00 97.3 77 18 97/52 (67) 95 08/12/17 13:35 80 16 110/59 (76) 95 Nasal Cannula 3 08/12/17 13:00 72 16 108/59 (75) 96 Nasal Cannula 3 08/12/17 12:00 75 16 109/55 (73) 96 Nasal Cannula 3 08/12/17 11:45 77 16 133/60 (84) 94 Nasal Cannula 3 08/12/17 11:30 73 16 127/60 (82) 94 Nasal Cannula 3 08/12/17 11:15 80 16 121/65 (83) 94 Nasal Cannula 3 08/12/17 10:59 97.6 83 16 113/75 (88) 93 Nasal Cannula 3 08/13/17 08/13/17 08/13/17 07:00 15:00 23:00 Intake Total 240 ml Output Total 650 ml Balance -410 ml Neuro: Alert Speech clear HEENT: FRANKI Neck: NO JVD distention Heart: Irregular, Hx of Lungs: CTA Abdomen: S/NT Vascular: Palpable R/L Femoral pulses Palpable Right DP (2+) Palpable Left DP (faint 1+) LE warm with motor intact Extremities: L LE with post operative dressing I/C/D L LE in Farrar's traction (Montserrat Liu) Date/Time Source Procedure Growth Status 08/12/17 10:17 Abscess Leg Fungal Smear Pending Received 08/12/17 10:17 Abscess Leg Fungal Culture Pending Received Last 48 hours Impressions Hip X-Ray 08/12/17 0000 Signed Impressions: CONCLUSION: Posterior dislocation. Hip X-Ray 08/11/17 1513 Signed Impressions: CONCLUSION: No change in the dislocated prosthesis. Hip X-Ray 08/11/17 1346 Signed Impressions: CONCLUSION: Complete dislocation of the patient's prosthesis. (Montserrat Liu) Assessment and Plan Assessment: (1) Wound of left lower extremity Status: Chronic Plan 82 F with a hx of L LE chronic wound for an unknown duration of time Pt s/p dislocated L hip with an attempted closed reduction/ L LE Debridement of tissue and muscle of the left lower leg Pt denied claudication and rest pain Pt with palpable distal pulses (R>L) Per exam pt appears to have sufficient L LE perfusion Plan ZENY ordered for further evaluation Will review once completed Montserrat Liu NP [facility] [phone] (Montserrat Liu) Plan Agree with above; palpable pulses perfusion adequate and no intervention needed. Please call with any questions. Yuniel Kerr MD FACS RPVI spragger [facility] V[facility] at [facility] [phone] (Yuniel Kerr MD) Montserrat Liu Aug 13, 2017 09:56 Yuniel Kerr MD Aug 13, 2017 18:07
[2017-08-13] MEDS: MORPHINE SULFATE 4 MG/ML INJ IV PUSH PRN (11:29)
[2017-08-13 11:35] LABS: ALBUMIN 2.6 GM/DL (3.4-5.0); ALT (GPT) 178 U/L (10-53); AST (GOT) 286 U/L (15-37); BICARBONATE 26.2 MEQ/L (21.0-32.0); BLOOD UREA NITROGEN 8 MG/DL (7-18); CALCIUM 8.9 MG/DL (8.5-10.1); CHLORIDE 105 MEQ/L (98-107); CREATININE 0.59 MG/DL (0.50-1.00); GLOMERULAR FILTRATION RATE 98 ML/MIN (>89); GLUCOSE,RANDOM 122 MG/DL (74-106); SODIUM (NA) 141 MEQ/L (136-145)
[2017-08-13 11:38] LABS: ALKALINE PHOSPHATASE 122 U/L (45-117); TOTAL BILIRUBIN ADULT 0.7 MG/DL (0.2-1.0); TOTAL PROTEIN 6.1 GM/DL (6.4-8.2)
[2017-08-13] MEDS: LACTATED RINGER'S 1000 ML INJ 1,000 ML IV SCH ×2 (13:00→21:26)
--- NOTE | 2017-08-13 14:14 | PD.WCN.NOT ---
Wound Consult Description: Wound consult ordered by Rebecca CRYSTAL for wound management. Communicated with: Alphonse MARTIN [address] , Recommendation: 1. Cleanse left lower extremity with normal saline pat dry 2. Apply Puracol cut to fit wound base and cover with OptiLock secure with rolled gauze/paper tape. 3. Leave Puracol on wound base x7 days may change secondary dressing as needed for strike through dislodgement. 4. Sign and date dressing. 5. Follow up with out patient wound center or reconsult wound nurse is treatment fails or wound worsens. Additional Information: Patient was seen today by specification writer and Alphonse MARITN for wound management of left lower extremity.Patient alert and oriented x4 with present at bedside.Raker Buffing Wheel was able to gently removed dressing from left lower hernandez area after using large amount of normal saline and soaking x5 min.Discomfort noted with dressing removal.patient was medicated for pain prior to writers arrival.Left hernandez was cleansed with normal saline pat dry.Patient has mixed partial/full thickness wound measuring 11 cm x 3.3cm x ~0.1 - 0.2cm wound base is 100% beefy red non granular tissue .Wound edges are well defined and sloped with wound base.Scant bloody drainage noted with out odor.Periwound intact with erythema noted ~0.3cm circumferentially cool to touch.Puracol AG applied to wound base and covered with OptiLock secured with rolled gauze and paper tape.Dressing signed and dated.Patient tolerated wound care with discomfort noted. Brace reapplied and banegas traction weight free hanging with tension noted.Patient / had no further questions or concerns for specification writer upon departure. [facility]ia Salas [facility] Aug 13, 2017 14:14
--- NOTE | 2017-08-13 14:39 | RADRPT ---
EXAM DATE: 08/13/2017 1:33 PM EDT AGE/SEX: 82 years / Female INDICATIONS: Left hip prosthesis dislocation CLINICAL DATA: This is the patient's initial encounter. Patient reports that signs and symptoms have been present for 2 months and indicates a pain score of 6/10. MEDICAL/SURGICAL HISTORY: . Atrial fibrillation, Arthritis, Lung cancer, CHF, COPD, IBS . Hyst erectomy, Appendectomy, Cholecystectomy, Cataracts, Bilateral knees and hips, Left lobectomy COMPARISON: No prior exams available for comparison. TECHNIQUE: Four-cuff ankle and brachial pressures were obtained. Pulse cuff waveform tracings of the ankles were recorded, and ankle-brachial indices were calculated. PRESSURES (mmHg): Brachial (arm) : RIGHT: IV SITE, LEFT: 110 Ankle : RIGHT: 116, LEFT: 95 ZENY : RIGHT: 1.05, LEFT: 0.86 TBI : RIGHT: 0.94, LEFT: 0.63 PULSED CUFF WAVEFORMS: Demonstrate normal amplitude bilaterally. CONCLUSION: 1. Moderate reduction of the left ZENY. Right ZENY is within the normal range. Electronically signed by: Cholo Vasquez MD 08/13/2017 2:32 PM EDT
[2017-08-13] MEDS: TEMAZEPAM 15 MG CAP PO PRN (21:17)
[2017-08-13] MEDS: SENNOSIDES 8.6 MG TAB PO SCH (21:17)
[2017-08-13] MEDS: ENOXAPARIN SODIUM 30 MG/0.3 ML SYRINGE SQ SCH (22:10)
[2017-08-14] VITALS (7 sets, daily range): BP systolic 102–126; BP diastolic 54–61; PULSE 79–100; RESP 16–18; TEMP 97.4–97.7; O2SAT 95–99
[2017-08-14] MEDS ORDERED: PHARMACY ORDERED LAB ONE ×2 (01:45→13:45)
[2017-08-14] MEDS: VANCOMYCIN INJ 1,000 MG in SODIUM CHLOR 0.9% 250 ML INJ 250 ML IV SCH ×2 (02:17→14:50)
[2017-08-14] MEDS: AZTREONAM INJ 2,000 MG in SODIUM CHLORIDE 0.9% INJ 100 ML IV SCH ×4 (02:21→20:45)
[2017-08-14] MEDS: ACETAMINOPHEN/HYDROcodone 325 MG/5 MG TAB PO PRN ×4 (04:38→16:36)
[2017-08-14] MEDS: MORPHINE SULFATE 4 MG/ML INJ IV PUSH PRN ×4 (05:05→18:16)
--- NOTE | 2017-08-14 07:35 | PD.ORT.PN ---
Subjective Subjective Remarks Sandrita is an 82-year-old female. She has a dislocation of her left total hip arthroplasty. Closed reduction attempts were unsuccessful. Objective Vitals Vital Signs Date Time Temp Pulse Resp B/P (MAP) Pulse Ox O2 Delivery O2 Flow Rate FiO2 08/14/17 03:43 97.7 79 18 126/61 (82) 96 08/14/17 00:07 97.4 80 16 112/56 (74) 95 08/13/17 20:24 97.8 79 18 133/63 (86) 96 08/13/17 16:00 97.4 78 18 117/56 (76) 97 08/13/17 15:57 18 08/13/17 14:49 96 21 08/13/17 12:00 97.2 67 18 99/52 (68) 96 08/13/17 12:00 61 08/13/17 11:34 18 08/13/17 08:00 97.0 98 18 128/64 (85) 96 08/13/17 08:00 80 08/13/17 07:33 18 I/O 08/13/17 08/13/17 08/13/17 08/14/17 08/14/17 08/14/17 07:00 15:00 23:00 07:00 15:00 23:00 Intake Total 240 ml 1200 ml 580 ml Output Total 650 ml 800 ml 1800 ml Balance -410 ml 400 ml -1220 ml Intake Oral 240 ml 1200 ml 580 ml Output Urine Total 650 ml 800 ml 1800 ml # Bowel Movements 0 Result Diagram: 08/12/17 0449 08/13/17 1050 Objective Remarks Patient is awake and alert. Left leg: Foot is warm. Wound care dressing in place. In Farrar's traction. Neuro exam normal. No calf tenderness Assessment & Plan Assessment and Plan chronic wound left lower leg. Dislocated left total hip replacement arthroplasty, constrained liner. SURGERY: Debridement left lower leg skin subcutaneous tissue and muscle. Attempt closed reduction left total hip, failed: POD #1 PLAN: This patient is not a candidate for a closed reduction because she has a constrained liner of the left hip that has probably broken. Surgical treatment for revision is impending but being delayed because of the patient's chronic wound on the left lower leg which places her at undue risk for perioperative infection of revision total hip. Appreciate infectious disease consult. Vascular surgery consult for evaluation of blood flow into the left leg. Wound care consult CMP Nonweightbearing left leg. Farrar's traction left leg. Antibiotic per infectious disease recommendations. Labs: Sed rate and C-reactive protein. Dr Terrance Hobbs will reevaluate her next week Perico Dela Cruz MD Aug 14, 2017 07:35
[2017-08-14 07:56] LABS: ALBUMIN 2.4 GM/DL (3.4-5.0); AST (GOT) 81 U/L (15-37); BICARBONATE 28.9 MEQ/L (21.0-32.0); BLOOD UREA NITROGEN 11 MG/DL (7-18); CALCIUM 8.5 MG/DL (8.5-10.1); CHLORIDE 104 MEQ/L (98-107); GLOMERULAR FILTRATION RATE 154 ML/MIN (>89); GLUCOSE,RANDOM 100 MG/DL (74-106); SODIUM (NA) 140 MEQ/L (136-145)
[2017-08-14 07:58] LABS: ALKALINE PHOSPHATASE 109 U/L (45-117); ALT (GPT) 119 U/L (10-53); TOTAL BILIRUBIN ADULT 0.3 MG/DL (0.2-1.0)
[2017-08-14] MEDS: COLLAGENASE OINT 30 GM TUBE TOPICAL SCH (08:17)
[2017-08-14] MEDS: MAGNESIUM HYDROXIDE SUSP 30 ML CUP PO SCH ×2 (08:18→20:45)
[2017-08-14] MEDS: FUROSEMIDE 20 MG TAB PO SCH (08:20)
[2017-08-14] MEDS: DOCUSATE SODIUM 50 MG/SENNA 8.6 MG TAB PO SCH ×2 (08:20→20:45)
[2017-08-14] MEDS: SPIRONOLACTONE 25 MG TAB PO SCH (08:20)
[2017-08-14] MEDS: CITALOPRAM HYDROBROMIDE 20 MG TAB PO SCH (08:20)
[2017-08-14] MEDS: DILTIAZEM-CD 180 MG CAP ER PO SCH ×2 (08:23→20:45)
--- NOTE | 2017-08-14 09:44 | HHI.PR ---
Subjective Remarks Patient seen and examined this morning, their vitals are stable and the patient is afebrile. Reports pain in left hip. Wants to know when it will be better for surgery. at bedside, wants to know what do they do if they dont do surgery. Dany CP or SOB. Tolerating diet. Objective Vital Signs Date Time Temp Pulse Resp B/P (MAP) Pulse Ox O2 Delivery O2 Flow Rate FiO2 08/14/17 08:13 96 08/14/17 08:00 97.7 85 17 113/54 (73) 98 08/14/17 03:43 97.7 79 18 126/61 (82) 96 08/14/17 00:07 97.4 80 16 112/56 (74) 95 08/13/17 20:24 97.8 79 18 133/63 (86) 96 08/13/17 16:00 97.4 78 18 117/56 (76) 97 08/13/17 15:57 18 08/13/17 14:49 96 21 08/13/17 12:00 97.2 67 18 99/52 (68) 96 08/13/17 12:00 61 08/13/17 11:34 18 I/O 08/13/17 08/13/17 08/13/17 08/14/17 08/14/17 08/14/17 07:00 15:00 23:00 07:00 15:00 23:00 Intake Total 240 ml 1200 ml 580 ml Output Total 650 ml 800 ml 1800 ml Balance -410 ml 400 ml -1220 ml Intake Oral 240 ml 1200 ml 580 ml Output Urine Total 650 ml 800 ml 1800 ml # Bowel Movements 0 Result Diagram: 08/12/17 0449 08/14/17 0630 Imaging Last Impressions Extremity Arterial Study 08/13/17 0000 Signed Impressions: CONCLUSION: 1. Moderate reduction of the left ZENY. Right ZENY is within the normal range. Hip X-Ray 08/12/17 0000 Signed Impressions: CONCLUSION: Posterior dislocation. Objective Remarks GENERAL: Well-appearing, no acute distress SKIN: Warm and dry. HEAD: Normocephalic. EYES: No scleral icterus. No injection or drainage. NECK: Supple, trachea midline. No JVD or lymphadenopathy. CARDIOVASCULAR: Irregular rhythm without murmurs, gallops, or rubs. RESPIRATORY: Breath sounds equal bilaterally. No accessory muscle use. GASTROINTESTINAL: Abdomen soft, non-tender, nondistended. MUSCULOSKELETAL: Patient Farrar's traction left leg. Some right hernandez pain with palpation. A/P Problem List: (1) Hip dislocation, left ICD Code: S73.005A - Unspecified dislocation of left hip, initial encounter (2) Wound of left lower extremity ICD Code: S81.802A - Unspecified open wound, left lower leg, initial encounter Status: Chronic (3) Atrial fibrillation ICD Code: I48.91 - Unspecified atrial fibrillation Status: Chronic Assessment and Plan 82-year-old female with a medical history significant for A. fib, COPD, anxiety and depression presents to [place] due to hip pain that she experienced when trying to get off the couch. Patient with a history of left hip replacement. Patient with chronic left hip wound that is followed as an outpatient. Dislocated left total hip Chronic wound left lower leg -patient has been seen evaluated by Poornima Weinstein. Attempted closed reduction of left total hip failed. Patient is not a candidate for closed reduction. Surgical treatment for revision is impending with delayed due to her chronic left wound. Poornima Weinstein has placed a consult to infectious disease for the wound, also place a consult to vascular surgery for a vaginal blood flow into the left leg. Wound care has also been consulted -She is nonweightbearing, left lower extremity is in Farrar's traction -Per orthosis note Dr. Awad will reevaluate the patient next week -Vascular surgery: ZENY order for further evaluation -Infectious disease: Continue vancomycin, add azactam, cultures growing MRSA, Pseudomonas, and Proteus Atrial fibrillation -Continue patient's home digoxin and Cardizem -Continue telemetry CHF, systolic -Continue patient's home Lasix and spironolactone Discharge Planning d/c pending ortho, unclear at this time if patient will undergo further surgical intervention, this is pending her left wound infection Monserrat Mohamud MD Aug 14, 2017 09:44
[2017-08-14] MEDS: LACTATED RINGER'S 1000 ML INJ 1,000 ML IV SCH (13:57)
--- NOTE | 2017-08-14 15:30 | HHI.PR ---
Subjective Remarks Consult placed for podiatry. Spoke with nurse as there was no longer a consult for podiatry. She states the consult was cancelled. Objective Result Diagram: 08/12/17 0449 08/14/17 0630 Angelica Boyd DPM Aug 14, 2017 15:30
[2017-08-14] MEDS: SENNOSIDES 8.6 MG TAB PO SCH (20:45)
[2017-08-14] MEDS: ENOXAPARIN SODIUM 30 MG/0.3 ML SYRINGE SQ SCH (20:46)
[2017-08-14] MEDS: ACETAMINOPHEN/HYDROcodone 325 MG/10 MG TAB PO PRN (23:46)
[2017-08-15] VITALS (9 sets, daily range): BP systolic 115–152; BP diastolic 62–77; PULSE 68–104; RESP 16–19; TEMP 97.6–98.1; O2SAT 93–99
[2017-08-15] MEDS: AZTREONAM INJ 2,000 MG in SODIUM CHLORIDE 0.9% INJ 100 ML IV SCH ×4 (01:36→21:08)
[2017-08-15] MEDS: VANCOMYCIN INJ 1,500 MG in SODIUM CHLORID 0.9% 500 ML INJ 500 ML IV SCH ×2 (02:55→15:25)
[2017-08-15] MEDS: LACTATED RINGER'S 1000 ML INJ 1,000 ML IV SCH ×2 (02:56→15:00)
[2017-08-15] MEDS: ACETAMINOPHEN/HYDROcodone 325 MG/10 MG TAB PO PRN ×4 (04:35→21:08)
[2017-08-15] MEDS: MAGNESIUM HYDROXIDE SUSP 30 ML CUP PO SCH ×2 (07:34→21:09)
--- NOTE | 2017-08-15 07:41 | HHI.PR ---
Subjective Remarks Patient seen and examined this morning, their vitals are stable and the patient is afebrile. Reports left hip pain. Asking for assistance to use the bathroom. Denies CP or SOB. Objective Vital Signs Date Time Temp Pulse Resp B/P (MAP) Pulse Ox O2 Delivery O2 Flow Rate FiO2 08/15/17 04:00 97.9 90 16 120/67 (84) 99 08/15/17 00:00 97.7 92 16 115/62 (79) 95 08/14/17 20:56 Nasal Cannula 2.00 08/14/17 20:00 100 08/14/17 20:00 97.6 94 16 112/56 (74) 99 08/14/17 16:00 97.5 84 16 118/56 (76) 97 08/14/17 12:00 97.5 81 16 102/56 (71) 97 08/14/17 08:13 96 08/14/17 08:00 97.7 85 17 113/54 (73) 98 I/O 08/14/17 08/14/17 08/14/17 08/15/17 08/15/17 08/15/17 07:00 15:00 23:00 07:00 15:00 23:00 Intake Total 580 ml 960 ml 855 ml Output Total 1800 ml 900 ml 675 ml Balance -1220 ml -900 ml 285 ml 855 ml Intake Oral 580 ml 860 ml 240 ml IV Total 100 ml 615 ml Output Urine Total 1800 ml 900 ml 675 ml # Voids 6 # Bowel Movements 0 0 Result Diagram: 08/12/17 0449 08/14/17 0630 Imaging Last Impressions Extremity Arterial Study 08/13/17 0000 Signed Impressions: CONCLUSION: 1. Moderate reduction of the left ZENY. Right ZENY is within the normal range. Hip X-Ray 08/12/17 0000 Signed Impressions: CONCLUSION: Posterior dislocation. Objective Remarks GENERAL: Well-appearing, no acute distress SKIN: Warm and dry. HEAD: Normocephalic. EYES: No scleral icterus. No injection or drainage. NECK: Supple, trachea midline. No JVD or lymphadenopathy. CARDIOVASCULAR: Irregular rhythm without murmurs, gallops, or rubs. RESPIRATORY: Breath sounds equal bilaterally. No accessory muscle use. GASTROINTESTINAL: Abdomen soft, non-tender, nondistended. MUSCULOSKELETAL: Patient Farrar's traction left leg. Some right hernandez pain with palpation. A/P Problem List: (1) Hip dislocation, left ICD Code: S73.005A - Unspecified dislocation of left hip, initial encounter (2) Wound of left lower extremity ICD Code: S81.802A - Unspecified open wound, left lower leg, initial encounter Status: Chronic (3) Atrial fibrillation ICD Code: I48.91 - Unspecified atrial fibrillation Status: Chronic Assessment and Plan 82-year-old female with a medical history significant for A. fib, COPD, anxiety and depression presents to [place] due to hip pain that she experienced when trying to get off the couch. Patient with a history of left hip replacement. Patient with chronic left hip wound that is followed as an outpatient. Dislocated left total hip Chronic wound left lower leg -patient has been seen evaluated by Poornima Weinstein. Attempted closed reduction of left total hip failed. Patient is not a candidate for closed reduction. Surgical treatment for revision is impending with delayed due to her chronic left wound. Poornima Weinstein has placed a consult to infectious disease for the wound, also place a consult to vascular surgery for a vaginal blood flow into the left leg. Wound care has also been consulted -She is nonweightbearing, left lower extremity is in Farrar's traction -Per orthosis note Dr. Awad will reevaluate the patient next week -Vascular surgery: ZENY order for further evaluation -Infectious disease 08/12: Continue vancomycin, add azactam, cultures growing MRSA , Pseudomonas, and Proteus Atrial fibrillation -Continue patient's home digoxin and Cardizem -Continue telemetry CHF, systolic -Continue patient's home Lasix and spironolactone Discharge Planning d/c pending ortho, unclear at this time if patient will undergo further surgical intervention, this is pending her left wound infection Monserrat Mohamud MD Aug 15, 2017 07:41
[2017-08-15 07:49] LABS: ALBUMIN 2.3 GM/DL (3.4-5.0); AST (GOT) 34 U/L (15-37); BICARBONATE 31.4 MEQ/L (21.0-32.0); BLOOD UREA NITROGEN 8 MG/DL (7-18); CALCIUM 8.8 MG/DL (8.5-10.1); CHLORIDE 103 MEQ/L (98-107); GLOMERULAR FILTRATION RATE 154 ML/MIN (>89); GLUCOSE,RANDOM 97 MG/DL (74-106); SODIUM (NA) 142 MEQ/L (136-145)
[2017-08-15 07:50] LABS: ALT (GPT) 80 U/L (10-53)
[2017-08-15 07:52] LABS: ALKALINE PHOSPHATASE 92 U/L (45-117); TOTAL BILIRUBIN ADULT 0.4 MG/DL (0.2-1.0); TOTAL PROTEIN 5.8 GM/DL (6.4-8.2)
[2017-08-15] MEDS: DIGOXIN 0.125 MG TAB PO SCH (08:56)
[2017-08-15] MEDS: DILTIAZEM-CD 180 MG CAP ER PO SCH ×2 (08:56→21:09)
[2017-08-15] MEDS: SPIRONOLACTONE 25 MG TAB PO SCH (08:56)
[2017-08-15] MEDS: DOCUSATE SODIUM 50 MG/SENNA 8.6 MG TAB PO SCH ×2 (08:56→21:09)
[2017-08-15] MEDS: FUROSEMIDE 20 MG TAB PO SCH (08:56)
[2017-08-15] MEDS: CITALOPRAM HYDROBROMIDE 20 MG TAB PO SCH (08:56)
[2017-08-15] MEDS: COLLAGENASE OINT 30 GM TUBE TOPICAL SCH (09:00)
[2017-08-15] MEDS: MORPHINE SULFATE 4 MG/ML INJ IV PUSH PRN ×2 (12:08→18:38)
[2017-08-15] MEDS: SENNOSIDES 8.6 MG TAB PO SCH (21:09)
[2017-08-15] MEDS: ENOXAPARIN SODIUM 30 MG/0.3 ML SYRINGE SQ SCH (21:09)
--- NOTE | 2017-08-15 22:08 | HHI.PR ---
Subjective Remarks NOT SEEN Objective Vitals Vital Signs Date Time Temp Pulse Resp B/P (MAP) Pulse Ox O2 Delivery O2 Flow Rate FiO2 08/15/17 21:13 95 Nasal Cannula 3.00 08/15/17 20:00 98.1 82 18 149/74 (99) 94 08/15/17 16:25 97.8 85 18 152/73 (99) 93 08/15/17 13:00 97.6 68 17 144/77 (99) 99 08/15/17 09:57 97 Nasal Cannula 3.00 08/15/17 09:16 97.7 104 19 125/68 (87) 98 08/15/17 04:00 97.9 90 16 120/67 (84) 99 08/15/17 00:00 97.7 92 16 115/62 (79) 95 I/O 08/14/17 08/14/17 08/14/17 08/15/17 08/15/17 08/15/17 06:59 14:59 22:59 06:59 14:59 22:59 Intake Total 580 ml 960 ml 855 ml 1100 ml 700 ml Output Total 1800 ml 900 ml 675 ml 2300 ml Balance -1220 ml -900 ml 285 ml 855 ml 1100 ml -1600 ml Intake Oral 580 ml 860 ml 240 ml 600 ml IV Total 100 ml 615 ml 1100 ml 100 ml Output Urine Total 1800 ml 900 ml 675 ml 2300 ml # Voids 6 # Bowel Movements 0 0 0 Result Diagram: 08/12/17 0449 08/15/17 0638 Imaging Last Impressions Extremity Arterial Study 08/13/17 0000 Signed Impressions: CONCLUSION: 1. Moderate reduction of the left ZENY. Right ZENY is within the normal range. Hip X-Ray 08/12/17 0000 Signed Impressions: CONCLUSION: Posterior dislocation. Objective Remarks GENERAL: Well-appearing, no acute distress SKIN: Warm and dry. HEAD: Normocephalic. EYES: No scleral icterus. No injection or drainage. NECK: Supple, trachea midline. No JVD or lymphadenopathy. CARDIOVASCULAR: Irregular rhythm without murmurs, gallops, or rubs. RESPIRATORY: Breath sounds equal bilaterally. No accessory muscle use. GASTROINTESTINAL: Abdomen soft, non-tender, nondistended. MUSCULOSKELETAL: Patient Farrar's traction left leg. Some right hernandez pain with palpation. Procedures S/P Debridement of skin subcu tissue and muscle of the left lower leg. Attempted closed reduction under anesthesia, left total hip, unsuccessful. Surgeon Dr Awad on 08/12/17. A/P Problem List: (1) Hip dislocation, left ICD Code: S73.005A - Unspecified dislocation of left hip, initial encounter Assessment and Plan 82-year-old female with a medical history significant for A. fib, COPD, anxiety and depression presents to [place] due to hip pain that she experienced when trying to get off the couch. Patient with a history of left hip replacement. Patient with chronic left hip wound that is followed as an outpatient. Dislocated left total hip Chronic wound left lower leg -patient has been seen evaluated by Ortho. Attempted closed reduction of left total hip failed. Patient is not a candidate for closed reduction. Surgical treatment for revision is delayed due to her chronic left wound. Ortho has placed a consult to infectious disease for the wound, also place a consult to vascular surgery. Wound care has also been consulted -She is nonweightbearing, left lower extremity is in Farrar's traction -Per ortho note Dr. Awad will reevaluate the patient next week -Vascular surgery: ZENY abnormal but palpable pulses no intervention recommended -Infectious disease 08/12: Continue vancomycin and azactam, cultures growing MRSA , Pseudomonas, and Proteus Atrial fibrillation -Continue patient's home digoxin and Cardizem -Continue telemetry CHF, systolic -Continue patient's home Lasix and spironolactone Discharge Planning d/c pending ortho, unclear at this time if patient will undergo further surgical intervention, this is pending her left wound infection Milton Fernandez MD Aug 15, 2017 22:08
[2017-08-16] VITALS (7 sets, daily range): BP systolic 113–147; BP diastolic 58–77; PULSE 80–94; RESP 16–18; TEMP 97.7–98.3; O2SAT 94–98
[2017-08-16] MEDS: AZTREONAM INJ 2,000 MG in SODIUM CHLORIDE 0.9% INJ 100 ML IV SCH ×4 (01:45→22:57)
[2017-08-16] MEDS: ACETAMINOPHEN/HYDROcodone 325 MG/10 MG TAB PO PRN ×3 (02:29→21:52)
[2017-08-16] MEDS: LACTATED RINGER'S 1000 ML INJ 1,000 ML IV SCH ×2 (02:29→16:00)
[2017-08-16] MEDS: VANCOMYCIN INJ 1,500 MG in SODIUM CHLORID 0.9% 500 ML INJ 500 ML IV SCH (02:29)
--- NOTE | 2017-08-16 08:40 | PD.ORT.PN ---
Subjective Subjective Remarks I have reviewed all of the studies and consultants notes. Vascular surgery feels that there is adequate blood flow into the left leg. No intervention is recommended. Wound care nurse indicates that wound is showing signs of granulation. Cultures show mixed bacteria including MRSA, Proteus and Pseudomonas. patient presently on antibiotics. Liver enzymes elevated or correcting. Sedimentation rate and C-reactive protein mildly elevated. Total protein and albumin depressed. Objective Vitals Vital Signs Date Time Temp Pulse Resp B/P (MAP) Pulse Ox O2 Delivery O2 Flow Rate FiO2 08/16/17 04:00 98.3 80 18 147/73 (97) 94 08/16/17 00:00 98.0 81 18 145/77 (99) 95 08/15/17 21:13 95 Nasal Cannula 3.00 08/15/17 20:00 98.1 82 18 149/74 (99) 94 08/15/17 19:41 95 08/15/17 16:25 97.8 85 18 152/73 (99) 93 08/15/17 13:00 97.6 68 17 144/77 (99) 99 08/15/17 09:57 97 Nasal Cannula 3.00 08/15/17 09:16 97.7 104 19 125/68 (87) 98 I/O 08/15/17 08/15/17 08/15/17 08/16/17 08/16/17 08/16/17 07:00 15:00 23:00 07:00 15:00 23:00 Intake Total 855 ml 1200 ml 1215 ml 1975 ml Output Total 2600 ml 1100 ml Balance 855 ml 1200 ml -1385 ml 875 ml Intake Oral 240 ml 600 ml 360 ml IV Total 615 ml 1200 ml 615 ml 1615 ml Output Urine Total 2600 ml 1100 ml # Voids 6 # Bowel Movements 0 0 Result Diagram: 08/12/17 0449 08/15/17 0638 Objective Remarks Patient not examined today Assessment & Plan Assessment and Plan Chronic wound left lower leg. Dislocated left total hip replacement arthroplasty, constrained liner. SURGERY: Debridement left lower leg skin subcutaneous tissue and muscle. Attempt closed reduction left total hip, failed: POD #4 PLAN: This patient is not a candidate for a closed reduction because she has a constrained liner of the left hip that has probably broken. Surgical treatment for revision is impending but being delayed because of the patient's chronic wound on the left lower leg which places her at undue risk for perioperative infection of revision total hip. Appreciate infectious disease consult. Appreciate Vascular surgery consult for evaluation of blood flow into the left leg. Appreciate Wound care consult CMP Nonweightbearing left leg. Farrar's traction left leg. Antibiotic per infectious disease recommendations. consider revision on if medical consultants feel that the patient is a suitable candidate to consider that type of surgery at that time. I do not believe that we will be able to wait long enough for the wound on the left leg to completely heal. That would likely take many weeks. Consider nutrition evaluation and proper nutrition. The patient appears to be in a poor nutrition position for aggressive surgical treatment. Surgery can be delayed until she is a suitable candidate for revision hip surgery. I will reevaluate her again tomorrow Terrance Hobbs MD Aug 16, 2017 08:40
[2017-08-16] MEDS: COLLAGENASE OINT 30 GM TUBE TOPICAL SCH (09:00)
[2017-08-16 09:09] LABS: ALBUMIN 2.6 GM/DL (3.4-5.0); ALT (GPT) 68 U/L (10-53); AST (GOT) 31 U/L (15-37); BICARBONATE 29.6 MEQ/L (21.0-32.0); CALCIUM 9.3 MG/DL (8.5-10.1); CHLORIDE 101 MEQ/L (98-107); CREATININE 0.45 MG/DL (0.50-1.00); GLOMERULAR FILTRATION RATE 134 ML/MIN (>89); GLUCOSE,RANDOM 96 MG/DL (74-106); SODIUM (NA) 140 MEQ/L (136-145)
[2017-08-16 09:12] LABS: ALKALINE PHOSPHATASE 99 U/L (45-117); AUTOMATED NEUTROPHIL # 4.7 TH/MM3 (1.8-7.7); BASOPHIL % 0.4 % (0.0-2.0); BLOOD UREA NITROGEN 8 MG/DL (7-18); EOSINOPHIL # 0.1 TH/MM3 (0-0.4); EOSINOPHIL % 1.8 % (0.0-4.0); HEMATOCRIT 38.3 % (35.0-46.0); HEMOGLOBIN 12.7 GM/DL (11.6-15.3); LYMPH % 21.2 % (9.0-44.0); LYMPHOCYTE # 1.5 TH/MM3 (1.0-4.8); MEAN CELL VOLUME 93.2 FL (80.0-100.0); MEAN CORPUSCULAR HGB CONC 33.2 % (32.0-36.0); MEAN PLATELET VOLUME 8.4 FL (7.0-11.0); MONO % 9.4 % (0.0-8.0); MONOCYTE # 0.7 TH/MM3 (0-0.9); NEUT % 67.2 % (16.0-70.0); PLATELET COUNT 198 TH/MM3 (150-450); RED BLOOD COUNT 4.11 MIL/MM3 (4.00-5.30); TOTAL BILIRUBIN ADULT 0.4 MG/DL (0.2-1.0); TOTAL PROTEIN 6.6 GM/DL (6.4-8.2)
[2017-08-16] MEDS: DOCUSATE SODIUM 50 MG/SENNA 8.6 MG TAB PO SCH ×2 (09:28→21:00)
[2017-08-16] MEDS: DILTIAZEM-CD 180 MG CAP ER PO SCH ×2 (09:28→21:52)
[2017-08-16] MEDS: SPIRONOLACTONE 25 MG TAB PO SCH (09:28)
[2017-08-16] MEDS: CITALOPRAM HYDROBROMIDE 20 MG TAB PO SCH (09:29)
[2017-08-16] MEDS: FUROSEMIDE 20 MG TAB PO SCH (09:29)
[2017-08-16] MEDS: MAGNESIUM HYDROXIDE SUSP 30 ML CUP PO SCH ×2 (09:29→21:00)
[2017-08-16] MEDS ORDERED: PHARMACY ORDERED LAB ONE (13:45)
--- NOTE | 2017-08-16 13:47 | HHI.PR ---
Subjective Remarks Follow-up hip dislocation. She wants to go home but wants her hip fixed first. Denies chest pain, shortness of breath and palpitations. Objective Vitals Vital Signs Date Time Temp Pulse Resp B/P (MAP) Pulse Ox O2 Delivery O2 Flow Rate FiO2 08/16/17 10:11 97 Nasal Cannula 3.00 08/16/17 08:00 97.9 82 18 126/59 (81) 98 08/16/17 04:00 98.3 80 18 147/73 (97) 94 08/16/17 00:00 98.0 81 18 145/77 (99) 95 08/15/17 21:13 95 Nasal Cannula 3.00 08/15/17 20:00 98.1 82 18 149/74 (99) 94 08/15/17 19:41 95 08/15/17 16:25 97.8 85 18 152/73 (99) 93 I/O 08/15/17 08/15/17 08/15/17 08/16/17 08/16/17 08/16/17 07:00 15:00 23:00 07:00 15:00 23:00 Intake Total 855 ml 1200 ml 1215 ml 1975 ml Output Total 2600 ml 1100 ml Balance 855 ml 1200 ml -1385 ml 875 ml Intake Oral 240 ml 600 ml 360 ml IV Total 615 ml 1200 ml 615 ml 1615 ml Output Urine Total 2600 ml 1100 ml # Voids 6 # Bowel Movements 0 0 Result Diagram: 08/16/17 0825 08/16/17 0825 Imaging Last Impressions Extremity Arterial Study 08/13/17 0000 Signed Impressions: CONCLUSION: 1. Moderate reduction of the left ZENY. Right ZENY is within the normal range. Hip X-Ray 08/12/17 0000 Signed Impressions: CONCLUSION: Posterior dislocation. Objective Remarks GENERAL: Well-appearing, no acute distress SKIN: Warm and dry. CARDIOVASCULAR: Irregular rhythm without murmurs, gallops, or rubs. RESPIRATORY: Breath sounds equal bilaterally. No accessory muscle use. GASTROINTESTINAL: Abdomen soft, non-tender, nondistended. MUSCULOSKELETAL: Patient Farrar's traction left leg. CKS left lower extremity. Some right hernandez pain with palpation. Procedures S/P Debridement of skin subcu tissue and muscle of the left lower leg. Attempted closed reduction under anesthesia, left total hip, unsuccessful. Surgeon Dr Awad on 08/12/17. A/P Problem List: (1) Hip dislocation, left ICD Code: S73.005A - Unspecified dislocation of left hip, initial encounter Assessment and Plan 82-year-old female with a medical history significant for A. fib, COPD, anxiety and depression presents to [place] due to hip pain that she experienced when trying to get off the couch. Patient with a history of left hip replacement. Patient with chronic left hip wound that is followed as an outpatient. Dislocated left total hip Chronic wound left lower leg -patient has been seen evaluated by Ortho. Attempted closed reduction of left total hip failed. Surgical treatment for revision is delayed due to her chronic left wound. Ortho has placed a consult to infectious disease for the wound, also place a consult to vascular surgery. Wound care has also been consulted -She is nonweightbearing, left lower extremity is in Farrar's traction -Per ortho note Dr. Awad will reevaluate the patient next week -Vascular surgery: ZENY abnormal but palpable pulses no intervention recommended -Infectious disease 08/12: Continue vancomycin and azactam, cultures growing MRSA , Pseudomonas, and Proteus Atrial fibrillation -Continue patient's home digoxin and Cardizem -Continue telemetry CHF, systolic -Continue patient's home Lasix and spironolactone Discharge Planning d/c pending ortho, unclear at this time if patient will undergo further surgical intervention, this is pending her left wound infection. Consult dietitian. She needs surgery when cleared by Milton Brothers MD Aug 16, 2017 13:47
[2017-08-16] MEDS ORDERED: VANCOMYCIN INJ 1,500 MG in SODIUM CHLORID 0.9% 500 ML INJ 500 ML IV SCH (21:00)
[2017-08-16] MEDS: SENNOSIDES 8.6 MG TAB PO SCH (21:00)
[2017-08-16] MEDS: TEMAZEPAM 15 MG CAP PO PRN (21:52)
[2017-08-16] MEDS: ENOXAPARIN SODIUM 30 MG/0.3 ML SYRINGE SQ SCH (22:57)
[2017-08-17] VITALS (7 sets, daily range): BP systolic 99–149; BP diastolic 54–86; PULSE 81–99; RESP 18–20; TEMP 97–97.8; O2SAT 92–98
[2017-08-17] MEDS: ACETAMINOPHEN/HYDROcodone 325 MG/10 MG TAB PO PRN ×4 (02:30→19:47)
[2017-08-17] MEDS: LACTATED RINGER'S 1000 ML INJ 1,000 ML IV SCH ×2 (04:30→17:00)
[2017-08-17] MEDS: AZTREONAM INJ 2,000 MG in SODIUM CHLORIDE 0.9% INJ 100 ML IV SCH ×4 (05:00→19:48)
[2017-08-17 07:34] LABS: CREATININE 0.43 MG/DL (0.50-1.00)
--- NOTE | 2017-08-17 08:50 | HHI.PR ---
Subjective Remarks Follow-up hip dislocation. She has no new complaints looking for her telephone. Objective Vitals Vital Signs Date Time Temp Pulse Resp B/P (MAP) Pulse Ox O2 Delivery O2 Flow Rate FiO2 08/17/17 08:00 97.7 96 18 149/83 (105) 98 08/17/17 04:00 97.1 81 18 111/54 (73) 95 08/17/17 00:00 97.0 83 18 107/54 (71) 92 08/16/17 20:00 97.7 90 18 135/72 (93) 96 08/16/17 16:00 98.2 87 16 113/58 (76) 97 08/16/17 12:00 97.8 94 18 142/62 (88) 98 08/16/17 10:11 97 Nasal Cannula 3.00 I/O 08/16/17 08/16/17 08/16/17 08/17/17 08/17/17 08/17/17 07:00 15:00 23:00 07:00 15:00 23:00 Intake Total 1975 ml 7800 ml 1000 ml Output Total 1100 ml Balance 875 ml 7800 ml 1000 ml Intake Oral 360 ml 600 ml IV Total 1615 ml 7200 ml 1000 ml Output Urine Total 1100 ml # Voids 9 3 # Bowel Movements 5 Result Diagram: 08/16/17 0825 08/17/17 0634 Imaging Last Impressions Extremity Arterial Study 08/13/17 0000 Signed Impressions: CONCLUSION: 1. Moderate reduction of the left ZENY. Right ZENY is within the normal range. Hip X-Ray 08/12/17 0000 Signed Impressions: CONCLUSION: Posterior dislocation. Objective Remarks GENERAL: Well-appearing, no acute distress SKIN: Warm and dry. CARDIOVASCULAR: Irregular rhythm without murmurs, gallops, or rubs. RESPIRATORY: Breath sounds equal bilaterally. No accessory muscle use. GASTROINTESTINAL: Abdomen soft, non-tender, nondistended. MUSCULOSKELETAL: Patient Farrar's traction left leg. CKS left lower extremity. Procedures S/P Debridement of skin subcu tissue and muscle of the left lower leg. Attempted closed reduction under anesthesia, left total hip, unsuccessful. Surgeon Dr Awad on 08/12/17. A/P Problem List: (1) Hip dislocation, left ICD Code: S73.005A - Unspecified dislocation of left hip, initial encounter Assessment and Plan 82-year-old female with a medical history significant for A. fib, COPD, anxiety and depression presents to [place] due to hip pain that she experienced when trying to get off the couch. Patient with a history of left hip replacement. Patient with chronic left hip wound that is followed as an outpatient. Dislocated left total hip Chronic wound left lower leg -patient has been seen evaluated by Ortho. Attempted closed reduction of left total hip failed. Surgical treatment for revision is delayed due to her chronic left wound. -She is nonweightbearing, left lower extremity is in Farrar's traction -Vascular surgery: ZENY abnormal but perfusion adequate no intervention recommended -Infectious disease 08/12: Continue vancomycin and azactam, cultures growing MRSA , Pseudomonas, and Proteus Atrial fibrillation -Continue patient's home digoxin and Cardizem. Eliquis on hold but has been started on Lovenox by orthopedic surgery -Continue telemetry CHF, systolic -Continue patient's home Lasix and spironolactone Discharge Planning d/c pending ortho intervention, unclear at this time if patient will undergo further surgical intervention, this is pending her left wound infection. Consult dietitian. She needs surgery when cleared by Milton Brothers MD Aug 17, 2017 08:50
[2017-08-17] MEDS: MAGNESIUM HYDROXIDE SUSP 30 ML CUP PO SCH ×2 (09:00→21:00)
[2017-08-17] MEDS: COLLAGENASE OINT 30 GM TUBE TOPICAL SCH (09:00)
[2017-08-17] MEDS: FUROSEMIDE 20 MG TAB PO SCH (09:33)
[2017-08-17] MEDS: SPIRONOLACTONE 25 MG TAB PO SCH (09:33)
[2017-08-17] MEDS: DIGOXIN 0.125 MG TAB PO SCH (09:33)
[2017-08-17] MEDS: DILTIAZEM-CD 180 MG CAP ER PO SCH ×2 (09:33→19:47)
[2017-08-17] MEDS: DOCUSATE SODIUM 50 MG/SENNA 8.6 MG TAB PO SCH ×2 (09:33→19:47)
[2017-08-17] MEDS: CITALOPRAM HYDROBROMIDE 20 MG TAB PO SCH (09:33)
--- NOTE | 2017-08-17 10:18 | HHI.IDPN ---
Subjective Subjective Remarks ORIF planned for no new issues grew GNBs both S azactam and MRSa Antibiotics vanco azactam Allergies: Coded Allergies: aspirin (Unverified Allergy, Severe, PT HAS BEEN TAKEN ASACOL AT HOME, ) cephalexin (Unverified Allergy, Severe, DIARRHEA, 07/29/17) ciprofloxacin (Unverified Allergy, Severe, DIARRHEA, 07/29/17) diclofenac (Unverified Allergy, Severe, Nausea/Vomiting, 07/29/17) erythromycin base (Unverified Allergy, Severe, NAUSEA, 07/29/17) etodolac (Unverified Allergy, Severe, Nausea/Vomiting, 07/29/17) flurbiprofen (Unverified Allergy, Severe, Nausea/Vomiting, 07/29/17) ibuprofen (Unverified Allergy, Severe, Nausea/Vomiting, 07/29/17) indomethacin (Unverified Allergy, Severe, Nausea/Vomiting, 07/29/17) ketoprofen (Unverified Allergy, Severe, Nausea/Vomiting, 07/29/17) ketorolac (Unverified Allergy, Severe, Nausea/Vomiting, 07/29/17) levofloxacin (Unverified Allergy, Severe, DIARRHEA, 07/29/17) naproxen (Unverified Allergy, Severe, Nausea/Vomiting, 07/29/17) oxaprozin (Unverified Allergy, Severe, Nausea/Vomiting, 07/29/17) clindamycin (Unverified Allergy, Unknown, Diarrhea, 07/29/17) penicillin G (Unverified Adverse Reaction, Mild, Itching, 07/29/17) Uncoded Allergies: Adhesive tape (Allergy, Intermediate, 12/19/15) . LACTOSE INTOLERANCE (Allergy, Intermediate, 12/19/15) . Objective . Vital Signs Date Time Temp Pulse Resp B/P (MAP) Pulse Ox O2 Delivery O2 Flow Rate FiO2 08/17/17 08:00 97.7 96 18 149/83 (105) 98 08/17/17 04:00 97.1 81 18 111/54 (73) 95 08/17/17 00:00 97.0 83 18 107/54 (71) 92 08/16/17 20:00 97.7 90 18 135/72 (93) 96 08/16/17 16:00 98.2 87 16 113/58 (76) 97 08/16/17 12:00 97.8 94 18 142/62 (88) 98 . Laboratory Tests Test 08/16/17 08:25 White Blood Count 7.0 TH/MM3 Red Blood Count 4.11 MIL/MM3 Hemoglobin 12.7 GM/DL Hematocrit 38.3 % Mean Corpuscular Volume 93.2 FL Mean Corpuscular Hemoglobin 31.0 PG Mean Corpuscular Hemoglobin Concent 33.2 % Red Cell Distribution Width 13.0 % Platelet Count 198 TH/MM3 Mean Platelet Volume 8.4 FL Neutrophils (%) (Auto) 67.2 % Lymphocytes (%) (Auto) 21.2 % Monocytes (%) (Auto) 9.4 % Eosinophils (%) (Auto) 1.8 % Basophils (%) (Auto) 0.4 % Neutrophils # (Auto) 4.7 TH/MM3 Lymphocytes # (Auto) 1.5 TH/MM3 Monocytes # (Auto) 0.7 TH/MM3 Eosinophils # (Auto) 0.1 TH/MM3 Basophils # (Auto) 0.0 TH/MM3 CBC Comment DIFF FINAL Differential Comment Hematology Comments Laboratory Tests Test 08/16/17 08:25 08/17/17 06:34 Blood Urea Nitrogen 8 MG/DL Creatinine 0.45 MG/DL 0.43 MG/DL Random Glucose 96 MG/DL Total Protein 6.6 GM/DL Albumin 2.6 GM/DL Calcium Level 9.3 MG/DL Alkaline Phosphatase 99 U/L Aspartate Amino Transf (AST/SGOT) 31 U/L Alanine Aminotransferase (ALT/SGPT) 68 U/L Total Bilirubin 0.4 MG/DL Sodium Level 140 MEQ/L Potassium Level 3.8 MEQ/L Chloride Level 101 MEQ/L Carbon Dioxide Level 29.6 MEQ/L Anion Gap 9 MEQ/L Estimat Glomerular Filtration Rate 134 ML/MIN 141 ML/MIN Imaging Last Impressions Extremity Arterial Study 08/13/17 0000 Signed Impressions: CONCLUSION: 1. Moderate reduction of the left ZENY. Right ZENY is within the normal range. Hip X-Ray 08/12/17 0000 Signed Impressions: CONCLUSION: Posterior dislocation. Physical Exam CONSTITUTIONAL/GENERAL: This is an adequately nourished patient, in no apparent distress. TUBES/LINES/DRAINS: SKIN: No jaundice, rashes, or lesions. Skin temperature appropriate. Not diaphoretic. CARDIOVASCULAR: Regular rate and rhythm without murmurs, gallops, or rubs. RESPIRATORY/CHEST: Symmetric, unlabored respirations. GASTROINTESTINAL: Abdomen soft, non-tender, nondistended. MUSCULOSKELETAL: Extremities without clubbing, cyanosis, or edema. LLE with intact dressing and traction NEUROLOGICAL: Awake and alert. Grssly non focal PSYCHIATRIC: No obvious anxiety/depression. no apparent hallucinations or other psychotic thought process. Assessment & Plan Remarks PVD LLE - Moderate reduction of the left ZENY. 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
[2017-08-17] MEDS: VANCOMYCIN INJ 1,500 MG in SODIUM CHLORID 0.9% 500 ML INJ 500 ML IV SCH (12:00)
[2017-08-17] MEDS: MORPHINE SULFATE 4 MG/ML INJ IV PUSH PRN (13:12)
--- NOTE | 2017-08-17 13:47 | PD.ORT.PN ---
Subjective Subjective Remarks I have reviewed all of the studies and consultants notes. Vascular surgery feels that there is adequate blood flow into the left leg. No intervention is recommended. Wound care nurse indicates that wound is showing signs of granulation. Cultures show mixed bacteria including MRSA, Proteus and Pseudomonas. patient presently on antibiotics. Liver enzymes elevated are correcting. Sedimentation rate and C-reactive protein mildly elevated. Total protein and albumin depressed. Objective Vitals Vital Signs Date Time Temp Pulse Resp B/P (MAP) Pulse Ox O2 Delivery O2 Flow Rate FiO2 08/17/17 12:21 95 21 08/17/17 12:00 97.8 99 18 128/86 (100) 96 08/17/17 08:00 97.7 96 18 149/83 (105) 98 08/17/17 04:00 97.1 81 18 111/54 (73) 95 08/17/17 00:00 97.0 83 18 107/54 (71) 92 08/16/17 20:00 97.7 90 18 135/72 (93) 96 08/16/17 16:00 98.2 87 16 113/58 (76) 97 I/O 08/16/17 08/16/17 08/16/17 08/17/17 08/17/17 08/17/17 07:00 15:00 23:00 07:00 15:00 23:00 Intake Total 1975 ml 7800 ml 1000 ml 200 ml Output Total 1100 ml Balance 875 ml 7800 ml 1000 ml 200 ml Intake Oral 360 ml 600 ml IV Total 1615 ml 7200 ml 1000 ml 200 ml Output Urine Total 1100 ml # Voids 9 3 # Bowel Movements 5 Result Diagram: 08/16/17 0825 08/17/17 0634 Objective Remarks Patient's at bedside. Wound left lower leg looks significantly improved with no active sign of drainage or infection at this time this appears superficial. No calf tenderness. Significant pain with range of motion of the left hip Assessment & Plan Assessment and Plan Chronic wound left lower leg. Dislocated left total hip replacement arthroplasty, constrained liner. SURGERY: Debridement left lower leg skin subcutaneous tissue and muscle. Attempt closed reduction left total hip, failed: POD #5 PLAN: This patient is not a candidate for a closed reduction because she has a constrained liner of the left hip that has probably broken. Surgical treatment for revision is pending but being delayed because of the patient's chronic wound on the left lower leg which places her at risk for perioperative infection of revision total hip. With improvement of wound, consider revision on . Appreciate infectious disease consult. Would appreciate opinion about risk of surgical site infection with recent history of infection left lower leg. Appreciate Vascular surgery consult for evaluation of blood flow into the left leg. Appreciate Wound care consult Nonweightbearing left leg. Farrar's traction left leg. Antibiotic per infectious disease recommendations. consider revision on if medical consultants feel that the patient is a suitable candidate to consider that type of surgery at that time. I do not believe that we will be able to wait long enough for the wound on the left leg to completely heal. That would likely take many weeks. Would appreciate their opinion at this time Consider nutrition evaluation and proper nutrition. The patient appears to be in a poor nutrition position for aggressive surgical treatment. Surgery can be delayed until she is a suitable candidate for revision hip surgery. We will tentatively schedule surgery for Terrance Hobbs MD Aug 17, 2017 13:47
[2017-08-17] MEDS: SENNOSIDES 8.6 MG TAB PO SCH (21:00)
[2017-08-17] MEDS: ENOXAPARIN SODIUM 30 MG/0.3 ML SYRINGE SQ SCH (23:38)
[2017-08-18] VITALS (9 sets, daily range): BP systolic 116–131; BP diastolic 57–64; PULSE 68–101; RESP 17–20; TEMP 97.7–100.6; O2SAT 95–99
[2017-08-18] MEDS: TEMAZEPAM 15 MG CAP PO PRN (01:02)
[2017-08-18] MEDS: AZTREONAM INJ 2,000 MG in SODIUM CHLORIDE 0.9% INJ 100 ML IV SCH ×4 (01:03→20:36)
[2017-08-18] MEDS: ACETAMINOPHEN/HYDROcodone 325 MG/10 MG TAB PO PRN ×4 (03:38→20:32)
[2017-08-18] MEDS: VANCOMYCIN INJ 1,500 MG in SODIUM CHLORID 0.9% 500 ML INJ 500 ML IV SCH (05:55)
[2017-08-18] MEDS: LACTATED RINGER'S 1000 ML INJ 1,000 ML IV SCH ×2 (05:55→16:25)
[2017-08-18] MEDS: DILTIAZEM-CD 180 MG CAP ER PO SCH ×2 (08:07→20:33)
[2017-08-18] MEDS: DOCUSATE SODIUM 50 MG/SENNA 8.6 MG TAB PO SCH ×2 (08:07→20:34)
[2017-08-18] MEDS: CITALOPRAM HYDROBROMIDE 20 MG TAB PO SCH (08:07)
[2017-08-18] MEDS: MAGNESIUM HYDROXIDE SUSP 30 ML CUP PO SCH ×2 (08:07→20:34)
[2017-08-18] MEDS: FUROSEMIDE 20 MG TAB PO SCH (08:08)
[2017-08-18] MEDS: SPIRONOLACTONE 25 MG TAB PO SCH (08:08)
[2017-08-18] MEDS: COLLAGENASE OINT 30 GM TUBE TOPICAL SCH (08:12)
[2017-08-18] MEDS ORDERED: PHARMACY ORDERED LAB ONE (08:45)
[2017-08-18 09:02] LABS: CREATININE 0.44 MG/DL (0.50-1.00)
--- NOTE | 2017-08-18 09:57 | HHI.PR ---
Subjective Remarks Follow-up left hip dislocation. Wants to proceed with surgery aware and accepts associated risks(infection, poor healing, bleeding, PE, DVT, NV etc) Objective Vitals Vital Signs Date Time Temp Pulse Resp B/P (MAP) Pulse Ox O2 Delivery O2 Flow Rate FiO2 08/18/17 08:00 97.7 101 17 124/63 (83) 99 08/18/17 04:00 97.9 94 20 131/60 (83) 98 08/18/17 00:00 98.0 83 20 116/57 (76) 96 08/18/17 00:00 68 08/17/17 20:00 97.8 88 20 114/56 (75) 97 08/17/17 16:00 97.8 84 18 99/54 (69) 98 08/17/17 12:21 95 21 08/17/17 12:00 97.8 99 18 128/86 (100) 96 I/O 08/17/17 08/17/17 08/17/17 08/18/17 08/18/17 08/18/17 07:00 15:00 23:00 07:00 15:00 23:00 Intake Total 1000 ml 200 ml 1060 ml 1420 ml Balance 1000 ml 200 ml 1060 ml 1420 ml Intake Oral 960 ml 320 ml IV Total 1000 ml 200 ml 100 ml 1100 ml # Voids 3 6 4 # Bowel Movements 1 1 Result Diagram: 08/16/17 0825 08/18/17 0700 Imaging Last Impressions Extremity Arterial Study 08/13/17 0000 Signed Impressions: CONCLUSION: 1. Moderate reduction of the left ZENY. Right ZENY is within the normal range. Hip X-Ray 08/12/17 0000 Signed Impressions: CONCLUSION: Posterior dislocation. Objective Remarks GENERAL: Well-appearing, no acute distress SKIN: Warm and dry. CARDIOVASCULAR: Irregular rhythm without murmurs, gallops, or rubs. RESPIRATORY: Breath sounds equal bilaterally. No accessory muscle use. GASTROINTESTINAL: Abdomen soft, non-tender, nondistended. MUSCULOSKELETAL: Patient Farrar's traction left leg. CKS left lower extremity. Procedures S/P Debridement of skin subcu tissue and muscle of the left lower leg. Attempted closed reduction under anesthesia, left total hip, unsuccessful. Surgeon Dr Awad on 08/12/17. A/P Problem List: (1) Hip dislocation, left ICD Code: S73.005A - Unspecified dislocation of left hip, initial encounter Assessment and Plan History female with a medical history significant for A. fib, COPD, anxiety and depression presents to [facility] due to hip pain that she experienced when trying to get off the couch. Patient with a history of left hip replacement. Patient with chronic left hip wound that is followed as an outpatient. Dislocated left total hip Chronic wound left lower leg -patient has been seen evaluated by Ortho. Attempted closed reduction of left total hip failed. Surgical treatment for revision is delayed due to her chronic left wound. -She is nonweightbearing, left lower extremity is in Farrar's traction -Vascular surgery: ZENY abnormal but perfusion adequate no intervention recommended -Infectious disease 08/12: Continue vancomycin and azactam, cultures growing MRSA , Pseudomonas, and Proteus Atrial fibrillation -Continue patient's home digoxin and Cardizem. Eliquis on hold but has been started on Lovenox by orthopedic surgery -Continue telemetry CHF, systolic -Continue patient's home Lasix and spironolactone Discharge Planning at this time her medical conditions have been optimized, delaying surgical intervention further would increase risks of complications. Cleared by infectious disease Milton Fernandez MD Aug 18, 2017 09:57
--- NOTE | 2017-08-18 13:14 | PD.ORT.PN ---
Subjective Subjective Remarks No new complaints. Questions about revisional surgery and anticipated discharge. Objective Vitals Vital Signs Date Time Temp Pulse Resp B/P (MAP) Pulse Ox O2 Delivery O2 Flow Rate FiO2 08/18/17 12:00 98.6 101 17 119/60 (79) 96 08/18/17 08:00 97.7 101 17 124/63 (83) 99 08/18/17 04:00 97.9 94 20 131/60 (83) 98 08/18/17 00:00 98.0 83 20 116/57 (76) 96 08/18/17 00:00 68 08/17/17 20:00 97.8 88 20 114/56 (75) 97 08/17/17 16:00 97.8 84 18 99/54 (69) 98 I/O 08/17/17 08/17/17 08/17/17 08/18/17 08/18/17 08/18/17 07:00 15:00 23:00 07:00 15:00 23:00 Intake Total 1000 ml 200 ml 1060 ml 1420 ml Balance 1000 ml 200 ml 1060 ml 1420 ml Intake Oral 960 ml 320 ml IV Total 1000 ml 200 ml 100 ml 1100 ml # Voids 3 6 4 # Bowel Movements 1 1 Result Diagram: 08/16/17 0825 08/18/17 0700 Objective Remarks NAD Laying in bed VSS Left LE Wound left lower leg continues to improve, much less drainage, little peripheral erythema, In knee splint, slight ext rotation of hip, pain with limited attempt at hip ROM Distal no calf tenderness, DP 1/4 Assessment & Plan Assessment and Plan Chronic wound left lower leg. Dislocated left total hip replacement arthroplasty, constrained liner. SURGERY: Debridement left lower leg skin subcutaneous tissue and muscle. Attempt closed reduction left total hip, failed: POD #6 PLAN: This patient is not a candidate for a closed reduction because she has a constrained liner of the left hip that has probably broken. We will plan on surgical treatment tomorrow 08/19 if wound continues to improve - Revisional left total hip arthroplasty Appreciate ID care for wound. Antibiotics per ID. Appreciate Vascular surgery consult for evaluation of blood flow into the left leg. Appreciate Wound care consult Nonweightbearing left leg. Farrar's traction left leg. NPO after midnight tonight. Patient to sign surgical consents in anticipation of procedure tomorrow. Angelica Yang Aug 18, 2017 13:14
[2017-08-18] MEDS ORDERED: CHLORHEXIDINE GLUCONATE 2 % 1 PACK (2 CLOTHS) TOPICAL PRN (19:00)
[2017-08-18] MEDS ORDERED: SODIUM CHLORID 0.9% 500 ML IV PRN (19:00)
[2017-08-18] MEDS ORDERED: POVIDONE IODINE 5% (ANTISEPSIS KIT) 4 APPLICATIONS EACH NARE PRN (19:00)
[2017-08-18] MEDS ORDERED: LACTATED RINGER'S 1000 ML IV PRN (19:00)
[2017-08-18] MEDS ORDERED: METOPROLOL TARTRATE 25 MG TAB PO PRN (19:00)
[2017-08-18] MEDS: SENNOSIDES 8.6 MG TAB PO SCH (20:34)
[2017-08-18] MEDS: MORPHINE SULFATE 4 MG/ML INJ IV PUSH PRN (23:56)
[2017-08-19] VITALS: BP 125/60; PULSE 101; RESP 19; TEMP 98.1; O2SAT 95
[2017-08-19] MEDS: ENOXAPARIN SODIUM 30 MG/0.3 ML SYRINGE SQ SCH ×2 (00:01→22:10)
[2017-08-19] MEDS: VANCOMYCIN INJ 1,500 MG in SODIUM CHLORID 0.9% 500 ML INJ 500 ML IV SCH (00:01)
[2017-08-19] MEDS: AZTREONAM INJ 2,000 MG in SODIUM CHLORIDE 0.9% INJ 100 ML IV SCH ×4 (02:38→20:00)
[2017-08-19] MEDS: ACETAMINOPHEN/HYDROcodone 325 MG/10 MG TAB PO PRN ×2 (02:59→08:32)
[2017-08-19] MEDS: ALPRAZolam 0.25 MG TAB PO PRN (03:18)
[2017-08-19 04:00] VITALS: BP 130/62; PULSE 105; RESP 19; TEMP 98; O2SAT 95
[2017-08-19] MEDS: MORPHINE SULFATE 4 MG/ML INJ IV PUSH PRN (06:34)
[2017-08-19 08:00] VITALS: BP 122/60; PULSE 89; RESP 18; TEMP 98; O2SAT 94
[2017-08-19] MEDS: SPIRONOLACTONE 25 MG TAB PO SCH (08:23)
[2017-08-19] MEDS: DILTIAZEM-CD 180 MG CAP ER PO SCH ×2 (08:23→21:00)
[2017-08-19] MEDS: DIGOXIN 0.125 MG TAB PO SCH (08:23)
[2017-08-19] MEDS: CITALOPRAM HYDROBROMIDE 20 MG TAB PO SCH (08:23)
[2017-08-19] MEDS: COLLAGENASE OINT 30 GM TUBE TOPICAL SCH (08:24)
[2017-08-19] MEDS: MAGNESIUM HYDROXIDE SUSP 30 ML CUP PO SCH ×2 (08:24→21:00)
[2017-08-19] MEDS: LACTATED RINGER'S 1000 ML INJ 1,000 ML IV SCH ×2 (08:24→20:30)
[2017-08-19] MEDS: FUROSEMIDE 20 MG TAB PO SCH (08:24)
[2017-08-19] MEDS: DOCUSATE SODIUM 50 MG/SENNA 8.6 MG TAB PO SCH ×2 (08:25→21:00)
--- NOTE | 2017-08-19 09:05 | HHI.PR ---
Subjective Remarks F/u hip dislocation. Tele 2 am with pssible NSVT upon my review its fib with WCT , was asymptomatic Objective Vitals Vital Signs Date Time Temp Pulse Resp B/P (MAP) Pulse Ox O2 Delivery O2 Flow Rate FiO2 08/19/17 04:00 98.0 105 19 130/62 (84) 95 08/19/17 03:59 19 08/19/17 00:01 19 08/19/17 00:00 98.1 101 19 125/60 (81) 95 08/18/17 20:00 97.9 100 19 122/59 (80) 95 08/18/17 17:41 95 Nasal Cannula 2.00 08/18/17 16:00 100.6 101 17 126/64 (84) 95 08/18/17 12:00 98.6 101 17 119/60 (79) 96 08/18/17 10:30 98 Nasal Cannula 3.00 08/18/17 10:00 98 Nasal Cannula 3.00 I/O 08/18/17 08/18/17 08/18/17 08/19/17 08/19/17 08/19/17 07:00 15:00 23:00 07:00 15:00 23:00 Intake Total 1420 ml 960 ml 0 ml Output Total 1800 ml Balance 1420 ml -840 ml 0 ml Intake Oral 320 ml 960 ml 0 ml IV Total 1100 ml Output Urine Total 1700 ml Stool Total 100 ml # Voids 4 3 # Bowel Movements 1 1 0 Result Diagram: 08/16/17 0825 08/18/17 0700 Imaging Last Impressions Extremity Arterial Study 08/13/17 0000 Signed Impressions: CONCLUSION: 1. Moderate reduction of the left ZENY. Right ZENY is within the normal range. Hip X-Ray 08/12/17 0000 Signed Impressions: CONCLUSION: Posterior dislocation. Objective Remarks GENERAL: Well-appearing, no acute distress SKIN: Warm and dry. CARDIOVASCULAR: Irregular rhythm without murmurs, gallops, or rubs. RESPIRATORY: Breath sounds equal bilaterally. No accessory muscle use. GASTROINTESTINAL: Abdomen soft, non-tender, nondistended. MUSCULOSKELETAL: Patient Farrar's traction left leg. CKS left lower extremity. Procedures S/P Debridement of skin subcu tissue and muscle of the left lower leg. Attempted closed reduction under anesthesia, left total hip, unsuccessful. Surgeon Dr Awad on 08/12/17. A/P Problem List: (1) Hip dislocation, left ICD Code: S73.005A - Unspecified dislocation of left hip, initial encounter Assessment and Plan History female with a medical history significant for A. fib, COPD, anxiety and depression presents to [facility] due to hip pain that she experienced when trying to get off the couch. Patient with a history of left hip replacement. Patient with chronic left hip wound that is followed as an outpatient. Dislocated left total hip Chronic wound left lower leg -patient has been seen evaluated by Ortho. Attempted closed reduction of left total hip failed. Surgical treatment for revision is delayed due to her chronic left wound. -She is nonweightbearing, left lower extremity is in Farrar's traction -Vascular surgery: ZENY abnormal but perfusion adequate no intervention recommended -Infectious disease 08/12: Continue vancomycin and azactam, cultures growing MRSA , Pseudomonas, and Proteus Atrial fibrillation -Continue patient's home digoxin and Cardizem. Eliquis on hold but has been started on Lovenox by orthopedic surgery -Continue telemetry with WCT stat labs and TSH and replace accordingly dw RN CHF, systolic -Continue patient's home Lasix and spironolactone Discharge Planning at this time her medical conditions have been optimized, delaying surgical intervention further would increase risks of complications. Cleared by infectious disease Milton Fernandez MD Aug 19, 2017 09:05
[2017-08-19 11:37] LABS: BICARBONATE 36.2 MEQ/L (21.0-32.0); CREATININE 0.42 MG/DL (0.50-1.00); MAGNESIUM 1.5 MG/DL (1.5-2.5)
[2017-08-19 12:00] VITALS: BP 139/77; PULSE 85; RESP 19; TEMP 97.7; O2SAT 93
[2017-08-19] MEDS ORDERED: ROCURONIUM INJ 50 MG/5 ML SYRINGE IV PUSH ONE (12:00)
[2017-08-19] MEDS ORDERED: PHENYLEPH/NS 1000 MCG/10 ML SYR IV ONE (12:00)
[2017-08-19] MEDS ORDERED: LIDOCAINE HCL 1% PF 5 ML SYRINGE OTHER ONE (12:00)
[2017-08-19] MEDS ORDERED: GLYCOPYRROLATE 1 MG/5 ML SYRINGE IV PUSH ONE (12:00)
[2017-08-19] MEDS ORDERED: DEXAMETHASONE SOD PHOS 4 MG/ML VIAL IV ONE (12:00)
[2017-08-19] MEDS ORDERED: ONDANSETRON HCL 4 MG/2 ML VIAL IV PUSH ONE (12:00)
[2017-08-19] MEDS ORDERED: ESMOLOL HCL 100 MG/10 ML VIAL IV ONE (12:00)
[2017-08-19] MEDS ORDERED: NEOSTIGMINE 5 MG/5 ML SYRINGE IV PUSH ONE (12:00)
[2017-08-19] MEDS ORDERED: PROPOFOL 200 MG/20 ML AMP IV ONE (12:00)
[2017-08-19] MEDS ORDERED: MAGNESIUM SULFATE 1 GM PREMIX 100 ML IV ONE (14:00)
[2017-08-19] MEDS: POTASSIUM CHLOR 10 MEQ PREMIX 100 ML IV SCH ×3 (14:00→16:00)
[2017-08-19] MEDS ORDERED: GENTAMICIN SULFATE 80 MG/2 ML VIAL ONE ×2 (14:53→14:58)
[2017-08-19] MEDS ORDERED: ceFAZolin 2 GM PREMIX 0 ML ONE (14:53)
[2017-08-19] MEDS ORDERED: HEPARIN SODIUM - SQ 10,000 UNITS/ML VIAL ONE (14:54)
[2017-08-19] MEDS ORDERED: THROMBIN (TOPICAL) 5,000 UNIT VIAL ONE (14:58)
[2017-08-19] MEDS ORDERED: BUPIVACAINE/EPINEPHRINE 0.5% PF 30 ML VIAL ONE (15:15)
[2017-08-19 15:28] VITALS: O2SAT 95
[2017-08-19] MEDS ORDERED: VANCOMYCIN HCL 1000 MG VIAL ONE (17:12)
[2017-08-19] MEDS ORDERED: SODIUM CHLOR 0.9% 250 ML INJ 250 ML ONE (17:13)
[2017-08-19] MEDS ORDERED: VANCOMYCIN HCL 1000 MG VIAL IV ONE (17:15)
[2017-08-19] MEDS ORDERED: PHARMACY ORDERED LAB ONE (17:45)
[2017-08-19] MEDS ORDERED: MORPHINE SULFATE 4 MG/ML INJ ONE (19:15)
[2017-08-19] MEDS ORDERED: MORPHINE SULFATE 8 MG/ML INJ IM PRN (19:15)
[2017-08-19] MEDS ORDERED: ALUMINUM/MAGNESIUM/SIMETH 30 ML CUP PO PRN (19:15)
[2017-08-19] MEDS ORDERED: diphenhydrAMINE HCL 25 MG CAP PO PRN (19:15)
--- NOTE | 2017-08-19 19:21 | PD.OP ---
cc: Terrance Hobbs MD Operative Report Date of Surgery: Aug 19, 2017 Preoperative Diagnosis: Malfunctioning left total hip replacement arthroplasty. Dislocated left total hip replacement arthroplasty. Probable broken acetabular component Postoperative Diagnosis: Malfunctioning left total hip replacement arthroplasty. Dislocated left total hip replacement arthroplasty. Worn/broken acetabular plastic liner Procedure: Revision left total hip replacement arthroplasty Anesthesia: General Surgeon: Terrance Hobbs Counselor Dormitory(s): PATEL Valdes Operation and Findings: EBL: 250 cc INDICATION: This patient is an 82-year-old female who presented with a dislocated total hip. She had a constrained liner placed many years ago with significant wearing of the plastic liner. She had a sudden onset of pain and inability to ambulate. X-ray showed evidence of a dislocated total hip replacement in concerns of a displaced constrained ring signifying concern of a broken acetabular component. She had an attempted closed reduction which was unsuccessful. She also has an ongoing chronic wound of her lower leg which was treated medically for 6 days before proceeding forward with open surgery. NOTE: Claire Valdes PA-C was present for the entire surgical procedure as my accounting administrative assistant. In my medical opinion her skill and care was necessary for the proper management of this patient. COMPONENTS: COMPANY: [employer] CUP: Duraloc 56 mm, 300 series, 32 constrained liner STEM: AML 13.5 mm, 14/16 taper, 5/8 coated HEAD: 32, +0 14/16 taper PROCEDURE: This patient was brought to the operating room and anesthetized in the supine position and positioned on the routine table in the clean air suite. The patient was then rolled to a left side up lateral position and held with a Biomet hip positioner. The hip and leg was scrubbed with alcohol followed by Hibiclens followed by chloro prep and draped sterilely. A timeout was done and antibiotics were given within a routine time window. An extended posterior exposure was accomplished. The previous incision was excised. There was significant metal debris that was seen which was resected. The iliotibial band was opened in line with incision. The posterior capsule and external rotators were taken down together the sleeve. Significant granulation debris was seen which was resected. The hip was dislocated posteriorly. This was carefully dissected and care was taken to avoid injury to the sciatic nerve. The head was removed. A total capsulectomy and removal of all granulation tissue was accomplished. The plastic liner retainer ring was in a displaced position. There was significant wearing of the acetabular component and a portion of the retaining section of the plastic was broken allowing the head to dislocate. The attention was directed to the acetabulum. The acetabulum was in a significant forward flexed position. Significant wear of the bone around the femoral and acetabular component was noted but the stem was solid and so was the acetabular component. Because of everything going on with this patient, it was elected to leave the acetabular component and an abnormal position because the stem was in a retroverted 30 position. In order to revise the acetabular component we would need to revise the femoral component. The previous liner was removed. The acetabulum was inspected and it was stable. A new retaining ring was placed within the acetabulum and a Replaced. We then replaced the femoral head with a trial +0. Length was very satisfactory. The final head was impacted and the hip reduced. The retaining ring was positioned into the proper position. The patient had good range of motion. Leg length appeared to be almost equal to where the patient was compared to the other leg. The wound was irrigated multiple times with antibiotic irrigation. Deep culture was taken during the surgery. The posterior capsule and external rotators were repaired through bone with interrupted #2 Tycron sutures. The piriformis muscle was repaired with the same. The iliotibial band with interrupted #1 Vicryl sutures. Subcutaneous tissue was approximated with 2-0 Vicryl suture and skin with running intradermal 3-0 Vicryl followed by Steri-Strips and benzoin. A sterile dressing was applied.. The sponge count needle counts and instrument counts were all correct. The patient was awakened and taken to the recovery room in satisfactory condition FINDINGS: There was significant wear of the acetabular plastic liner. This was broken in a way that allowed dislocation. There was no complication. Terrance Hobbs MD Aug 19, 2017 19:21
[2017-08-19] MEDS ORDERED: *morphine SULFATE 4 MG/ML PERIprocedure ONLY ONE ×3 (19:50→20:24)
--- NOTE | 2017-08-19 20:05 | RADRPT ---
EXAM DATE: 08/19/2017 7:55 PM EDT AGE/SEX: 82 years / Female INDICATIONS: Post op left hip. CLINICAL DATA: This is the patient's subsequent encounter. Patient reports that signs and symptoms h ave been present for 1 day and indicates a pain score of Nonresponsive. MEDICAL/SURGICAL HISTORY: Non-responsive. Non-responsive. COMPARISON: [facility], HIP LEFT (AP&LAT 2/3VWS) WO AP PELVIS, 08/11/2017. . FINDINGS: Left hip arthroplasty. Drain in place. Postsurgical changes. CONCLUSION: Left hip arthroplasty Electronically signed by: Abel Shell MD 08/19/2017 8:04 PM EDT
[2017-08-19] MEDS ORDERED: DO NOT ADM ANY ANTICOAGULANT DRUGS PRN (20:15)
[2017-08-19] MEDS: SENNOSIDES 8.6 MG TAB PO SCH (21:00)
[2017-08-19] MEDS ORDERED: APIXABAN 5 MG TABLET PO SCH (21:00)
[2017-08-19 21:01] VITALS: BP 105/57; PULSE 83; RESP 16; TEMP 96.4; O2SAT 96
[2017-08-19] MEDS ORDERED: VANCOMYCIN 1,000 MG/NS 250 ML IV ONE ×2 (21:30)
[2017-08-20] VITALS (7 sets, daily range): BP systolic 103–123; BP diastolic 52–58; PULSE 92–113; RESP 16–18; TEMP 97.4–98.8; O2SAT 94–96
[2017-08-20] MEDS: AZTREONAM INJ 2,000 MG in SODIUM CHLORIDE 0.9% INJ 100 ML IV SCH ×4 (02:09→22:06)
[2017-08-20 06:59] LABS: AUTOMATED NEUTROPHIL # 9.2 TH/MM3 (1.8-7.7); BASOPHIL % 0.1 % (0.0-2.0); HEMATOCRIT 28.3 % (35.0-46.0); HEMOGLOBIN 9.4 GM/DL (11.6-15.3); LYMPH % 11.8 % (9.0-44.0); LYMPHOCYTE # 1.4 TH/MM3 (1.0-4.8); MEAN CELL VOLUME 93.2 FL (80.0-100.0); MEAN CORPUSCULAR HGB CONC 33.2 % (32.0-36.0); MEAN PLATELET VOLUME 8.2 FL (7.0-11.0); MONO % 7.9 % (0.0-8.0); MONOCYTE # 0.9 TH/MM3 (0-0.9); NEUT % 80.2 % (16.0-70.0); PLATELET COUNT 266 TH/MM3 (150-450); RED BLOOD COUNT 3.04 MIL/MM3 (4.00-5.30); RED CELL DISTRIBUTION WIDTH 12.8 % (11.6-17.2); WHITE BLOOD COUNT 11.5 TH/MM3 (4.0-11.0)
[2017-08-20 07:07] LABS: CALCIUM 8.4 MG/DL (8.5-10.1); CREATININE 0.61 MG/DL (0.50-1.00); MAGNESIUM 1.3 MG/DL (1.5-2.5)
[2017-08-20] MEDS: MORPHINE SULFATE 4 MG/ML INJ IV PUSH PRN ×2 (07:28→22:06)
--- NOTE | 2017-08-20 08:02 | PD.ORT.PN ---
Subjective Subjective Remarks I have reviewed all of the studies and consultants notes. Vascular surgery feels that there is adequate blood flow into the left leg. No intervention is recommended. Wound care nurse indicates that wound is showing signs of granulation. Cultures show mixed bacteria including MRSA, Proteus and Pseudomonas. patient presently on antibiotics. Appears stable postop day 1. Pain controlled. Minimal drainage Objective Vitals Vital Signs Date Time Temp Pulse Resp B/P (MAP) Pulse Ox O2 Delivery O2 Flow Rate FiO2 08/20/17 04:50 97.7 102 16 112/56 (74) 96 08/20/17 00:05 97.4 100 16 123/56 (78) 96 08/19/17 21:01 96.4 83 16 105/57 (73) 96 08/19/17 20:30 96 17 110/52 (71) 96 Nasal Cannula 2 08/19/17 20:15 101 19 103/56 (72) 96 Nasal Cannula 2 08/19/17 20:00 103 18 110/58 (75) 96 Nasal Cannula 4 08/19/17 19:45 103 21 122/65 (84) 92 Nasal Cannula 4 08/19/17 19:30 97.6 120 13 119/59 (79) 92 Nasal Cannula 4 08/19/17 15:28 95 2.00 08/19/17 12:00 97.7 85 19 139/77 (97) 93 08/19/17 08:00 98.0 89 18 122/60 (80) 94 I/O 08/19/17 08/19/17 08/19/17 08/20/17 08/20/17 08/20/17 07:00 15:00 23:00 07:00 15:00 23:00 Intake Total 0 ml 2000 ml Output Total 1975 ml 200 ml Balance 0 ml 25 ml -200 ml Intake Oral 0 ml 0 ml IV Total 2000 ml Output Urine Total 1725 ml 200 ml Estimated Blood Loss 250 ml # Voids 3 # Bowel Movements 0 0 Result Diagram: 08/20/1716 08/20/17615 Imaging Last 24 hours Impressions Hip X-Ray 08/19/171909 Signed Impressions: CONCLUSION: Left hip arthroplasty Objective Remarks NAD Laying in bed VSS Left hip dressing dry. Minimal drainage. Dressing over left lower extremity wound. No need for abduction pillow or knee immobilizer, patient has constrained liner. Assessment & Plan Assessment and Plan Chronic wound left lower leg. Dislocated left total hip replacement arthroplasty, constrained liner. SURGERY: Debridement left lower leg skin subcutaneous tissue and muscle. Attempt closed reduction left total hip, failed: POD #7 Revision left total hip replacement arthroplasty, constrained liner: POD #1 PLAN: Treatment of left lower extremity chronic wound per wound care group. No dressing change to left hip. Discontinue drain. Weightbearing as tolerated. No need for abduction pillow or knee immobilizer, patient has constrained liner with revision. [facility], when medically cleared. Patient was on Eliquis before surgery. This was restarted and first dose will be tonight. Beyond that, I will defer to medicine for anticoagulation, per their recommendation. All medications per medical team. Antibiotics per infectious disease for chronic wound left lower leg which had multiple resistant organisms on admission, including Proteus, Pseudomonas, MRSA. If the wound continues to improve, consider split-thickness skin graft next week if infection continues to subside Terrance Hobbs MD Aug 20, 2017 08:02
[2017-08-20] MEDS: DOCUSATE SODIUM 50 MG/SENNA 8.6 MG TAB PO SCH ×2 (09:00→21:00)
[2017-08-20] MEDS: MAGNESIUM HYDROXIDE SUSP 30 ML CUP PO SCH ×2 (09:00→21:00)
[2017-08-20] MEDS: COLLAGENASE OINT 30 GM TUBE TOPICAL SCH (09:00)
[2017-08-20] MEDS: DILTIAZEM-CD 180 MG CAP ER PO SCH ×2 (09:56→21:00)
[2017-08-20] MEDS: CITALOPRAM HYDROBROMIDE 20 MG TAB PO SCH (09:56)
[2017-08-20] MEDS: ACETAMINOPHEN/HYDROcodone 325 MG/10 MG TAB PO PRN ×3 (09:56→20:59)
[2017-08-20] MEDS: FUROSEMIDE 20 MG TAB PO SCH (09:57)
[2017-08-20] MEDS: SPIRONOLACTONE 25 MG TAB PO SCH (09:57)
--- NOTE | 2017-08-20 09:58 | HHI.PR ---
Subjective Remarks Follow-up hip dislocation status post revision. Left hip pain Objective Vitals Vital Signs Date Time Temp Pulse Resp B/P (MAP) Pulse Ox O2 Delivery O2 Flow Rate FiO2 08/20/17 08:00 97.6 95 18 103/56 (72) 94 08/20/17 04:50 97.7 102 16 112/56 (74) 96 08/20/17 00:05 97.4 100 16 123/56 (78) 96 08/19/17 21:01 96.4 83 16 105/57 (73) 96 08/19/17 20:30 96 17 110/52 (71) 96 Nasal Cannula 2 08/19/17 20:15 101 19 103/56 (72) 96 Nasal Cannula 2 08/19/17 20:00 103 18 110/58 (75) 96 Nasal Cannula 4 08/19/17 19:45 103 21 122/65 (84) 92 Nasal Cannula 4 08/19/17 19:30 97.6 120 13 119/59 (79) 92 Nasal Cannula 4 08/19/17 15:28 95 2.00 08/19/17 12:00 97.7 85 19 139/77 (97) 93 I/O 08/19/17 08/19/17 08/19/17 08/20/17 08/20/17 08/20/17 07:00 15:00 23:00 07:00 15:00 23:00 Intake Total 0 ml 2000 ml Output Total 1975 ml 200 ml Balance 0 ml 25 ml -200 ml Intake Oral 0 ml 0 ml IV Total 2000 ml Output Urine Total 1725 ml 200 ml Estimated Blood Loss 250 ml # Voids 3 # Bowel Movements 0 0 Result Diagram: 08/20/17 0616 08/20/17 0616 Imaging Last Impressions Hip X-Ray 08/19/17 1910 Signed Impressions: CONCLUSION: Left hip arthroplasty Extremity Arterial Study 08/13/17 0000 Signed Impressions: CONCLUSION: 1. Moderate reduction of the left ZENY. Right ZENY is within the normal range. Objective Remarks GENERAL: Well-appearing, no acute distress SKIN: Warm and dry. CARDIOVASCULAR: Irregular rhythm without murmurs, gallops, or rubs. RESPIRATORY: Breath sounds equal bilaterally. No accessory muscle use. GASTROINTESTINAL: Abdomen soft, non-tender, nondistended. MUSCULOSKELETAL: Left hip with dry dressing Procedures S/P Debridement of skin subcu tissue and muscle of the left lower leg. Attempted closed reduction under anesthesia, left total hip, unsuccessful. Surgeon Dr Awad on 08/12/17. Date of Surgery: Aug 19, 2017 Preoperative Diagnosis: Malfunctioning left total hip replacement arthroplasty. Dislocated left total hip replacement arthroplasty. Probable broken acetabular component Postoperative Diagnosis: Malfunctioning left total hip replacement arthroplasty. Dislocated left total hip replacement arthroplasty. Worn/broken acetabular plastic liner Procedure: Revision left total hip replacement arthroplasty A/P Problem List: (1) Hip dislocation, left ICD Code: S73.005A - Unspecified dislocation of left hip, initial encounter Assessment and Plan History female with a medical history significant for A. fib, COPD, anxiety and depression presents to [facility] due to hip pain that she experienced when trying to get off the couch. Patient with a history of left hip replacement. Patient with chronic left hip wound that is followed as an outpatient. Dislocated left total hip Chronic wound left lower leg -patient has been seen evaluated by Ortho. Attempted closed reduction of left total hip failed. Surgical treatment for revision is delayed due to her chronic left wound. -Status post revision August 19, 2016. Postoperative care per orthopedic surgery -Vascular surgery: ZENY abnormal but perfusion adequate no intervention recommended -Infectious disease 08/12: Continue vancomycin and azactam, cultures growing MRSA , Pseudomonas, and Proteus Atrial fibrillation -Continue patient's home digoxin and Cardizem. Eliquis restarted -Continue telemetry with WCT likely secondary to lateral abnormalities. She has hypokalemia and hypomagnesemia on Lasix. Will replace accordingly and repeat labs in the morning CHF, systolic -Continue patient's home Lasix and spironolactone Anemia secondary to acute blood loss. Repeat CBC in the morning. She is hemodynamically stable Discharge Planning Will likely need SNF Milton Fernandez MD Aug 20, 2017 09:58
[2017-08-20] MEDS: POTASSIUM CHLORIDE 20 MEQ CONTROLLED RELEASE TAB PO SCH (10:00)
[2017-08-20] MEDS: MORPHINE SULFATE 8 MG/ML INJ IM PRN ×2 (10:46→18:26)
[2017-08-20] MEDS: MAGNESIUM OXIDE 400 MG TAB PO SCH ×2 (10:57→21:00)
[2017-08-20] MEDS: ALPRAZolam 0.25 MG TAB PO PRN (10:57)
[2017-08-20] MEDS: LACTATED RINGER'S 1000 ML INJ 1,000 ML IV SCH ×2 (13:21→21:03)
[2017-08-20] MEDS ORDERED: FUROSEMIDE 20 MG/2 ML VIAL IV PUSH ONE (18:00)
[2017-08-20] MEDS: APIXABAN 5 MG TABLET PO SCH (21:01)
[2017-08-20] MEDS: SENNOSIDES 8.6 MG TAB PO SCH (21:01)
[2017-08-21] VITALS (11 sets, daily range): BP systolic 94–106; BP diastolic 48–63; PULSE 65–85; RESP 16–20; TEMP 97.5–98.9; O2SAT 93–98
[2017-08-21] MEDS: ACETAMINOPHEN/HYDROcodone 325 MG/10 MG TAB PO PRN ×4 (03:14→18:47)
[2017-08-21] MEDS: AZTREONAM INJ 2,000 MG in SODIUM CHLORIDE 0.9% INJ 100 ML IV SCH ×4 (03:24→20:06)
[2017-08-21 05:30] LABS: BASOPHIL % 0.4 % (0.0-2.0); EOSINOPHIL % 0.4 % (0.0-4.0); HEMATOCRIT 23.8 % (35.0-46.0); HEMOGLOBIN 7.8 GM/DL (11.6-15.3); LYMPH % 22.8 % (9.0-44.0); LYMPHOCYTE # 2.1 TH/MM3 (1.0-4.8); MEAN CELL VOLUME 93.5 FL (80.0-100.0); MEAN CORPUSCULAR HEMOGLOBIN 30.7 PG (27.0-34.0); MEAN CORPUSCULAR HGB CONC 32.8 % (32.0-36.0); MEAN PLATELET VOLUME 8.8 FL (7.0-11.0); MONO % 12.8 % (0.0-8.0); MONOCYTE # 1.2 TH/MM3 (0-0.9); NEUT % 63.6 % (16.0-70.0); PLATELET COUNT 243 TH/MM3 (150-450); RED BLOOD COUNT 2.55 MIL/MM3 (4.00-5.30); RED CELL DISTRIBUTION WIDTH 13.1 % (11.6-17.2); WHITE BLOOD COUNT 9.4 TH/MM3 (4.0-11.0)
[2017-08-21] MEDS: MORPHINE SULFATE 4 MG/ML INJ IV PUSH PRN ×3 (05:56→20:13)
[2017-08-21] MEDS: MAGNESIUM HYDROXIDE SUSP 30 ML CUP PO SCH ×2 (09:00→20:07)
[2017-08-21] MEDS: COLLAGENASE OINT 30 GM TUBE TOPICAL SCH (09:00)
[2017-08-21] MEDS: DILTIAZEM-CD 180 MG CAP ER PO SCH ×3 (09:00→20:13)
[2017-08-21 09:11] LABS: BICARBONATE 31.7 MEQ/L (21.0-32.0); CALCIUM 8.2 MG/DL (8.5-10.1); CREATININE 1.09 MG/DL (0.50-1.00); MAGNESIUM 1.7 MG/DL (1.5-2.5); RANDOM VANCOMYCIN 13.1 COMMENT
--- NOTE | 2017-08-21 09:14 | HHI.PR ---
Subjective Remarks Follow-up anemia. Patient without gross bleeding. Hemoglobin 7.8 with borderline low BP. Agrees with blood transfusion and rehab placement. She now agrees to have the Ravi catheter discontinued Objective Vitals Vital Signs Date Time Temp Pulse Resp B/P (MAP) Pulse Ox O2 Delivery O2 Flow Rate FiO2 08/21/17 08:47 97.9 81 17 95/52 (66) 94 08/21/17 05:50 106/58 (74) 08/21/17 04:17 98.0 72 16 94/54 (67) 93 08/21/17 00:01 97.5 84 16 98/53 (68) 94 08/20/17 20:13 98.3 112 16 114/58 (76) 95 08/20/17 17:38 96 21 08/20/17 16:00 98.8 92 16 108/53 (71) 96 08/20/17 12:00 98.2 113 18 105/52 (69) 95 I/O 08/20/17 08/20/17 08/20/17 08/21/17 08/21/17 08/21/17 07:00 15:00 23:00 07:00 15:00 23:00 Intake Total 1200 ml 480 ml Output Total 200 ml 550 ml Balance -200 ml 1200 ml -70 ml Intake Oral 480 ml IV Total 1200 ml Output Urine Total 200 ml 550 ml Result Diagram: 08/21/17 0444 08/20/17 0616 Imaging Last Impressions Hip X-Ray 08/19/17 1910 Signed Impressions: CONCLUSION: Left hip arthroplasty Extremity Arterial Study 08/13/17 0000 Signed Impressions: CONCLUSION: 1. Moderate reduction of the left ZENY. Right ZENY is within the normal range. Objective Remarks GENERAL: Well-appearing, no acute distress SKIN: Warm and dry. CARDIOVASCULAR: Irregular rhythm without murmurs, gallops, or rubs. RESPIRATORY: Breath sounds equal bilaterally. No accessory muscle use. GASTROINTESTINAL: Abdomen soft, non-tender, nondistended. MUSCULOSKELETAL: Left hip with dry dressing Procedures S/P Debridement of skin subcu tissue and muscle of the left lower leg. Attempted closed reduction under anesthesia, left total hip, unsuccessful. Surgeon Dr Awad on 08/12/17. Date of Surgery: Aug 19, 2017 Preoperative Diagnosis: Malfunctioning left total hip replacement arthroplasty. Dislocated left total hip replacement arthroplasty. Probable broken acetabular component Postoperative Diagnosis: Malfunctioning left total hip replacement arthroplasty. Dislocated left total hip replacement arthroplasty. Worn/broken acetabular plastic liner Procedure: Revision left total hip replacement arthroplasty A/P Problem List: (1) Hip dislocation, left ICD Code: S73.005A - Unspecified dislocation of left hip, initial encounter Assessment and Plan History female with a medical history significant for A. fib, COPD, anxiety and depression presents to [facility] due to hip pain that she experienced when trying to get off the couch. Patient with a history of left hip replacement. Patient with chronic left hip wound that is followed as an outpatient. Dislocated left total hip Chronic wound left lower leg -patient has been seen evaluated by Ortho. Attempted closed reduction of left total hip failed. Surgical treatment for revision is delayed due to her chronic left wound. -Status post revision August 19, 2016. Postoperative care per orthopedic surgery -Vascular surgery: ZENY abnormal but perfusion adequate no intervention recommended -Infectious disease 08/12: Continue vancomycin and azactam, cultures growing MRSA , Pseudomonas, and Proteus. Possible discharge today or tomorrow, will clarify discharge po antibiotics with infectious disease. May need skin graft per orthopedic surgery -Discontinue Ravi catheter Atrial fibrillation -Continue patient's home digoxin and Cardizem. Eliquis restarted -Continue telemetry with WCT likely secondary to lateral abnormalities. She has hypokalemia and hypomagnesemia on Lasix. Will replace accordingly and repeat labs still pending CHF, systolic -Continue patient's home Lasix and spironolactone Anemia secondary to acute blood loss. Patient worse hemoglobin 7.8. BP slightly low. Will transfuse 1 unit packed RBC Discharge Planning SNF today or tomorrow Milton Fernandez MD Aug 21, 2017 09:14
[2017-08-21] MEDS ORDERED: SODIUM CHLOR 0.9% 250 ML INJ 250 ML IV ONE (09:15)
[2017-08-21] MEDS: POTASSIUM CHLORIDE 20 MEQ CONTROLLED RELEASE TAB PO SCH (09:37)
[2017-08-21] MEDS: DOCUSATE SODIUM 50 MG/SENNA 8.6 MG TAB PO SCH ×2 (09:38→20:06)
[2017-08-21] MEDS: SPIRONOLACTONE 25 MG TAB PO SCH (09:38)
[2017-08-21] MEDS: MAGNESIUM OXIDE 400 MG TAB PO SCH ×2 (09:38→20:07)
[2017-08-21] MEDS: DIGOXIN 0.125 MG TAB PO SCH ×2 (09:38→09:43)
[2017-08-21] MEDS: FUROSEMIDE 20 MG TAB PO SCH (09:39)
[2017-08-21] MEDS: CITALOPRAM HYDROBROMIDE 20 MG TAB PO SCH (09:39)
[2017-08-21] MEDS: LACTATED RINGER'S 1000 ML INJ 1,000 ML IV SCH ×2 (09:41→22:00)
[2017-08-21] MEDS: APIXABAN 5 MG TABLET PO SCH ×2 (09:44→20:06)
--- NOTE | 2017-08-21 11:09 | PD.ORT.PN ---
Subjective Post Op Day #: 2 Subjective Remarks pain tolerable. Objective Vitals Vital Signs Date Time Temp Pulse Resp B/P (MAP) Pulse Ox O2 Delivery O2 Flow Rate FiO2 08/21/17 08:47 97.9 81 17 95/52 (66) 94 08/21/17 05:50 106/58 (74) 08/21/17 04:17 98.0 72 16 94/54 (67) 93 08/21/17 00:01 97.5 84 16 98/53 (68) 94 08/20/17 20:13 98.3 112 16 114/58 (76) 95 08/20/17 17:38 96 21 08/20/17 16:00 98.8 92 16 108/53 (71) 96 08/20/17 12:00 98.2 113 18 105/52 (69) 95 I/O 08/20/17 08/20/17 08/20/17 08/21/17 08/21/17 08/21/17 07:00 15:00 23:00 07:00 15:00 23:00 Intake Total 1200 ml 480 ml Output Total 200 ml 550 ml Balance -200 ml 1200 ml -70 ml Intake Oral 480 ml IV Total 1200 ml Output Urine Total 200 ml 550 ml Result Diagram: 08/21/17 0444 08/21/17 0826 Imaging Last 24 hours Impressions Hip X-Ray 08/19/17 1910 Signed Impressions: CONCLUSION: Left hip arthroplasty Objective Remarks NAD Laying in bed VSS Left hip dressing dry. Minimal drainage. Dressing over left lower extremity wound. No need for abduction pillow or knee immobilizer, patient has constrained liner. Assessment & Plan Ortho Post Op Day #: 2 Problem List: Assessment and Plan Chronic wound left lower leg. Dislocated left total hip replacement arthroplasty, constrained liner. SURGERY: Debridement left lower leg skin subcutaneous tissue and muscle. Attempt closed reduction left total hip, failed: POD #8 Revision left total hip replacement arthroplasty, constrained liner: POD #2 PLAN: Treatment of left lower extremity chronic wound per wound care group. No dressing change to left hip. Discontinue drain. Weightbearing as tolerated. No need for abduction pillow or knee immobilizer, patient has constrained liner with revision. Discharge to shelter facility, when medically cleared. ortho stable. Patient was on Eliquis before surgery. This was restarted and first dose will be tonight. Beyond that, I will defer to medicine for anticoagulation, per their recommendation. All medications per medical team. Antibiotics per infectious disease for chronic wound left lower leg which had multiple resistant organisms on admission, including Proteus, Pseudomonas, MRSA. If the wound continues to improve, consider split-thickness skin graft next week if infection continues to subside Elmre Duran Aug 21, 2017 11:09
[2017-08-21] MEDS ORDERED: VANCOMYCIN INJ 750 MG in SODIUM CHLOR 0.9% 250 ML INJ 250 ML IV ONE (12:00)
--- NOTE | 2017-08-21 16:54 | HHI.IDPN ---
Subjective Subjective Remarks sp Revision left total hip replacement arthroplasty 08/19 afebrile creatinine went up to 1.09 from 0.4 Antibiotics vanco azactam Allergies: Coded Allergies: aspirin (Unverified Allergy, Severe, PT HAS BEEN TAKEN ASACOL AT HOME, ) cephalexin (Unverified Allergy, Severe, DIARRHEA, 07/29/17) ciprofloxacin (Unverified Allergy, Severe, DIARRHEA, 07/29/17) diclofenac (Unverified Allergy, Severe, Nausea/Vomiting, 07/29/17) erythromycin base (Unverified Allergy, Severe, NAUSEA, 07/29/17) etodolac (Unverified Allergy, Severe, Nausea/Vomiting, 07/29/17) flurbiprofen (Unverified Allergy, Severe, Nausea/Vomiting, 07/29/17) ibuprofen (Unverified Allergy, Severe, Nausea/Vomiting, 07/29/17) indomethacin (Unverified Allergy, Severe, Nausea/Vomiting, 07/29/17) ketoprofen (Unverified Allergy, Severe, Nausea/Vomiting, 07/29/17) ketorolac (Unverified Allergy, Severe, Nausea/Vomiting, 07/29/17) levofloxacin (Unverified Allergy, Severe, DIARRHEA, 07/29/17) naproxen (Unverified Allergy, Severe, Nausea/Vomiting, 07/29/17) oxaprozin (Unverified Allergy, Severe, Nausea/Vomiting, 07/29/17) clindamycin (Unverified Allergy, Unknown, Diarrhea, 07/29/17) penicillin G (Unverified Adverse Reaction, Mild, Itching, 07/29/17) Uncoded Allergies: Adhesive tape (Allergy, Intermediate, 12/19/15) . LACTOSE INTOLERANCE (Allergy, Intermediate, 12/19/15) . Objective . Vital Signs Date Time Temp Pulse Resp B/P (MAP) Pulse Ox O2 Delivery O2 Flow Rate FiO2 08/21/17 15:01 94 21 08/21/17 12:00 98.3 85 18 96/63 (74) 96 08/21/17 08:47 97.9 81 17 95/52 (66) 94 08/21/17 05:50 106/58 (74) 08/21/17 04:17 98.0 72 16 94/54 (67) 93 08/21/17 00:01 97.5 84 16 98/53 (68) 94 08/20/17 20:13 98.3 112 16 114/58 (76) 95 08/20/17 17:38 96 21 08/21/17 08/21/17 08/22/17 15:00 23:00 07:00 Output Total 1100 ml Balance -1100 ml Output Urine Total 1100 ml . Laboratory Tests Test 08/20/17 06:16 08/21/17 04:44 White Blood Count 11.5 TH/MM3 9.4 TH/MM3 Red Blood Count 3.04 MIL/MM3 2.55 MIL/MM3 Hemoglobin 9.4 GM/DL 7.8 GM/DL Hematocrit 28.3 % 23.8 % Mean Corpuscular Volume 93.2 FL 93.5 FL Mean Corpuscular Hemoglobin 31.0 PG 30.7 PG Mean Corpuscular Hemoglobin Concent 33.2 % 32.8 % Red Cell Distribution Width 12.8 % 13.1 % Platelet Count 266 TH/MM3 243 TH/MM3 Mean Platelet Volume 8.2 FL 8.8 FL Neutrophils (%) (Auto) 80.2 % 63.6 % Lymphocytes (%) (Auto) 11.8 % 22.8 % Monocytes (%) (Auto) 7.9 % 12.8 % Eosinophils (%) (Auto) 0.0 % 0.4 % Basophils (%) (Auto) 0.1 % 0.4 % Neutrophils # (Auto) 9.2 TH/MM3 6.0 TH/MM3 Lymphocytes # (Auto) 1.4 TH/MM3 2.1 TH/MM3 Monocytes # (Auto) 0.9 TH/MM3 1.2 TH/MM3 Eosinophils # (Auto) 0.0 TH/MM3 0.0 TH/MM3 Basophils # (Auto) 0.0 TH/MM3 0.0 TH/MM3 CBC Comment DIFF FINAL DIFF FINAL Differential Comment Hematology Comments Laboratory Tests Test 08/20/17 06:16 08/21/17 08:26 Blood Urea Nitrogen 14 MG/DL 27 MG/DL Creatinine 0.61 MG/DL 1.09 MG/DL Random Glucose 123 MG/DL 124 MG/DL Calcium Level 8.4 MG/DL 8.2 MG/DL Magnesium Level 1.3 MG/DL 1.7 MG/DL Sodium Level 140 MEQ/L 138 MEQ/L Potassium Level 3.7 MEQ/L 3.8 MEQ/L Chloride Level 101 MEQ/L 99 MEQ/L Carbon Dioxide Level 30.0 MEQ/L 31.7 MEQ/L Anion Gap 9 MEQ/L 7 MEQ/L Estimat Glomerular Filtration Rate 94 ML/MIN 48 ML/MIN Microbiology Date/Time Source Procedure Growth Status 08/19/17 17:18 Wound Hip Fungal Smear - Final NO FUNGAL ELEMENTS SEEN. Resulted 08/19/17 17:18 Wound Hip Fungal Culture Pending Resulted 08/19/17 17:18 Wound Hip Acid Fast Stain - Final NO ACID FAST BACILLI SEEN Resulted 08/19/17 17:18 Wound Hip Mycobacterial Culture Pending Resulted 08/19/17 17:18 Wound Hip Gram Stain - Final Resulted 08/19/17 17:18 Wound Hip Wound Culture - Preliminary NO GROWTH IN 48 HOURS. Resulted Imaging Last Impressions Hip X-Ray 08/19/17 1910 Signed Impressions: CONCLUSION: Left hip arthroplasty Extremity Arterial Study 08/13/17 0000 Signed Impressions: CONCLUSION: 1. Moderate reduction of the left ZENY. Right ZENY is within the normal range. Physical Exam CONSTITUTIONAL/GENERAL: This is an adequately nourished patient, in no apparent distress. TUBES/LINES/DRAINS: SKIN: No jaundice, rashes, or lesions. Skin temperature appropriate. Not diaphoretic. CARDIOVASCULAR: Regular rate and rhythm without murmurs, gallops, or rubs. RESPIRATORY/CHEST: Symmetric, unlabored respirations. GASTROINTESTINAL: Abdomen soft, non-tender, nondistended. MUSCULOSKELETAL: Extremities without clubbing, cyanosis, or edema. LLE with cl;lean granulating wound minimal seropsang drainage on dressing NEUROLOGICAL: Awake and alert. Grossly non focal PSYCHIATRIC: No obvious anxiety/depression. no apparent hallucinations or other psychotic thought process. Assessment & Plan Remarks PVD LLE - Moderate reduction of the left ZENY. Right ZENY is within the normal range.L hip dislocation with hip prosthesis; failerd cliosed reduction - Chronic poorly healing LLE wound 2/2 PVD polimicrobial infection Of L hernandez - no interventions per vascular consult H/o tobaccoism and problem healing raises a question of underlying PAD Multiple abx allergies - likley preclude d/c on oral options New issue: REMY ? vanco dc vancomycin start dapto (ACP: REMY while on vanco) will try transition to doxycyline prior to dc cont azactam for now monitor renal fnx Elvira,Consuelo A. MD Aug 21, 2017 16:54
[2017-08-21] MEDS: DAPTOmycin INJ 500 MG in SODIUM CHLORIDE 0.9% INJ 100 ML IV SCH (18:03)
[2017-08-21] MEDS: SENNOSIDES 8.6 MG TAB PO SCH (20:06)
[2017-08-22] VITALS (9 sets, daily range): BP systolic 102–108; BP diastolic 51–63; PULSE 65–107; RESP 16–20; TEMP 97.4–98.8; O2SAT 94–97
[2017-08-22] MEDS: AZTREONAM INJ 2,000 MG in SODIUM CHLORIDE 0.9% INJ 100 ML IV SCH ×4 (01:16→20:57)
[2017-08-22] MEDS: LACTATED RINGER'S 1000 ML INJ 1,000 ML IV SCH (05:29)
[2017-08-22 07:08] LABS: AUTOMATED NEUTROPHIL # 5.1 TH/MM3 (1.8-7.7); BASOPHIL % 0.4 % (0.0-2.0); EOSINOPHIL # 0.2 TH/MM3 (0-0.4); EOSINOPHIL % 2.7 % (0.0-4.0); HEMATOCRIT 23.6 % (35.0-46.0); HEMOGLOBIN 7.9 GM/DL (11.6-15.3); LYMPH % 20.2 % (9.0-44.0); LYMPHOCYTE # 1.6 TH/MM3 (1.0-4.8); MEAN CELL VOLUME 91.2 FL (80.0-100.0); MEAN CORPUSCULAR HEMOGLOBIN 30.5 PG (27.0-34.0); MEAN CORPUSCULAR HGB CONC 33.4 % (32.0-36.0); MEAN PLATELET VOLUME 8.5 FL (7.0-11.0); MONO % 12.1 % (0.0-8.0); NEUT % 64.6 % (16.0-70.0); PLATELET COUNT 208 TH/MM3 (150-450); RED BLOOD COUNT 2.59 MIL/MM3 (4.00-5.30); RED CELL DISTRIBUTION WIDTH 14.5 % (11.6-17.2); WHITE BLOOD COUNT 7.9 TH/MM3 (4.0-11.0)
[2017-08-22 07:33] LABS: BICARBONATE 31.1 MEQ/L (21.0-32.0); CALCIUM 8.5 MG/DL (8.5-10.1); CREATININE 0.93 MG/DL (0.50-1.00); MAGNESIUM 1.7 MG/DL (1.5-2.5)
[2017-08-22] MEDS: DILTIAZEM-CD 180 MG CAP ER PO SCH ×2 (08:54→20:57)
[2017-08-22] MEDS: FUROSEMIDE 20 MG TAB PO SCH (08:54)
[2017-08-22] MEDS: CITALOPRAM HYDROBROMIDE 20 MG TAB PO SCH (08:54)
[2017-08-22] MEDS: MAGNESIUM HYDROXIDE SUSP 30 ML CUP PO SCH ×2 (08:55→21:00)
[2017-08-22] MEDS: APIXABAN 5 MG TABLET PO SCH ×2 (08:55→20:57)
[2017-08-22] MEDS: SPIRONOLACTONE 25 MG TAB PO SCH (08:55)
[2017-08-22] MEDS: POTASSIUM CHLORIDE 20 MEQ CONTROLLED RELEASE TAB PO SCH (08:55)
[2017-08-22] MEDS: DOCUSATE SODIUM 50 MG/SENNA 8.6 MG TAB PO SCH ×2 (08:55→21:00)
[2017-08-22] MEDS: MAGNESIUM OXIDE 400 MG TAB PO SCH ×2 (08:55→20:57)
[2017-08-22] MEDS: COLLAGENASE OINT 30 GM TUBE TOPICAL SCH (08:56)
[2017-08-22] MEDS ORDERED: POTASSIUM CHLORIDE 20 MEQ CONTROLLED RELEASE TAB PO ONE (09:00)
--- NOTE | 2017-08-22 09:06 | HHI.PR ---
Subjective Remarks Follow-up anemia. Received 1 unit packed RBC. No gross bleeding Objective Vitals Vital Signs Date Time Temp Pulse Resp B/P (MAP) Pulse Ox O2 Delivery O2 Flow Rate FiO2 08/22/17 08:00 97.9 102 16 105/53 (70) 97 08/22/17 04:00 98.8 76 20 103/59 (74) 95 08/22/17 03:33 75 08/22/17 00:03 65 08/22/17 00:00 97.6 87 20 102/51 (68) 95 08/21/17 21:33 21 08/21/17 20:00 98.9 78 20 99/48 (65) 97 08/21/17 19:38 77 08/21/17 18:06 98.2 65 20 99/50 08/21/17 17:30 98.3 85 18 96/63 08/21/17 16:00 98.2 65 20 99/50 (66) 98 08/21/17 15:01 94 21 08/21/17 12:00 98.3 85 18 96/63 (74) 96 I/O 08/21/17 08/21/17 08/21/17 08/22/17 08/22/17 08/22/17 07:00 15:00 23:00 07:00 15:00 23:00 Intake Total 480 ml 200 ml 715 ml 1420 ml Output Total 550 ml 1100 ml 600 ml Balance -70 ml 200 ml -385 ml 820 ml Intake Oral 480 ml 220 ml IV Total 200 ml 300 ml 1200 ml Packed Cells 400 ml Blood Product IV Normal Saline Flush 15 ml Output Urine Total 550 ml 1100 ml 600 ml # Bowel Movements 0 Result Diagram: 08/22/17 0530 08/22/17 0530 Imaging Last Impressions Hip X-Ray 08/19/17 1910 Signed Impressions: CONCLUSION: Left hip arthroplasty Extremity Arterial Study 08/13/17 0000 Signed Impressions: CONCLUSION: 1. Moderate reduction of the left ZENY. Right ZENY is within the normal range. Objective Remarks GENERAL: Well-appearing, no acute distress SKIN: Warm and dry. CARDIOVASCULAR: Irregular rhythm without murmurs, gallops, or rubs. RESPIRATORY: Breath sounds equal bilaterally. No accessory muscle use. GASTROINTESTINAL: Abdomen soft, non-tender, nondistended. MUSCULOSKELETAL: Left hip with dry dressing Procedures S/P Debridement of skin subcu tissue and muscle of the left lower leg. Attempted closed reduction under anesthesia, left total hip, unsuccessful. Surgeon Dr Awad on 08/12/17. Date of Surgery: Aug 19, 2017 Preoperative Diagnosis: Malfunctioning left total hip replacement arthroplasty. Dislocated left total hip replacement arthroplasty. Probable broken acetabular component Postoperative Diagnosis: Malfunctioning left total hip replacement arthroplasty. Dislocated left total hip replacement arthroplasty. Worn/broken acetabular plastic liner Procedure: Revision left total hip replacement arthroplasty A/P Problem List: (1) Hip dislocation, left ICD Code: S73.005A - Unspecified dislocation of left hip, initial encounter Assessment and Plan History female with a medical history significant for A. fib, COPD, anxiety and depression presents to [facility] due to hip pain that she experienced when trying to get off the couch. Patient with a history of left hip replacement. Patient with chronic left hip wound that is followed as an outpatient. Dislocated left total hip Chronic wound left lower leg -patient has been seen evaluated by Ortho. Attempted closed reduction of left total hip failed. Surgical treatment for revision is delayed due to her chronic left wound. -Status post revision August 19, 2016. Postoperative care per orthopedic surgery -Vascular surgery: ZENY abnormal but perfusion adequate no intervention recommended -Infectious disease 08/12: Continue vancomycin and azactam, cultures growing MRSA , Pseudomonas, and Proteus. Possible discharge when cleared by infectious disease. May need skin graft per orthopedic surgery -Discontinued Ravi catheter Atrial fibrillation -Continue patient's home digoxin and Cardizem. Eliquis restarted -Continue telemetry with WCT likely secondary to lateral abnormalities. She has hypokalemia and hypomagnesemia on Lasix. Will replace accordingly and repeat labs still pending CHF, systolic -Continue patient's home Lasix and spironolactone Anemia secondary to acute blood loss. Hb sl improved post PRBC . Likely dilutional no gross bleeding. Surgical site looks good. BP stable. Fe Discharge Planning [facility] Milton Fernandez MD Aug 22, 2017 09:06
[2017-08-22] MEDS ORDERED: ALPR.25 PO (09:17)
[2017-08-22] MEDS ORDERED: MAGN400T2 PO (09:17)
[2017-08-22] MEDS ORDERED: HYDR-3583 PO (09:17)
[2017-08-22] MEDS ORDERED: POTA20TA5 PO (09:17)
--- NOTE | 2017-08-22 09:18 | HHI.DCPOC ---
Discharge Care Plan Diagnosis: (1) Hip dislocation, left Your Health Problems Are: Difficulty with ADL Exercise Tolerance Goals to Promote Your Health * To prevent worsening of your condition and complications * To maintain your health at the optimal level Directions to Meet Your Goals Take your medications as prescribed Follow your dietary instruction Follow activity as directed Keep your appointments as scheduled Take your immunizations and boosters as scheduled If your symptoms worsen call your PCP, if no PCP go to Urgent Care Center or Emergency Room Smoking is Dangerous to Your Health. Avoid second hand smoke Call the 24-hour hour crisis hotline for domestic abuse at Milton Fernandez MD Aug 22, 2017 09:18
[2017-08-22] MEDS: ACETAMINOPHEN/HYDROcodone 325 MG/10 MG TAB PO PRN ×4 (09:36→21:15)
--- NOTE | 2017-08-22 11:46 | PD.ORT.PN ---
Subjective Subjective Remarks pain tolerable. waiting for d/c to snf. Objective Vitals Vital Signs Date Time Temp Pulse Resp B/P (MAP) Pulse Ox O2 Delivery O2 Flow Rate FiO2 08/22/17 08:00 97.9 102 16 105/53 (70) 97 08/22/17 04:00 98.8 76 20 103/59 (74) 95 08/22/17 03:33 75 08/22/17 00:03 65 08/22/17 00:00 97.6 87 20 102/51 (68) 95 08/21/17 21:33 21 08/21/17 20:00 98.9 78 20 99/48 (65) 97 08/21/17 19:38 77 08/21/17 18:06 98.2 65 20 99/50 08/21/17 17:30 98.3 85 18 96/63 08/21/17 16:00 98.2 65 20 99/50 (66) 98 08/21/17 15:01 94 21 08/21/17 12:00 98.3 85 18 96/63 (74) 96 I/O 08/21/17 08/21/17 08/21/17 08/22/17 08/22/17 08/22/17 07:00 15:00 23:00 07:00 15:00 23:00 Intake Total 480 ml 200 ml 715 ml 1420 ml Output Total 550 ml 1100 ml 600 ml Balance -70 ml 200 ml -385 ml 820 ml Intake Oral 480 ml 220 ml IV Total 200 ml 300 ml 1200 ml Packed Cells 400 ml Blood Product IV Normal Saline Flush 15 ml Output Urine Total 550 ml 1100 ml 600 ml # Bowel Movements 0 Result Diagram: 08/22/17 0530 08/22/17 0530 Imaging Last 24 hours Impressions Hip X-Ray 08/19/17 1910 Signed Impressions: CONCLUSION: Left hip arthroplasty Objective Remarks NAD Laying in bed VSS Left hip dressing dry. Minimal drainage. Dressing over left lower extremity wound. No need for abduction pillow or knee immobilizer, patient has constrained liner. Assessment & Plan Assessment and Plan Chronic wound left lower leg. Dislocated left total hip replacement arthroplasty, constrained liner. SURGERY: Debridement left lower leg skin subcutaneous tissue and muscle. Attempt closed reduction left total hip, failed: POD #9 Revision left total hip replacement arthroplasty, constrained liner: POD #3 PLAN: Treatment of left lower extremity chronic wound per wound care group. No dressing change to left hip. Weightbearing as tolerated. No need for abduction pillow or knee immobilizer, patient has constrained liner with revision. Discharge to care home facility, when medically cleared. ortho stable. scheduled for today. Patient was on Eliquis before surgery. This was restarted and first dose will be tonight. Beyond that, I will defer to medicine for anticoagulation, per their recommendation. All medications per medical team. Antibiotics per infectious disease for chronic wound left lower leg which had multiple resistant organisms on admission, including Proteus, Pseudomonas, MRSA. If the wound continues to improve, consider split-thickness skin graft next week if infection continues to subside Elmer Duran Aug 22, 2017 11:46
[2017-08-22] MEDS: DAPTOmycin INJ 500 MG in SODIUM CHLORIDE 0.9% INJ 100 ML IV SCH (13:07)
[2017-08-22] MEDS ORDERED: FERR325T18 PO (14:40)
[2017-08-22] MEDS: FERROUS SULFATE 325 MG (65 MG ELEMENTAL IRON) TAB PO SCH (16:23)
[2017-08-22] MEDS: SENNOSIDES 8.6 MG TAB PO SCH (21:00)
[2017-08-23] VITALS (9 sets, daily range): BP systolic 107–127; BP diastolic 53–61; PULSE 77–108; RESP 16–20; TEMP 97.7–98.2; O2SAT 94–98
[2017-08-23] MEDS: AZTREONAM INJ 2,000 MG in SODIUM CHLORIDE 0.9% INJ 100 ML IV SCH ×3 (02:15→12:28)
[2017-08-23] MEDS: ACETAMINOPHEN/HYDROcodone 325 MG/10 MG TAB PO PRN ×5 (04:13→23:10)
[2017-08-23] MEDS: CITALOPRAM HYDROBROMIDE 20 MG TAB PO SCH (08:54)
[2017-08-23] MEDS: APIXABAN 5 MG TABLET PO SCH ×2 (08:54→21:13)
[2017-08-23] MEDS: POTASSIUM CHLORIDE 20 MEQ CONTROLLED RELEASE TAB PO SCH (08:54)
[2017-08-23] MEDS: DIGOXIN 0.125 MG TAB PO SCH (08:54)
[2017-08-23] MEDS: DOCUSATE SODIUM 50 MG/SENNA 8.6 MG TAB PO SCH ×2 (08:54→21:12)
[2017-08-23] MEDS: DILTIAZEM-CD 180 MG CAP ER PO SCH ×2 (08:54→21:12)
[2017-08-23] MEDS: FERROUS SULFATE 325 MG (65 MG ELEMENTAL IRON) TAB PO SCH (08:54)
[2017-08-23] MEDS: MAGNESIUM HYDROXIDE SUSP 30 ML CUP PO SCH ×2 (08:54→21:00)
[2017-08-23] MEDS: SPIRONOLACTONE 25 MG TAB PO SCH (08:54)
[2017-08-23] MEDS: MAGNESIUM OXIDE 400 MG TAB PO SCH ×2 (08:55→21:13)
[2017-08-23] MEDS: FUROSEMIDE 20 MG TAB PO SCH (08:55)
[2017-08-23] MEDS: COLLAGENASE OINT 30 GM TUBE TOPICAL SCH (08:56)
[2017-08-23 09:21] LABS: AUTOMATED NEUTROPHIL # 4.3 TH/MM3 (1.8-7.7); BASOPHIL % 0.6 % (0.0-2.0); EOSINOPHIL # 0.2 TH/MM3 (0-0.4); EOSINOPHIL % 2.8 % (0.0-4.0); HEMATOCRIT 23.7 % (35.0-46.0); HEMOGLOBIN 7.9 GM/DL (11.6-15.3); LYMPH % 20.1 % (9.0-44.0); LYMPHOCYTE # 1.3 TH/MM3 (1.0-4.8); MEAN CELL VOLUME 92.6 FL (80.0-100.0); MEAN CORPUSCULAR HEMOGLOBIN 30.9 PG (27.0-34.0); MEAN CORPUSCULAR HGB CONC 33.4 % (32.0-36.0); MEAN PLATELET VOLUME 8.4 FL (7.0-11.0); MONO % 12.3 % (0.0-8.0); MONOCYTE # 0.8 TH/MM3 (0-0.9); NEUT % 64.2 % (16.0-70.0); PLATELET COUNT 238 TH/MM3 (150-450); RED BLOOD COUNT 2.56 MIL/MM3 (4.00-5.30); RED CELL DISTRIBUTION WIDTH 14.1 % (11.6-17.2); WHITE BLOOD COUNT 6.6 TH/MM3 (4.0-11.0)
[2017-08-23 09:50] LABS: BICARBONATE 31.6 MEQ/L (21.0-32.0); CALCIUM 9.1 MG/DL (8.5-10.1); CREATININE 0.74 MG/DL (0.50-1.00); MAGNESIUM 1.9 MG/DL (1.5-2.5)
--- NOTE | 2017-08-23 10:00 | HHI.PR ---
Subjective Remarks Follow-up anemia. No gross bleeding. Hemoglobin and BP stable Objective Vitals Vital Signs Date Time Temp Pulse Resp B/P (MAP) Pulse Ox O2 Delivery O2 Flow Rate FiO2 08/23/17 09:01 97 Nasal Cannula 2.00 08/23/17 08:00 98.0 100 16 117/53 (74) 97 08/23/17 04:48 98.2 96 18 124/58 (80) 94 08/23/17 04:00 77 08/23/17 00:00 97.7 108 20 126/54 (78) 98 08/23/17 00:00 94 08/22/17 20:00 97.4 107 20 104/63 (77) 96 08/22/17 20:00 99 08/22/17 16:00 97.6 97 16 106/51 (69) 96 08/22/17 12:00 97.8 84 16 108/52 (70) 96 08/22/17 11:20 94 Nasal Cannula 2.00 I/O 08/22/17 08/22/17 08/22/17 08/23/17 08/23/17 08/23/17 07:00 15:00 23:00 07:00 15:00 23:00 Intake Total 1420 ml 2200 ml Output Total 600 ml 1400 ml 700 ml Balance 820 ml 800 ml -700 ml Intake Oral 220 ml 800 ml IV Total 1200 ml 1400 ml Output Urine Total 600 ml 1400 ml 700 ml # Bowel Movements 0 2 1 Result Diagram: 08/23/17 0738 08/23/17 0738 Imaging Last Impressions Hip X-Ray 08/19/17 1910 Signed Impressions: CONCLUSION: Left hip arthroplasty Extremity Arterial Study 08/13/17 0000 Signed Impressions: CONCLUSION: 1. Moderate reduction of the left ZENY. Right ZENY is within the normal range. Objective Remarks GENERAL: Well-appearing, no acute distress SKIN: Warm and dry. CARDIOVASCULAR: Irregular rhythm without murmurs, gallops, or rubs. RESPIRATORY: Breath sounds equal bilaterally. No accessory muscle use. GASTROINTESTINAL: Abdomen soft, non-tender, nondistended. MUSCULOSKELETAL: Left hip with dry dressing Procedures S/P Debridement of skin subcu tissue and muscle of the left lower leg. Attempted closed reduction under anesthesia, left total hip, unsuccessful. Surgeon Dr Awad on 08/12/17. Date of Surgery: Aug 19, 2017 Preoperative Diagnosis: Malfunctioning left total hip replacement arthroplasty. Dislocated left total hip replacement arthroplasty. Probable broken acetabular component Postoperative Diagnosis: Malfunctioning left total hip replacement arthroplasty. Dislocated left total hip replacement arthroplasty. Worn/broken acetabular plastic liner Procedure: Revision left total hip replacement arthroplasty A/P Problem List: (1) Hip dislocation, left ICD Code: S73.005A - Unspecified dislocation of left hip, initial encounter Assessment and Plan History female with a medical history significant for A. fib, COPD, anxiety and depression presents to [facility] due to hip pain that she experienced when trying to get off the couch. Patient with a history of left hip replacement. Patient with chronic left hip wound that is followed as an outpatient. Dislocated left total hip Chronic wound left lower leg -patient has been seen evaluated by Ortho. Attempted closed reduction of left total hip failed. Surgical treatment for revision is delayed due to her chronic left wound. -Status post revision August 19, 2016. Postoperative care per orthopedic surgery -Vascular surgery: ZENY abnormal but perfusion adequate no intervention recommended -Infectious disease 08/12: Continue vancomycin and azactam, cultures growing MRSA , Pseudomonas, and Proteus. Possible discharge when cleared by infectious disease. May need skin graft per orthopedic surgery -Discontinued Ravi catheter Atrial fibrillation -Continue patient's home digoxin and Cardizem. Eliquis restarted -Continue telemetry with WCT likely secondary to lateral abnormalities. She has hypokalemia and hypomagnesemia on Lasix s/p replacement CHF, systolic -Continue patient's home Lasix and spironolactone Anemia secondary to acute blood loss. Hb sl improved post PRBC . Likely dilutional no gross bleeding. Surgical site looks good. BP stable. Ct Fe Discharge Planning SNF Milton Fernandez MD Aug 23, 2017 10:00
--- NOTE | 2017-08-23 15:43 | HHI.DS ---
Discharge Summary Admission Date Aug 11, 2017 at 17:12 Discharge Date: Aug 23, 2017 Admitting Diagnosis Left hip prosthesis dislocation (1) Hip dislocation, left ICD Code: S73.005A - Unspecified dislocation of left hip, initial encounter Diagnosis: Principal Procedures S/P Debridement of skin subcu tissue and muscle of the left lower leg. Attempted closed reduction under anesthesia, left total hip, unsuccessful. Surgeon Dr Awad on 08/12/17. Date of Surgery: Aug 19, 2017 Preoperative Diagnosis: Malfunctioning left total hip replacement arthroplasty. Dislocated left total hip replacement arthroplasty. Probable broken acetabular component Postoperative Diagnosis: Malfunctioning left total hip replacement arthroplasty. Dislocated left total hip replacement arthroplasty. Worn/broken acetabular plastic liner Procedure: Revision left total hip replacement arthroplasty Brief History - From Admission 82 y/o female with a history of Afib, copd, anxiety and depression presents to the ER today because she states that she was trying to get off her couch and thought she felt a pop and she had extreme pain, worse with movements. She states her pain is 5/10, intermittent, worse with movement better with morphine. She denies any sob, or chest pain. She does have a history of a left hip replacement. Upon examination patient is wound to have a foul smelling wound underneath a brace that she states she follows out patient wound care for and it is due to be changed tomorrow. She is adamant about not removing the brace on her leg. Denies any fever or chills. CBC/BMP: 08/23/17 0738 08/23/17 0738 Significant Findings Laboratory Tests Test 08/21/17 04:44 08/21/17 08:26 08/22/17 05:30 08/23/17 07:38 Red Blood Count 2.55 MIL/MM3 (4.00-5.30) 2.59 MIL/MM3 (4.00-5.30) 2.56 MIL/MM3 (4.00-5.30) Hemoglobin 7.8 GM/DL (11.6-15.3) 7.9 GM/DL (11.6-15.3) 7.9 GM/DL (11.6-15.3) Hematocrit 23.8 % (35.0-46.0) 23.6 % (35.0-46.0) 23.7 % (35.0-46.0) Monocytes (%) (Auto) 12.8 % (0.0-8.0) 12.1 % (0.0-8.0) 12.3 % (0.0-8.0) Monocytes # (Auto) 1.2 TH/MM3 (0-0.9) 1.0 TH/MM3 (0-0.9) Blood Urea Nitrogen 27 MG/DL (7-18) 23 MG/DL (7-18) Creatinine 1.09 MG/DL (0.50-1.00) Random Glucose 124 MG/DL (74-106) Calcium Level 8.2 MG/DL (8.5-10.1) Estimat Glomerular Filtration Rate 48 ML/MIN (>89) 58 ML/MIN (>89) 76 ML/MIN (>89) Potassium Level 3.4 MEQ/L (3.5-5.1) Imaging Last Impressions Hip X-Ray 08/19/17 1910 Signed Impressions: CONCLUSION: Left hip arthroplasty Extremity Arterial Study 08/13/17 0000 Signed Impressions: CONCLUSION: 1. Moderate reduction of the left ZENY. Right ZENY is within the normal range. PE at Discharge GENERAL: Well-appearing, no acute distress SKIN: Warm and dry. CARDIOVASCULAR: Irregular rhythm without murmurs, gallops, or rubs. RESPIRATORY: Breath sounds equal bilaterally. No accessory muscle use. GASTROINTESTINAL: Abdomen soft, non-tender, nondistended. MUSCULOSKELETAL: Left hip with dry dressing Hospital Course History female with a medical history significant for A. fib, COPD, anxiety and depression presents to [facility] due to hip pain that she experienced when trying to get off the couch. Patient with a history of left hip replacement. Patient with chronic left hip wound that is followed as an outpatient. Dislocated left total hip Chronic wound left lower leg -patient has been seen evaluated by Ortho. Attempted closed reduction of left total hip failed. Surgical treatment for revision is delayed due to her chronic left wound. -Status post revision August 19, 2016. Postoperative care per orthopedic surgery -Vascular surgery: ZENY abnormal but perfusion adequate no intervention recommended -Infectious disease 6/7: Continue vancomycin and azactam, cultures growing MRSA , Pseudomonas, and Proteus. Possible discharge when cleared by infectious disease. May need skin graft per orthopedic surgery -Discontinued Ravi catheter Atrial fibrillation -Continue patient's home digoxin and Cardizem. Eliquis restarted -Continue telemetry with WCT likely secondary to lateral abnormalities. She has hypokalemia and hypomagnesemia on Lasix s/p replacement CHF, systolic -Continue patient's home Lasix and spironolactone Anemia secondary to acute blood loss. Hb sl improved post PRBC . Likely dilutional no gross bleeding. Surgical site looks good. BP stable. Ct Fe Pt Condition on Discharge: Stable Discharge Disposition: Discharge to SNF Discharge Time: > 30 minutes Discharge Instructions DIET: Follow Instructions for: As Tolerated, No Restrictions Activities you can perform: Regular-No Restrictions Activities to Avoid: Driving Other Activity Instructions: ativity per ortho Follow up Referrals: Appointment for Follow Up - 1 Week with Terrance Hobbs MD Orthopedics - 1 Week PCP Follow-up - 1 Week New Medications: Ferrous Sulfate (Ferrous Sulfate) 325 Mg (65 Mg Iron) Tablet 325 MG PO DAILY for Nutritional Supplement, #30 TAB 0 Refills Hydrocodone/Acetaminophen (Hydrocodone-Acetamin 10-325 mg) 10 Mg-325 Mg Tablet 1 TAB PO Q6H PRN for PAIN SCALE 6 TO 10, #12 TAB Magnesium Oxide (Magnesium Oxide) 400 Mg Tab 400 MG PO Q12HR for Electrolyte Replacement, #60 TAB Potassium Chloride Microencaps (Potassium Chloride Microencaps) 20 Meq Tab 20 MEQ PO DAILY for Electrolyte Replacement, #30 TAB Continued Medications: Albuterol 18 GM Inh (Ventolin Hfa 18 GM Inh) 90 Mcg/Act Aer 2 PUFF INH Q4-6H PRN for SHORTNESS OF BREATH for 30 Days, #1 INHALER 0 Refills Alendronate (Alendronate) 70 Mg Tab 70 MG PO Q7D for Osteporosis Treatment, #4 TAB 0 Refills Alprazolam (Xanax) 0.25 Mg Tab 0.25 MG PO BID PRN for ANXIETY, #6 TAB 0 Refills (This prescription has been renewed) Apixaban (Eliquis) 5 Mg Tab 5 MG PO BID for Blood Clot Prevention for 30 Days, TAB 1 Refill Citalopram (Citalopram) 10 Mg Tab 20 MG PO DAILY for Control Depression, #30 TAB 0 Refills Digoxin (Digitek) 0.125 Mg Tab 0.125 MG PO EVERY OTHER DAY for Regulate Heart Beat, #30 TAB 0 Refills Diltiazem CD 24 HR (Cardizem CD 24 HR) 180 Mg Caper 180 MG PO BID for Blood Pressure Management for 30 Days, CAP 1 Refill Furosemide (Furosemide) 20 Mg Tab 40 MG PO DAILY for Prevent Heart Failure, #30 TAB 0 Refills Spironolactone (Spironolactone) 25 Mg Tab 25 MG PO DAILY for Blood Pressure Management for 30 Days, TAB 1 Refill Milton Fernandez MD Aug 23, 2017 15:43
--- NOTE | 2017-08-23 16:12 | HHI.IDPN ---
Subjective Subjective Remarks doing well afebrile creatinine improved after vanco held c/o LLE pain Antibiotics dapto azactam Allergies: Coded Allergies: aspirin (Unverified Allergy, Severe, PT HAS BEEN TAKEN ASACOL AT HOME, ) cephalexin (Unverified Allergy, Severe, DIARRHEA, 07/29/17) ciprofloxacin (Unverified Allergy, Severe, DIARRHEA, 07/29/17) diclofenac (Unverified Allergy, Severe, Nausea/Vomiting, 07/29/17) erythromycin base (Unverified Allergy, Severe, NAUSEA, 07/29/17) etodolac (Unverified Allergy, Severe, Nausea/Vomiting, 07/29/17) flurbiprofen (Unverified Allergy, Severe, Nausea/Vomiting, 07/29/17) ibuprofen (Unverified Allergy, Severe, Nausea/Vomiting, 07/29/17) indomethacin (Unverified Allergy, Severe, Nausea/Vomiting, 07/29/17) ketoprofen (Unverified Allergy, Severe, Nausea/Vomiting, 07/29/17) ketorolac (Unverified Allergy, Severe, Nausea/Vomiting, 07/29/17) levofloxacin (Unverified Allergy, Severe, DIARRHEA, 07/29/17) naproxen (Unverified Allergy, Severe, Nausea/Vomiting, 07/29/17) oxaprozin (Unverified Allergy, Severe, Nausea/Vomiting, 07/29/17) clindamycin (Unverified Allergy, Unknown, Diarrhea, 07/29/17) penicillin G (Unverified Adverse Reaction, Mild, Itching, 07/29/17) Uncoded Allergies: Adhesive tape (Allergy, Intermediate, 12/19/15) . LACTOSE INTOLERANCE (Allergy, Intermediate, 12/19/15) . Objective . Vital Signs Date Time Temp Pulse Resp B/P (MAP) Pulse Ox O2 Delivery O2 Flow Rate FiO2 08/23/17 12:00 97.9 99 16 117/57 (77) 97 08/23/17 09:01 97 Nasal Cannula 2.00 08/23/17 08:00 98.0 100 16 117/53 (74) 97 08/23/17 04:48 98.2 96 18 124/58 (80) 94 08/23/17 04:00 77 08/23/17 00:00 97.7 108 20 126/54 (78) 98 08/23/17 00:00 94 08/22/17 20:00 97.4 107 20 104/63 (77) 96 08/22/17 20:00 99 08/22/17 16:00 97.6 97 16 106/51 (69) 96 . Laboratory Tests Test 08/22/17 05:30 08/23/17 07:38 White Blood Count 7.9 TH/MM3 6.6 TH/MM3 Red Blood Count 2.59 MIL/MM3 2.56 MIL/MM3 Hemoglobin 7.9 GM/DL 7.9 GM/DL Hematocrit 23.6 % 23.7 % Mean Corpuscular Volume 91.2 FL 92.6 FL Mean Corpuscular Hemoglobin 30.5 PG 30.9 PG Mean Corpuscular Hemoglobin Concent 33.4 % 33.4 % Red Cell Distribution Width 14.5 % 14.1 % Platelet Count 208 TH/MM3 238 TH/MM3 Mean Platelet Volume 8.5 FL 8.4 FL Neutrophils (%) (Auto) 64.6 % 64.2 % Lymphocytes (%) (Auto) 20.2 % 20.1 % Monocytes (%) (Auto) 12.1 % 12.3 % Eosinophils (%) (Auto) 2.7 % 2.8 % Basophils (%) (Auto) 0.4 % 0.6 % Neutrophils # (Auto) 5.1 TH/MM3 4.3 TH/MM3 Lymphocytes # (Auto) 1.6 TH/MM3 1.3 TH/MM3 Monocytes # (Auto) 1.0 TH/MM3 0.8 TH/MM3 Eosinophils # (Auto) 0.2 TH/MM3 0.2 TH/MM3 Basophils # (Auto) 0.0 TH/MM3 0.0 TH/MM3 CBC Comment DIFF FINAL DIFF FINAL Differential Comment Laboratory Tests Test 08/22/17 05:30 08/23/17 07:38 Blood Urea Nitrogen 23 MG/DL 18 MG/DL Creatinine 0.93 MG/DL 0.74 MG/DL Random Glucose 90 MG/DL 91 MG/DL Calcium Level 8.5 MG/DL 9.1 MG/DL Magnesium Level 1.7 MG/DL 1.9 MG/DL Sodium Level 139 MEQ/L 141 MEQ/L Potassium Level 3.4 MEQ/L 3.8 MEQ/L Chloride Level 101 MEQ/L 102 MEQ/L Carbon Dioxide Level 31.1 MEQ/L 31.6 MEQ/L Anion Gap 7 MEQ/L 7 MEQ/L Estimat Glomerular Filtration Rate 58 ML/MIN 76 ML/MIN Imaging Last Impressions Hip X-Ray 08/19/17 1910 Signed Impressions: CONCLUSION: Left hip arthroplasty Extremity Arterial Study 08/13/17 0000 Signed Impressions: CONCLUSION: 1. Moderate reduction of the left ZENY. Right ZENY is within the normal range. Physical Exam CONSTITUTIONAL/GENERAL: This is an adequately nourished patient, in no apparent distress. TUBES/LINES/DRAINS: SKIN: No jaundice, rashes, or lesions. Skin temperature appropriate. Not diaphoretic. CARDIOVASCULAR: Regular rate and rhythm without murmurs, gallops, or rubs. RESPIRATORY/CHEST: Symmetric, unlabored respirations. GASTROINTESTINAL: Abdomen soft, non-tender, nondistended. MUSCULOSKELETAL: Extremities without clubbing, cyanosis, or edema. LLE with large longitudinal calf wound with moderate amount of cloudy d/c NEUROLOGICAL: Awake and alert. Grossly non focal PSYCHIATRIC: No obvious anxiety/depression. no apparent hallucinations or other psychotic thought process. Assessment & Plan Remarks PVD LLE - Moderate reduction of the left ZENY. Right ZENY is within the normal range.L hip dislocation with hip prosthesis; failerd cliosed reduction - Chronic poorly healing LLE wound 2/2 PVD polimicrobial infection Of L hernandez - no interventions per vascular consult H/o tobaccoism and problem healing raises a question of underlying PAD Multiple abx allergies - likley preclude d/c on oral options REMY: improved after vancomycin was stopped ? vanco Pt is allergic to multiple abx ; H/o diarrhea on cipro/levaquine -will try on FQ dc dapto switch to doxycyline switch azactam tp levauin monitor renal fnx monitor for side effects; if tolerates OK the new abs will d/c on those for 10 days dw case mngr dw pt Consuelo Felix MD Aug 23, 2017 16:12
[2017-08-23] MEDS ORDERED: DOXY100C PO (16:17)
[2017-08-23] MEDS ORDERED: LEVA750T9 PO (16:17)
[2017-08-23] MEDS: LEVOFLOXACIN 750 MG TAB PO SCH (16:42)
[2017-08-23] MEDS: SENNOSIDES 8.6 MG TAB PO SCH (21:00)
[2017-08-23] MEDS: DOXYCYCLINE HYCLATE 100 MG CAP PO SCH (21:12)
[2017-08-23] MEDS: MORPHINE SULFATE 4 MG/ML INJ IV PUSH PRN (21:12)
[2017-08-23] MEDS: TEMAZEPAM 15 MG CAP PO PRN (23:14)
[2017-08-24] VITALS: BP 110/65; PULSE 109; RESP 16; TEMP 97.8; O2SAT 95
[2017-08-24 04:00] VITALS: BP 109/62; PULSE 98; RESP 16; TEMP 98.1; O2SAT 97
[2017-08-24 08:00] VITALS: BP 126/84; PULSE 84; RESP 18; TEMP 97.5; O2SAT 100
[2017-08-24] MEDS: DOXYCYCLINE HYCLATE 100 MG CAP PO SCH (08:11)
[2017-08-24] MEDS: APIXABAN 5 MG TABLET PO SCH (08:11)
[2017-08-24] MEDS: DILTIAZEM-CD 180 MG CAP ER PO SCH (08:11)
[2017-08-24] MEDS: FUROSEMIDE 20 MG TAB PO SCH (08:12)
[2017-08-24] MEDS: LEVOFLOXACIN 750 MG TAB PO SCH (08:12)
[2017-08-24] MEDS: FERROUS SULFATE 325 MG (65 MG ELEMENTAL IRON) TAB PO SCH (08:12)
[2017-08-24] MEDS: MAGNESIUM HYDROXIDE SUSP 30 ML CUP PO SCH (08:12)
[2017-08-24] MEDS: DOCUSATE SODIUM 50 MG/SENNA 8.6 MG TAB PO SCH (08:12)
[2017-08-24] MEDS: SPIRONOLACTONE 25 MG TAB PO SCH (08:12)
[2017-08-24] MEDS: CITALOPRAM HYDROBROMIDE 20 MG TAB PO SCH (08:12)
[2017-08-24] MEDS: POTASSIUM CHLORIDE 20 MEQ CONTROLLED RELEASE TAB PO SCH (08:12)
[2017-08-24] MEDS: MAGNESIUM OXIDE 400 MG TAB PO SCH (08:12)
[2017-08-24] MEDS: ACETAMINOPHEN/HYDROcodone 325 MG/10 MG TAB PO PRN ×2 (08:13→12:36)
[2017-08-24] MEDS: COLLAGENASE OINT 30 GM TUBE TOPICAL SCH (08:15)
--- NOTE | 2017-08-24 10:34 | HHI.PR ---
Subjective Remarks in no acute distress. pain is controlled. no fever. no new complaints. Objective Vitals Vital Signs Date Time Temp Pulse Resp B/P (MAP) Pulse Ox O2 Delivery O2 Flow Rate FiO2 08/24/17 08:00 97.5 84 18 126/84 (98) 100 08/24/17 04:00 98.1 98 16 109/62 (78) 97 08/24/17 00:00 97.8 109 16 110/65 (80) 95 08/23/17 20:00 97.7 104 16 107/59 (75) 97 08/23/17 20:00 108 08/23/17 17:58 97 Nasal Cannula 2.00 08/23/17 16:00 97.7 97 16 127/61 (83) 97 08/23/17 12:00 97.9 99 16 117/57 (77) 97 I/O 08/23/17 08/23/17 08/23/17 08/24/17 08/24/17 08/24/17 07:00 15:00 23:00 07:00 15:00 23:00 Intake Total 1100 ml 240 ml Output Total 700 ml 900 ml 850 ml Balance -700 ml 200 ml -610 ml Intake Oral 900 ml 240 ml IV Total 200 ml Output Urine Total 700 ml 900 ml 850 ml # Bowel Movements 1 0 0 Result Diagram: 08/23/17 0738 08/23/17 0738 Imaging Last Impressions Hip X-Ray 08/19/17 1910 Signed Impressions: CONCLUSION: Left hip arthroplasty Extremity Arterial Study 08/13/17 0000 Signed Impressions: CONCLUSION: 1. Moderate reduction of the left ZENY. Right ZENY is within the normal range. Objective Remarks GENERAL: This is a well-nourished, well-developed patient, in no apparent distress. CARDIOVASCULAR: Regular rate and regular rhythm without murmurs, gallops, or rubs. RESPIRATORY: Clear to auscultation. Breath sounds equal bilaterally. No wheezes , rales, or rhonchi. GASTROINTESTINAL: Abdomen soft, non-tender, nondistended. Normal, active bowel sounds MUSCULOSKELETAL: Extremities without clubbing, cyanosis, or edema. NEURO: Alert & Oriented x4 to person, place, time, situation. Moves all ext x4 Procedures S/P Debridement of skin subcu tissue and muscle of the left lower leg. Attempted closed reduction under anesthesia, left total hip, unsuccessful. Surgeon Dr Awad on 08/12/17. Date of Surgery: Aug 19, 2017 Preoperative Diagnosis: Malfunctioning left total hip replacement arthroplasty. Dislocated left total hip replacement arthroplasty. Probable broken acetabular component Postoperative Diagnosis: Malfunctioning left total hip replacement arthroplasty. Dislocated left total hip replacement arthroplasty. Worn/broken acetabular plastic liner Procedure: Revision left total hip replacement arthroplasty Medications and IVs Inpatient Medications Acetaminophen/ Hydrocodone Bitart (Moapa 5-325 Mg) 1 tab Q4H PRN PO PAIN SCALE 3 TO 5 Last administered on 08/14/17at 16:36; Start 08/11/17 at 17:15 Acetaminophen/ Hydrocodone Bitart ([place] 10-325 Mg) 1 tab Q4H PRN PO PAIN SCALE 6 TO 10 Last administered on 08/24/17at 08:13; Start 08/11/17 at 17:15 Al Hydrox/Mg Hydrox/Simethicone (Mag-Al Plus Susp Liq) 30 ml Q6H PRN PO INDIGESTION; Start 08/19/17 at 19:15; Stop 08/19/17 at 19:58; Status DC Alprazolam (Xanax) 0.25 mg BID PRN PO ANXIETY Last administered on 08/20/17at 10 :57; Start 08/15/17 at 22:15 Apixaban (Eliquis) 5 mg BID PO Last administered on 08/24/17at 08:11; Start at 21:00 Aspirin (Ecotrin Ec) 81 mg ONCE ONCE PO ; Start 08/12/17 at 12:00; Stop 08/12/17 at 12:01; Status DC Aztreonam 2000 mg/ Sodium Chloride 100 ml @ 200 mls/hr Q6H IV Last administered on 08/23/17at 12:28; Start 08/12/17 at 20:00; Stop 08/23/17 at 16:14 ; Status DC Chlorhexidine Gluconate (Chlorhexidine 2% Cloth) 3 pack [employer]ESSIONAL DEVELOPMENT INSTRUCTOR PRN TOPICAL SEE LABEL COMMENTS; Start 08/18/17 at 19:00; Stop 08/21/17 at 18:59; Status DC Citalopram Hydrobromide (CeleXA) 20 mg DAILY PO Last administered on 08/24/17at 08:12; Start 08/12/17 at 09:00 Collagenase (Santyl Oint) 1 applic DAILY TOPICAL ; Start 08/12/17 at 09:00 Daptomycin 500 mg/ Sodium Chloride 100 ml @ 200 mls/hr Q24H IV Last administered on 08/22/17at 13:07; Start 08/21/17 at 15:00; Stop 08/23/17 at 16:14 ; Status DC Digoxin (Lanoxin) 0.125 mg EVERY OTHER DAY PO Last administered on 08/23/17at 08:54; Start 08/13/17 at 09:00 Diltiazem HCl (Cardizem Cd) 180 mg BID PO Last administered on 08/24/17at 08:11 ; Start 08/11/17 at 21:00 Diphenhydramine HCl (Benadryl) 25 mg Q6H PRN PO ITCHING; Start 08/19/17 at 19: 15 Doxycycline Hyclate (Vibramycin) 100 mg BID PO Last administered on 08/24/17at 08:11; Start 08/23/17 at 21:00 Enoxaparin Sodium (Lovenox Inj) 30 mg Q24H SQ Last administered on 08/19/17at 00 :01; Start 08/12/17 at 23:00; Stop 08/20/17 at 07:31; Status DC Etomidate (Amidate Inj) 10 mg ONCE ONCE IV PUSH Last administered on 08/11/17at 15:26; Start 08/11/17 at 14:45; Stop 08/11/17 at 14:46; Status DC Ferrous Sulfate (Ferrous Sulfate) 325 mg DAILY PO Last administered on at 08:12; Start 08/22/17 at 15:00 Furosemide (Lasix Inj) 10 mg NOW ONCE IV PUSH Last administered on 08/20/17at 18:27; Start 08/20/17 at 18:00; Stop 08/20/17 at 18:01; Status DC Furosemide (Lasix) 40 mg DAILY PO Last administered on 08/24/17at 08:12; Start 08/12/17 at 09:00 Lactated Ringer's 1,000 ml @ 80 mls/hr [id number] IV Last administered on at 05:29; Start 08/19/17 at 20:00; Stop 08/22/17 at 09:02; Status DC Levofloxacin (Levaquin) 750 mg DAILY PO Last administered on 08/24/17at 08:12; Start 08/23/17 at 17:00 Magnesium Hydroxide (Milk Of Magninder Liq) 30 ml BID PO Last administered on at 08:12; Start 08/12/17 at 21:00 Magnesium Oxide (Mag-Ox) 400 mg Q12HR PO Last administered on 08/24/17at 08:12; Start 08/20/17 at 10:00 Magnesium Sulfate/ Dextrose 100 ml @ 100 mls/hr ONCE ONCE IV ; Start 08/19/17 at 14:00; Stop 08/19/17 at 14:59; Status DC Metoprolol Tartrate (Lopressor) 25 mg PROFESSIONAL DEVELOPMENT INSTRUCTOR PRN PO SEE LABEL COMMENTS; Start 08/18/17 at 19:00; Stop 08/21/17 at 18:59; Status DC Miscellaneous Information ([facility] Nursing Information) ALL NURSING DEPARTME... UNSCH PRN .XX SEE LABEL COMMENTS; Start 08/19/17 at 20:15; Stop 08/20/17 at 20: 14; Status DC Miscellaneous Information ([facility] Ordered Lab Info) SPECIFIC LAB TO BE SERGIO... ONCE ONCE .XX ; Start 08/19/17 at 17:45; Stop 08/19/17 at 17:46; Status DC Miscellaneous Information ([facility] Post-op Orders (for Pharmacy)) STAT ONCE XX ; Start 08/12/17 at 10:45; Stop 08/12/17 at 11:59; Status DC Morphine Sulfate (Morphine Inj) 5 mg Q2H PRN IM Breakthrough pain; Start at 19:15; Stop 08/19/17 at 19:59; Status DC Naloxone HCl (Narcan Inj) 0.4 mg UNSCH PRN IV PUSH SEE LABEL COMMENTS; Start at 17:15 Ondansetron HCl (Zofran Odt) 4 mg Q6H PRN PO NAUSEA OR VOMITING Last administered on 08/13/17at 21:17; Start 08/12/17 at 12:00 Pharmacy Profile Note 0 ml @ 0 mls/hr UNSCH OTHER ; Start 08/12/17 at 09:00; Stop 08/21/17 at 12:35; Status DC Potassium Chloride (KCl) 20 meq ONCE ONCE PO Last administered on 08/22/17at 09 :35; Start 08/22/17 at 09:00; Stop 08/22/17 at 09:03; Status DC Povidone Iodine (Betadine 5% Antisepsis Kit) 1 applic PROFESSIONAL DEVELOPMENT INSTRUCTOR PRN EACH NARE SEE LABEL COMMENTS; Start 08/18/17 at 19:00; Stop 08/21/17 at 18:59; Status DC Senna/Docusate Sodium (Emilie-Colace) 1 tab BID PO Last administered on at 08:12; Start 08/11/17 at 21:00 Sennosides (Senokot) 17.2 mg HS PO Last administered on 08/21/17at 20:06; Start 08/12/17 at 21:00 Sodium Chloride 250 ml @ 15 mls/hr ONCE ONCE IV Last administered on at 13:16; Start 08/21/17 at 09:15; Stop 08/22/17 at 01:54; Status DC Spironolactone (Aldactone) 25 mg DAILY PO Last administered on 08/24/17at 08:12 ; Start 08/12/17 at 09:00 Temazepam (Restoril) 15 mg HS PRN PO SLEEP Last administered on 08/23/17at 23:14 ; Start 08/12/17 at 10:45 Trimethoprim/ Sulfamethoxazole (Bactrim Ds 800-160 Mg) 1 tab Q12HR PO ; Start at 09:00; Stop 08/12/17 at 09:00; Status DC Vancomycin HCl (Vancomycin Inj) 500 mg ONCE ONCE IV ; Start 08/19/17 at 17:15; Stop 08/19/17 at 20:35; Status DC Vancomycin HCl 750 mg/Sodium Chloride 257.5 ml @ 250 mls/hr ONCE ONCE IV ; Start 08/21/17 at 12:00; Stop 08/21/17 at 12:35; Status DC Vancomycin HCl 1000 mg/Sodium Chloride 250 ml @ 250 mls/hr ONCE ONCE IV Last administered on 08/19/17at 22:10; Start 08/19/17 at 21:30; Stop 08/19/17 at 22:29 ; Status DC Vancomycin HCl 1500 mg/Sodium Chloride 515 ml @ 128.75 mls/ hr Q18H IV Last administered on 08/19/17at 00:01; Start 08/17/17 at 12:00; Stop 08/19/17 at 21:21 ; Status DC A/P Problem List: (1) Hip dislocation, left ICD Code: S73.005A - Unspecified dislocation of left hip, initial encounter Assessment and Plan A/P Dislocated left total hip Chronic wound left lower leg -patient has been seen evaluated by Ortho. Attempted closed reduction of left total hip failed. Surgical treatment for revision is delayed due to her chronic left wound. -Status post revision August 19, 2016. Postoperative care per orthopedic surgery -Vascular surgery: ZENY abnormal but perfusion adequate no intervention recommended -switched to Doxycycline and Levaquin- per ID. had a dose of oral antibiotics; no evidence of allergic reaction to Levaquin- Atrial fibrillation -Continue patient's home digoxin and Cardizem. Eliquis restarted CHF, systolic- chronic -Continue patient's home Lasix and spironolactone Anemia secondary to acute blood loss. Hb sl improved post PRBC . Likely dilutional no gross bleeding. Surgical site looks good. BP stable. Ct Fe Discharge Planning dc to rehab. see med list. f/u; pcp, ortho. d/w the patient and case management. Taylor Perez MD Aug 24, 2017 10:34
[2017-08-24 11:47] VITALS: O2SAT 97
== END 2017-08-24 15:04 | DRG 467 ==
LOC: NEPC 13:34 → NEDA 17:12 → N06B 17:49 → N07B 08-12 10:53
PROVIDERS: ADMIT Internal Medicine; ATTEND Internal Medicine
PROC: 0SSBXZZ Reposition Left Hip Joint, External Approach (ICD-10-PCS; 2017-08-11)
PROC: 0KBT0ZZ Excision of Left Lower Leg Muscle, Open Approach (ICD-10-PCS; 2017-08-12)
PROC: 0SSBXZZ Reposition Left Hip Joint, External Approach (ICD-10-PCS; 2017-08-12)
PROC: 0SUE09Z Supplement Left Hip Joint, Acetabular Surface with Liner, Open Approach (ICD-10-PCS; 2017-08-19)
PROC: 0SRS0JA Replacement of Left Hip Joint, Femoral Surface with Synthetic Substitute, Uncemented, Open Approach (ICD-10-PCS; 2017-08-19)
PROC: 0SPS0JZ Removal of Synthetic Substitute from Left Hip Joint, Femoral Surface, Open Approach (ICD-10-PCS; 2017-08-19)
PROC: 0SPB09Z Removal of Liner from Left Hip Joint, Open Approach (ICD-10-PCS; principal; 2017-08-19 16:01)
PROC: 30233N1 Transfusion of Nonautologous Red Blood Cells into Peripheral Vein, Percutaneous Approach (ICD-10-PCS; 2017-08-21)
DX: T84.021A Dislocation of internal left hip prosthesis, initial encounter (principal); D62 Acute posthemorrhagic anemia; N17.9 Acute kidney failure, unspecified; I50.22 Chronic systolic (congestive) heart failure; I48.2 Chronic atrial fibrillation; T84.061A Wear of articular bearing surface of internal prosthetic left hip joint, initial encounter; J44.9 Chronic obstructive pulmonary disease, unspecified; E83.42 Hypomagnesemia; M19.90 Unspecified osteoarthritis, unspecified site; Z96.641 Presence of right artificial hip joint; Y79.2 Prosthetic and other implants, materials and accessory orthopedic devices associated with adverse incidents; F41.9 Anxiety disorder, unspecified; F32.9 Major depressive disorder, single episode, unspecified; E78.00 Pure hypercholesterolemia, unspecified; K58.9 Irritable bowel syndrome, unspecified; Z96.653 Presence of artificial knee joint, bilateral; S81.802A Unspecified open wound, left lower leg, initial encounter; B95.62 Methicillin resistant Staphylococcus aureus infection as the cause of diseases classified elsewhere; I73.9 Peripheral vascular disease, unspecified; E87.6 Hypokalemia; Z87.891 Personal history of nicotine dependence; Z79.01 Long term (current) use of anticoagulants
CPT/HCPCS: 27265; 36430; 73501; 73502; 76000; 76937; 80048; 80053; 80202; 82565; 83735; 84443; 85025; 85610; 85652; 85730; 86140; 86403; 86850; 86900; 86901; 86920; 87015; 87070; 87077; 87102; 87116; 87147; 87176; 87186; 87205; 87206; 93005; 93922; 94150; 96374; 96375; 99152; 99153; C1776; J0131; J0690; J0878; J1100; J1170; J1580; J1644; J1650; J1940; J2250; J2270; J2370; J2405; J2710; J3010; J3370; J7040; J7050; J7120; L1830; P9016